=== PATIENT | female | born 1955 | race Caucasian/White ===

== ENCOUNTER 2023-10-13 09:45 | Outpatient (AMB) | payer MEDICARE, OTHER, SELFPAY ==
--- NOTE | 2023-10-13 10:38 | MHC.OFFWIV ---
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 Pt states she just got back from [place] on 10/07. Pt states her friend who she roomed with in [place] tested positive for covid yesterday. Allergies No Known Allergies Allergy (Verified 10/13/23 10:45) HPI HPI Comments History of Present Illness Details 68 y/o female patient who reports to walk in clinic with c/o nausea and body aches. Reports that symptoms started last night. She has just returned from [place] this past wednesday. Reports her Roomate in [place] tested positive for COVID today. Denies fevers or chills. Reports good appetite but endorses feeling Quizzy in her stomach. Review of Systems Const All systems reviewed & are unremarkable except as noted in HPI and below Physical Exam Vital Signs: Last Vital Signs Temp 97.5 F 10/13/23 10:44 Pulse 77 10/13/23 10:44 BP 138/84 10/13/23 10:44 Pulse Ox 98 10/13/23 10:44 Oxygen Delivery Method Room Air 10/13/23 10:44 BMI result Body Mass Index 33.6 Const General: comfortable and no acute distress Nutritional Appearance: obese Orientation/consciousness: patient oriented x3 HEENT Head: Yes normocephalic Ears: external ears normal and TM's normal bilaterally General nose exam: Normal nasal mucous membranes and turbinates present Face and sinus: Yes sinuses nontender Mouth: moist mucous membranes Resp Effort & Inspection: normal respiratory effort and able to speak in complete sentences Auscultation: clear to auscultation bilaterally, no crackles, no rales, no rhonchi and no wheezes Cardio Heart sounds: S1 normal heart sound present and S2 normal heart sound present Neuro General: patient oriented x3 Assessment & Plan Assessment & Plan (1) URI, acute: Code(s): J06.9 - Acute upper respiratory infection, unspecified Plan: Rest and hydrate well with warm fluids OTC cold remedies Acetaminophen for pain relief. Avoid greasy and oily foods. Orders: Orders SARS-CoV2/FLU/RSV Today J06.9 - Acute upper respiratory infection, unspecified Coding Level of Care Code New Pt Level 3 (41400) Diagnoses URI, acute J06.9 Time Spent (min) 15
[2023-10-13 10:44] VITALS: BP 138/84; PULSE 77; TEMP 36.4; O2SAT 98; BMI 33.6
== END 2023-10-13 11:15 | disposition home or self-care (01) ==
PROVIDERS: PCP Student in an Organized Health Care Education/Training Program; Visit Provider Nurse Practitioner Family
DX: J06.9 Acute upper respiratory infection, unspecified (principal)
CPT/HCPCS: 99203

== ENCOUNTER 2023-10-13 10:58 | Outpatient (REF) | payer MEDICARE, OTHER, SELFPAY ==
[2023-10-13 14:13] LABS: Influenza A PCR NEGATIVE (Negative); Influenza B PCR NEGATIVE (Negative); Resp Syncy Virus RNA Qual PCR NEGATIVE (Negative); SARS COV2 PCR INHOUSE POSITIVE (Negative)
== END 2023-10-13 10:59 | disposition home or self-care (01) ==
LOC: HO.LAB 10:58
PROVIDERS: Visit Provider Nurse Practitioner Family
DX: J06.9 Acute upper respiratory infection, unspecified (principal)
CPT/HCPCS: 0241U

== ENCOUNTER 2024-03-16 08:48 | Outpatient (REF) | payer MEDICARE, OTHER, SELFPAY ==
--- OUTSIDE RECORDS SUMMARY | 2024-03-17 09:04 | XMS_ITS | Continuity of Care Document ---
Author Organization [facility], Main Office Address [address] [place] [address] Care Team Providers Care Esthetician Name Role Phone PAT RAMOS Mexican Food Maker Hand ([phone]) [phone] NAYELY RHODES Linen Keeper [facility] Hematology/Oncolo gy LINDA BRITO Primary Care Provider Assessment Encounter Date Assessment Date Assessment LastModified by Organization Details LastModified Time 01/14/2024 01/14/2024 Discussed with patient the signs/symptom s warranted for a return to office visit and/or an ER visit. Patient understood and agreed with the plan. [email or web address] Not available 01/14/2024 09:07:19 Plan of Treatment Reminders Order Date Submit Date Provider Last Modified By Organization Details Last Modified Time Details Appointments None recorded. Lab None recorded. Referral orthopedic surgeon referral - left knee pain with ambulationh x of left knee fx in 2009 024 [email or web address] [facility] [place], [address], 16:49:01 Procedures None recorded. Surgeries None recorded. Imaging XR, knee - left knee pain with ambulation 2023 024 oz [facility], [address] , [place], [address], 07:14:38 Medication Orders None recorded. Patient TargetsNo targets recorded. Patient InstructionsNo instructions recorded. Reason for Referral Orthopedic Surgeon Referral for Knee joint painful on movement left knee pain with ambulationhx of left knee fx in 2009 Referring Physician: Saige Mcgee, Family Medicine, Encounter Date: 01/14/2024 Results Created Date Observation Date Name Description Value Unit Range Abnormal Flag Note LastModifiedBy Organization Detail LastModifiedTime 01/14/2001/14/2024 XR, knee No observ ation record ed. [email or web address] [facility] [address] [place], [address], 01/17/2024 11:38:15 01/14/2001/14/2024 XR, knee, 1 or 2 view Examin ation: Left knee perfor med on 2023 Histor y: Reason : PAIN IN UNSPEC IFIED KNEE. L FLASH PAIN WITH AMBULA TION Findin gs: Fronta l and latera l views of the left knee are submit stevo. There is minima l medial compar tment joint space narrow ing withou t signif icant produc tive change . No fractu res are seen. There is no joint effusi on. Impres mikel: Minima l osteoa rthrit ic change . WSN: [id number] Orderi ng Physic teto: Saige Mcgee Dictat ed By: Keara Lawrence MD Dictat ed Date/T kenny: 10:09 a Review ed By: Keara Lawrence MD Signed By: Keara Lawrence MD Signed Date/T kenny: 10:09 am Transc ribed By: VICTOR M Transc ribed Date/T kenny: 10:08 am Patien t Class: Outpat ient [email or web address] ([facility]) [address] [place], [address], 02/02/2024 10:15:24 Result Notes None recorded. Problems Name Problem SNOMED Code Status Onset Date Resolution Date Notes Provider Name and Address Organization Details Recorded Time Non-Hodg kin's lymphoma (clinica l) 185255819 Completed 201705/20/2020 dx in 2014 right cheeck and right groin and back of neck, tx with radiation Rosie franco null, [facility] 1 09:25:38 Obesity 096349343 Active Mena Rios CPPM null, [facility] 0 10:55:57 Family history of diabetes mellitus 349910820 Completed 09/09/2022 LINDA BRITO MD [address], [place], [address], [facility] 3 18:58:50 History of non-Hodg kins lymphoma 837097074 Active 2020 Rosie franco null, [facility] 1 09:25:32 Osteopor osis 23166192 Completed 202109/19/2023 LINDA BRITO MD [address] [address], [place], [address], [facility] 4 14:18:04 Osteopen ia 353101665 Active 2023 LINDA BRITO MD [address], [place], [address], [facility] 4 14:18:14 Hyperlip idemia 03110983 Active 2023 LINDA BRITO MD [address] [address], [place], [address], [facility] 4 14:19:50 Statin declined 211406664 Active 2023 LINDA BRITO MD [address] [facility] [address], [place], [address], [facility] 4 14:19:52 Senile osteopor osis 14425647 Active Ly Cloeman [place] null, [facility] 4 10:19:18 Problem Notes None recorded. Procedures Surgical History Date Name Laterality Status Provider Name and Address Organization Details Recorded Time 09/20/19 24 Advanced Care Planning completed LINDA BRITO MD [address] [address], [place], [address], [facility] 09/19/2023 14:15:24 06/11/19 24 Most Recent Mammogram completed Elif Ballard [facility] 06/11/2023 14:50:11 06/11/19 24 Mammogram both breasts completed Elif Ballard [facility] 06/11/2023 14:50:06 09/11/19 23 Advanced Care Planning completed Ly Coleman MA [facility] 2022 13:46:55 08/29/19 22 Advanced Care Planning completed Ly Coleman MA [facility] 08/28/2021 15:09:18 06/14/19 22 Mammogram one breast completed Adelita Miles [facility] 07/03/2021 13:11:24 05/21/19 21 Six-Item Cognitive Test completed Bernadette Braga MA [facility] 05/20/2020 09:01:49 05/19/19 20 Mini-Cog Test completed Ly Coleman MA [facility] 05/19/2019 13:28:37 11/03/19 18 Date of Last Pap Smear completed Ly Coleman MA [facility] 05/19/2019 13:35:30 07/15/19 18 Date of Last Colonoscopy completed Zayra Kumar [facility] 07/14/2017 15:13:59 07/15/19 18 Colonoscopy completed Zayra Kumar [facility] 07/14/2017 15:13:52 11/11/19 16 Most Recent Bone Density completed Zayra Kumar [facility] 06/09/2017 11:45:50 11/11/19 16 Dxa bone density mignon vrt fx completed Zayra Kumar [facility] 06/09/2017 11:45:44 05/07/18 92 Caesarean Section completed Ly Coleman MA [facility] 08/28/2021 15:08:40 Imaging Results None recorded. Procedure Notes None recorded. Medical Equipment None Reported. Allergies Allergen ID Allergen Name Allergen Category Reaction Reaction Severity Criticality Documentation Date Start Date Code Code System Note Provider Name and Address Organization Details Recorded Time [address] No known allergy (situatio n) Not available Not available Not available Not available 09/20/2023 61084 6003 SNOMED EL Hidalgo, [facility] 4 10:19:10 No known drug allergies Medications Name Sig Start Date Stop Date Status Note LastModified by Organization Details LastModified Time valacyclovi r 1 gram tablet TAKE 1 TABLET BY MOUTH THREE TIMES A DAY FOR 7 DAYS (DRINK WITH PLENTY OF WATER) 05/20 completed Not Available Not Available Not Available alendronate 70 mg tablet TAKE 1 TABLET (70 MG TOTAL) BY MOUTH EVERY 7 DAYS active Not Available Not Available No t Available prednisone 50 mg tablet Take 100 mg by oral route. 05/19 completed Not Available Not Available Not Available Condylox 0.5 % topical gel PLEASE SEE ATTACHED FOR DETAILED DIRECTION S 09/10 completed Not Available Not Available Not Available omeprazole 20 mg capsule,del ayed release Take 20 mg by oral route. 05/19 completed Not Available Not Available Not Available magnesium 250 mg tablet Take 1 tablet every day by oral route. active Not Available Not Available No t Available Calcium-500 500 mg (as calcium carbonate 1,250 mg) tablet Take 1 tablet every day by oral route. 01/13 completed Not Available Not Available Not Available Vitamin D3 25 mcg (1,000 unit) capsule Take 1 capsule every day by oral route. 09/19 completed Not Available Not Available Not Available calcium 500 mg (as carbonate)- vit D3 10 mcg (400 unit) chewable tablet Take 1 {tbl} twice a day by oral route. 09/19 completed Not Available Not Available Not Available Calcium 500 1200 po prn 05/20 completed Not Available Not Available Not Available cholecalcif manuela (vitamin D3) 25 mcg (1,000 unit) tablet 1000 units by oral route. active Not Available Not Available No t Available Calcium 600 + D(3) 600 mg-10 mcg (400 unit) tablet Take 2 tablets every day by oral route. active Not Available Not Available No t Available GaviLyte-G 236 gram-22.74 gram-6.74 gram-5.86 gram oral solution 11/15 completed Not Available Not Available Not Available Lumigan 0.01 % eye drops 1 dtop each eye at HS active Not Available Not Available No t Available Fish Oil 1,200 mg (144 mg-216 mg) capsule Take 1 capsule every day by oral route. active Not Available Not Available No t Available Vitals Date Recorded Body height Body mass index (BMI) Body weight Heart rate Oxygen saturation Oxygen saturation in Arterial blood by Pulse oximetry Body temperature Systolic blood pressure Diastolic blood pressure Provider Name and Address Organization Details Last Updated DateTime 4 163.83 cm 32.3 kg/m2 91598.2 4 g 69 /min 98 % 98 % 97.8 [degF] 123 mm[Hg] 76 mm[Hg] Janeen Ellis LPN [facility] 4 09:03:22 Social History Question Answer Notes LastModified by Organizat ion Details LastModified Time Tobacco Smoking Status Never Smoker EL Hidalgo, [facility] 05/13/2017 14:51:41 Do You Have An Advance Directive? No [email or web address] Information not available 08/28/2021 What Is Your Level Of Alcohol Consumption? Occasional [email or web address] Information not available 05/13/2017 Is Blood Transfusion Acceptable In An Emergency? Yes [email or web address] Information not available 05/13/2017 What Is Your Level Of Caffeine Consumption? Occasional Very Rare [email or web address] Information not available 2022 How Much Tobacco Do You Chew? None Information not available 05/20/2020 Are You Currently Employed? No [email or web address] Information not available 08/28/2021 What Type Of Diet Are You Following? REGULAR [email or web address] Information not available 05/13/2017 Which Illicit Or Recreational Drugs Have You Used? None Information not available 05/20/2020 Do You Or Have You Ever Used E-cigarettes Or Vape? 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 Alone With Dog Information not available 2022 Do You Take Precautions To Prevent Distracted Driving? Yes [email or web address] Information not available 05/13/2017 How Often Do You Need To Have Someone Help You When You Read Instructions, Pamphlets, Or Other Written Material From Your Doctor Or Pharmacy? Never Information not available 05/20/2020 Have You Served In The ? No [email or web address] Information not available 05/13/2017 Have You Or Anyone In Your Household Had Any Of The Following Symptoms In The Last 14 Days: Sore Throat, Cough, Chills, Body Aches For Unknown Reasons, Shortness Of Breath For Unknown Reasons, Loss Of Smell, Loss Of Taste, Fever At Or Greater Than 100 Degrees Fahrenheit? No Information not available 05/20/2020 Are You Or Anyone In Your Household A Health Care Provider Or Emergency Responder? No Information not available 05/20/2020 To The Best Of Your Knowledge Have You Been In Close Proximity To Any Individual Who Tested Positive For COVID-19? No Information not available 05/20/2020 *AWV ONLY* Are You Presently Prescribed Opioid Medication By PCP Or Specialist? If YES -Provider Assess The Benefit For Other, Non-opioid Pain Therapies Instead, Even If The Patient Does Not Have OUD But Is Possibly At Risk. No Information not available 05/20/2020 Have You Recently Traveled To A COVID-19 High Risk Area Or Gathering In The Last 10 Days? No Information not available 05/20/2020 What Was The Date Of Your Most Recent Tobacco Screening? 09/20/2023 [email or web address] Information not available 09/20/2023 How Many Children Do You Have? 1 [email or web address] Information not available 05/13/2017 Do You Use Your Seat Belt Or Car Seat Routinely? Yes Information not available 08/28/2021 Seat Belts Used Routinely Yes [email or web address] Information not available 08/28/2021 Are You Sexually Active? No Information not available 05/20/2020 Smoke Alarm In Home Yes Information not available 08/28/2021 Do You Have Smoke And Carbon Monoxide Detectors In Your Home? Yes [email or web address] Information not available 08/28/2021 At What Age Did You Start Smoking Tobacco? 0 Information not available 05/20/2020 Are You Passively Exposed To Smoke? No [email or web address] Information not available 05/13/2017 Do You Or Have You Ever Used Smokeless Tobacco? Never Used Smokeless Tobacco Information not available 05/20/2020 How Much Tobacco Do You Smoke? No Information not available 05/20/2020 Do You Use Sunscreen Routinely? Yes [email or web address] Information not available 05/13/2017 How Many Years Have You Smoked Tobacco? 0 Information not available 05/20/2020 Sex: Unknown Functional Status Question Answer Note LastModified by Organizat ion Details LastModified Time Are you able to walk? YESWOREST [email or web address] Information not available 08/28/2021 Are you able to care for yourself? Yes [email or web address] Information not available 05/13/2017 What is your exercise level? Moderate walks 10-35 minutes 5 days a week,exerise s that PT gives her Information not available 2022 Mental Status None recorded. Family History Relationship Description Onset Age of this Age Resolved Age Notes LastModified by Organization Details LastModified Time Father Malignant lymphoma 54 [email or web address] Not available 08/28 15:03:07 Mother Diabetes mellitus [email or web address] Not available 2020 08:54:56 Daughter Diabetes mellitus [email or web address] Not available 2020 08:54:56 Notes:No FH of breast or col on cancer Medical History Condition Response Other N Gout N Kidney Stones N Blood Diseases N Hyperthyroidism N Breast Cancer N COPD N Depression N Hypothyroidism N Lung Disease N Defects or Inherited Disease N Anesthesia Complications N Headaches/Migraines N Varicose Veins N Anxiety Disorder N Obesity N Vision or Eye Problems N Arthritis N Head Injury/Concussion N Infertility N Polyps N Congenital Anomalies N Acid Reflux (GERD) N Cancer Y Stroke N ADHD N Endometriosis N High Cholesterol N Liver Disease N Fibromyalgia N Kidney Disease N Heart Problems N Ear or Hearing Problems N Hospitalizations N Thyroid Problems N GI Problems N Acne N Skin Problems N Eating Disorder N Anemia N Constipation N Bladder Problems N Mental Illness N Ovarian Cancer N Diabetes N Blood Transfusions N Seizures/Epilepsy N Tuberculosis N AIDS/HIV N Congestive Heart Failure (CHF) N Eczema N Diverticulitis N Abuse/Domestic Violence N Asthma N Allergies N Reflux/GERD N Hepatitis N Pulmonary Embolism N Hypertension N Osteoporosis N Chicken Pox N Autism Spectrum Disorder (ASD) N Gynecological History Statement/Question Response Date of Last Pap Smear 11/02/2017 Date of Last Colonoscopy 07/14/2017 Most Recent Mammogram 06/11/2023 Most Recent Bone Density 11/11/2015 Obstetrics History GPAL:G 0 P 0 0 0 0 Immunizations Vaccine Type Date Status Note Provider Nam e and Address Organization Details Recorded Time Tdap 3 completed Not Available [facility] 04/22/2023 14:06:04 Influenza, split virus, quadrivalent, preservative 8 completed Not Available [facility] 04/22/2023 14:06:03 Influenza, split virus, trivalent, preservative 8 completed Not Available [facility] 04/22/2023 14:06:04 COVID-19, mRNA, LNP-S, PF, 30 mcg/0.3 mL dose 1 completed Not Available [facility] 04/22/2023 14:06:04 COVID-19, mRNA, LNP-S, PF, 30 mcg/0.3 mL dose 1 completed Not Available [facility] 04/22/2023 14:06:04 pneumococcal polysaccharide PPV23 2 completed Not Available [facility] 04/22/2023 14:06:04 Tdap 5 completed Not Available [facility] 04/22/2023 14:06:04 zoster recombinant 1 completed Not Available [facility] 04/22/2023 14:06:03 Pneumococcal conjugate PCV 13 1 completed Not Available [facility] 04/22/2023 14:06:04 COVID-19, mRNA, LNP-S, PF, 30 mcg/0.3 mL dose 1 completed Not Available [facility] 04/22/2023 14:06:04 Influenza, adjuvanted, quadrivalent, PF 1 completed Not Available [facility] 04/22/2023 14:06:03 Influenza, recombinant, quadrivalent, PF 0 completed Not Available [facility] 04/22/2023 14:06:03 COVID-19, mRNA, LNP-S, PF, 30 mcg/0.3 mL dose, maximino-sucrose 2 completed Not Available [facility] 04/22/2023 14:06:04 zoster recombinant 1 completed Not Available [facility] 04/22/2023 14:06:03 Influenza, adjuvanted, quadrivalent, PF 2 completed Not Available [facility] 04/22/2023 14:06:04 COVID-19, mRNA, LNP-S, bivalent, PF, 30 mcg/0.3 mL dose 2 completed Not Available [facility] 04/22/2023 14:06:04 Influenza, adjuvanted, quadrivalent, PF 3 completed EL Hidalgo [facility] 09/20/2023 10:25:21 Past Encounters Encounter ID Performer Location Encounter Start Date Encounter Closed Date Diagnosis/Indication Diagnosis SNOMED-CT Code Diagnosis ICD10 Code [id number] Maddi Tay Main Office [address] [facility] [place] [address] 01/14/2024 08:45:59 01/14/2024 09:21:43 Knee joint painful on movement 861705914 M25.562 Health Concerns Section Related Observation LastModified by Organization Detai ls LastModified Time None Recorded Concern Status LastModified by Organization Details LastModified Time None Recorded Payers Encounter Date Sequence Insurance Name Policy Number Policy Conte Covered Member ID Conte Member ID Guarantor Name 01/14/2024 2 [facility] MEDICARE ENHANCE (INDEMNITY PLAN) Zafar Durbin [id number] Zafar Durbin 01/14/2024 1 [place]: [employer] Zafar Durbin [id number] Zafar Durbin Notes Date Note Type Note Provider Name and Address Organization Details Recorded Time 01/14/2024 text/html Zafar is a 68yr o ld F who presents for bilateral knee pain, L>R. Hx of left knee fx in 2009->immobilized brace. Pt reports she had multple falls to the left knee over the years. Reports she has been attending PT for the past year to strengthen/tone her lower extremities and knees. Reports of feeling left knee pain and behind the knee stiffness after ambulating 20 min. Hx of avid hiker. Denies of any swelling, erythema, or known arthritis in joints. Denies of any pain/discomfort with flexion/extension of knees. Pt does wear a knee brace which provides some relief. Maddi goddard [facility] 01/25/2024 07:14:42 OBGyn Episode No OBEpisode recorded.
--- OUTSIDE RECORDS SUMMARY | 2024-03-17 09:04 | XMS_ITS | Data Portability ---
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 Patient consented to telephone visit Patient was located at at home Provider was located in the office. No other persons participated in the telemedicine visit except for the patient unless otherwise indicated here. {{}} Total time of visit was 30 minutes. [email or web address] Not available 05/20/2020 09:44:27 01/14/2024 01/14/2024 Discussed with patient the signs/symptoms warranted for a return to office visit and/or an ER visit. Patient understood and agreed with the plan. [email or web address] Not available 01/14/2024 09:07:19 Plan of Treatment Reminders Order Date Submit Date Provider Last Modified By Organization Details Last Modified Time Details Appointments None recorded. Lab cholesterol , total, serum 2020 021 [place] [facility], [address] [place], [address], 09:45:11 LDL, serum 2020 021 [place] [facility], [address] [place], [address], 1 09:45:11 LDL, serum 2021 022 [place] [facility], [address] [place], [address], 2 15:32:24 cholesterol , total, serum 2021 022 [place] [facility], [address] [place], [address], 2 15:32:25 BMP, serum or plasma 2021 022 [place] [facility], [address] [place], [address], 2 15:32:25 lipid panel, serum 2022 023 [email or web address] [facility], [address] [place] [address], [place], [address], 3 14:41:17 BMP, serum or plasma 2022 023 [place] [facility], [address] [place] [address], [place], [address], 3 11:43:36 TSH, serum or plasma 2022 023 [place] [facility], [address] [place] [address], [place], [address], 3 11:46:35 lipid panel, serum 2023 024 [place] [facility], [address], [place], [address], 4 06:07:54 BMP, serum or plasma 2023 024 [place] [facility], [address], [place], [address], 4 06:07:53 CBC w/ auto diff 2023 024 [place] [facility], [address], [place], [address], 4 06:07:52 TSH, ultra-sensi tive, serum 2023 024 [place] [facility], [address], [place], [address], 4 06:07:55 HbA1c (hemoglobin A1c), blood 2023 024 [place] [facility], [address], [place], [address], 4 06:07:55 Referral gynecologis t referral - Patient to schedule 2020 021 [email or web address] Not available 12:05:[address] referral - rash on abdomen 2021 022 thong [facility], [address], [address], [place], [address], 2 09:34:53 nutritionis t/dietitian referral 2021 022 [email or web address] Not available 2 16:01:20 orthopedic surgeon referral - left knee pain with ambulationh x of left knee fx in 2009 024 [email or web address] [facility], [address] [place] [address] [place], [address], 4 16:49:01 Procedures None recorded. Surgeries None recorded. Imaging bone density - hx of osteopenia evaluate 2020 021 [email or web address] Not available 1 12:05:51 XR, knee - left knee pain with ambulation 2023 024 oz [facility], [address], [place], [address], 07:14:38 Medication Orders None recorded. Patient TargetsNo targets recorded. Patient Instructions Encounter Date Encounter Id Patient Instructions Last Modified By Organization Details Last Modified Time 05/20/2020 [id number] preventing falls: care instructions [email or web address] Not available 05/20/2020 09:42:51 medicare preventive services guide (female 74yrs and under) [email or web address] Not available 05/20/2020 09:42:50 Cervical Cancer Screening [email or web address] Not available 05/20/2020 09:42:51 08/28/2021 [id number] advance care planning: care instructions [email or web address] Not available 08/28/2021 15:32:13 osteoporosis: care instructions [email or web address] Not available 08/28/2021 15:42:21 preventing falls: care instructions [email or web address] Not available 08/28/2021 15:32:13 medicare preventive services guide (female 74yrs and under) [email or web address] Not available 08/28/2021 15:32:13 skin lesions: care instructions [email or web address] Not available 08/28/2021 15:47:10 starting a weight loss plan: care instructions [email or web address] Not available 08/28/2021 15:32:12 Nutrition Referral and Weight Management Follow-up Information [email or web address] Not available 08/28/2021 15:32:12 2022 [id number] advance care planning: care instructions Not available 2022 14:26:39 well visit, over 65: care instructions Not available 2022 14:26:40 preventing falls: care instructions Not available 2022 14:26:40 09/20/2023 [id number] advance care planning: care instructions Not available 09/20/2023 10:41:21 osteoporosis: care instructions Not available 09/20/2023 10:41:21 well visit, over 65: care instructions Not available 09/20/2023 10:41:21 preventing falls: care instructions Not available 09/20/2023 10:41:20 prediabetes: care instructions Not available 09/20/2023 10:41:21 starting a weight loss plan: care instructions Not available 09/20/2023 10:49:58 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 Referral for Sc reening for malignant neoplasm of cervix Patient to schedule Referring Physician: Rosie Jacob [facility], Encounter Date: 05/20/2020 Tmd Teacher/dietitian Refer ral for Body mass index 30+ - obesity Referring Physician: Rosie Jacob [facility], Encounter Date: 08/28/2021 Esthetician And Manager [employer] Referral for S kin lesion rash on abdomen Referring Physician: Rosie Jacob [facility], Encounter Date: 08/28/2021 Orthopedic Surgeon Referral for Knee joint painful on movement left knee pain with ambulationhx of left knee fx in 2009 Referring Physician: Saige Mcgee [facility], Encounter Date: 01/14/2024 Results Created Date Observation Date Name Description Value Unit Range Abnormal Flag Note LastModifiedBy Organization Detail LastModifiedTime 09/30/19 23 09/29/2022 BASIC METAB OLIC PANEL glucose 112 mg/dL (70-99 ) high Not Available [facility] [address] [place], [address], 09/29/2022 11:43:36 09/30/19 23 09/29/2022 BASIC METAB OLIC PANEL BUN 20 mg/dL (8-23) Not Available [facility] [address] [place], [address], 09/29/2022 11:43:36 09/30/19 23 09/29/2022 BASIC METAB OLIC PANEL creatinine 0.9 mg/dL (0.5-1 .0) Not Available [facility] [address] [place], [address], 09/29/2022 11:43:36 09/30/19 23 09/29/2022 BASIC METAB OLIC PANEL sodium 140 mmol/ L (133-1 45) Not Available [facility] [address] [place], [address], 09/29/2022 11:43:36 09/30/19 23 09/29/2022 BASIC METAB OLIC PANEL potassium 4.5 mmol/ L (3.6-5 .2) Not Available [facility] [address] [place], [address], 09/29/2022 11:43:36 09/30/19 23 09/29/2022 BASIC METAB OLIC PANEL chloride 105 mmol/ L (98-10 7) Not Available [facility] [address] [place], [address], 09/29/2022 11:43:36 09/30/19 23 09/29/2022 BASIC METAB OLIC PANEL bicarbonate 25 mmol/ L (22-29 ) Not Available [facility] [address] [place], [address], 09/29/2022 11:43:36 09/30/19 23 09/29/2022 BASIC METAB OLIC PANEL anion gap 10 (4-17) Not Available [facility] [address] [place], [address], 09/29/2022 11:43:36 09/30/19 23 09/29/2022 BASIC METAB OLIC PANEL calcium 10.1 mg/dL (8.6-1 0.5) Not Available [facility] [address] [place], [address], 09/29/2022 11:43:36 09/30/19 23 09/29/2022 BASIC METAB OLIC PANEL estimated GFR creatinine 67 mL/mi n/1.7 3_M2 Creat inine based estim ated glome rular filtr ation (eGFR ) in adult s is calcu lated using the Natio nal Kidne y Found ation recom shea d 2020 CKD-E PI equat ion. Estim ates GFR from serum creat inine , age and sex. Not Available [facility] [address] [place], [address], 09/29/2022 11:43:36 09/30/19 23 09/29/2022 LIPID PANEL cholesterol, total 224 mg/dL (<200) high Not Available [facility] [address] [place], [address], 09/29/2022 11:43:38 09/30/19 23 09/29/2022 LIPID PANEL triglyceride 124 mg/dL (<150) Not Available [facility] [address] [place], [address], 09/29/2022 11:43:38 09/30/19 23 09/29/2022 LIPID PANEL HDL chol 53 mg/dL (>39) Not Available [facility] [address] [place], [address], 09/29/2022 11:43:38 09/30/19 23 09/29/2022 LIPID PANEL LDL cholesterol, calculated 146 mg/dL (0-130 ) high Not Available [facility] [address] [place], [address], 09/29/2022 11:43:38 09/30/19 23 09/29/2022 LIPID PANEL non HDL cholesterol (calc) 171 mg/dL (<160) high Not Available [facility] [address] [place], [address], 09/29/2022 11:43:38 09/30/19 23 09/29/2022 TSH WITH REFLE X TO FT4 TSH 3.41 uIU/m L (0.4-4 .2) Not Available [facility] [address] [place], [address], 09/29/2022 11:46:35 09/20/19 24 09/21/2023 CBC WITH DIFFE RENTI AL/PL ATELE T WBC 6.3 x10e3 /uL 3.4-10 .8 Not Available [facility] ([facility]) [address], [place], [address], 09/21/2023 06:07:52 09/20/19 24 09/21/2023 CBC WITH DIFFE RENTI AL/PL ATELE T RBC 4.49 x10e6 /uL 3.77-5 .28 Not Available [facility] ([facility]) [address], [place], [address], 09/21/2023 06:07:52 09/20/19 24 09/21/2023 CBC WITH DIFFE RENTI AL/PL ATELE T hemoglobin 13.5 g/dL 11.1-1 5.9 Not Available [facility] ([facility]) [address], [place], [address], 09/21/2023 06:07:52 09/20/19 24 09/21/2023 CBC WITH DIFFE RENTI AL/PL ATELE T hematocrit 42.4 % 34.0-4 6.6 Not Available [facility] ([facility]) [address], [place], [address], 09/21/2023 06:07:52 09/20/19 24 09/21/2023 CBC WITH DIFFE RENTI AL/PL ATELE T MCV 94 fL 79-97 Not Available [facility] ([facility]) [address] [place], [address], 09/21/2023 06:07:52 09/20/19 24 09/21/2023 CBC WITH DIFFE RENTI AL/PL ATELE T MCH 30.1 pg 26.6-3 3.0 Not Available [facility] ([facility]) [address] [place], [address], 09/21/2023 06:07:52 09/20/19 24 09/21/2023 CBC WITH DIFFE RENTI AL/PL ATELE T MCHC 31.8 g/dL 31.5-3 5.7 Not Available [facility] ([facility]) [address] [place], [address], 09/21/2023 06:07:52 09/20/19 24 09/21/2023 CBC WITH DIFFE RENTI AL/PL ATELE T RDW 13.2 % 11.7-1 5.4 Not Available [facility] ([facility]) [address], [place], [address], 09/21/2023 06:07:52 09/20/19 24 09/21/2023 CBC WITH DIFFE RENTI AL/PL ATELE T platelets 210 x10e3 /uL 150-45 0 Not Available [facility] ([facility]) [address], [place], [address], 09/21/2023 06:07:52 09/20/19 24 09/21/2023 CBC WITH DIFFE RENTI AL/PL ATELE T neutrophils 55 % not estab. Not Available [facility] ([facility]) [address], [place], [address], 09/21/2023 06:07:52 09/20/19 24 09/21/2023 CBC WITH DIFFE RENTI AL/PL ATELE T lymphs 31 % not estab. Not Available [facility] ([facility]) [address], [place], [address], 09/21/2023 06:07:52 09/20/19 24 09/21/2023 CBC WITH DIFFE RENTI AL/PL ATELE T monocytes 10 % not estab. Not Available [facility] ([facility]) [address], [place], [address], 09/21/2023 06:07:52 09/20/19 24 09/21/2023 CBC WITH DIFFE RENTI AL/PL ATELE T eos 3 % not estab. Not Available [facility] ([facility]) [address], [place], [address], 09/21/2023 06:07:52 09/20/19 24 09/21/2023 CBC WITH DIFFE RENTI AL/PL ATELE T basos 1 % not estab. Not Available [facility] ([facility]) [address], [place], [address], 09/21/2023 06:07:52 09/20/19 24 09/21/2023 CBC WITH DIFFE RENTI AL/PL ATELE T immature cells SKIVING MACHINE OPERATOR Not Available [facility] ([facility]) [address], [place], [address], 09/21/2023 06:07:52 09/20/19 24 09/21/2023 CBC WITH DIFFE RENTI AL/PL ATELE T neutrophils (absolute) 3.5 x10e3 /uL 1.4-7. 0 Not Available [facility] ([facility]) [address], [place], [address], 09/21/2023 06:07:52 09/20/19 24 09/21/2023 CBC WITH DIFFE RENTI AL/PL ATELE T lymphs (absolute) 2.0 x10e3 /uL 0.7-3. 1 Not Available [facility] ([facility]) [address], [place], [address], 09/21/2023 06:07:52 09/20/19 24 09/21/2023 CBC WITH DIFFE RENTI AL/PL ATELE T monocytes(ab solute) 0.6 x10e3 /uL 0.1-0. 9 Not Available [facility] ([facility]) [address], [place], [address], 09/21/2023 06:07:52 09/20/19 24 09/21/2023 CBC WITH DIFFE RENTI AL/PL ATELE T eos (absolute) 0.2 x10e3 /uL 0.0-0. 4 Not Available [facility] ([facility]) [address], [place], [address], 09/21/2023 06:07:52 09/20/19 24 09/21/2023 CBC WITH DIFFE RENTI AL/PL ATELE T baso (absolute) 0.1 x10e3 /uL 0.0-0. 2 Not Available [facility] ([facility]) [address], [place], [address], 09/21/2023 06:07:52 09/20/19 24 09/21/2023 CBC WITH DIFFE RENTI AL/PL ATELE T immature granulocytes 0 % not estab. Not Available [facility] ([facility]) [address], [place], [address], 09/21/2023 06:07:52 09/20/19 24 09/21/2023 CBC WITH DIFFE RENTI AL/PL ATELE T immature grans (abs) 0.0 x10e3 /uL 0.0-0. 1 Not Available [facility] ([facility]) [address], [place], [address], 09/21/2023 06:07:52 09/20/19 24 09/21/2023 CBC WITH DIFFE RENTI AL/PL ATELE T NRBC SKIVING MACHINE OPERATOR Not Available [facility] ([facility]) [address], [place], [address], 09/21/2023 06:07:52 09/20/19 24 09/21/2023 CBC WITH DIFFE RENTI AL/PL ATELE T hematology comments: SKIVING MACHINE OPERATOR Not Available [facility] ([facility]) [address], [place], [address], 09/21/2023 06:07:52 09/20/19 24 09/21/2023 BASIC METAB OLIC PANEL (8) glucose 105 mg/dL 70-99 above high normal Not Available [facility] ([facility]) [address], [place], [address], 09/21/2023 06:07:53 09/20/19 24 09/21/2023 BASIC METAB OLIC PANEL (8) BUN 17 mg/dL 8-27 Not Available [facility] ([facility]) [address] [place], [address], 09/21/2023 06:07:53 09/20/19 24 09/21/2023 BASIC METAB OLIC PANEL (8) creatinine 0.86 mg/dL 0.57-1 .00 Not Available [facility] ([facility]) [address] [place], [address], 09/21/2023 06:07:53 09/20/19 24 09/21/2023 BASIC METAB OLIC PANEL (8) eGFR 73 mL/mi n/1.7 3 >59 Not Available [facility] ([facility]) [address] [place], [address], 09/21/2023 06:07:53 09/20/19 24 09/21/2023 BASIC METAB OLIC PANEL (8) BUN/creatini ne ratio 20 12-28 Not Available [facility] ([facility]) [address], [place], [address], 09/21/2023 06:07:53 09/20/19 24 09/21/2023 BASIC METAB OLIC PANEL (8) sodium 143 mmol/ L 134-14 4 Not Available [facility] ([facility]) [address] [place] [place], [address], 09/21/2023 06:07:53 09/20/19 24 09/21/2023 BASIC METAB OLIC PANEL (8) potassium 4.5 mmol/ L 3.5-5. 2 Not Available [facility] ([facility]) [address] [place], [address], 09/21/2023 06:07:53 09/20/19 24 09/21/2023 BASIC METAB OLIC PANEL (8) chloride 105 mmol/ L 96-106 Not Available [facility] ([facility]) [address] [place], [address], 09/21/2023 06:07:53 09/20/19 24 09/21/2023 BASIC METAB OLIC PANEL (8) carbon dioxide, total 22 mmol/ L 20-29 Not Available [facility] ([facility]) [address] [place] [place], [address], 09/21/2023 06:07:53 09/20/19 24 09/21/2023 BASIC METAB OLIC PANEL (8) calcium 9.5 mg/dL 8.7-10 .3 Not Available [facility] ([facility]) [address] [place] [place], [address], 09/21/2023 06:07:53 09/20/19 24 09/21/2023 LIPID PANEL cholesterol, total 198 mg/dL 100-19 9 Not Available [facility] ([facility]) [address] [place] [place], [address], 09/21/2023 06:07:54 09/20/19 24 09/21/2023 LIPID PANEL triglyceride s 94 mg/dL 0-149 Not Available [facility] ([facility]) [address] [place] [place], [address], 09/21/2023 06:07:54 09/20/19 24 09/21/2023 LIPID PANEL HDL cholesterol 54 mg/dL >39 Not Available [facility]) [address] [place] [place], [address], 09/21/2023 06:07:54 09/20/19 24 09/21/2023 LIPID PANEL VLDL cholesterol donavon 17 mg/dL 5-40 Not Available [facility] ([facility]) [address] [place], [address], 09/21/2023 06:07:54 09/20/19 24 09/21/2023 LIPID PANEL LDL chol calc ([facility]) 127 mg/dL 0-99 above high normal Not Available [facility] ([facility]) [address] [place], [address], 09/21/2023 06:07:54 09/20/19 24 09/21/2023 LIPID PANEL LDL calc comment: SKIVING MACHINE OPERATOR Not Available [facility] ([facility]) [address], [place], [address], 09/21/2023 06:07:54 09/20/19 24 09/21/2023 HEMOG LOBIN A1C hemoglobin A1C 6.2 % 4.8-5. 6 above high normal Predi abete s: 5.7 - 6.4 Diabe tom: >6.4 Glyce maria elena contr ol for adult s with diabe tom: <7.0 Not Available [facility] ([facility]) [address], [place], [address], 09/21/2023 06:07:55 09/20/19 24 09/21/2023 TSH RFX ON ABNOR MAL TO FREE T4 TSH 2.730 uIU/m L 0.450- 4.500 Not Available [facility] ([facility]) [address], [place], [address], 09/21/2023 06:07:55 05/17/19 21 05/17/2020 MAMMO , scree susana, digit al, bilat eral PROCED URE: MM Digita l Mammo Screen ing INDICA TION: Screen ing for breast cancer . No known palpab le abnorm alitie s. Histor y of bilate ral axilla ry lymph node biopsi es 2018 reveal ing follic ular lympho ma. COMPAR PARVIZ: Multip le priors , most recent 04/26/19. TECHNI QUE: Full-f ield digita l CC and MLO 3D tomosy nthesi s images of both breast s were acquir ed. Comput er-aid ed detect ion (CAD) was utiliz ed in the interp retati on of this study. DENSIT Y: The breast tissue contai ns scatte red areas of fibrog landul ar densit y. FINDIN GS: No suspic ious masses , suspic ious microc alcifi cation s, or areas of caterina ectura l distor tion are seen in either breast to sugges t malign true. Signif icant decrea se in previo usly seen axilla ry lympha denopa thy. Saturn -shape d clip at the site of previo us ultras ound guided lymph node core biopsy IMPRES MIKEL: No mammog raphic eviden ce of malign true. RECOMM ENDATI ON: Annual mammog raphic screen ing BI-RAD S: 2 (Benig n) Lay letter mailed to alyciahakan melissa I have person ally review ed the images and I agree with this report . WSN: [id number] Orderi ng Physic teto: Augustine saeed MD, Rosie Mcbride Dictat ed By: Ata sommer MD, Warner Dictat ed Date/T kenny: 3:53 pm Review ed By: Carlos DYER, Sunshine Chi Signed By: Sunshine Gonzalez MD Signed Date/T kenny: 3:58 pm Transc ribed By: CSB Transc riptio n Date/T kenny: 3:05 pm Birads : Carrie torres Class: Outpat ient [email or web address] [facility] ([facility]) [address], [place], [address], 05/20/2020 10:19:52 08/31/19 21 08/29/2020 DEXA, axial skele ton ====== ====== ====== ====== ====== ====== ====== ====== ====== ====== ===== Bone Densit y Report ====== ====== ====== ====== ====== ====== ====== ====== ====== ====== ===== Name: ZAFAR BRADEN ID: [id number] Age: 64 Sex: Female Ethnic ity: White Date of : 06/22/ 1956 ------ ------ ------ ------ ------ ------ ------ ------ ------ ------ ----- Indica tion: CIRO VICTORIA Referr nickolas Campbell er: AUGUSTINE SAEED MD, LIS Study: Bone densit ometry was perfor med. Exam Date: August 29, 2020 Access ion number : [id number] Bone Densit y: ------ ------ ------ ------ ------ ------ ------ ------ ------ ------ ----- Region BMD T-scor e Z-scor e Classi ficati on ------ ------ ------ ------ ------ ------ ------ ------ ------ ------ ----- AP Spine (L1-L4 ) 0.751 -2.7 -0.8 Osteop orosis Femora l Neck (Left) 0.582 -2.4 -0.8 Osteop enia Total Hip (Left) 0.690 -2.1 -0.7 Osteop enia ------ ------ ------ ------ ------ ------ ------ ------ ------ ------ ----- World Health Organi zation criter ia for BMD impres mikel classi dinora betts ts as: Normal (T-sco re at or above -1.0), Osteop enia (T-sco re betwee n -1.0 and -2.5), or Osteop orosis (T-sco re at or below -2.5). 10-maria guadalupea geneva Fractu re Risk: ------ ------ ------ ------ ------ ------ ------ ------ ------ ------ ----- FRAX not report ed kael e: Some T-scor e for Spine Total or Hip Total or Femora l Neck at or below -2.5 ------ ------ ------ ------ ------ ------ ------ ------ ------ ------ ----- Clinic al Inform ation Provid ed by Carrie torres: ------ ------ ------ ------ ------ ------ ------ ------ ------ ------ ----- Has used the follow ing medica tions: Vitami n D, Calciu m, CHEMOT HERAPY Has the follow ing medica l condit ions: Cancer Carrie fu height was 64.0 Menopa use Age: 50 Onset of menses at age 11 Number of childr en 1 ------ ------ ------ ------ ------ ------ ------ ------ ------ ------ ----- Impres mikel: The carrie torres has osteop orosis as determ ined by WHO criter ia. Based on the result s of the carrie torres's bone densit y assess ment, the risk of future fractu re increa ses approx imatel y two fold for each 1.0 SD decrea se in T-scor e. Jimmy chi, low BMD is not the only risk factor for a future fragil ity fractu re. Other clinic al risk factor s for osteop orotic fractu re should be consid ered in ascert aining this carrie torres's future fractu re risk includ ing the patien t's age, previo us osteop orotic (fragi lity) fractu re, estrog en defici ency/h ypogon adism, risk of fallin g, use of medica tions implic ated in bone loss (gluco cortic oids), family histor y of osteop orotic fractu re, diseas es and condit ions associ ated with bone loss, low body weight , smokin g, high bone turnov er, etc. Combin ing low BMD and other clinic al risk factor s result in a more precis e assess ment of future fractu re risk. Second mainor causes for osteop orosis , such as osteom alacia , other metabo lic bone disord ers, and diseas es and condit ions that may contri bute to accele rated bone loss may have to be consid ered depend ing on the clinic al situat ion. A repeat bone densit y assess ment should be consid ered in two years. Report ed by: Violeta Andrews ra, M.D. on 2020 4:17:0 0 PM. Dictat ed By: Violeta Andrews ra, MD Dictat ed Date/T kenny: 4:18 pm Review ed By: Violeta Andrews ra, MD Signed By: Violeta Andrews ra, MD Signed Date/T kenny: 4:18 pm Transc ribed By: VICTOR M Transc ribed Date/T kenny: 4:18 pm Patien t Class: Outpat ient [email or web address] [facility] ([facility]) [address] [place], [address], 09/03/2020 15:38:08 06/05/19 22 06/04/2021 MAMMO , scree susana, digit al, bilat eral PROCED URE: MM Digita l Mammo Screen ing INDICA TION: Screen ing for breast cancer . No known palpab le abnorm alitie s. Histor y of bilate ral breast lympho ma in 2018. COMPAR PARVIZ: Multip le previo us studie s, most recent 021. TECHNI QUE: Full-f ield digita l CC and MLO 3D tomosy nthesi s images of both breast s were acquir ed. Comput er-aid ed detect ion (CAD) was utiliz ed in the interp retati on of this study. DENSIT Y: The breast tissue contai ns scatte red areas of fibrog landul ar densit y. FINDIN GS: A small oval circum scribe d benign -appea ring lymph node is presen t in the recruitment manager ior upper left latera l/ante rior axilla ry region . On the left MLO projec tion only there is a tiny oval circum scribe d lesion in the superi or breast projec ting medial ly on yi image. This may reside within the skin. This is best seen on image 61/79 of MLO yi slices . Recomm end patien t return for diagno stic right mammog marianna, with inspec tion of the skin and markin g any raised skin lesion s. If there is no skin lesion , ultras ound may be necess mainor. No suspic ious masses , suspic ious microc alcifi cation s, or areas of caterina ectura l distor tion are seen in the right breast to sugges t malign true. IMPRES MIKEL: Additi onal imagin g recomm ended. We will recall the patien t. RECOMM ENDATI ON: Left diagno stic mammog marianna with schedu led ultras ound BI-RAD S: 0 (Incom plete - Need Additi onal Imagin g Evalua tion. We will recall the patien t.) Lay letter mailed to carrie t I have person ally review ed the images and I agree with this report . WSN: [id number] Orderi ng Physic teto: Augustine saeed MD, Rosie Mcbride Dictat ed By: Oseas Olson MD Dictat ed Date/T kenny: 5:01 pm Review ed By: Tatianna Doty MD, I Signed By: Tatianna Doty MD, I Signed Date/T kenny: 5:06 pm Transc ribed By: VICTOR M Transc riptio n Date/T kenny: 4:06 pm Birads : Patien t Class: Outpat ient [email or web address] [facility] (Out[facility] Imaging) [address] [place] [address], [address], 07/03/2021 13:10:17 06/10/19 22 06/04/2021 MAMMO , deborae susana, digit al, bilat eral A D D E N D U M as of: [id number] Addend um: The findin g for callba ck is in the LEFT breast . WSN: [id number] Orderi ng Physic teto: Augustine saeed MD, Rosie E Dictat ed By: Tatianna Doty MD, I Dictat ed Date/T kenny: 11:32 am Review ed By: Tatianna Doty MD, I Signed By: Tatianna Doty MD, I Signed Date/T kenny: 11:32 am Transc ribed By: CSB Transc riptio n Date/T kenny: 11:31 am Birads : PROCED URE: MM Digita l Mammo Screen ing INDICA TION: Screen ing for breast cancer . No known palpab le abnorm alitie s. Histor y of bilate ral breast lympho ma in 2018. COMPAR PARVIZ: Multip le previo us studie s, most recent 021. TECHNI QUE: Full-f ield digita l CC and MLO 3D tomosy nthesi s images of both breast s were acquir ed. Comput er-aid ed detect ion (CAD) was utiliz ed in the interp retati on of this study. DENSIT Y: The breast tissue contai ns scatte red areas of fibrog landul ar densit y. FINDIN GS: A small oval circum scribe d benign -appea ring lymph node is presen t in the recruitment manager ior upper left latera l/ante rior axilla ry region . On the left MLO projec tion only there is a tiny oval circum scribe d lesion in the superi or breast projec ting medial ly on yi image. This may reside within the skin. This is best seen on image 61/79 of MLO yi slices . Recomm end patien t return for diagno stic right mammog marianna, with inspec tion of the skin and markin g any raised skin lesion s. If there is no skin lesion , ultras ound may be necess mainor. No suspic ious masses , suspic ious microc alcifi cation s, or areas of caterina ectura l distor tion are seen in the right breast to sugges t malign true. IMPRES MIKEL: Additi onal imagin g recomm ended. We will recall the patien t. RECOMM ENDATI ON: Left diagno stic mammog marianna with schedu led ultras ound BI-RAD S: 0 (Incom plete - Need Additi onal Imagin g Evalua tion. We will recall the patien t.) Lay letter mailed to carrie torres I have person ally review ed the images and I agree with this report . WSN: [id number] Orderi ng Physic teto: Augustine saeed MD, Rosie Mcbride Dictat ed By: Oseas Olson MD Dictat ed Date/T kenny: 5:01 pm Review ed By: Tatianna Doty MD, I Signed By: Tatianna Doty MD, I Signed Date/T kenny: 5:06 pm Transc ribed By: VICTOR M Transc riptio n Date/T kenny: 4:06 pm Birads : Carrie t Class: Outpat ient [email or web address] [facility] ([facility]) [address] [place] [address], [address], 07/03/2021 13:11:34 06/14/19 22 06/13/2021 mm digit al mammo unila t left PROCED URE: MM Digita l Mammo Unilat Left INDICA TION: Abnorm al screen ing. Questi onable skin nodule . COMPAR PARVIZ: 022. TECHNI QUE: Digita l diagno stic mammog marianna consis ting of spot compre ssion MLO view with skin marker depict ing nodula rity on the skin. FINDIN GS: Subcen timete r nodula r densit y is consis tent with a skin lesion . IMPRES MIKEL: No suspic ious findin gs. RECOMM ENDATI ON: Clinic al follow -up and manage ment BI-RAD S: 2 (Benig n) Lay letter mailed to carrie torres WSN: [id number] Orderi ng Physic teto: Augustine saeed MD, Rosie Mcbride Dictat ed By: Usha Randhawa MD Dictat ed Date/T kenny: 1:25 pm Review ed By: Usha Randhawa MD Signed By: Usha Randhawa MD Signed Date/T kenny: 1:25 pm Transc ribed By: CSB Transc riptio n Date/T kenny: 1:24 pm Birads : Carrie torres Class: Outpat ient [email or web address] [facility] ([facility]) [address] , [place], [address], 07/03/2021 13:11:35 06/09/19 23 06/08/2022 MAMMO , scree susana, digit al, bilat eral PROCED URE: MM Digita l Mammo Screen ing INDICA TION: Screen ing for breast cancer . No known palpab le abnorm alitie s. Histor y of bilate ral axilla ry lymph node biopsi es in 2018 reveal ing follic ular lympho ma. COMPAR PARVIZ: BBWC dating back to 021. TECHNI QUE: Full-f ield digita l CC and MLO 3D tomosy nthesi s images of both breast s were acquir ed. Comput er-aid ed detect ion (CAD) was utiliz ed in the interp retati on of this study. DENSIT Y: The breast tissue contai ns scatte red areas of fibrog landul ar densit y. FINDIN GS: No suspic ious masses , suspic ious microc alcifi cation s, or areas of caterina ectura l distor tion are seen in either breast to sugges t malign true. Left axilla again demons trates a Saturn clip within a normal -appea ring lymph node. IMPRES MIKEL: No mammog raphic eviden ce of malign true. RECOMM ENDATI ON: Annual mammog raphic screen ing BI-RAD S: 2 (Benig n) Lay letter mailed to alyciahakan torres WSN: [id number] Orderi ng Physic teto: Augustine saeed MD, Rosie E Dictat ed By: Tatianna Doty MD, I Dictat ed Date/T kenny: 4:41 pm Review ed By: Tatianna Doty MD, I Signed By: Tatianna Doty MD, I Signed Date/T kenny: 4:41 pm Transc ribed By: VICTOR M Transc riptio n Date/T kenny: 4:37 pm Birads : Patihakan t Class: Outpat ient [email or web address] [facility] ([facility]) [address], [place], [address], 06/09/2022 09:48:18 05/14/19 24 05/13/2023 bone densi ty No observ ation record ed. [facility] [address], [place], [address], 05/14/2023 17:50:25 06/11/19 24 06/10/2023 MAMMO , scree susana, digit al, bilat eral PROCED URE: MM Digita l Mammo Screen ing INDICA TION: Screen ing for breast cancer . No known palpab le abnorm alitie s. Person al histor y of follic ular lympho ma COMPAR PARVIZ: 023 and multip le priors TECHNI QUE: Full-f ield digita l CC and MLO 3D tomosy nthesi s images of both breast s were acquir ed. Comput er-aid ed detect ion (CAD) was utiliz ed in the interp retati on of this study. DENSIT Y: The breast tissue contai ns scatte red areas of fibrog landul ar densit y. FINDIN GS: Saturn clip in the left axilla within a normal -appea ring lymph node, unchan ged No suspic ious masses , suspic ious microc alcifi cation s, or areas of caterina ectura l distor tion are seen in either breast to sugges t malign true. IMPRES MIKEL: No mammog raphic eviden ce of malign true. RECOMM ENDATI ON: Annual mammog raphic screen ing BI-RAD S: 1 (Negat hang) Lay letter mailed to patihakan t I have person santosy review ed the images and I agree with this report . WSN: [id number] Orderveronika ng Physic teto: Mark Vazquez ie Dictat ed By: Brock Hanna MD Dictat ed Date/T kenny: 1:21 pm Review ed By: Srikanth mcbride MD, Usha Ryan Signed By: Srikanth mcbride MD, Usha Ryan Signed /T kenny: 1:26 pm Transc ribed By: CSB Transc riptio n Date/T kenny: 11:50 am Birads : Alyciahakan melissa Class: Outpat ient [email or web address] [facility] ([facility]) [address] [place], [address], 06/11/2023 14:50:16 06/11/19 24 06/10/2023 MAMMO , scree susana, digit al, bilat eral No observ ation record ed. [facility] [address], [place], [address], 06/11/2023 18:07:35 01/14/20 24 01/14/2024 XR, knee No observ ation record ed. [email or web address] [facility] [address] [place], [address], 01/17/2024 11:38:15 01/14/20 24 01/14/2024 XR, knee, 1 or 2 view Examin [...] l osteoa rthrit ic change . WSN: [id number] Orderi ng Physic teto: Saige Mcgee Y Dictat ed By: Keara Lawrence MD Dictat ed Date/T kenny: 10:09 a Review ed By: Keara Lawrence MD Signed By: Keara Lawrence MD Signed Date/T kenny: 10:09 am Transc ribed By: VITCOR M Transc ribed Date/T kenny: 10:08 am Patien t [email or web address] [address] [place], [address], 02/02/2024 10:15:24 Result Notes None recorded. Problems Name Problem SNOMED Code Status Onset Date Resolution Date Notes Provider Name and Address Organization Details Recorded Time Non-Hodg kin's lymphoma (clinica l) 603367125 Completed 201705/20/2020 dx in 2013 right cheeck and right groin and back of neck, tx with radiation Rosie franco [facility], [facility] 1 09:25:38 Obesity 260138061 Active Mena Rios CPPM [facility], [facility] 0 10:55:57 Family history of diabetes mellitus 008604725 Completed 09/09/2022 LINDA BRITO MD [address] [facility] [address], [place], [address], [facility] 3 18:58:50 History of non-Hodg kins lymphoma 938819823 Active 2020 Rosie franco [facility] 1 09:25:32 Osteopor osis 62772728 Completed 202109/19/2023 LINDA BRITO MD [address], [place], [address], [facility] 4 14:18:04 Osteopen ia 549302909 Active 2023 LINDA BRITO MD [address], [place], [address], [facility] 4 14:18:14 Hyperlip idemia 27246363 Active 2023 LINDA BRITO MD [address], [facility] [place], [address], [facility] 4 14:19:50 Statin declined 026824771 Active 2023 LINDA BRITO MD [address], [facility] [place], [address], [facility] 4 14:19:52 Senile osteopor osis 63167674 Active Ly Coleman [place] [facility] 4 10:19:18 Problem Notes None recorded. Procedures Surgical History Date Name Laterality Status Provider Name and Address Organization Details Recorded Time 09/20/19 24 Advanced Care Planning completed LINDA BRITO MD [address], [place], [address], [facility] 09/19/2023 14:15:24 06/11/19 24 Most Recent Mammogram completed Elif Ballard [facility] 06/11/2023 14:50:11 06/11/19 24 Mammogram both breasts completed Elif Ballard [facility] 06/11/2023 14:50:06 09/11/19 23 Advanced Care Planning completed Ly Coleman [place] [facility] 2022 13:46:55 08/29/19 22 Advanced Care Planning completed Ly Coleman [place] [facility] 08/28/2021 15:09:18 06/14/19 22 Mammogram one breast completed Adelita Miles [facility] 07/03/2021 13:11:24 05/21/19 21 Six-Item Cognitive Test completed Bernadette Braga MA [facility] 05/20/2020 09:01:49 05/19/19 20 Mini-Cog Test completed Ly Coleman MA [facility] 05/19/2019 13:28:37 11/03/19 18 Date of Last Pap Smear completed Ly Coleman MA [facility] 05/19/2019 13:35:30 07/15/19 18 Date of Last Colonoscopy completed Zayra Kumar [facility] 07/14/2017 15:13:59 07/15/19 18 Colonoscopy completed Zayrabalaji Kumar [facility] 07/14/2017 15:13:52 11/11/19 16 Most Recent Bone Density completed Zayra Kumar [facility] 06/09/2017 11:45:50 11/11/19 16 Dxa bone density mignon vrt fx completed Zayra Kumar [facility] 06/09/2017 11:45:44 05/07/18 92 Caesarean Section completed Ly Coleman MA [facility] 08/28/2021 15:08:40 Imaging Results Imaging Date Name Status LastModified by Organiz ation Details LastModified Time 05/17/2020 MAMMO, screening, digital, bilateral completed [email or web address] [facility] ([facility]) [address] [place], [address], 05/20/2020 10:19:52 08/29/2020 DEXA, axial skeleton completed [email or web address] [facility]) [address] [place], [address], 09/03/2020 15:38:08 06/04/2021 MAMMO, screening, digital, bilateral completed [email or web address] [facility] ([facility]) [address], [place], [address], 07/03/2021 13:10:17 06/04/2021 MAMMO, screening, digital, bilateral completed [email or web address] [facility]) [address] [place], [address], 07/03/2021 13:11:34 06/13/2021 mm digital mammo unilat left completed [email or web address] (Outpt Imaging) [address], [place], [address], 07/03/2021 13:11:35 06/08/2022 MAMMO, screening, digital, bilateral completed [email or web address] [facility]) [address] [place], [address], 06/09/2022 09:48:18 05/13/2023 bone density completed [facility] [address] [place], [address], 05/14/2023 17:50:25 06/10/2023 MAMMO, screening, digital, bilateral completed [email or web address] [facility] ([facility]) [address] [place] [address], [address], 06/11/2023 14:50:16 06/10/2023 MAMMO, screening, digital, bilateral completed [facility] [address] [place], [address], 06/11/2023 18:07:35 01/14/2024 XR, knee completed [email or web address] [facility] [address] [place], [address], 01/17/2024 11:38:15 01/14/2024 XR, knee, 1 or 2 view completed [email or web address] [facility] ([facility]) [address] [place] [address], [address], 02/02/2024 10:15:24 Procedure Notes None recorded. Medical Equipment None Reported. Allergies Allergen ID Allergen Name Allergen Category Reaction Reaction Severity Criticality Documentation Date Start Date Code Code System Note Provider Name and Address Organization Details Recorded Time 58484 No known allergy (situatio n) Not available Not available Not available Not available 09/20/2023 78797 6003 SNOMED EL Hidalgo [place] [facility] 10:19:10 No known drug allergies Medications Name [...] height Body mass index (BMI) Body weight Oxygen saturation Oxygen saturation in Arterial blood by Pulse oximetry Heart rate Body temperature Systolic blood pressure Diastolic blood pressure Provider Name and Address Organization Details Last Updated DateTime 2 163.83 cm 35.4 kg/m2 43449.9 1 g 97 % 97 % 65 /min 97.88 [degF] 123 mm[Hg] 74 mm[Hg] Ly Coleman MA [facility] 2 15:16:23 Date Recorded Body height Body mass index (BMI) Body weight Oxygen saturation Oxygen saturation in Arterial blood by Pulse oximetry Heart rate Body temperature Systolic blood pressure Diastolic blood pressure Provider Name and Address Organization Details Last Updated DateTime 3 163.83 cm 35.5 kg/m2 39453.8 g 98 % 98 % 79 /min 98 [degF] 122 mm[Hg] 83 mm[Hg] [facility] 3 13:56:14 Date Recorded Body height Body mass index (BMI) Body weight Oxygen saturation Oxygen saturation in Arterial blood by Pulse oximetry Heart rate Body temperature Systolic blood pressure Diastolic blood pressure Provider Name and Address Organization Details Last Updated DateTime 4 163.83 cm 34.1 kg/m2 32897.8 7 g 98 % 98 % 72 /min 98.2 [degF] 125 mm[Hg] 68 mm[Hg] Ly Coleman MA [facility] 4 10:24:54 Date Recorded Body height Body mass index (BMI) Body weight Heart rate Oxygen saturation Oxygen saturation in Arterial blood by Pulse oximetry Body temperature Systolic blood pressure Diastolic blood pressure Provider Name and Address Organization Details Last Updated DateTime 4 163.83 cm 32.3 kg/m2 52809.2 4 g 69 /min 98 % 98 % 97.8 [degF] 123 mm[Hg] 76 mm[Hg] Janeen Ellis LPN [facility] 4 09:03:22 Social History Question Answer Notes LastModified by Organizat ion Details LastModified Time Tobacco Smoking Status Never Smoker EL Hidalgo [facility] 05/13/2017 14:51:41 Do You Have An Advance Directive? No [email or web address] Information not available 08/28/2021 What Is Your Level Of Alcohol Consumption? Occasional [email or web address] Information not available 05/13/2017 Is Blood Transfusion Acceptable In An Emergency? Yes [email or web address] Information not available 05/13/2017 What Is Your Level Of Caffeine Consumption? Occasional Very Rare [email or web address] Information not available 2022 How Much Tobacco Do You Chew? None Information not available 05/20/2020 Are You Currently Employed? No Information not available 08/28/2021 What Type Of Diet Are You Following? REGULAR [email or web address] Information not available 05/13/2017 Which Illicit Or Recreational Drugs Have You Used? None Information not available 05/20/2020 Do You Or Have You Ever Used E-cigarettes Or Vape? 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 Alone With Dog [email or web address] Information not available 2022 Do You Take Precautions To Prevent Distracted Driving? Yes [email or web address] Information not available 05/13/2017 How Often Do You Need To Have Someone Help You When You Read Instructions, Pamphlets, Or Other Written Material From Your Doctor Or Pharmacy? Never Information not available 05/20/2020 Have You Served In The ? No [email or web address] Information not available 05/13/2017 Have You Or [...] 05/20/2020 Have You Recently Traveled To A [facility] High Risk Area Or Gathering In The Last 10 Days? No Information not available 05/20/2020 What Was The Date Of Your Most Recent Tobacco Screening? 09/20/2023 [email or web address] Information not available 09/20/2023 How Many Children Do You Have? 1 Information not available 05/13/2017 Do You Use Your Seat Belt Or Car Seat Routinely? Yes [email or web address] Information not available 08/28/2021 Seat Belts Used Routinely Yes [email or web address] Information not available 08/28/2021 Are You Sexually Active? No Information not available 05/20/2020 Smoke Alarm In Home Yes [email or web address] Information not available 08/28/2021 Do You Have Smoke And Carbon Monoxide Detectors In Your Home? Yes Information not available 08/28/2021 At What Age Did You Start Smoking Tobacco? 0 Information not available 05/20/2020 Are You Passively Exposed To Smoke? No [email or web address] Information not available 05/13/2017 Do You Or Have You Ever Used Smokeless Tobacco? Never Used Smokeless Tobacco Information not available 05/20/2020 How Much Tobacco Do You Smoke? No Information not available 05/20/2020 Do You Use Sunscreen Routinely? Yes [email or web address] Information not available 05/13/2017 How Many Years Have You Smoked Tobacco? 0 Information not available 05/20/2020 Sex: Unknown Functional Status Question Answer Note LastModified by Organizat ion Details LastModified Time Are you able to walk? YESWOREST [email or web address] Information not available 08/28/2021 Are you able to care for yourself? Yes [email or web address] Information not available 05/13/2017 What is your exercise level? Moderate walks 10-35 minutes 5 days a week,exerise s that PT gives her [email or web address] Information not available 2022 Mental Status None recorded. Family History Relationship Description Onset Age of this Age Resolved Age Notes LastModified by Organization Details LastModified Time Father Malignant lymphoma 54 [email or web address] Not available 08/28 15:03:07 Mother Diabetes mellitus [email or web address] Not available 2020 08:54:56 Daughter Diabetes mellitus abolcun Not available 2020 08:54:56 Notes:No FH of breast or col on cancer Medical History Condition Response Gout N Other N Kidney Stones N Blood Diseases N Hyperthyroidism N Breast Cancer N COPD N Depression N Lung Disease N Hypothyroidism N Defects or Inherited Disease N Anesthesia Complications N Headaches/Migraines N Anxiety Disorder N Varicose Veins N Obesity N Vision or Eye Problems N Arthritis N Head Injury/Concussion N Polyps N Infertility N Congenital Anomalies N Acid Reflux (GERD) N Cancer Y Stroke N ADHD N Endometriosis N High Cholesterol N Liver Disease N Fibromyalgia N Kidney Disease N Heart Problems N Ear or Hearing Problems N Hospitalizations N Thyroid Problems N GI Problems N Acne N Eating Disorder N Skin Problems N Anemia N Constipation N Bladder Problems N Mental Illness N Diabetes N Ovarian Cancer N Blood Transfusions N Seizures/Epilepsy N Tuberculosis N AIDS/HIV N Congestive Heart Failure (CHF) N Eczema N Abuse/Domestic Violence N Diverticulitis N Asthma N Allergies N Reflux/GERD N Hepatitis N Pulmonary Embolism N Hypertension N Chicken Pox N Autism Spectrum Disorder (ASD) N Osteoporosis N Gynecological History Statement/Question Response Date of Last Pap Smear 11/02/2017 Date of Last Colonoscopy 07/14/2017 Most Recent Mammogram 06/11/2023 Most Recent Bone Density 11/11/2015 Obstetrics History GPAL:G 0 P 0 0 0 0 Immunizations Vaccine Type Date Status Note Provider Nam e and Address Organization Details Recorded Time Tdap 3 completed Not Available [facility] 04/22/2023 14:06:04 Influenza, split virus, quadrivalent, preservative 8 completed Not Available [facility] 04/22/2023 14:06:03 Influenza, split virus, trivalent, preservative 8 completed Not Available [facility] 04/22/2023 14:06:04 COVID-19, mRNA, LNP-S, PF, 30 mcg/0.3 mL dose 1 completed Not Available [facility] 04/22/2023 14:06:04 COVID-19, mRNA, LNP-S, PF, 30 mcg/0.3 mL dose 1 completed Not Available [facility] 04/22/2023 14:06:04 pneumococcal polysaccharide PPV23 2 completed Not Available [facility] 04/22/2023 14:06:04 Tdap 5 completed Not Available [facility] 04/22/2023 14:06:04 zoster recombinant 1 completed Not Available [facility] 04/22/2023 14:06:03 Pneumococcal conjugate PCV 13 1 completed Not Available [facility] 04/22/2023 14:06:04 COVID-19, mRNA, LNP-S, PF, 30 mcg/0.3 mL dose 1 completed Not Available [facility] 04/22/2023 14:06:04 Influenza, adjuvanted, quadrivalent, PF 1 completed Not Available [facility] 04/22/2023 14:06:03 Influenza, recombinant, quadrivalent, PF 0 completed Not Available [facility] 04/22/2023 14:06:03 COVID-19, mRNA, LNP-S, PF, 30 mcg/0.3 mL dose, maximino-sucrose 2 completed Not Available [facility] 04/22/2023 14:06:04 zoster recombinant 1 completed Not Available [facility] 04/22/2023 14:06:03 Influenza, adjuvanted, quadrivalent, PF 2 completed Not Available [facility] 04/22/2023 14:06:04 COVID-19, mRNA, LNP-S, bivalent, PF, 30 mcg/0.3 mL dose 2 completed Not Available [facility] 04/22/2023 14:06:04 Influenza, adjuvanted, quadrivalent, PF 3 completed EL Hidalgo [place] [facility] 09/20/2023 10:25:21 Past Encounters Encounter ID Performer Location Encounter Start Date Encounter Closed Date Diagnosis/Indication Diagnosis SNOMED-CT Code Diagnosis ICD10 Code [id number] Rosie gonzalez Main Office [address] [facility] [place] [address] 05/13/2017 14:25:11 05/13/2017 15:30:08 Adult health examination 731262867 Z00.00 Non-Hodgki n's lymphoma (clinical) 733976374 C85.90 Body mass index 30+ - obesity 576112723 Z68.35 Z68.34 [id number] Rosie Nicholas [address] [place] [address] [place] [address] 11/15/2017 10:31:42 11/15/2017 11:35:24 Non-Hodgkin's lymphoma (clinical) [id number] C85.90 Axillary lymphadenopathy [id number] R59.0 [id number] Rosie dunawayenzo [address] [address] [place] [address] 05/16/2018 10:54:57 05/16/2018 11:43:42 Adult health examination [id number] Z00.00 Non-Hodgki n's lymphoma (clinical) 430018399 C85.90 Supraclavi cular lymphadenopathy 047400238 R59.0 [id number] Rosie ArmentaJudy [place] [address] [address] [place] [address] 05/19/2019 13:14:20 05/19/2019 14:14:08 Adult health examination [id number] Z00.00 Non-Hodgki n's lymphoma (clinical) [id number] C85.90 [id number] Rosie ArmentaJudy [address] [address] [place] [address] 05/20/2020 06:40:28 05/20/2020 12:05:51 Adult health examination 970198543 Z00.00 Menopause present 270035 006 Z78.0 Screening for malignant neoplasm of cervix 847321594 Z12.4 History of non-Hodgkins lymphoma 064967703 Z85.72 Hypercholesterolemia 136 69127 E78.00 [id number] Rosie ArmentaJudy carlos [address] [address] [place] [address] 08/28/2021 15:02:37 08/28/2021 15:49:59 Adult health examination [id number] Z00.00 Advance di rective discussed with patient 785714879 Z71.89 History of non-Hodgkins lymphoma 009929459 Z85.72 Body mass index 30+ - obesity 941033414 E66.9 Z68.35 Hypercholesterolemia 136 31190 E78.00 Fatigue 17348286 R53.83 Osteoporosis 95448599 M8 1.0 Skin lesion 84908020 L98 .9 [id number] LINDA BRITO MD [address] [address] [place] [address] 2022 13:43:28 2022 14:29:33 Adult health examination 786503528 Z00.00 History of non-Hodgkins lymphoma 240973478 Z85.72 Osteoporosis 91618976 M8 1.0 Fatigue 41533082 R53.83 Z00.00 Hyperlipidemia 26562215 E78.5 Z00.00 Advance di rective discussed with patient 948610186 Z71.89 [id number] LINDA BRITO MD Main Office [address] [address] [place] [address] 09/20/2023 10:16:47 09/20/2023 10:45:38 Advance directive discussed with patient 023647467 Z71.89 Adult heal th examination 502645069 Z00.00 History of non-Hodgkins lymphoma 914895709 Z85.72 Osteopenia 098251734 M85 .80 Fatigue 01129822 R53.83 Z00.00 Hyperlipidemia 23303189 E78.5 Z00.00 Statin declined 30660763 0 Z53.20 Impaired f asting glycemia 160567401 R73.01 Body mass index 30+ - obesity 272633453 E66.9 Z68.34 [id number] Maddi Tay Main [address] [address] [place] [address] 01/14/2024 08:45:59 01/14/2024 09:21:43 Knee joint painful on movement 052953322 M25.562 Health Concerns Section Related Observation LastModified by Organization Detai ls LastModified Time None Recorded Concern Status LastModified by Organization Details LastModified Time None Recorded Advance Directives Directive N: Payers Encounter Date Sequence Insurance Name Policy Number Policy Conte Covered Member ID Conte Member ID Guarantor Name 05/20/2020 2 [facility] - NAVIGATOR (PPO) [id number] Zafar Durbin [id number] Zafar Durbin 05/20/2020 1 [place] Zafar Durbin [id number] Zafar Ramakrishna 08/28/2021 2 [facility] - NAVIGATOR (PPO) [id number] Zafar Durbin [id number] Zafarramonita Lagosrae 08/28/2021 1 [place] [employer] Zafar Durbin [id number] Zafar Durbin 2022 2 [facility] - NAVIGATOR (PPO) [id number] Zafar Durbin [id number] Zafar Durbin 2022 1 [place]: [facility] GOVERNMENT SERVICES Zafar Durbin [id number] Zafar Durbin 09/20/2023 2 [facility] - MEDICARE ENHANCE (INDEMNITY PLAN) Zafar Durbin [id number] Zafar Durbin 09/20/2023 1 [place] [facility] Zafar Durbin [id number] Zafar Durbin 01/14/2024 2 [facility] - MEDICARE ENHANCE (INDEMNITY PLAN) Zafar Durbin [id number] Zafar Durbin 01/14/2024 1 [place] [facility] Zafar Durbin [id number] Zafar Durbin Notes Date Note Type Note Provider Name and Address Organization Details Recorded Time 05/20/2020 text/html Medicare Annual Wellness VisitReported bypatient.Diet and Nutrition:healthy diet Fracture Risk:history of fractures Physical Activity:exercises on a regular basis Depression Risk:no history of depression Concentration and Memory:no memory lapses or loss Speech/Motor difficulties:no speech difficulties Hearing:no loss of hearing Vision:no vision problems Activities of Daily Living:able to bathe with limited or no assistance; able to dress with limited or no assistance; able to get out of chair or bed with limited or no assistance; able to toilet with limited or no assistance; able to do everything Instrumental Activities of Daily Living:able to do house work with limited or no assistance; able to manage medications with limited or no assistance; able to manage money with limited or no assistance; able to prepare meals with limited or no assistance Home Safety:working smoke/CO detectors; no fire arms This is a Medicare AWV. Pt is doing really well, she feels great. She is done with chemotherapy for lymphoma. Pt is done with treatment, she had her prot removed. PT had shingles in the summer, still with occasional pain in that area and a bit of a scar. HAs not gotten the Covid shot yet, is trying to get an appt. Rosie goddard [facility] 05/20/2020 09:45:24 08/28/2021 text/html Medicare Annual Wellness VisitReported bypatient.Diet and Nutrition:healthy diet Fracture Risk:history of fractures Physical Activity:exercises on a regular basis Depression Risk:no history of depression Concentration and Memory:no memory lapses or loss Speech/Motor difficulties:no speech difficulties Hearing:no loss of hearing Vision:no vision problems Activities of Daily Living:able to bathe with limited or no assistance; able to dress with limited or no assistance; able to get out of chair or bed with limited or no assistance; able to toilet with limited or no assistance Instrumental Activities of Daily Living:able to do house work with limited or no assistance; able to manage medications with limited or no assistance; able to manage money with limited or no assistance; able to prepare meals with limited or no assistance Home Safety:working smoke/CO detectors; use of seatbelts; no fire arms PT is here for a Medicare Wellness visit. PT is trying to lose weight. 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 Non-Hodgkins lymphoma is in remission, just saw oncology. 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)and walking 5/7 20-30 mins daily Depression Risk:never feels sad, empty, or tearful; no loss of energy; no history of depression Orientation:no disorientation to time; no disorientation to date; no disorientation to place Concentration and Memory:no decreased concentrating ability; no memory lapses or loss; does not forget words Speech/Motor difficulties:no speech difficulties Hearing:no loss of hearing Vision:no vision problems Activities of Daily Living:able to bathe with limited or no assistance; able to dress with limited or no assistance; able to get out of chair or bed with limited or no assistance; able to toilet with limited or no assistance Instrumental Activities of Daily Living:able to do house work with limited or no assistance; able to manage medications with limited or no assistance; able to manage money with limited or no assistance; able to prepare meals with limited or no assistance Home Safety:working smoke/CO detectors; use of seatbelts; no fire arms Zafar Durbin is a 66 year old F who presented to the clinic for her Medicare visit. Visit Type: Annual How would you rate your health? Good Have you been discharged from the hospital recently? NoHave you been to the emergency room or urgent care recently? NoDo you have any significant previous hospital stays, injuries, or treatment? No Home Safety:Pt has stair to the cellar but a flat home.Is the tub or shower floor slippery and do you need support? No, pt has both a walk in shower and a tubDo you need some support when you get in and out of the tub or from the toilet? NoDo you have any small rugs or runners that slide or bunch up when you push them with your foot? NoAre there papers, books, towels, shoes, magazines, boxes, blankets, or other objects on the floor? No The patient does not have a history of falls. Oral Health: Every 6 monthsEye Health: Twice a yearMotor Vehicle: Yes, Do you wear a seatbelt when in a car? yes Screening Tools:Were there any ADL or IADL deficiencies not linked to physical limitations? NoDuring the past 12 months, have you experienced confusion or memory loss that is happening more often or is getting worse? 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), [employer]ish greg[employer] and aerobics class Depression Risk:never feels sad, empty, or tearful; no loss of interest in activities; no significant changes in weight; no sleep disturbances or insomnia; no agitation; no loss of energy; no feelings of worthlessness or guilt; no thoughts of suicide Orientation:no disorientation to time; no disorientation to date; no disorientation to place Concentration and Memory:no decreased concentrating ability; no memory lapses or loss; does not forget words Speech/Motor difficulties:no speech difficulties; no difficulty expressing formulated concepts; no difficulty with fine manipulative tasks; no difficulty writing/copying; no slowed reaction time; does not knock things over when trying to pick them up Hearing:no loss of hearing Vision:no vision problems Activities of Daily Living:able to bathe with limited or no assistance; able to contol urination and bowels; able to dress with limited or no assistance; able to feed self with limited or no assistance; able to get out of chair or bed with limited or no assistance; able to groom with limited or no assistance; able to toilet with limited or no assistance Instrumental Activities of Daily Living:able to do house work with limited or no assistance; able to grocery shop with limited or no assistance; able to manage medications with limited or no assistance; able to manage money with limited or no assistance; able to prepare meals with limited or no assistance Home Safety:working smoke/CO detectors; use of seatbelts; no fire arms;does not have hand bars in the bathroom/shower Zafar Durbin is a 68 year old F who presented to the clinic for her Medicare visit. Visit Type: Annual How would you rate your health? Good Have you been discharged from the hospital recently? NoHave you been to the emergency room or urgent care recently? NoDo you have any significant previous hospital stays, injuries, or treatment? No Home Safety:Pt has stair to the cellar but a flat home.Is the tub or shower floor slippery and do you need support? No, pt has both a walk in shower and a tubDo you need some support when you get in and out of the tub or from the toilet? NoDo you have any small rugs or runners that slide or bunch up when you push them with your foot? NoAre there papers, books, towels, shoes, magazines, boxes, blankets, or other objects on the floor? No The patient does not have a history of falls. Oral Health: Every 6 monthsEye Health: Twice a yearMotor Vehicle: Yes, Do you wear a seatbelt when in a car? yes Screening Tools:Were there any ADL or IADL deficiencies not linked to physical limitations? NoDuring the past 12 months, have you experienced confusion or memory loss that is happening more often or is getting worse? No Advanced care directive: None on file LINDA BRITO MD [address], [address], [facility] 09/20/2023 10:50:40 01/14/2024 text/html Zafar is a 68yr o [...] knee brace which provides some relief. Maddi goddard, [facility] 01/25/2024 07:14:42 OBGyn Episode No OBEpisode recorded.
== END 2024-03-16 08:49 | disposition home or self-care (01) ==
LOC: HO.HOSX 08:48
PROVIDERS: Visit Provider Orthopaedic Surgery
DX: Z13.89 Encounter for screening for other disorder (principal)

== ENCOUNTER 2024-03-29 08:32 | Outpatient (REF) | payer MEDICARE, OTHER, SELFPAY ==
--- NOTE | ~2024-03-29 | XR_ITS ---
EXAMINATION: XR KNEE 3 VIEWS LEFT HISTORY: M25.562 - Pain in left knee COMPARISON: There are no prior studies available for comparison. FINDINGS: Three views of the left knee are submitted. Osseous mineralization is normal. There is no fracture or dislocation. There is slight narrowing of the medial compartment. The soft tissues are unremarkable. XR/XR knee LT 3V IMPRESSION: Slight narrowing of the medial compartment. Electronically signed by: Tyson Bob MD 04/03/2024 07:28 AM SHILA
== END 2024-03-29 08:33 | disposition home or self-care (01) ==
LOC: HO.HOSX 08:32
PROVIDERS: Visit Provider Orthopaedic Surgery
DX: M25.562 Pain in left knee (principal)
CPT/HCPCS: 73562; 99202

== ENCOUNTER 2024-03-29 09:22 | Outpatient (AMB) | payer MEDICARE, OTHER, SELFPAY ==
--- OUTSIDE RECORDS SUMMARY | 2024-03-29 09:25 | XMS_ITS | Data Portability ---
Author Organization [facility], Main Office Address [address] [place] [address] Care Team Providers Care Custodial Engineer Name Role Phone PAT RAMOS Clinical Assistant [phone] NAYELY RHODES Grocery Cashier [facility] Hematology/Oncolo gy [...] Lab cholesterol , total, serum 2020 021 [place] [facility], [address] [place], [address], 09:45:11 LDL, serum 2020 021 CAMILO [facility], [address] [place], [address], 1 09:45:11 LDL, serum 2021 022 CAMILO [facility], [address] [place], [address], 2 15:32:24 cholesterol , total, serum 2021 022 CAMILO [facility], [address] [place], [address], 2 15:32:25 BMP, serum or plasma 2021 022 CAMILO [facility], [address] [place], [address], 2 15:32:25 lipid panel, serum 2022 023 [email or web address] [facility], [address] [place] [address], [place], [address], 3 14:41:17 BMP, serum or plasma 2022 023 CAMILO [facility], [address] [place] [address], [place], [address], 3 11:43:36 TSH, serum or plasma 2022 023 CAMILO [facility], [address] [place] [address], [place], [address], 3 11:46:35 lipid panel, serum 2023 024 CAMILO [facility], [address], [place], [address], 4 06:07:54 BMP, serum or plasma 2023 024 CAMILO [facility], [address], [place], [address], 4 06:07:53 CBC w/ auto diff 2023 024 CAMILO [facility], [address], [place], [address], 4 06:07:52 TSH, ultra-sensi tive, serum 2023 024 CAMILO [facility], [address], [place], [address], 4 06:07:55 HbA1c (hemoglobin A1c), blood 2023 024 CAMILO [facility], [address], [place], [address], 4 06:07:55 Referral gynecologis t referral - Patient to schedule 2020 021 [email or web address] Not available 12:05:[address] referral - rash on abdomen 2021 022 thong [facility], [address], [place], [address], 2 09:34:53 nutritionis t/dietitian referral 2021 022 [email or web address] Not available 2 16:01:20 orthopedic surgeon referral - left knee pain with ambulationh x of left knee fx in 2009 024 [email or web address] [facility], [address] [place] [address] [place], [address], 4 16:49:01 Procedures None recorded. Surgeries None recorded. Imaging bone density - hx of osteopenia evaluate 2020 021 [email or web address] Not available 1 12:05:51 XR, knee - left knee pain with ambulation 2023 024 oz [facility], [address], [place], [address], 07:14:38 Medication Orders None recorded. Patient TargetsNo targets recorded. Patient Instructions Encounter Date Encounter Id Patient Instructions Last Modified By Organization Details Last Modified Time 05/20/2020 [id number] preventing falls: care instructions [email or web address] Not available 05/20/2020 09:42:51 medicare preventive services guide (female 74yrs and under) [email or web address] Not available 05/20/2020 09:42:50 Cervical Cancer Screening [email or web address] Not available 05/20/2020 09:42:51 08/28/2021 [id number] advance care planning: care instructions [email or web address] Not [...] Information [email or web address] Not available 08/28/2021 15:32:12 2022 [id number] advance care planning: care instructions Not available 2022 14:26:39 well visit, over 65: care instructions Not available 2022 14:26:40 preventing falls: care instructions Not available 2022 14:26:40 09/20/2023 [id number] advance care planning: care instructions Not available 09/20/2023 10:41:21 osteoporosis: care instructions Not available 09/20/2023 10:41:21 well visit, over 65: care instructions Not available 09/20/2023 10:41:21 preventing falls: care instructions Not available 09/20/2023 10:41:20 prediabetes: care instructions Not available 09/20/2023 10:41:21 starting a weight loss plan: care instructions Not available 09/20/2023 10:49:58 Reason for Referral Grocery Cashier Referral for Sc reening for malignant neoplasm of cervix Patient to schedule Referring Physician: Rosie Jacob [facility], Encounter Date: 05/20/2020 Construction Accountant/dietitian Refer ral for Body mass index 30+ - obesity Referring Physician: Rosie Jacob [facility], Encounter Date: 08/28/2021 Creative Developer Referral for S kin lesion rash on abdomen Referring Physician: Rosie Jacob [facility], Encounter Date: 08/28/2021 Orthopedic Surgeon Referral for Knee joint painful on movement left knee pain with ambulationhx of left knee fx in 2009 Referring Physician: Saige Mcgee [facility], Encounter Date: 01/14/2024 Results Created Date Observation Date Name Description Value Unit Range Abnormal Flag Note LastModifiedBy Organization Detail LastModifiedTime 09/30/19 23 09/29/2022 BASIC METAB OLIC PANEL glucose 112 mg/dL (70-99 ) high Not Available [facility] [address] [place], [address], 09/29/2022 11:43:36 09/30/19 23 09/29/2022 BASIC METAB OLIC PANEL BUN 20 mg/dL (8-23) Not Available [facility] [address] [place], [address], 09/29/2022 11:43:36 09/30/19 23 09/29/2022 BASIC METAB OLIC PANEL creatinine 0.9 mg/dL (0.5-1 .0) Not Available [facility] [address] [place], [address], 09/29/2022 11:43:36 09/30/19 23 09/29/2022 BASIC METAB OLIC PANEL sodium 140 mmol/ L (133-1 45) Not Available [facility] [address] [place], [address], 09/29/2022 11:43:36 09/30/19 23 09/29/2022 BASIC METAB OLIC PANEL potassium 4.5 mmol/ L (3.6-5 .2) Not Available [facility] [address] [place], [address], 09/29/2022 11:43:36 09/30/19 23 09/29/2022 BASIC METAB OLIC PANEL chloride 105 mmol/ L (98-10 7) Not Available [facility] [address] [place], [address], 09/29/2022 11:43:36 09/30/19 23 09/29/2022 BASIC METAB OLIC PANEL bicarbonate 25 mmol/ L (22-29 ) Not Available [facility] [address] [place], [address], 09/29/2022 11:43:36 09/30/19 23 09/29/2022 BASIC METAB OLIC PANEL anion gap 10 (4-17) Not Available [facility] [address] [place], [address], 09/29/2022 11:43:36 09/30/19 23 09/29/2022 BASIC METAB OLIC PANEL calcium 10.1 mg/dL (8.6-1 0.5) Not Available [facility] [address] [place], [address], 09/29/2022 11:43:36 09/30/19 23 09/29/2022 BASIC METAB [...] Not Available [facility] [address], [address], 09/29/2022 11:43:36 09/30/19 23 09/29/2022 LIPID PANEL cholesterol, total 224 mg/dL (<200) high Not Available [facility] [address] [place], [address], 09/29/2022 11:43:38 09/30/19 23 09/29/2022 LIPID PANEL triglyceride 124 mg/dL (<150) Not Available [facility] [address] [place], [address], 09/29/2022 11:43:38 09/30/19 23 09/29/2022 LIPID PANEL HDL chol 53 mg/dL (>39) Not Available [facility] [address] [place], [address], 09/29/2022 11:43:38 09/30/19 23 09/29/2022 LIPID PANEL LDL cholesterol, calculated 146 mg/dL (0-130 ) high Not Available [facility] [address] [place], [address], 09/29/2022 11:43:38 09/30/19 23 09/29/2022 LIPID PANEL non HDL cholesterol (calc) 171 mg/dL (<160) high Not Available [facility] [address] [place], [address], 09/29/2022 11:43:38 09/30/19 23 09/29/2022 TSH WITH REFLE X TO FT4 TSH 3.41 uIU/m L (0.4-4 .2) Not Available [facility] [address] [place], [address], 09/29/2022 11:46:35 09/20/19 24 09/21/2023 CBC WITH DIFFE RENTI AL/PL ATELE T WBC 6.3 x10e3 /uL 3.4-10 .8 Not Available [facility] ([facility]) [address] [facility], [place], [address], 09/21/2023 06:07:52 09/20/19 24 09/21/2023 CBC WITH DIFFE RENTI AL/PL ATELE T RBC 4.49 x10e6 /uL 3.77-5 .28 Not Available [facility] ([facility]) [address] [facility], [place], [address], 09/21/2023 06:07:52 09/20/19 24 09/21/2023 CBC WITH DIFFE RENTI AL/PL ATELE T hemoglobin 13.5 g/dL 11.1-1 5.9 Not Available [facility] ([facility]) [address] [facility], [place], [address], 09/21/2023 06:07:52 09/20/19 24 09/21/2023 CBC WITH DIFFE RENTI AL/PL ATELE T hematocrit 42.4 % 34.0-4 6.6 Not Available [facility] ([facility]) [address] [facility], [place], [address], 09/21/2023 06:07:52 09/20/19 24 09/21/2023 CBC WITH DIFFE RENTI AL/PL ATELE T MCV 94 fL 79-97 Not Available [facility] ([facility]) [address] [place], [address], 09/21/2023 06:07:52 09/20/19 24 09/21/2023 CBC WITH DIFFE RENTI AL/PL ATELE T MCH 30.1 pg 26.6-3 3.0 Not Available [facility] ([facility]) [address] [place], [address], 09/21/2023 06:07:52 09/20/19 24 09/21/2023 CBC WITH DIFFE RENTI AL/PL ATELE T MCHC 31.8 g/dL 31.5-3 5.7 Not Available [facility] ([facility]) [address] [place], [address], 09/21/2023 06:07:52 09/20/19 24 09/21/2023 CBC WITH DIFFE RENTI AL/PL ATELE T RDW 13.2 % 11.7-1 5.4 Not Available [facility] ([facility]) [address] [facility], [place], [address], 09/21/2023 06:07:52 09/20/19 24 09/21/2023 CBC WITH DIFFE RENTI AL/PL ATELE T platelets 210 x10e3 /uL 150-45 0 Not Available [facility] ([facility]) [address] [facility], [place], [address], 09/21/2023 06:07:52 09/20/19 24 09/21/2023 CBC WITH DIFFE RENTI AL/PL ATELE T neutrophils 55 % not estab. Not Available [facility] ([facility]) [address] [facility], [place], [address], 09/21/2023 06:07:52 09/20/19 24 09/21/2023 CBC WITH DIFFE RENTI AL/PL ATELE T lymphs 31 % not estab. Not Available [facility] ([facility]) [address] [facility], [place], [address], 09/21/2023 06:07:52 09/20/19 24 09/21/2023 CBC WITH DIFFE RENTI AL/PL ATELE T monocytes 10 % not estab. Not Available [facility] ([facility]) [address] [facility], [place], [address], 09/21/2023 06:07:52 09/20/19 24 09/21/2023 CBC WITH DIFFE RENTI AL/PL ATELE T eos 3 % not estab. Not Available [facility] ([facility]) [address] [facility], [place], [address], 09/21/2023 06:07:52 09/20/19 24 09/21/2023 CBC WITH DIFFE RENTI AL/PL ATELE T basos 1 % not estab. Not Available [facility] ([facility]) [address] [facility], [place], [address], 09/21/2023 06:07:52 09/20/19 24 09/21/2023 CBC WITH DIFFE RENTI AL/PL ATELE T immature cells RIG SUPERVISOR Not Available [facility] ([facility]) [address] [facility], [place], [address], 09/21/2023 06:07:52 09/20/19 24 09/21/2023 CBC WITH DIFFE RENTI AL/PL ATELE T neutrophils (absolute) 3.5 x10e3 /uL 1.4-7. 0 Not Available [facility] ([facility]) [address] [facility], [place], [address], 09/21/2023 06:07:52 09/20/19 24 09/21/2023 CBC WITH DIFFE RENTI AL/PL ATELE T lymphs (absolute) 2.0 x10e3 /uL 0.7-3. 1 Not Available [facility] ([facility]) [address] [facility], [place], [address], 09/21/2023 06:07:52 09/20/19 24 09/21/2023 CBC WITH DIFFE RENTI AL/PL ATELE T monocytes(ab solute) 0.6 x10e3 /uL 0.1-0. 9 Not Available [facility] ([facility]) [address] [facility], [place], [address], 09/21/2023 06:07:52 09/20/19 24 09/21/2023 CBC WITH DIFFE RENTI AL/PL ATELE T eos (absolute) 0.2 x10e3 /uL 0.0-0. 4 Not Available [facility] ([facility]) [address] [facility], [place], [address], 09/21/2023 06:07:52 09/20/19 24 09/21/2023 CBC WITH DIFFE RENTI AL/PL ATELE T baso (absolute) 0.1 x10e3 /uL 0.0-0. 2 Not Available [facility] ([facility]) [address] [facility], [place], [address], 09/21/2023 06:07:52 09/20/19 24 09/21/2023 CBC WITH DIFFE RENTI AL/PL ATELE T immature granulocytes 0 % not estab. Not Available [facility] ([facility]) [address] [facility], [place], [address], 09/21/2023 06:07:52 09/20/19 24 09/21/2023 CBC WITH DIFFE RENTI AL/PL ATELE T immature grans (abs) 0.0 x10e3 /uL 0.0-0. 1 Not Available [facility] ([facility]) [address] [facility], [place], [address], 09/21/2023 06:07:52 09/20/19 24 09/21/2023 CBC WITH DIFFE RENTI AL/PL ATELE T NRBC RIG SUPERVISOR Not Available [facility] ([facility]) [address] [facility], [place], [address], 09/21/2023 06:07:52 09/20/19 24 09/21/2023 CBC WITH DIFFE RENTI AL/PL ATELE T hematology comments: RIG SUPERVISOR Not Available [facility] ([facility]) [address] [facility], [place], [address], 09/21/2023 06:07:52 09/20/19 24 09/21/2023 BASIC METAB OLIC PANEL (8) glucose 105 mg/dL 70-99 above high normal Not Available [facility] ([facility]) [address] [facility], [place], [address], 09/21/2023 06:07:53 09/20/19 24 09/21/2023 BASIC METAB OLIC PANEL (8) BUN 17 mg/dL 8-27 Not Available [facility] ([facility]) [address] [facility] [place], [address], 09/21/2023 06:07:53 09/20/19 24 09/21/2023 BASIC METAB OLIC PANEL (8) creatinine 0.86 mg/dL 0.57-1 .00 Not Available [facility] ([facility]) [address] [facility] [place], [address], 09/21/2023 06:07:53 09/20/19 24 09/21/2023 BASIC METAB OLIC PANEL (8) eGFR 73 mL/mi n/1.7 3 >59 Not Available [facility] ([facility]) [address] [facility] [place], [address], 09/21/2023 06:07:53 09/20/19 24 09/21/2023 BASIC METAB OLIC PANEL (8) BUN/creatini ne ratio 20 12-28 Not Available [facility] ([facility]) [address] [facility], [place], [address], 09/21/2023 06:07:53 09/20/19 24 09/21/2023 BASIC METAB OLIC PANEL (8) sodium 143 mmol/ L 134-14 4 Not Available [facility] ([facility]) [address] [facility] [place], [address], 09/21/2023 06:07:53 09/20/19 24 09/21/2023 BASIC METAB OLIC PANEL (8) potassium 4.5 mmol/ L 3.5-5. 2 Not Available [facility] ([facility]) [address] [facility] [place], [address], 09/21/2023 06:07:53 09/20/19 24 09/21/2023 BASIC METAB OLIC PANEL (8) chloride 105 mmol/ L 96-106 Not Available [facility] ([facility]) [address] [facility] [place], [address], 09/21/2023 06:07:53 09/20/19 24 09/21/2023 BASIC METAB OLIC PANEL (8) carbon dioxide, total 22 mmol/ L 20-29 Not Available [facility] ([facility]) [address] [facility] [place], [address], 09/21/2023 06:07:53 09/20/19 24 09/21/2023 BASIC METAB OLIC PANEL (8) calcium 9.5 mg/dL 8.7-10 .3 Not Available [facility] ([facility]) [address] [facility] [place], [address], 09/21/2023 06:07:53 09/20/19 24 09/21/2023 LIPID PANEL cholesterol, total 198 mg/dL 100-19 9 Not Available [facility] ([facility]) [address] [facility] [place], [address], 09/21/2023 06:07:54 09/20/19 24 09/21/2023 LIPID PANEL triglyceride s 94 mg/dL 0-149 Not Available [facility] ([facility]) [address] [facility] [place], [address], 09/21/2023 06:07:54 09/20/19 24 09/21/2023 LIPID PANEL HDL cholesterol 54 mg/dL >39 Not Available [facility]) [address] [facility] [place], [address], 09/21/2023 06:07:54 09/20/19 24 09/21/2023 LIPID PANEL VLDL cholesterol donavon 17 mg/dL 5-40 Not Available [facility] ([facility]) [address] [facility] [place], [address], 09/21/2023 06:07:54 09/20/19 24 09/21/2023 LIPID PANEL LDL chol calc ([facility]) 127 mg/dL 0-99 above high normal Not Available [facility] ([facility]) [address] [place], [address], 09/21/2023 06:07:54 09/20/19 24 09/21/2023 LIPID PANEL LDL calc comment: RIG SUPERVISOR Not Available [facility] ([facility]) [address] [facility], [place], [address], 09/21/2023 06:07:54 09/20/19 24 09/21/2023 HEMOG LOBIN A1C hemoglobin A1C 6.2 % 4.8-5. 6 above high normal Predi abete s: 5.7 - 6.4 Diabe tom: >6.4 Glyce maria elena contr ol for adult s with diabe tom: <7.0 Not Available [facility] ([facility]) [address] [facility], [place], [address], 09/21/2023 06:07:55 09/20/19 24 09/21/2023 TSH RFX ON ABNOR MAL TO FREE T4 TSH 2.730 uIU/m L 0.450- 4.500 Not Available [facility] ([facility]) [address] [facility], [place], [address], 09/21/2023 06:07:55 05/17/19 21 05/17/2020 MAMMO , [...] I agree with this report . WSN: [id number] Orderi ng Physic teto: Augustine saeed MD, Rosie Mcbride Dictat ed By: Ata sommer MD, Warner Dictat ed Date/T kenny: 3:53 pm Review ed By: Carlos DYER, Sunshine Chi Signed By: Sunshine Gonzalez MD Signed Date/T kenny: 3:58 pm Transc ribed By: CSB Transc riptio n Date/T kenny: 3:05 pm Birads : Carrie torres Class: Outpat ient [email or web address] [facility] ([facility]) [address] [facility], [place], [address], 05/20/2020 10:19:52 08/31/19 21 08/29/2020 DEXA, axial skele ton ====== ====== ====== ====== ====== ====== ====== ====== ====== ====== ===== Bone Densit y Report ====== ====== ====== ====== ====== ====== ====== ====== ====== ====== ===== Name: ZAFAR BRADEN ID: [id number] Age: 64 Sex: Female Ethnic ity: White Date of : 06/22/ 1956 ------ ------ ------ ------ ------ ------ ------ ------ ------ ------ ----- Indica tion: CIRO VICTORIA Referr nickolas Campbell er: AUGUSTINE SAEED MD, LIS Study: Bone densit ometry was perfor med. Exam Date: August 29, 2020 Access ion number : [id number] Bone Densit y: ------ ------ ------ [...] 4:18 pm Patien t Class: Outpat ient [email or web address] [facility] ([facility]) [address] [place], [address], 09/03/2020 15:38:08 06/05/19 22 06/04/2021 MAMMO , [...] lymph node is presen t in the assistant store leader ior upper left latera l/ante rior axilla [...] I agree with this report . WSN: [id number] Orderi ng Physic teto: Augustine saeed MD, Rosie Mcbride Dictat ed By: Oseas Olson MD Dictat ed Date/T kenny: 5:01 pm Review ed By: Tatianna Doty MD, I Signed By: Tatianna Doty MD, I Signed Date/T kenny: 5:06 pm Transc ribed By: VICTOR M Transc riptio n Date/T kenny: 4:06 pm Birads : Patien t Class: Outpat ient [email or web address] [facility] ([facility]) [address] [place] [address], [address], 07/03/2021 13:10:17 06/10/19 22 06/04/2021 MAMMO , deborae susana, digit al, bilat eral A D D E N D U M as of: [id number] Addend um: The findin g for callba ck is in the LEFT breast . WSN: [id number] Orderi ng Physic teto: Augustine saeed [...] lymph node is presen t in the assistant store leader ior upper left latera l/ante rior axilla [...] I agree with this report . WSN: [id number] Orderi ng Physic teto: Augustine saeed MD, Rosie Mcbride Dictat ed By: Oseas Olson MD Dictat ed Date/T kenny: 5:01 pm Review ed By: Tatianna Doty MD, I Signed By: Tatianna Doty MD, I Signed Date/T kenny: 5:06 pm Transc ribed By: VICTOR M Transc riptio n Date/T kenny: 4:06 pm Birads : Carrie t Class: Outpat ient [email or web address] [facility] ([facility]) [address] [place] [address], [address], 07/03/2021 13:11:34 06/14/19 22 06/13/2021 mm digit [...] Lay letter mailed to carrie torres WSN: [id number] Orderi ng Physic teto: Augustine saede MD, Rosie Mcbride Dictat ed By: Usha Randhawa MD Dictat ed Date/T kenny: 1:25 pm Review ed By: Usha Randhawa MD Signed By: Usha Randhawa MD Signed Date/T kenny: 1:25 pm Transc ribed By: CSB Transc riptio n Date/T kenny: 1:24 pm Birads : Carrie torres Class: Outpat ient [email or web address] [facility] ([facility]) [address] , [place], [address], 07/03/2021 13:11:35 06/09/19 23 06/08/2022 MAMMO , [...] Lay letter mailed to alyciahakan torres WSN: [id number] Orderi ng Physic teto: Augustine saeed MD, Rosie E Dictat ed By: Tatianna Doty MD, I Dictat ed Date/T kenny: 4:41 pm Review ed By: Tatianna Doty MD, I Signed By: Tatianna Doty MD, I Signed Date/T kenny: 4:41 pm Transc ribed By: VICTOR M Transc riptio n Date/T kenny: 4:37 pm Birads : Patihakan t Class: Outpat ient [email or web address] [facility] ([facility]) [address], [place], [address], 06/09/2022 09:48:18 05/14/19 24 05/13/2023 bone densi ty No observ ation record ed. [facility] [address], [place], [address], 05/14/2023 17:50:25 06/11/19 24 06/10/2023 MAMMO , [...] I agree with this report . WSN: [id number] Orderveronika ng Physic teto: Mark Vazquez ie Dictat ed By: Brock Hanna MD Dictat ed Date/T kenny: 1:21 pm Review ed By: Srikanth mcbride MD, Usha Ryan Signed By: Srikanth mcbride MD, Usha Ryan Signed /T kenny: 1:26 pm Transc ribed By: CSB Transc riptio n Date/T kenny: 11:50 am Birads : Alyciahakan melissa Class: Outpat ient [facility] ([facility]) [address] [place], [address], 06/11/2023 14:50:16 06/11/19 24 06/10/2023 MAMMO , scree susana, digit al, bilat eral No observ ation record ed. [facility] [address], [place], [address], 06/11/2023 18:07:35 01/14/20 24 01/14/2024 XR, knee No observ ation record ed. [email or web address] [facility] [address] [place], [address], 01/17/2024 11:38:15 01/14/20 24 01/14/2024 XR, knee, [...] l osteoa rthrit ic change . WSN: [id number] Orderi ng Physic teto: Saige Mcgee Y Dictat ed By: Keara Lawrence MD Dictat ed Date/T kenny: 10:09 a Review ed By: Keara Lawrence MD Signed By: Keara Lawrence MD Signed Date/T kenny: 10:09 am Transc ribed By: VICTOR M Transc ribed Date/T kenny: 10:08 am Patien t Class[email or web address] [address] [place], [address], 02/02/2024 10:15:24 Result Notes None recorded. Problems Name Problem SNOMED Code Status Onset Date Resolution Date Notes Provider Name and Address Organization Details Recorded Time Non-Hodg kin's lymphoma (clinica l) 185288147 Completed 201705/20/2020 dx in 2013 right cheeck and right groin and back of neck, tx with radiation Rosie franco [facility], [facility] 1 09:25:38 Obesity 461455959 Active Mena Rios CPPM [facility], [facility] 0 10:55:57 Family history of diabetes mellitus 834023576 Completed 09/09/2022 LINDA BRITO MD [address] [facility] [address], [place], [address], [facility] 3 18:58:50 History of non-Hodg kins lymphoma 824408564 Active 2020 Rosie franco [facility] 1 09:25:32 Osteopor osis 29997781 Completed 202109/19/2023 LINDA BRITO MD [address], [place], [address], [facility] 4 14:18:04 Osteopen ia 815906649 Active 2023 LINDA BRITO MD [address], [place], [address], [facility] 4 14:18:14 Hyperlip idemia 95688815 Active 2023 LINDA BRITO MD [address], [facility] [place], [address], [facility] 4 14:19:50 Statin declined 331876910 Active 2023 LINDA BRITO MD [address], [facility] [place], [address], [facility] 4 14:19:52 Senile osteopor osis 84722993 Active Ly Coleman [place] [facility] 4 10:19:18 Problem Notes None recorded. Procedures Surgical History Date Name Laterality Status Provider Name and Address Organization Details Recorded Time 09/20/19 24 Advanced Care Planning completed LINDA BRITO MD [address], [place], [address], [facility] 09/19/2023 14:15:24 06/11/19 24 Most Recent Mammogram completed Elif Ballard [facility] 06/11/2023 14:50:11 06/11/19 24 Mammogram both breasts completed Elif Ballard [facility] 06/11/2023 14:50:06 09/11/19 23 Advanced Care Planning completed Ly Coleman MA [facility] 2022 13:46:55 08/29/19 22 Advanced Care Planning completed Ly Coleman MA [facility] 08/28/2021 15:09:18 06/14/19 22 Mammogram one breast completed Adelita Miles [facility] 07/03/2021 13:11:24 05/21/19 21 Six-Item Cognitive Test completed Bernadette Braga MA [facility] 05/20/2020 09:01:49 05/19/19 20 Mini-Cog Test completed Ly Coleman MA [facility] 05/19/2019 13:28:37 11/03/19 18 Date of Last Pap Smear completed Ly Coleman MA [facility] 05/19/2019 13:35:30 07/15/19 18 Date of Last Colonoscopy completed Zayra Kumar [facility] 07/14/2017 15:13:59 07/15/19 18 Colonoscopy completed Zayrabalaji Kumar [facility] 07/14/2017 15:13:52 11/11/19 16 Most Recent Bone Density completed Zayra Kumar [facility] 06/09/2017 11:45:50 11/11/19 16 Dxa bone density mignon vrt fx completed Zayra Kumar [facility] 06/09/2017 11:45:44 05/07/18 92 Caesarean Section completed Ly Coleman MA [facility] 08/28/2021 15:08:40 Imaging Results Imaging Date Name Status LastModified by Organiz ation Details LastModified Time 05/17/2020 MAMMO, screening, digital, bilateral completed [email or web address] [facility] (Outpt Imaging) [address] [place], [address], 05/20/2020 10:19:52 08/29/2020 DEXA, axial skeleton completed [email or web address] [facility] (Outpt Imaging) [address] [place], [address], 09/03/2020 15:38:08 06/04/2021 MAMMO, screening, digital, bilateral completed [email or web address] [facility] (Outpt Imaging) [address], [place], [address], 07/03/2021 13:10:17 06/04/2021 MAMMO, screening, digital, bilateral completed [email or web address] [facility] (Outpt Imaging) [address] [place], [address], 07/03/2021 13:11:34 06/13/2021 mm digital mammo unilat left completed [email or web address] (Outpt Imaging) [address], [place], [address], 07/03/2021 13:11:35 06/08/2022 MAMMO, screening, digital, bilateral completed [email or web address] [facility] (Outpt Imaging) [address] [place], [address], 06/09/2022 09:48:18 05/13/2023 bone density completed [facility] [address] [place], [address], 05/14/2023 17:50:25 06/10/2023 MAMMO, screening, digital, bilateral completed [facility] (Outpt Imaging) [address] [place] [address], [address], 06/11/2023 14:50:16 06/10/2023 MAMMO, screening, digital, bilateral completed [facility] [address] [place], [address], 06/11/2023 18:07:35 01/14/2024 XR, knee completed [email or web address] [facility] [address] [place], [address], 01/17/2024 11:38:15 01/14/2024 XR, knee, 1 or 2 view completed [email or web address] [facility] (Outpt Imaging) [address] [place] [address], [address], 02/02/2024 10:15:24 Procedure Notes None recorded. Medical Equipment None Reported. Allergies Allergen ID Allergen Name Allergen Category Reaction Reaction Severity Criticality Documentation Date Start Date Code Code System Note Provider Name and Address Organization Details Recorded Time 20088 No known allergy (situatio n) Not available Not available Not available Not available 09/20/2023 46047 6003 SNOMED EL Hidalgo MA [facility] 10:19:10 No known drug allergies Medications Name [...] Updated DateTime 2 163.83 cm 35.4 kg/m2 00868.9 1 g 97 % 97 % 65 /min 97.88 [degF] 123 mm[Hg] 74 mm[Hg] Ly Coleman MA [facility] 2 15:16:23 Date Recorded Body height Body mass index (BMI) Body weight Oxygen saturation Oxygen saturation in Arterial blood by Pulse oximetry Heart rate Body temperature Systolic blood pressure Diastolic blood pressure Provider Name and Address Organization Details Last Updated DateTime 3 163.83 cm 35.5 kg/m2 93726.8 g 98 % 98 % 79 /min 98 [degF] 122 mm[Hg] 83 mm[Hg] [facility] 3 13:56:14 Date Recorded Body height Body mass index (BMI) Body weight Oxygen saturation Oxygen saturation in Arterial blood by Pulse oximetry Heart rate Body temperature Systolic blood pressure Diastolic blood pressure Provider Name and Address Organization Details Last Updated DateTime 4 163.83 cm 34.1 kg/m2 50013.8 7 g 98 % 98 % 72 /min 98.2 [degF] 125 mm[Hg] 68 mm[Hg] Ly Coleman MA [facility] 4 10:24:54 Date Recorded Body height Body mass index (BMI) Body weight Heart rate Oxygen saturation Oxygen saturation in Arterial blood by Pulse oximetry Body temperature Systolic blood pressure Diastolic blood pressure Provider Name and Address Organization Details Last Updated DateTime 4 163.83 cm 32.3 kg/m2 41772.2 4 g 69 /min 98 % 98 % 97.8 [degF] 123 mm[Hg] 76 mm[Hg] Janeen Ellis LPN [facility] 4 09:03:22 Social History Question Answer Notes LastModified by Organizat ion Details LastModified Time Tobacco Smoking Status Never Smoker EL Hidalgo [facility] 05/13/2017 14:51:41 Do You Have An Advance Directive? No [email or web address] Information not available 08/28/2021 What Is Your Level Of Alcohol Consumption? Occasional [email or web address] Information not available 05/13/2017 Is Blood Transfusion Acceptable In An Emergency? Yes [email or web address] Information not available 05/13/2017 What Is Your Level Of Caffeine Consumption? Occasional Very Rare [email or web address] Information not available 2022 How Much Tobacco Do You Chew? None Information not available 05/20/2020 Are You Currently Employed? No Information not available 08/28/2021 What Type Of Diet Are You Following? REGULAR [email or web address] Information not available 05/13/2017 Which Illicit Or Recreational Drugs Have You Used? None Information not available 05/20/2020 Do You Or Have You Ever Used E-cigarettes Or Vape? 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 Alone With Dog [email or web address] Information not available 2022 Do You Take Precautions To Prevent Distracted Driving? Yes [email or web address] Information not available 05/13/2017 How Often Do You Need To Have Someone Help You When You Read Instructions, Pamphlets, Or Other Written Material From Your Doctor Or Pharmacy? Never Information not available 05/20/2020 Have You Served In The ? No [email or web address] Information not available 05/13/2017 Have You Or [...] 05/20/2020 Have You Recently Traveled To A [facility] High Risk Area Or Gathering In The Last 10 Days? No Information not available 05/20/2020 What Was The Date Of Your Most Recent Tobacco Screening? 09/20/2023 [email or web address] Information not available 09/20/2023 How Many Children Do You Have? 1 [email or web address] Information not available 05/13/2017 Do You Use Your Seat Belt Or Car Seat Routinely? Yes [email or web address] Information not available 08/28/2021 Seat Belts Used Routinely Yes [email or web address] Information not available 08/28/2021 Are You Sexually Active? No Information not available 05/20/2020 Smoke Alarm In Home Yes [email or web address] Information not available 08/28/2021 Do You Have Smoke And Carbon Monoxide Detectors In Your Home? Yes [email or web address] Information not available 08/28/2021 At What Age Did You Start Smoking Tobacco? 0 Information not available 05/20/2020 Are You Passively Exposed To Smoke? No [email or web address] Information not available 05/13/2017 Do You Or Have You Ever Used Smokeless Tobacco? Never Used Smokeless Tobacco Information not available 05/20/2020 How Much Tobacco Do You Smoke? No Information not available 05/20/2020 Do You Use Sunscreen Routinely? Yes [email or web address] Information not available 05/13/2017 How Many Years Have You Smoked Tobacco? 0 Information not available 05/20/2020 Sex: Unknown Functional Status Question Answer Note LastModified by Organizat ion Details LastModified Time Are you able to walk? YESWOREST [email or web address] Information not available 08/28/2021 Are you able to care for yourself? Yes [email or web address] Information not available 05/13/2017 What is your exercise level? Moderate walks 10-35 minutes 5 days a week,exerise s that PT gives her [email or web address] Information not available 2022 Mental Status None recorded. Family History Relationship Description Onset Age of this Age Resolved Age Notes LastModified by Organization Details LastModified Time Father Malignant lymphoma 54 [email or web address] Not available 08/28 15:03:07 Mother Diabetes mellitus abolcun Not available 2020 08:54:56 Daughter Diabetes mellitus abolcun Not available 2020 08:54:56 Notes:No FH of breast or col on cancer Medical History Condition Response Other N Gout N Blood Diseases N Kidney Stones N Hyperthyroidism N Breast Cancer N Hypothyroidism N Lung Disease N Depression N COPD N Defects or Inherited Disease N Anesthesia [...] Recorded Time Tdap 3 completed Not Available [facility] 04/22/2023 14:06:04 Influenza, split virus, quadrivalent, preservative 8 completed Not Available [facility] 04/22/2023 14:06:03 Influenza, split virus, trivalent, preservative 8 completed Not Available [facility] 04/22/2023 14:06:04 COVID-19, mRNA, LNP-S, PF, 30 mcg/0.3 mL dose 1 completed Not Available [facility] 04/22/2023 14:06:04 COVID-19, mRNA, LNP-S, PF, 30 mcg/0.3 mL dose 1 completed Not Available [facility] 04/22/2023 14:06:04 pneumococcal polysaccharide PPV23 2 completed Not Available [facility] 04/22/2023 14:06:04 Tdap 5 completed Not Available [facility] 04/22/2023 14:06:04 zoster recombinant 1 completed Not Available [facility] 04/22/2023 14:06:03 Pneumococcal conjugate PCV 13 1 completed Not Available [facility] 04/22/2023 14:06:04 COVID-19, mRNA, LNP-S, PF, 30 mcg/0.3 mL dose 1 completed Not Available [facility] 04/22/2023 14:06:04 Influenza, adjuvanted, quadrivalent, PF 1 completed Not Available [facility] 04/22/2023 14:06:03 Influenza, recombinant, quadrivalent, PF 0 completed Not Available [facility] 04/22/2023 14:06:03 COVID-19, mRNA, LNP-S, PF, 30 mcg/0.3 mL dose, maximino-sucrose 2 completed Not Available [facility] 04/22/2023 14:06:04 zoster recombinant 1 completed Not Available [facility] 04/22/2023 14:06:03 Influenza, adjuvanted, quadrivalent, PF 2 completed Not Available [facility] 04/22/2023 14:06:04 COVID-19, mRNA, LNP-S, bivalent, PF, 30 mcg/0.3 mL dose 2 completed Not Available [facility] 04/22/2023 14:06:04 Influenza, adjuvanted, quadrivalent, PF 3 completed EL Hidalgo MA [facility] 09/20/2023 10:25:21 Past Encounters Encounter ID Performer Location Encounter Start Date Encounter Closed Date Diagnosis/Indication Diagnosis SNOMED-CT Code Diagnosis ICD10 Code Diagnosis Note [id number] Rosie gonzalez Main Office [address] [facility] [place] [address] 05/13/2017 14:25:11 05/13/2017 15:30:08 Adult health examination 024988129 Z00.00 last colonoscop y [address] Ramos, will get a repeat, mammo in 11/06 and pap smear through Dr Rhodes, they have been normal. Non-Hodgki n's lymphoma (clinical) 022259811 C85.[address] La every 4 months, has a mass right back of neck that is being followed. Body mass index 30+ - obesity 159157804 Z68.35 Z68.34 gained weight when she sprained her ankle this winter [id number] [facility] [address] [facility] [address] [place] [address] 11/15/2017 10:31:42 11/15/2017 11:35:24 Non-Hodgkin's lymphoma (clinical) 974588563 C85.[address] La every 4 months, new lymph nodes seen on US in both axilla, we called and talked to DR La's histology assistant, he will be made aware of biopsy scheduled for tomorrow as well as get the reports. Axillary lymphadenopathy 115080419 R59.0 new, long talk with pt, I wanted Dr La her oncologist to be aware and make sure he agrees with the plan and approach to biopsy, this was done, [id number] [facility] Main Office [address] [facility] [address] [place] [address] 05/16/2018 10:54:57 05/16/2018 11:43:42 Adult health examination 160472364 Z00.00 all screening is utd. Non-Hodgki n's lymphoma (clinical) 827853844 C85.90 see below Supraclavi cular lymphadenopathy 213796763 R59.0 left supraclavi cular node felt on exam today, pt also with more fullness in right axilla without discreet mass. pt will go from here to Dr La's office for eval and appt, just finished tx for recurrence , pt was asked to call and let me know date of appt with dR La [id number] Rosie ArmentaJudy carlos Main Office [address] [facility] [address] [place] [address] 05/19/2019 13:14:20 05/19/2019 14:14:08 Adult health examination 017175020 Z00.00 all screening is utd. trying to get back n shape, finished chemo last month Non-Hodgki n's lymphoma (clinical) 834627860 C85.90 will be getting a biopsy left axilla for positive node on PET scan [id number] Rosie ArmentaLarissaJudy gonzalez [facility] [address] [facility] [address] [facility] [place] [address] 05/20/2020 06:40:28 05/20/2020 12:05:51 Adult health examination 223740048 Z00.00 mammogram is utd will see unemployment examiner 03/11 utd on unemployment examiner and colonoscop y. is walking. feels great Menopause present 837102 006 Z78.0 hx of osteopenia . recheck bone density. keep on vit D Screening for malignant neoplasm of cervix 293441820 Z12.[address] Rhodes History of non-Hodgkins lymphoma 489307507 Z85.72 dx many years ago in mouth and neck, and had recurrence 2019, done with chemo and port is out Hypercholesterolemia 136 87185 E78.00 check random [id number] Rosie JacksonMadhu carlos Main Office [address] [facility] [address] [facility] [place] [address] 08/28/2021 15:02:37 08/28/2021 15:49:59 Adult health examination 048977499 Z00.00 screening is utd, walks dog and does gardening pt to get a tetanus shot before 07/12 Advance di rective discussed with patient 803451015 Z71.89 I discussed MOLST and health care proxy form. I gave pt MOLST form and proxy form, pt will fill out, discuss MOLST form with proxy and sign and return to our office History of non-Hodgkins lymphoma 049744213 Z85.72 dx many years ago in mouth and neck, and had recurrence 2019, done with chemo and port is out recent check up good Body mass index 30+ - obesity 031100512 E66.9 Z68.35 working on weight loss Hypercholesterolemia 136 63242 E78.00 check random Fatigue 66161910 R53.83 check labs Osteoporosis 44459805 M8 1.0 will be starting a med. Skin lesion 80281091 L98 .9 pt to set up derm, unsure what rash is [id number] LINDA BRITO MD Main Office [address] [facility] [address] [place] [address] 2022 13:43:28 2022 14:29:33 Adult health examination 589427473 Z00.00 Health Maintenanc e FemaleA) Patient was counseled on healthy diet, exercise and nutrition due to BMI is 35.5 B) ScreeningL ast Mammogram: start at age 50 stop at 72Date: 06/08/2022R esult: BIRADS-2Ne xt: 06/12 Last Pap smear: aged out Last Colonoscop y: start at age 45-75Date: 07/14/2017R esult: normalNext : 10 years, will be aged out Last DEXA scan:Date: 08/29/2020 Result: osteoporos is, following endo C) Vaccines:I nfluenza: 01/18/2022 TdAP: 03/22/2014 Zoster: 07/29/2020 , 10/01/2020 PCV13: 04/08/2020 PPSV23: 04/08/2021 COVID: 05/31/2020 , 06/21/2020 , 03/04/2021 , 08/07/2021. 02/05/2022 D) Routine blood work orderedE) Updated patient's history RTC in one year for annual exam or sooner if any acute complaints History of non-Hodgkins lymphoma 110685665 Z85.72 - diffuse B-cell lymphoma currently in remission- pt follows with oncology, was last seen in March Osteoporosis 98151065 M8 1.0 - following endocrinol ogy- currently on calcium and vitamin D supplement s- currently on the alendronat e Fatigue 29832845 R53.83 Z00.00 Hyperlipidemia 98978096 E78.5 Z00.00 Advance di rective discussed with patient 945439990 Z71.89 - discussed with patient MOLTS and HCP [id number] LINDA BRITO MD Main Office [address] [facility] [address] [place] [address] 09/20/2023 10:16:47 09/20/2023 10:45:38 Advance directive discussed with patient 272519371 Z71.89 - discussed with patient MOLTS and HCP Adult heal th examination 960411075 Z00.00 Health Maintenanc e FemaleA) Patient was counseled on healthy diet, exercise and nutrition due to BMI is 34.1 B) ScreeningL ast Mammogram: start at age 50 stop at 72Date: 06/10/2023 esult: BIRADS-1Ne xt: 06/13 Last Pap smear: aged out Last Colonoscop y: start at age 45-75Date: 07/14/2017R esult: normalNext : 10 years, will be aged out Last DEXA scan:Date: 05/13/2023 esult: converted from osteoporos is to osteopenia Next: 2 years C) Vaccines:I nfluenza: 03/18/2023 TdAP: 03/22/2014 Zoster: 07/29/2020 , 10/01/2020 PCV13: 04/08/2020 PPSV23: 04/08/2021 COVID: 05/31/2020 , 06/21/2020 , 03/04/2021 , 08/07/2021, 02/05/2022 D) Routine blood work orderedE) Updated patient's history RTC in one year for annual exam or sooner if any acute complaints History of non-Hodgkins lymphoma 728964534 Z85.72 - diffuse B-cell lymphoma currently in remission> hx of XRT - Right parotid gland 2000 cGy and Right Groin 02/2015> s/p RCHOP, rituximab and chemothera py- pt follows with oncology, last seen on 07/2023 Osteopenia 483057928 M85 .80 - following endocrinol ogy- currently on calcium and vitamin D supplement s- currently on the alendronat e once a week- improvemen t from osteoporos is to osteopenia in AP spine Fatigue 19523239 R53.83 Z00.00 Hyperlipidemia 26992115 E78.5 Z00.00 - ASCVD score of 8.2%- lipid panel 09/2022: cholestero l-224, triglyceri de-124. LDL-146 and HDL-53- will repeat levels- pt declined statin therapy Pt counselled on:- Eat a heart-heal thy diet - Choose healthy fats. Avoid saturated fats that are found primarily in red meat, ma, sausage, and full-fat dairy products. Advised to choose lean proteins like chicken, turkey, and fish when possible. Switch to low-fat or fat-free dairy. And use monounsatu rated fats like olive and canola oil for cooking. - Cut out the trans fats. Trans fats are found in fried food and processed foods, like cookies, crackers, and other snacks. - Eat more omega-3s. Counseled on eating more fish, including salmon, mackerel, marroquin ,nuts and seeds, like walnuts and flax seeds. - Increase your fiber intake. By eating more oats, brain, fruits, beans, and vegetables , can lower your LDL cholestero l levels. - Eat more fruits and veggies. Statin declined 78691285 0 Z53.20 Impaired f asting glycemia 327975250 R73.01 Body mass index 30+ - obesity 778374735 E66.9 Z68.34 - BMI of 34.1- Cut down on (limit) fast foods, sweets, and processed snack foods. - Limit alcohol intake to no more than 1- 2 drinks a day for men. One drink equals 12 oz of beer, 5 oz of wine, or 1 oz of hard liquor. - Keep a weight loss journal and keep track of the food and portions that you eat. - The exercise that you do- 4 times a week or 150 minutes cumulative of moderate exercise recommende bart. [id number] Maddi Tay Main Office [address] [facility] [address] [place] [address] 01/14/2024 08:45:59 01/14/2024 09:21:43 Knee joint painful on movement 202228529 M25.562 hx of left knee fx in 2009->immo bilized, no surgery-L> R, triggered with ambulation for >20 min-sympto ms of knee discomfort , stiffness to the posterior aspect of bilateral knees-atte nds PT for that past year for knee strengthen ing-does not take any OTC pain medication s-patient is an avid hiker and can no longer complete the trails that she use to go on-will further evaluate with xray, continue PT, and discussed conservati ve measuremen ts-will refer to ortho for further evaluation Health Concerns Section Related Observation LastModified by Organization Detai ls LastModified Time None Recorded Concern Status LastModified by Organization Details LastModified Time None Recorded Advance Directives Directive N: Payers Encounter Date Sequence Insurance Name Policy Number Policy Conte Covered Member ID Conte Member ID Guarantor Name 05/20/2020 2 [facility] - NAVIGATOR (PPO) [id number] Zafar Durbin [id number] Zafar Durbin 05/20/2020 1 [place] [facility] Zafar Durbin [id number] Zafar Durbin 08/28/2021 2 [facility] - NAVIGATOR (PPO) [id number] Zfaar Durbin [id number] Zafar Durbin 08/28/2021 1 [place] [facility] Zafar Durbin [id number] Zafar Durbin 2022 2 [facility] - NAVIGATOR (PPO) [id number] Zafra Durbin [id number] Zafar Durbin 2022 1 [place] [facility] Zafar Durbin [id number] Zafar Durbin 09/20/2023 2 [facility] - MEDICARE ENHANCE (INDEMNITY PLAN) Zafar Dubrin [id number] Zafar Durbin 09/20/2023 1 [place] [facility] Zafar Durbin [id number] Zafar Durbin 01/14/2024 2 [facility] - MEDICARE ENHANCE (INDEMNITY PLAN) Zafar Durbin [id number] Zafar Durbin 01/14/2024 1 [place] [facility] Zafar Durbin [id number] Zafar Durbin Notes Date Note Type [...] trying to get an appt. Rosie goddard [facility] 05/20/2020 09:45:24 08/28/2021 text/html Medicare Annual Wellness [...] PT is trying to lose weight. Sees unemployment examiner every other year. Non-Hodgkins lymphoma is in remission, just saw oncology. AHs a rash taht ocmes and goes on her abdomen Rosie goddard [facility] 08/28/2021 15:51:28 2022 text/html Medicare Annual Wellness VisitReported bypatient.Diet and Nutrition:healthy diet; discussed vitamin and supplement use; taking calcium and vitamin D Fracture Risk:history of fractures Physical Activity:exercises on a regular basis; physical therapist (2X month)and walking 07/26 20-30 mins daily Depression Risk:never feels sad, [...] is getting worse? No LINDA BRITO MD [address] [place] [address] [place], [address], [facility] 2022 15:00:36 09/20/2023 text/html Medicare Annual Wellness VisitReported bypatient.Diet and Nutrition:healthy diet; discussed vitamin and supplement use; taking calcium and vitamin D, fish oil Fracture Risk:history of fractures Physical Activity:exercises on a regular basis; physical therapist (1-2X month), roxanna balance, tchi and aerobics class Depression Risk:never feels sad, [...] None on file LINDA BRITO MD [address], [address], [facility] 09/20/2023 10:50:40 01/14/2024 text/html Zafar is a [...] brace which provides some relief. Maddi goddard, [facility] 01/25/2024 07:14:42 OBGyn Episode No OBEpisode recorded.
--- OUTSIDE RECORDS SUMMARY | 2024-03-29 09:25 | XMS_ITS | Continuity of Care Document ---
Author Organization [facility], Main Office Address [address] [place] [address] Care Team Providers Care Busher Helper Name Role Phone PAT RAMOS Agricultural Commodities Grader [phone] NAYELY RHODES Engine Designer [facility] Hematology/Oncolo gy LINDA BRITO [...] left knee fx in 2009 024 [email or web address] [facility] [place], [address], 16:49:01 Procedures None recorded. Surgeries None recorded. Imaging XR, knee - left knee pain with ambulation 2023 024 oz [facility], [address] , [place], [address], 07:14:38 Medication Orders None recorded. Patient TargetsNo [...] knee No observ ation record ed. [email or web address] [facility] [address] [place], [address], 01/17/2024 11:38:15 01/14/2001/14/2024 XR, knee, 1 or [...] l osteoa rthrit ic change . WSN: [id number] Orderi ng Physic teto: Saige Mcgee Dictat ed By: Keara Lawrence MD Dictat ed Date/T kenny: 10:09 a Review ed By: Keara Lawrence MD Signed By: Keara Lawrence MD Signed Date/T kenny: 10:09 am Transc ribed By: VICTOR M Transc ribed Date/T kenny: 10:08 am Patien t Class: Outpat ient [email or web address] (Outpt Imaging) [address] [place], [address], 02/02/2024 10:15:24 Result Notes None recorded. Problems Name Problem SNOMED Code Status Onset Date Resolution Date Notes Provider Name and Address Organization Details Recorded Time Non-Hodg kin's lymphoma (clinica l) 373089442 Completed 201705/20/2020 dx in 2014 right cheeck and right groin and back of neck, tx with radiation Rosie franco null, [facility] 1 09:25:38 Obesity 965948580 Active Mena Rios CPPM null, [facility] 0 10:55:57 Family history of diabetes mellitus 034403451 Completed 09/09/2022 LINDA BRITO MD [address], [place], [address], [facility] 3 18:58:50 History of non-Hodg kins lymphoma 687364560 Active 2020 Rosie franco null, [facility] 1 09:25:32 Osteopor osis 88610743 Completed 202109/19/2023 LINDA BRITO MD [address] [address], [place], [address], [facility] 4 14:18:04 Osteopen ia 920860782 Active 2023 LINDA BRITO MD [address], [place], [address], [facility] 4 14:18:14 Hyperlip idemia 42122363 Active 2023 LINDA BRITO MD [address] [address], [place], [address], [facility] 4 14:19:50 Statin declined 495844404 Active 2023 LINDA BRITO MD [address], [place], [address], [facility] 4 14:19:52 Senile osteopor osis 36801740 Active Ly Coleman [place] null, [facility] 4 10:19:18 Problem Notes None recorded. Procedures Surgical History Date Name Laterality Status Provider Name and Address Organization Details Recorded Time 09/20/19 24 Advanced Care Planning completed LINDA BRITO MD [address] [address], [place], [address], [facility] 09/19/2023 14:15:24 06/11/19 24 Most Recent Mammogram completed Elif Ballard [facility] 06/11/2023 14:50:11 06/11/19 24 Mammogram both breasts completed Elif Ballard [facility] 06/11/2023 14:50:06 09/11/19 23 Advanced Care Planning completed Ly Coleman MA [facility] 2022 13:46:55 08/29/19 22 Advanced Care Planning completed Ly Coleman MA [facility] 08/28/2021 15:09:18 06/14/19 22 Mammogram one breast completed Adelita Miles [facility] 07/03/2021 13:11:24 05/21/19 21 Six-Item Cognitive Test completed Bernadette Braga MA [facility] 05/20/2020 09:01:49 05/19/19 20 Mini-Cog Test completed Ly Coleman MA [facility] 05/19/2019 13:28:37 11/03/19 18 Date of Last Pap Smear completed Ly Coleman MA [facility] 05/19/2019 13:35:30 07/15/19 18 Date of Last Colonoscopy completed Zayra Kumar [facility] 07/14/2017 15:13:59 07/15/19 18 Colonoscopy completed Zayra Kumar [facility] 07/14/2017 15:13:52 11/11/19 16 Most Recent Bone Density completed Zayra Kumar [facility] 06/09/2017 11:45:50 11/11/19 16 Dxa bone density mignon vrt fx completed Zayra Kumar [facility] 06/09/2017 11:45:44 05/07/18 92 Caesarean Section completed Ly Coleman MA [facility] 08/28/2021 15:08:40 Imaging Results None recorded. Procedure Notes None recorded. Medical Equipment None Reported. Allergies Allergen ID Allergen Name Allergen Category Reaction Reaction Severity Criticality Documentation Date Start Date Code Code System Note Provider Name and Address Organization Details Recorded Time [address]257 No known allergy (situatio n) Not available Not available Not available Not available 09/20/2023 31404 6003 SNOMED EL Hidalgo, [facility] 4 10:19:10 No known drug allergies Medications [...] Updated DateTime 4 163.83 cm 32.3 kg/m2 54660.2 4 g 69 /min 98 % 98 % 97.8 [degF] 123 mm[Hg] 76 mm[Hg] Janeen Ellis LPN [facility] 4 09:03:22 Social History Question Answer Notes LastModified by Organizat ion Details LastModified Time Tobacco Smoking Status Never Smoker EL Hidalgo, [facility] 05/13/2017 14:51:41 Do You Have An Advance Directive? No [email or web address] Information not available 08/28/2021 What Is Your Level Of Alcohol Consumption? Occasional [email or web address] Information not available 05/13/2017 Is Blood Transfusion Acceptable In An Emergency? Yes [email or web address] Information not available 05/13/2017 What Is Your Level Of Caffeine Consumption? Occasional Very Rare [email or web address] Information not available 2022 How Much Tobacco Do You Chew? None Information not available 05/20/2020 Are You Currently Employed? No [email or web address] Information not available 08/28/2021 What Type Of Diet Are You Following? REGULAR [email or web address] Information not available 05/13/2017 Which Illicit Or Recreational Drugs Have You Used? None Information not available 05/20/2020 Do You Or Have You Ever Used E-cigarettes Or Vape? 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 Alone With Dog [email or web address] Information not available 2022 Do You Take Precautions To Prevent Distracted Driving? Yes [email or web address] Information not available 05/13/2017 How Often Do You Need To Have Someone Help You When You Read Instructions, Pamphlets, Or Other Written Material From Your Doctor Or Pharmacy? Never Information not available 05/20/2020 Have You Served In The ? No [email or web address] Information not available 05/13/2017 Have You Or [...] Of Your Most Recent Tobacco Screening? 09/20/2023 [email or web address] Information not available 09/20/2023 How Many Children Do You Have? 1 [email or web address] Information not available 05/13/2017 Do You Use Your Seat Belt Or Car Seat Routinely? Yes Information not available 08/28/2021 Seat Belts Used Routinely Yes [email or web address] Information not available 08/28/2021 Are You Sexually Active? No Information not available 05/20/2020 Smoke Alarm In Home Yes Information not available 08/28/2021 Do You Have Smoke And Carbon Monoxide Detectors In Your Home? Yes [email or web address] Information not available 08/28/2021 At What Age Did You Start Smoking Tobacco? 0 Information not available 05/20/2020 Are You Passively Exposed To Smoke? No [email or web address] Information not available 05/13/2017 Do You Or Have You Ever Used Smokeless Tobacco? Never Used Smokeless Tobacco Information not available 05/20/2020 How Much Tobacco Do You Smoke? No Information not available 05/20/2020 Do You Use Sunscreen Routinely? Yes [email or web address] Information not available 05/13/2017 How Many Years Have You Smoked Tobacco? 0 Information not available 05/20/2020 Sex: Unknown Functional Status Question Answer Note LastModified by Organizat ion Details LastModified Time Are you able to walk? [email or web address] Information not available 08/28/2021 Are you able to care for yourself? Yes [email or web address] Information not available 05/13/2017 What is your exercise level? Moderate walks 10-35 minutes 5 days a week,exerise s that PT gives her [email or web address] Information not available 2022 Mental Status None recorded. Family History Relationship Description Onset Age of this Age Resolved Age Notes LastModified by Organization Details LastModified Time Father Malignant lymphoma 54 [email or web address] Not available 08/28 15:03:07 Mother Diabetes mellitus [email or web address] Not available 2020 08:54:56 Daughter Diabetes mellitus abolcun Not available 2020 08:54:56 Notes:No FH of breast or col on cancer Medical History Condition Response Other N Gout N Blood Diseases N Kidney Stones N Hyperthyroidism N Breast Cancer N Lung Disease N COPD N Depression N Hypothyroidism N Defects or Inherited Disease [...] Eczema N Diverticulitis N Abuse/Domestic Violence N Allergies N Asthma N Reflux/GERD N Hepatitis N Pulmonary Embolism [...] Recorded Time Tdap 3 completed Not Available [facility] 04/22/2023 14:06:04 Influenza, split virus, quadrivalent, preservative 8 completed Not Available [facility] 04/22/2023 14:06:03 Influenza, split virus, trivalent, preservative 8 completed Not Available [facility] 04/22/2023 14:06:04 COVID-19, mRNA, LNP-S, PF, 30 mcg/0.3 mL dose 1 completed Not Available [facility] 04/22/2023 14:06:04 COVID-19, mRNA, LNP-S, PF, 30 mcg/0.3 mL dose 1 completed Not Available [facility] 04/22/2023 14:06:04 pneumococcal polysaccharide PPV23 2 completed Not Available [facility] 04/22/2023 14:06:04 Tdap 5 completed Not Available [facility] 04/22/2023 14:06:04 zoster recombinant 1 completed Not Available [facility] 04/22/2023 14:06:03 Pneumococcal conjugate PCV 13 1 completed Not Available [facility] 04/22/2023 14:06:04 COVID-19, mRNA, LNP-S, PF, 30 mcg/0.3 mL dose 1 completed Not Available [facility] 04/22/2023 14:06:04 Influenza, adjuvanted, quadrivalent, PF 1 completed Not Available [facility] 04/22/2023 14:06:03 Influenza, recombinant, quadrivalent, PF 0 completed Not Available [facility] 04/22/2023 14:06:03 COVID-19, mRNA, LNP-S, PF, 30 mcg/0.3 mL dose, maximino-sucrose 2 completed Not Available [facility] 04/22/2023 14:06:04 zoster recombinant 1 completed Not Available [facility] 04/22/2023 14:06:03 Influenza, adjuvanted, quadrivalent, PF 2 completed Not Available [facility] 04/22/2023 14:06:04 COVID-19, mRNA, LNP-S, bivalent, PF, 30 mcg/0.3 mL dose 2 completed Not Available [facility] 04/22/2023 14:06:04 Influenza, adjuvanted, quadrivalent, PF 3 completed EL Hidalgo [place] - [facility] 09/20/2023 10:25:21 Past Encounters Encounter ID Performer Location Encounter Start Date Encounter Closed Date Diagnosis/Indication Diagnosis SNOMED-CT Code Diagnosis ICD10 Code Diagnosis Note [id number] Maddi Tay Main Office [address] [facility] [place] [address] 01/14/2024 08:45:59 01/14/2024 09:21:43 Knee joint painful on movement [id number] M25.562 hx of left knee fx in [...] Conte Member ID Guarantor Name 01/14/2024 2 [facility] MEDIC[facility] ENHANCE (INDEMNITY PLAN) Zafar Durbin [id number] Zafar Durbin 01/14/2024 1 MEDICARE [place] [employer] Zafar Durbin [id number] Zafar Lisasandrita Notes Date Note Type Note Provider Name [...] brace which provides some relief. Maddi goddard [place] - [facility] 01/25/2024 07:14:42 OBGyn Episode No OBEpisode recorded.
--- NOTE | 2024-03-29 09:31 | MHC.OFFVIS ---
Intake Visit Reasons: Left knee pain and giving way Intake Note: Zafar is a 68 year old female who presents with complaints of progressively worsening left knee pain and giving way. The patient states that she 1st injured her left knee in 2009. She slipped on a piece of paper and fell. She states that she suffered a ?fracture? at that time. Over the last few years her knee pain has gotten worse. Most of the pain is along the medial aspect of her knee. She does wear a knee brace because of the symptoms of instability. The patient has just completed formal physical therapy which gave her minimal relief. She has also tried Tylenol and anti-inflammatory medicines which gave her no relief. She has failed the last 6 weeks of conservative treatment which has included formal physical therapy, Tylenol, anti-inflammatory medicines and a knee brace. Allergies No Known Allergies Allergy (Verified 03/29/24 09:32) Medication List - Last Reviewed 03/29/24 by MOMO Marie alendronate mg PO bimatoprost 0.01% (Mau) annette ophthalmic (eye) Physical Exam Const Other: Well-nourished well-developed very friendly female awake alert and oriented x3 in no acute distress Extrem Other: Bilateral lower extremity examination shows good capillary refill, no skin lesions noted, normal sensation light touch Left knee examination shows a minimal effusion, minimal crepitus with range of motion, tenderness along her medial joint line, positive Thee's test, no instability Results Reviewed Results Reviewed: Standing full weight-bearing x-rays of the patient's left knee show mild diffuse joint space narrowing, no acute bony abnormalities Assessment & Plan Assessment & Plan (1) Tear of medial meniscus of left knee: Code(s): S83.242A - Other tear of medial meniscus, current injury, left knee, initial encounter Category: Medical Plan Ms. Durbin presents with progressively worsening left knee pain and mechanical symptoms most likely due to a tear of her medial meniscus. Thus, I will send the patient for an MRI of her left knee for further evaluation. I will see her back once the MRI is completed to discuss the findings and treatment options. She will continue with her activity modifications in the meantime. Feel free to call me at any time should questions regarding her orthopedic management arise. Thank you very much for asking me to see this very friendly patient. I spent 22 minutes in reviewing the patient's records and imaging studies, seeing the patient and documenting in the medical record. Orders: Orders MR knee LT wo con Today S83.242A - Other tear of medial meniscus, current injury, left knee, initial encounter XR knee LT 3V Today M25.562 - Pain in left knee Coding Level of Care Code New Pt Level 3 (07120) Complex EM visit Add On G2211 Diagnoses Tear of medial meniscus of left knee S83.242A
== END 2024-03-29 09:53 | disposition home or self-care (01) ==
PROVIDERS: PCP Student in an Organized Health Care Education/Training Program; Visit Provider Orthopaedic Surgery
DX: S83.242A Other tear of medial meniscus, current injury, left knee, initial encounter (principal)
CPT/HCPCS: 99203; G2211

== ENCOUNTER → 2024-04-11 12:59 | Outpatient (BNV) | payer MEDICARE, OTHER, SELFPAY | PROVIDERS: PCP Student in an Organized Health Care Education/Training Program; Visit Provider Radiology Neuroradiology | DX: M17.12 Unilateral primary osteoarthritis, left knee (principal) | CPT/HCPCS: 73721 ==

== ENCOUNTER 2024-04-11 13:01 | Outpatient (REF) | payer MEDICARE, OTHER, SELFPAY ==
--- NOTE | ~2024-04-11 | MR_ITS ---
CLINICAL HISTORY: S83.242A - Other tear of medial meniscus, current injury, left knee, ini... MR left knee without intravenous contrast Comparison: X-rays of the left knee from 03/29/2024 Findings: Degenerative change of the medial meniscus particularly in the involves posterior body and posterior horn, without tear. Degenerative signal also in the lateral meniscus without tear. Anterior cruciate ligament is intact. Posterior cruciate ligament is intact. Medial collateral ligament complex and lateral collateral ligament complexes are intact. Tlbelefm-nf-gekslh osteoarthritis of the patellofemoral compartment limits joint space narrowing and multifocal cartilage loss. Mild bony remodeling of the medial patellar facet with marked cartilage loss. Moderate joint space narrowing of the medial compartment with mild-moderate chondromalacia. Mild joint space narrowing of the lateral compartment with mild chondromalacia. Extensor mechanism is intact. Mild thinning of the medial retinaculum appears chronic. Lateral positioning of the patella as can be associated with the patellofemoral stress syndrome. Ventral superficial soft tissue swelling with fluid in the prepatellar bursa. Small effusion present. Posterior cysts (Diaz's) measures 1.4 x 0.8 x 1.5 cm. IMPRESSION: 1. Qngbcpfq-lv-zpkbrb tricompartment osteoarthritis of the left knee. Joint space narrowing and cartilage loss appears most pronounced in the patellofemoral compartment. 2. Prepatellar fluid as can be seen with prepatellar bursitis and soft tissue swelling. 3. Degenerative signal in the medial meniscus and lateral meniscus without meniscus tear. 4. Cruciate ligaments are intact. This document has been electronically signed by: Aubrey Moulton MD on 04/12/2024 02:46:11
--- OUTSIDE RECORDS SUMMARY | 2024-04-11 14:49 | XMS_ITS | Data Portability ---
Author Organization [facility], Main Office Address [address] [facility] [facility] [address] [place] [address] Care Team Providers Care Special Needs Bus Driver Name Role Phone PAT RAMOS Receivables Specialist NAYELY RHODES Practice Representative [facility] Hematology/Oncolo gy LINDA BRITO Primary [...] Lab cholesterol , total, serum 2020 021 [place] [facility], [address] [place], [address], 09:45:11 LDL, serum 2020 021 [place] [facility], [address] [place], [address], 1 09:45:11 LDL, serum 2021 022 [place] [facility], [address] [place], [address], 2 15:32:24 cholesterol , total, serum 2021 022 [place] [facility], [address] [place], [address], 2 15:32:25 BMP, serum or plasma 2021 022 [place] [facility], [address] [place], [address], 2 15:32:25 lipid panel, serum 2022 023 [email or web address] [facility], [address] [place] [address], [place], [address], 3 14:41:17 BMP, serum or plasma 2022 023 [place] [facility], [address] [place] [address], [place], [address], 3 11:43:36 TSH, serum or plasma 2022 023 [place] [facility], [address] [place] [address], [place], [address], 3 11:46:35 lipid panel, serum 2023 024 CMA[place] [facility], [address], [place], [address], 4 06:07:54 BMP, serum or plasma 2023 024 [place] [facility], [address], [place], [address], 4 06:07:53 CBC w/ auto diff 2023 024 [place] [facility], [address], [place], [address], 4 06:07:52 TSH, ultra-sensi tive, serum 2023 024 [place] [facility], [address], [place], [address], 4 06:07:55 HbA1c (hemoglobin A1c), blood 2023 024 [place] [facility], [address], [place], [address], 4 06:07:55 Referral gynecologis t referral - Patient to schedule 2020 021 [email or web address] Not available 12:05:[address] referral - rash on abdomen 2021 022 thong [facility], [address], [address], [place], [address], 2 09:34:53 nutritionis t/dietitian referral 2021 022 [email or web address] Not available 2 16:01:20 orthopedic surgeon referral - left knee pain with ambulationh x of left knee fx in 2009 024 [email or web address] [facility], [address] [place] [address] [place], [address], 4 16:49:01 Procedures None recorded. Surgeries None recorded. Imaging bone density - hx of osteopenia evaluate 2020 021 [email or web address] Not available 1 12:05:51 XR, knee - left knee pain with ambulation 2023 024 oz [facility], [address], [place], [address], 07:14:38 Medication Orders None recorded. Patient TargetsNo targets recorded. Patient Instructions Encounter Date Encounter Id Patient Instructions Last Modified By Organization Details Last Modified Time 05/20/2020 [id number] preventing falls: care instructions [email or web address] Not available 05/20/2020 09:42:51 medicare preventive services guide (female 74yrs and under) [email or web address] Not available 05/20/2020 09:42:50 Cervical Cancer Screening [email or web address] Not available 05/20/2020 09:42:51 08/28/2021 [id number] advance care planning: care instructions [email or web address] Not [...] Information [email or web address] Not available 08/28/2021 15:32:12 2022 [id number] advance care planning: care instructions Not available 2022 14:26:39 well visit, over 65: care instructions Not available 2022 14:26:40 preventing falls: care instructions Not available 2022 14:26:40 09/20/2023 [id number] advance care planning: care instructions Not available 09/20/2023 10:41:21 osteoporosis: care instructions Not available 09/20/2023 10:41:21 well visit, over 65: care instructions Not available 09/20/2023 10:41:21 preventing falls: care instructions Not available 09/20/2023 10:41:20 prediabetes: care instructions Not available 09/20/2023 10:41:21 starting a weight loss plan: care instructions Not available 09/20/2023 10:49:58 Reason for Referral Practice Representative Referral for Sc reening for malignant neoplasm of cervix Patient to schedule Referring Physician: Rosie Jacob [facility], Encounter Date: 05/20/2020 Family Resource Coordinator/dietitian Refer ral for Body mass index 30+ - obesity Referring Physician: Rosie Jacob [facility], Encounter Date: 08/28/2021 Bakery Deliverer Referral for S kin lesion rash on abdomen Referring Physician: Rosie Jacob [facility], Encounter Date: 08/28/2021 Orthopedic Surgeon Referral for Knee joint painful on movement left knee pain with ambulationhx of left knee fx in 2009 Referring Physician: Saige Mcgee [facility], Encounter Date: 01/14/2024 Results Created Date Observation Date Name Description Value Unit Range Abnormal Flag Note LastModifiedBy Organization Detail LastModifiedTime 09/30/19 23 09/29/2022 BASIC METAB OLIC PANEL glucose 112 mg/dL (70-99 ) high Not Available [facility] [address] [place], [address], 09/29/2022 11:43:36 09/30/19 23 09/29/2022 BASIC METAB OLIC PANEL BUN 20 mg/dL (8-23) Not Available [facility] [address] [place], [address], 09/29/2022 11:43:36 09/30/19 23 09/29/2022 BASIC METAB OLIC PANEL creatinine 0.9 mg/dL (0.5-1 .0) Not Available [facility] [address] [place], [address], 09/29/2022 11:43:36 09/30/19 23 09/29/2022 BASIC METAB OLIC PANEL sodium 140 mmol/ L (133-1 45) Not Available [facility] [address] [place], [address], 09/29/2022 11:43:36 09/30/19 23 09/29/2022 BASIC METAB OLIC PANEL potassium 4.5 mmol/ L (3.6-5 .2) Not Available [facility] [address] [place], [address], 09/29/2022 11:43:36 09/30/19 23 09/29/2022 BASIC METAB OLIC PANEL chloride 105 mmol/ L (98-10 7) Not Available [facility] [address] [place], [address], 09/29/2022 11:43:36 09/30/19 23 09/29/2022 BASIC METAB OLIC PANEL bicarbonate 25 mmol/ L (22-29 ) Not Available [facility] [address] [place], [address], 09/29/2022 11:43:36 09/30/19 23 09/29/2022 BASIC METAB OLIC PANEL anion gap 10 (4-17) Not Available [facility] [address] [place], [address], 09/29/2022 11:43:36 09/30/19 23 09/29/2022 BASIC METAB OLIC PANEL calcium 10.1 mg/dL (8.6-1 0.5) Not Available [facility] [address] [place], [address], 09/29/2022 11:43:36 09/30/19 23 09/29/2022 BASIC METAB [...] Not Available [facility] [address] [place], [address], 09/29/2022 11:43:36 09/30/19 23 09/29/2022 LIPID PANEL cholesterol, total 224 mg/dL (<200) high Not Available [facility] [address] [place], [address], 09/29/2022 11:43:38 09/30/19 23 09/29/2022 LIPID PANEL triglyceride 124 mg/dL (<150) Not Available [facility] [address] [place], [address], 09/29/2022 11:43:38 09/30/19 23 09/29/2022 LIPID PANEL HDL chol 53 mg/dL (>39) Not Available [facility] [address] [place], [address], 09/29/2022 11:43:38 09/30/19 23 09/29/2022 LIPID PANEL LDL cholesterol, calculated 146 mg/dL (0-130 ) high Not Available [facility] [address] [place], [address], 09/29/2022 11:43:38 09/30/19 23 09/29/2022 LIPID PANEL non HDL cholesterol (calc) 171 mg/dL (<160) high Not Available [facility] [address] [place], [address], 09/29/2022 11:43:38 09/30/19 23 09/29/2022 TSH WITH REFLE X TO FT4 TSH 3.41 uIU/m L (0.4-4 .2) Not Available [facility] [address] [place], [address], 09/29/2022 11:46:35 09/20/19 24 09/21/2023 CBC WITH DIFFE RENTI AL/PL ATELE T WBC 6.3 x10e3 /uL 3.4-10 .8 Not Available [facility] ([facility]) [address] [facility], [place], [address], 09/21/2023 06:07:52 09/20/19 24 09/21/2023 CBC WITH DIFFE RENTI AL/PL ATELE T RBC 4.49 x10e6 /uL 3.77-5 .28 Not Available [facility] ([facility]) [address] [facility], [place], [address], 09/21/2023 06:07:52 09/20/19 24 09/21/2023 CBC WITH DIFFE RENTI AL/PL ATELE T hemoglobin 13.5 g/dL 11.1-1 5.9 Not Available [facility] ([facility]) [address] [facility], [place], [address], 09/21/2023 06:07:52 09/20/19 24 09/21/2023 CBC WITH DIFFE RENTI AL/PL ATELE T hematocrit 42.4 % 34.0-4 6.6 Not Available [facility] ([facility]) [address] [facility], [place], [address], 09/21/2023 06:07:52 09/20/19 24 09/21/2023 CBC WITH DIFFE RENTI AL/PL ATELE T MCV 94 fL 79-97 Not Available [facility] ([facility]) [address] [place], [address], 09/21/2023 06:07:52 09/20/19 24 09/21/2023 CBC WITH DIFFE RENTI AL/PL ATELE T MCH 30.1 pg 26.6-3 3.0 Not Available [facility] ([facility]) [address] [place], [address], 09/21/2023 06:07:52 09/20/19 24 09/21/2023 CBC WITH DIFFE RENTI AL/PL ATELE T MCHC 31.8 g/dL 31.5-3 5.7 Not Available [facility] ([facility]) [address] [place], [address], 09/21/2023 06:07:52 09/20/19 24 09/21/2023 CBC WITH DIFFE RENTI AL/PL ATELE T RDW 13.2 % 11.7-1 5.4 Not Available [facility] ([facility]) [address] [facility], [place], [address], 09/21/2023 06:07:52 09/20/19 24 09/21/2023 CBC WITH DIFFE RENTI AL/PL ATELE T platelets 210 x10e3 /uL 150-45 0 Not Available [facility] ([facility]) [address] [facility], [place], [address], 09/21/2023 06:07:52 09/20/19 24 09/21/2023 CBC WITH DIFFE RENTI AL/PL ATELE T neutrophils 55 % not estab. Not Available [facility] ([facility]) [address] [facility], [place], [address], 09/21/2023 06:07:52 09/20/19 24 09/21/2023 CBC WITH DIFFE RENTI AL/PL ATELE T lymphs 31 % not estab. Not Available [facility] ([facility]) [address] [facility], [place], [address], 09/21/2023 06:07:52 09/20/19 24 09/21/2023 CBC WITH DIFFE RENTI AL/PL ATELE T monocytes 10 % not estab. Not Available [facility] ([facility]) [address] [facility], [place], [address], 09/21/2023 06:07:52 09/20/19 24 09/21/2023 CBC WITH DIFFE RENTI AL/PL ATELE T eos 3 % not estab. Not Available [facility] ([facility]) [address] [facility], [place], [address], 09/21/2023 06:07:52 09/20/19 24 09/21/2023 CBC WITH DIFFE RENTI AL/PL ATELE T basos 1 % not estab. Not Available [facility] ([facility]) [address] [facility], [place], [address], 09/21/2023 06:07:52 09/20/19 24 09/21/2023 CBC WITH DIFFE RENTI AL/PL ATELE T immature cells MILLING MACHINE OPERATOR GEAR Not Available [facility] ([facility]) [address] [facility], [place], [address], 09/21/2023 06:07:52 09/20/19 24 09/21/2023 CBC WITH DIFFE RENTI AL/PL ATELE T neutrophils (absolute) 3.5 x10e3 /uL 1.4-7. 0 Not Available [facility] ([facility]) [address] [facility], [place], [address], 09/21/2023 06:07:52 09/20/19 24 09/21/2023 CBC WITH DIFFE RENTI AL/PL ATELE T lymphs (absolute) 2.0 x10e3 /uL 0.7-3. 1 Not Available [facility] ([facility]) [address] [facility], [place], [address], 09/21/2023 06:07:52 09/20/19 24 09/21/2023 CBC WITH DIFFE RENTI AL/PL ATELE T monocytes(ab solute) 0.6 x10e3 /uL 0.1-0. 9 Not Available [facility] ([facility]) [address] [facility], [place], [address], 09/21/2023 06:07:52 09/20/19 24 09/21/2023 CBC WITH DIFFE RENTI AL/PL ATELE T eos (absolute) 0.2 x10e3 /uL 0.0-0. 4 Not Available [facility] ([facility]) [address] [facility], [place], [address], 09/21/2023 06:07:52 09/20/19 24 09/21/2023 CBC WITH DIFFE RENTI AL/PL ATELE T baso (absolute) 0.1 x10e3 /uL 0.0-0. 2 Not Available [facility] ([facility]) [address] [facility], [place], [address], 09/21/2023 06:07:52 09/20/19 24 09/21/2023 CBC WITH DIFFE RENTI AL/PL ATELE T immature granulocytes 0 % not estab. Not Available [facility] ([facility]) [address] [facility], [place], [address], 09/21/2023 06:07:52 09/20/19 24 09/21/2023 CBC WITH DIFFE RENTI AL/PL ATELE T immature grans (abs) 0.0 x10e3 /uL 0.0-0. 1 Not Available [facility] ([facility]) [address] [facility], [place], [address], 09/21/2023 06:07:52 09/20/19 24 09/21/2023 CBC WITH DIFFE RENTI AL/PL ATELE T NRBC MILLING MACHINE OPERATOR GEAR Not Available [facility] ([facility]) [address] [facility], [place], [address], 09/21/2023 06:07:52 09/20/19 24 09/21/2023 CBC WITH DIFFE RENTI AL/PL ATELE T hematology comments: MILLING MACHINE OPERATOR GEAR Not Available [facility] ([facility]) [address] [facility], [place], [address], 09/21/2023 06:07:52 09/20/19 24 09/21/2023 BASIC METAB OLIC PANEL (8) glucose 105 mg/dL 70-99 above high normal Not Available [facility] ([facility]) [address] [facility], [place], [address], 09/21/2023 06:07:53 09/20/19 24 09/21/2023 BASIC METAB OLIC PANEL (8) BUN 17 mg/dL 8-27 Not Available [facility] ([facility]) [address] [facility] [place], [address], 09/21/2023 06:07:53 09/20/19 24 09/21/2023 BASIC METAB OLIC PANEL (8) creatinine 0.86 mg/dL 0.57-1 .00 Not Available [facility] ([facility]) [address] [facility] [place], [address], 09/21/2023 06:07:53 09/20/19 24 09/21/2023 BASIC METAB OLIC PANEL (8) eGFR 73 mL/mi n/1.7 3 >59 Not Available [facility] ([facility]) [address] [facility] [place], [address], 09/21/2023 06:07:53 09/20/19 24 09/21/2023 BASIC METAB OLIC PANEL (8) BUN/creatini ne ratio 20 12-28 Not Available [facility] ([facility]) [address] [facility], [place], [address], 09/21/2023 06:07:53 09/20/19 24 09/21/2023 BASIC METAB OLIC PANEL (8) sodium 143 mmol/ L 134-14 4 Not Available [facility] ([facility]) [address] [facility] [place], [address], 09/21/2023 06:07:53 09/20/19 24 09/21/2023 BASIC METAB OLIC PANEL (8) potassium 4.5 mmol/ L 3.5-5. 2 Not Available [facility] ([facility]) [address] [facility] [place], [address], 09/21/2023 06:07:53 09/20/19 24 09/21/2023 BASIC METAB OLIC PANEL (8) chloride 105 mmol/ L 96-106 Not Available [facility] ([facility]) [address] [facility] [place], [address], 09/21/2023 06:07:53 09/20/19 24 09/21/2023 BASIC METAB OLIC PANEL (8) carbon dioxide, total 22 mmol/ L 20-29 Not Available [facility] ([facility]) [address] [facility] [place], [address], 09/21/2023 06:07:53 09/20/19 24 09/21/2023 BASIC METAB OLIC PANEL (8) calcium 9.5 mg/dL 8.7-10 .3 Not Available [facility] ([facility]) [address] [facility] [place], [address], 09/21/2023 06:07:53 09/20/19 24 09/21/2023 LIPID PANEL cholesterol, total 198 mg/dL 100-19 9 Not Available [facility] ([facility]) [address] [facility] [place], [address], 09/21/2023 06:07:54 09/20/19 24 09/21/2023 LIPID PANEL triglyceride s 94 mg/dL 0-149 Not Available [facility] ([facility]) [address] [facility] [place], [address], 09/21/2023 06:07:54 09/20/19 24 09/21/2023 LIPID PANEL HDL cholesterol 54 mg/dL >39 Not Available [facility] ([facility]) [address] [facility] [place], [address], 09/21/2023 06:07:54 09/20/19 24 09/21/2023 LIPID PANEL VLDL cholesterol donavon 17 mg/dL 5-40 Not Available [facility] ([facility]) [address] [facility] [place], [address], 09/21/2023 06:07:54 09/20/19 24 09/21/2023 LIPID PANEL LDL chol calc ([facility]) 127 mg/dL 0-99 above high normal Not Available [facility] ([facility]) [address] [place], [address], 09/21/2023 06:07:54 09/20/19 24 09/21/2023 LIPID PANEL LDL calc comment: MILLING MACHINE OPERATOR GEAR Not Available [facility] ([facility]) [address] [facility], [place], [address], 09/21/2023 06:07:54 09/20/19 24 09/21/2023 HEMOG LOBIN A1C hemoglobin A1C 6.2 % 4.8-5. 6 above high normal Predi abete s: 5.7 - 6.4 Diabe tom: >6.4 Glyce maria elena contr ol for adult s with diabe tom: <7.0 Not Available [facility] ([facility]) [address] [facility], [place], [address], 09/21/2023 06:07:55 09/20/19 24 09/21/2023 TSH RFX ON ABNOR MAL TO FREE T4 TSH 2.730 uIU/m L 0.450- 4.500 Not Available [facility] ([facility]) [address] [facility], [place], [address], 09/21/2023 06:07:55 05/17/19 21 05/17/2020 MAMMO , [...] I agree with this report . WSN: [id number] Orderi ng Physic teto: Augustine saeed MD, Rosie Mcbride Dictat ed By: Ata sommer MD, Warner Dictat ed Date/T kenny: 3:53 pm Review ed By: Carlos DYER, Sunshine Chi Signed By: Sunshine Gonzalez MD Signed Date/T kenny: 3:58 pm Transc ribed By: CSB Transc riptio n Date/T kenny: 3:05 pm Birads : Carrie torres Class: Outpat ient [email or web address] [facility] ([facility]) [address] [facility], [place], [address], 05/20/2020 10:19:52 08/31/19 21 08/29/2020 DEXA, axial skele ton ====== ====== ====== ====== ====== ====== ====== ====== ====== ====== ===== Bone Densit y Report ====== ====== ====== ====== ====== ====== ====== ====== ====== ====== ===== Name: ZAFAR BRADEN ID: [id number] Age: 64 Sex: Female Ethnic ity: White Date of : 06/22/ 1956 ------ ------ ------ ------ ------ ------ ------ ------ ------ ------ ----- Indica tion: CIRO VICTORIA Referr nickolas Campbell er: AUGUSTINE SAEED MD, LIS Study: Bone densit ometry was perfor med. Exam Date: August 29, 2020 Access ion number : [id number] Bone Densit y: ------ ------ ------ [...] 4:18 pm Patien t Class: Outpat ient [facility] [address] [place], [address], 09/03/2020 15:38:08 06/05/19 22 06/04/2021 MAMMO , [...] lymph node is presen t in the sculpture instructor ior upper left latera l/ante rior axilla [...] I agree with this report . WSN: [id number] Orderi ng Physic teto: Augustine saeed MD, Rosie Mcbride Dictat ed By: Oseas Olson MD Dictat ed Date/T kenny: 5:01 pm Review ed By: Tatianna Doty MD, I Signed By: Tatianna Doty MD, I Signed Date/T kenny: 5:06 pm Transc ribed By: VICTOR M Transc riptio n Date/T kenny: 4:06 pm Birads : Patien t Class: Outpat ient [email or web address] [facility]) [address] [place] [address], [address], 07/03/2021 13:10:17 06/10/19 22 06/04/2021 MAMMO , deborae susana, digit al, bilat eral A D D E N D U M as of: [id number] Addend um: The findin g for callba ck is in the LEFT breast . WSN: [id number] Orderi ng Physic teto: Augustine saeed [...] lymph node is presen t in the sculpture instructor ior upper left latera l/ante rior axilla [...] I agree with this report . WSN: [id number] Orderi ng Physic teto: Augustine saeed MD, Rosie Mcbride Dictat ed By: Oseas Olson MD Dictat ed Date/T kenny: 5:01 pm Review ed By: Tatianna Doty MD, I Signed By: Tatianna Doty MD, I Signed Date/T kenny: 5:06 pm Transc ribed By: VICTOR M Transc riptio n Date/T kenny: 4:06 pm Birads : Carrie t Class: Outpat ient [email or web address] [facility]) [address] [place] [address], [address], 07/03/2021 13:11:34 06/14/19 22 06/13/2021 mm digit [...] Lay letter mailed to carrie torres WSN: [id number] Orderi ng Physic teto: Augustine saeed MD, Rosie Mcbride Dictat ed By: Usha Randhawa MD Dictat ed Date/T kenny: 1:25 pm Review ed By: Usha Randhawa MD Signed By: Usha Randhawa MD Signed Date/T kenny: 1:25 pm Transc ribed By: CSB Transc riptio n Date/T kenny: 1:24 pm Birads : Carrie torres Class: Outpat ient [email or web address] [facility]) [address] , [place], [address], 07/03/2021 13:11:35 06/09/19 23 06/08/2022 MAMMO , [...] Lay letter mailed to alyciahakan torres WSN: [id number] Orderi ng Physic teto: Augustine saeed MD, Rosie E Dictat ed By: Tatianna Doty MD, I Dictat ed Date/T kenny: 4:41 pm Review ed By: Tatianna Doty MD, I Signed By: Tatianna Doty MD, I Signed Date/T kenny: 4:41 pm Transc ribed By: VICTOR M Transc riptio n Date/T kenny: 4:37 pm Birads : Patihakan t Class: Outpat ient [email or web address] [facility]) [address], [place], [address], 06/09/2022 09:48:18 05/14/19 24 05/13/2023 bone densi ty No observ ation record ed. [facility] [address], [place], [address], 05/14/2023 17:50:25 06/11/19 24 06/10/2023 MAMMO , [...] I agree with this report . WSN: [id number] Orderveronika ng Physic teto: Mark Vazquez ie Dictat ed By: Brock Hanna MD Dictat ed Date/T kenny: 1:21 pm Review ed By: Srikanth mcbride MD, Usha Ryan Signed By: Srikanth mcbride MD, Usha Ryna Signed /T kenny: 1:26 pm Transc ribed By: CSB Transc riptio n Date/T kenny: 11:50 am Birads : Alyciahakan melissa Class: Outpat ient [email or web address] [facility] [address] [place], [address], 06/11/2023 14:50:16 06/11/19 24 06/10/2023 MAMMO , scree susana, digit al, bilat eral No observ ation record ed. [facility] [address], [place], [address], 06/11/2023 18:07:35 01/14/20 24 01/14/2024 XR, knee No observ ation record ed. [email or web address] [facility] [address] [place], [address], 01/17/2024 11:38:15 01/14/20 24 01/14/2024 XR, knee, [...] l osteoa rthrit ic change . WSN: [id number] Orderi ng Physic teto: Saige Mcgee Y Dictat ed By: Keara Lawrence MD Dictat ed Date/T kenny: 10:09 a Review ed By: Keara Lawrence MD Signed By: Keara Lawrence MD Signed Date/T kenny: 10:09 am Transc ribed By: VICTOR M Transc ribed Date/T kenny: 10:08 am Patien t [email or web address] [address] [place], [address], 02/02/2024 10:15:24 Result Notes None recorded. Problems Name Problem SNOMED Code Status Onset Date Resolution Date Notes Provider Name and Address Organization Details Recorded Time Non-Hodg kin's lymphoma (clinica l) 519792771 Completed 201705/20/2020 dx in 2013 right cheeck and right groin and back of neck, tx with radiation Rosie franco [facility], [facility] 1 09:25:38 Obesity 885960589 Active Mena Rios CPPM [facility], [facility] 0 10:55:57 Family history of diabetes mellitus 065221762 Completed 09/09/2022 LINDA BRITO MD [address] [facility] [facility] [address], [place], [address], [facility] 3 18:58:50 History of non-Hodg kins lymphoma 778183824 Active 2020 Rosie franco [facility] 1 09:25:32 Osteopor osis 51502251 Completed 202109/19/2023 LINDA BRITO MD [address], [place], [address], [facility] 4 14:18:04 Osteopen ia 493168463 Active 2023 LINDA BRITO MD [address], [place], [address], [facility] 4 14:18:14 Hyperlip idemia 39255652 Active 2023 LINDA BRITO MD [address], [place], [address], [facility] 4 14:19:50 Statin declined 188419198 Active 2023 LINDA BRITO MD [address], [place], [address], [facility] 4 14:19:52 Senile osteopor osis 48791339 Active Ly Coleman MA [facility] 4 10:19:18 Problem Notes None recorded. Procedures Surgical History Date Name Laterality Status Provider Name and Address Organization Details Recorded Time 09/20/19 24 Advanced Care Planning completed LINDA BRITO MD [address], [place], [address], [facility] 09/19/2023 14:15:24 06/11/19 24 Most Recent Mammogram completed Elif Ballard [facility] 06/11/2023 14:50:11 06/11/19 24 Mammogram both breasts completed Elif Ballard [facility] 06/11/2023 14:50:06 09/11/19 23 Advanced Care Planning completed Ly Coleman MA [facility] 2022 13:46:55 08/29/19 22 Advanced Care Planning completed Ly Coleman MA [facility] 08/28/2021 15:09:18 06/14/19 22 Mammogram one breast completed Adelita Miles [facility] 07/03/2021 13:11:24 05/21/19 21 Six-Item Cognitive Test completed Bernadette Braga MA [facility] 05/20/2020 09:01:49 05/19/19 20 Mini-Cog Test completed Ly Coleman MA [facility] 05/19/2019 13:28:37 11/03/19 18 Date of Last Pap Smear completed Ly Coleman MA [facility] 05/19/2019 13:35:30 07/15/19 18 Date of Last Colonoscopy completed Zayra Kumar [facility] 07/14/2017 15:13:59 07/15/19 18 Colonoscopy completed Zayrabalaji Kumar [facility] 07/14/2017 15:13:52 11/11/19 16 Most Recent Bone Density completed Zayra Kumar [facility] 06/09/2017 11:45:50 11/11/19 16 Dxa bone density mignon vrt fx completed Zayra Kumar [facility] 06/09/2017 11:45:44 05/07/18 92 Caesarean Section completed Ly Coleman MA [facility] 08/28/2021 15:08:40 Imaging Results Imaging Date Name Status LastModified by Organiz ation Details LastModified Time 05/17/2020 MAMMO, screening, digital, bilateral completed [email or web address] [facility] (Outpt Imaging) [address] [place], [address], 05/20/2020 10:19:52 08/29/2020 DEXA, axial skeleton completed [email or web address] [facility] ([facility]) [address] [place], [address], 09/03/2020 15:38:08 06/04/2021 MAMMO, screening, digital, bilateral completed [email or web address] [facility] (Outpt Imaging) [address], [place], [address], 07/03/2021 13:10:17 06/04/2021 MAMMO, screening, digital, bilateral completed [email or web address] [facility] (Outpt Imaging) [address] [place], [address], 07/03/2021 13:11:34 06/13/2021 mm digital mammo unilat left completed [email or web address] (Outpt Imaging) [address], [place], [address], 07/03/2021 13:11:35 06/08/2022 MAMMO, screening, digital, bilateral completed [email or web address] [facility] (Outpt Imaging) [address] [place], [address], 06/09/2022 09:48:18 05/13/2023 bone density completed [facility] [address] [place], [address], 05/14/2023 17:50:25 06/10/2023 MAMMO, screening, digital, bilateral completed [email or web address] [facility] (Outpt Imaging) [address] [place] [address], [address], 06/11/2023 14:50:16 06/10/2023 MAMMO, screening, digital, bilateral completed [facility] [address] [place], [address], 06/11/2023 18:07:35 01/14/2024 XR, knee completed [email or web address] [facility] [address] [place], [address], 01/17/2024 11:38:15 01/14/2024 XR, knee, 1 or 2 view completed [email or web address] [facility] (Outpt Imaging) [address] [place] [address], [address], 02/02/2024 10:15:24 Procedure Notes None recorded. Medical Equipment None Reported. Allergies Allergen ID Allergen Name Allergen Category Reaction Reaction Severity Criticality Documentation Date Start Date Code Code System Note Provider Name and Address Organization Details Recorded Time 37488 No known allergy (situatio n) Not available Not available Not available Not available 09/20/2023 29527 [id number] SNOMED EL Hidalgo [place] [facility] 10:19:10 No known drug allergies Medications Name [...] Updated DateTime 2 163.83 cm 35.4 kg/m2 93279.9 1 g 97 % 97 % 65 /min 97.88 [degF] 123 mm[Hg] 74 mm[Hg] Ly Coleman MA [facility] 2 15:16:23 Date Recorded Body height Body mass index (BMI) Body weight Oxygen saturation Oxygen saturation in Arterial blood by Pulse oximetry Heart rate Body temperature Systolic blood pressure Diastolic blood pressure Provider Name and Address Organization Details Last Updated DateTime 3 163.83 cm 35.5 kg/m2 45258.8 g 98 % 98 % 79 /min 98 [degF] 122 mm[Hg] 83 mm[Hg] [facility] 3 13:56:14 Date Recorded Body height Body mass index (BMI) Body weight Oxygen saturation Oxygen saturation in Arterial blood by Pulse oximetry Heart rate Body temperature Systolic blood pressure Diastolic blood pressure Provider Name and Address Organization Details Last Updated DateTime 4 163.83 cm 34.1 kg/m2 61190.8 7 g 98 % 98 % 72 /min 98.2 [degF] 125 mm[Hg] 68 mm[Hg] Ly Coleman MA [facility] 4 10:24:54 Date Recorded Body height Body mass index (BMI) Body weight Heart rate Oxygen saturation Oxygen saturation in Arterial blood by Pulse oximetry Body temperature Systolic blood pressure Diastolic blood pressure Provider Name and Address Organization Details Last Updated DateTime 4 163.83 cm 32.3 kg/m2 17527.2 4 g 69 /min 98 % 98 % 97.8 [degF] 123 mm[Hg] 76 mm[Hg] Janeen Ellis LPN [facility] 4 09:03:22 Social History Question Answer Notes LastModified by Organizat ion Details LastModified Time Tobacco Smoking Status Never Smoker EL Hidalgo [facility] 05/13/2017 14:51:41 Do You Have An Advance Directive? No [email or web address] Information not available 08/28/2021 What Is Your Level Of Alcohol Consumption? Occasional [email or web address] Information not available 05/13/2017 Is Blood Transfusion Acceptable In An Emergency? Yes [email or web address] Information not available 05/13/2017 What Is Your Level Of Caffeine Consumption? Occasional Very Rare [email or web address] Information not available 2022 How Much Tobacco Do You Chew? None Information not available 05/20/2020 Are You Currently Employed? No [email or web address] Information not available 08/28/2021 What Type Of Diet Are You Following? REGULAR [email or web address] Information not available 05/13/2017 Which Illicit Or Recreational Drugs Have You Used? None Information not available 05/20/2020 Do You Or Have You Ever Used E-cigarettes Or Vape? 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 Alone With Dog [email or web address] Information not available 2022 Do You Take Precautions To Prevent Distracted Driving? Yes [email or web address] Information not available 05/13/2017 How Often Do You Need To Have Someone Help You When You Read Instructions, Pamphlets, Or Other Written Material From Your Doctor Or Pharmacy? Never Information not available 05/20/2020 Have You Served In The ? No Information not available 05/13/2017 Have You Or [...] 05/20/2020 Have You Recently Traveled To A [facility] High Risk Area Or Gathering In The Last 10 Days? No Information not available 05/20/2020 What Was The Date Of Your Most Recent Tobacco Screening? 09/20/2023 [email or web address] Information not available 09/20/2023 How Many Children Do You Have? 1 [email or web address] Information not available 05/13/2017 Do You Use Your Seat Belt Or Car Seat Routinely? Yes [email or web address] Information not available 08/28/2021 Seat Belts Used Routinely Yes [email or web address] Information not available 08/28/2021 Are You Sexually Active? No Information not available 05/20/2020 Smoke Alarm In Home Yes [email or web address] Information not available 08/28/2021 Do You Have Smoke And Carbon Monoxide Detectors In Your Home? Yes [email or web address] Information not available 08/28/2021 At What Age Did You Start Smoking Tobacco? 0 Information not available 05/20/2020 Are You Passively Exposed To Smoke? No [email or web address] Information not available 05/13/2017 Do You Or Have You Ever Used Smokeless Tobacco? Never Used Smokeless Tobacco Information not available 05/20/2020 How Much Tobacco Do You Smoke? No Information not available 05/20/2020 Do You Use Sunscreen Routinely? Yes [email or web address] Information not available 05/13/2017 How Many Years Have You Smoked Tobacco? 0 Information not available 05/20/2020 Sex: Unknown Functional Status Question Answer Note LastModified by Organizat ion Details LastModified Time Are you able to walk? YESWOREST [email or web address] Information not available 08/28/2021 Are you able to care for yourself? Yes [email or web address] Information not available 05/13/2017 What is your exercise level? Moderate walks 10-35 minutes 5 days a week,exerise s that PT gives her [email or web address] Information not available 2022 Mental Status None recorded. Family History Relationship Description Onset Age of this Age Resolved Age Notes LastModified by Organization Details LastModified Time Father Malignant lymphoma 54 [email or web address] Not available 08/28 15:03:07 Mother Diabetes mellitus [email or web address] Not available 2020 08:54:56 Daughter Diabetes mellitus abolcun Not available 2020 08:54:56 Notes:No FH of breast or col on cancer Medical History Condition Response Other N Gout N Kidney Stones N Blood Diseases N Hyperthyroidism N Breast Cancer N Depression N COPD N Lung Disease N Hypothyroidism N Defects [...] Recorded Time Tdap 3 completed Not Available [facility] 04/22/2023 14:06:04 Influenza, split virus, quadrivalent, preservative 8 completed Not Available [facility] 04/22/2023 14:06:03 Influenza, split virus, trivalent, preservative 8 completed Not Available [facility] 04/22/2023 14:06:04 COVID-19, mRNA, LNP-S, PF, 30 mcg/0.3 mL dose 1 completed Not Available [facility] 04/22/2023 14:06:04 COVID-19, mRNA, LNP-S, PF, 30 mcg/0.3 mL dose 1 completed Not Available [facility] 04/22/2023 14:06:04 pneumococcal polysaccharide PPV23 2 completed Not Available [facility] 04/22/2023 14:06:04 Tdap 5 completed Not Available [facility] 04/22/2023 14:06:04 zoster recombinant 1 completed Not Available [facility] 04/22/2023 14:06:03 Pneumococcal conjugate PCV 13 1 completed Not Available [facility] 04/22/2023 14:06:04 COVID-19, mRNA, LNP-S, PF, 30 mcg/0.3 mL dose 1 completed Not Available [facility] 04/22/2023 14:06:04 Influenza, adjuvanted, quadrivalent, PF 1 completed Not Available [facility] 04/22/2023 14:06:03 Influenza, recombinant, quadrivalent, PF 0 completed Not Available [facility] 04/22/2023 14:06:03 COVID-19, mRNA, LNP-S, PF, 30 mcg/0.3 mL dose, maximino-sucrose 2 completed Not Available [facility] 04/22/2023 14:06:04 zoster recombinant 1 completed Not Available [facility] 04/22/2023 14:06:03 Influenza, adjuvanted, quadrivalent, PF 2 completed Not Available [facility] 04/22/2023 14:06:04 COVID-19, mRNA, LNP-S, bivalent, PF, 30 mcg/0.3 mL dose 2 completed Not Available [facility] 04/22/2023 14:06:04 Influenza, adjuvanted, quadrivalent, PF 3 completed EL Hidalgo MA [facility] 09/20/2023 10:25:21 Past Encounters Encounter ID Performer Location Encounter Start Date Encounter Closed Date Diagnosis/Indication Diagnosis SNOMED-CT Code Diagnosis ICD10 Code Diagnosis Note [id number] Rosie gonzalez Main Office [address] [facility] [place] [address] 05/13/2017 14:25:11 05/13/2017 15:30:08 Adult health examination 553622783 Z00.00 last colonoscop y [address] Ramos, will get a repeat, mammo in 11/06 and pap smear through Dr Rhodes, they have been normal. Non-Hodgki n's lymphoma (clinical) 465928742 C85.[address] La every 4 months, has a mass right back of neck that is being followed. Body mass index 30+ - obesity 894115684 Z68.35 Z68.34 gained weight when she sprained her ankle this winter [id number] [facility] Main Office [address] [facility] [address] [place] [address] 11/15/2017 10:31:42 11/15/2017 11:35:24 Non-Hodgkin's lymphoma (clinical) 815710739 C85.[address] La every 4 months, new lymph nodes seen on US in both axilla, we called and talked to DR La's office support assistant, he will be made aware of biopsy scheduled for tomorrow as well as get the reports. Axillary lymphadenopathy 553162161 R59.0 new, long talk with pt, I wanted Dr La her oncologist to be aware and make sure he agrees with the plan and approach to biopsy, this was done, [id number] [facility] Main Office [address] [facility] [address] [place] [address] 05/16/2018 10:54:57 05/16/2018 11:43:42 Adult health examination 516612387 Z00.00 all screening is utd. Non-Hodgki n's lymphoma (clinical) 896844084 C85.90 see below Supraclavi cular lymphadenopathy 112832573 R59.0 left supraclavi cular node felt on exam today, pt also with more fullness in right axilla without discreet mass. pt will go from here to Dr La's office for eval and appt, just finished tx for recurrence , pt was asked to call and let me know date of appt with dR La [id number] Rosie ArmentaJudy carlos Main Office [address] [facility] [address] [place] [address] 05/19/2019 13:14:20 05/19/2019 14:14:08 Adult health examination 010614932 Z00.00 all screening is utd. trying to get back n shape, finished chemo last month Non-Hodgki n's lymphoma (clinical) 164326528 C85.90 will be getting a biopsy left axilla for positive node on PET scan [id number] Rosie ArmentaLarissaJudy gonzalez [facility] [address] [facility] [address] [facility] [place] [address] 05/20/2020 06:40:28 05/20/2020 12:05:51 Adult health examination 835171280 Z00.00 mammogram is utd will see wharf hand 03/11 utd on wharf hand and colonoscop y. is walking. feels great Menopause present 026249 006 Z78.0 hx of osteopenia . recheck bone density. keep on vit D Screening for malignant neoplasm of cervix 122759424 Z12.[address] Rhodes History of non-Hodgkins lymphoma 264777616 Z85.72 dx many years ago in mouth and neck, and had recurrence 2019, done with chemo and port is out Hypercholesterolemia 136 39484 E78.00 check random [id number] Rosie JacksonMadhu carlos Main Office [address] [facility] [address] [facility] [place] [address] 08/28/2021 15:02:37 08/28/2021 15:49:59 Adult health examination 333691859 Z00.00 screening is utd, walks dog and does gardening pt to get a tetanus shot before 07/12 Advance di rective discussed with patient 636606583 Z71.89 I discussed MOLST and health care proxy form. I gave pt MOLST form and proxy form, pt will fill out, discuss MOLST form with proxy and sign and return to our office History of non-Hodgkins lymphoma 544741937 Z85.72 dx many years ago in mouth and neck, and had recurrence 2019, done with chemo and port is out recent check up good Body mass index 30+ - obesity 785498247 E66.9 Z68.35 working on weight loss Hypercholesterolemia 136 51063 E78.00 check random Fatigue 95813532 R53.83 check labs Osteoporosis 92580151 M8 1.0 will be starting a med. Skin lesion 33165459 L98 .9 pt to set up derm, unsure what rash is [id number] LINDA BRITO MD Main Office [address] [facility] [address] [place] [address] 2022 13:43:28 2022 14:29:33 Adult health examination 721070675 Z00.00 Health Maintenanc e FemaleA) Patient was [...] any acute complaints History of non-Hodgkins lymphoma 888197215 Z85.72 - diffuse B-cell lymphoma currently in remission- pt follows with oncology, was last seen in March Osteoporosis 79850272 M8 1.0 - following endocrinol ogy- currently on calcium and vitamin D supplement s- currently on the alendronat e Fatigue 38088953 R53.83 Z00.00 Hyperlipidemia 25334529 E78.5 Z00.00 Advance di rective discussed with patient [id number] Z71.89 - discussed with patient MOLTS and HCP [id number] LINDA BRITO MD Main Office [address] [facility] [address] [place] [address] 09/20/2023 10:16:47 09/20/2023 10:45:38 Advance directive discussed with patient 697532829 Z71.89 - discussed with patient MOLTS and HCP Adult heal th examination 563612658 Z00.00 Health Maintenanc e FemaleA) Patient was [...] any acute complaints History of non-Hodgkins lymphoma 368309004 Z85.72 - diffuse B-cell lymphoma currently in remission> hx of XRT - Right parotid gland 2000 cGy and Right Groin 02/2015> s/p RCHOP, rituximab and chemothera py- pt follows with oncology, last seen on 07/2023 Osteopenia 319250691 M85 .80 - following endocrinol ogy- currently on calcium and vitamin D supplement s- currently on the alendronat e once a week- improvemen t from osteoporos is to osteopenia in AP spine Fatigue 58208088 R53.83 Z00.00 Hyperlipidemia 00443319 E78.5 Z00.00 - ASCVD score of 8.2%- [...] Eat more fruits and veggies. Statin declined 41163930 0 Z53.20 Impaired f asting glycemia 917005730 R73.01 Body mass index 30+ - obesity 785532171 E66.9 Z68.34 - BMI of 34.1- Cut [...] minutes cumulative of moderate exercise recommende bart. [id number] Maddi Tay Main Office [address] [facility] [address] [place] [address] 01/14/2024 08:45:59 01/14/2024 09:21:43 Knee joint painful on movement 879134376 M25.562 hx of left knee fx in [...] Conte Member ID Guarantor Name 05/20/2020 2 [facility] - NAVIGATOR (PPO) [id number] Zafar Durbin [id number] Zafar Durbin 05/20/2020 1 [place] [facility] Zafar Durbin [id number] Zafar Durbin 08/28/2021 2 [facility] PLAN - NAVIGATOR (PPO) [id number] Zafar Durbin [id number] Zafar Durbin 08/28/2021 1 [place] [facility] Zafar Durbin [id number] 9 Zafar Durbin 2022 2 [facility] - NAVIGATOR (PPO) [id number] Zafar Durbin [id number] Zafar Durbin 2022 1 [place] [facility] Zafar Durbin [id number] Zafar Durbin 09/20/2023 2 [facility] - MEDICARE ENHANCE (INDEMNITY PLAN) Zafar Durbin [id number] Zafar Durbin 09/20/2023 1 [place] [facility] Zafar Durbin [id number] Zafar Durbin 01/14/2024 2 [facility] - MEDICARE ENHANCE (INDEMNITY PLAN) Zafar Durbin [id number] Zafar Durbin 01/14/2024 1 [place] [facility] Zafar Durbin [id number] 9 Zafar Durbin Notes Date Note Type [...] trying to get an appt. Rosie goddard [facility] 05/20/2020 09:45:24 08/28/2021 text/html Medicare Annual Wellness [...] PT is trying to lose weight. Sees wharf hand every other year. Non-Hodgkins lymphoma is in remission, just saw oncology. AHs a rash taht ocmes and goes on her abdomen Rosie goddard [facility] 08/28/2021 15:51:28 2022 text/html Medicare Annual Wellness [...] is getting worse? No LINDA BRITO MD [address] [place] [address] [place], [address], [facility] 2022 15:00:36 09/20/2023 text/html Medicare Annual [...] None on file LINDA BRITO MD [address], [address], [facility] 09/20/2023 10:50:40 01/14/2024 text/html Zafar [...] brace which provides some relief. Maddi goddard, [facility] 01/25/2024 07:14:42 OBGyn Episode No OBEpisode recorded.
== END 2024-04-11 13:02 | disposition home or self-care (01) ==
LOC: HO.MRI 13:01
PROVIDERS: PCP Student in an Organized Health Care Education/Training Program; Visit Provider Orthopaedic Surgery
DX: S83.242A Other tear of medial meniscus, current injury, left knee, initial encounter (principal)
CPT/HCPCS: 73721

== ENCOUNTER 2024-05-15 13:19 | Outpatient (AMB) | payer MEDICARE, OTHER, SELFPAY ==
--- NOTE | 2024-05-15 13:24 | A.OFFVIS_ITS ---
Vital Signs 05/15/24 13:25 Height 5 ft 4 in Weight 196 lb BMI 33.6 Intake Visit Reasons: OV MRI review LT knee Intake Note: Zafar is a 68 year old female who presents with complaints of progressively worsening left knee pain and giving way. The patient states that she 1st injured her left knee in 2009. She slipped on a piece of paper and fell. She states that she suffered a ?fracture? at that time. Over the last few years her knee pain has gotten worse. Most of the pain is along the medial aspect of her knee. She does wear a knee brace because of the symptoms of instability. The patient has just completed formal physical therapy which gave her minimal relief. She has also tried Tylenol and anti-inflammatory medicines which gave her no relief. She has failed the last 6 weeks of conservative treatment which has included formal physical therapy, Tylenol, anti-inflammatory medicines and a knee brace. Allergies No Known Allergies Allergy (Verified 05/15/24 13:25) Physical Exam Vital Signs: BMI result Body Mass Index 33.6 Const Other: Well-nourished well-developed very friendly female awake alert and oriented x3 in no acute distress Extrem Other: Bilateral lower extremity examination shows good capillary refill, no skin lesions noted, normal sensation light touch Left knee examination shows a minimal effusion, tenderness along her medial and lateral joint lines, positive Thee's test, no instability Results Reviewed Results Reviewed: Standing full weight-bearing x-rays of the patient's left knee show mild diffuse joint space narrowing, no acute bony abnormalities MRI of the patient's left knee shows mild diffuse degenerative changes as well as tearing of her medial and lateral menisci Assessment & Plan Assessment & Plan (1) Tear of medial meniscus of left knee: Code(s): S83.242A - Other tear of medial meniscus, current injury, left knee, initial encounter Category: Medical Plan Ms. Durbin presents with progressively worsening left knee pain and mechanical symptoms due to early degenerative joint disease as well as tearing of her medial and lateral menisci. I had a lengthy discussion with the patient regarding treatment options. At this point she has failed continued non operative treatments. The risks and benefits of left knee arthroscopic surgery were discussed at length with the patient. The patient wishes to proceed with surgery. Surgery will most likely involve left knee diagnostic arthroscopy with arthroscopic partial medial and lateral meniscectomies. The patient does understand that she may not get 100% relief of her symptoms depending on the severity of her degenerative changes. She will be scheduled for next available date. She will follow-up as instructed. Feel free to call me at any time should questions regarding her orthopedic management arise. I spent 20 minutes in reviewing the patient's records and imaging studies, s eeing the patient and documenting in the medical record. Coding Level of Care Code Est Pt Level 3 (13736) Complex EM visit Add On G2211 Diagnoses Tear of medial meniscus of left knee S83.242A
[2024-05-15 13:25] VITALS: BMI 33.6
--- OUTSIDE RECORDS SUMMARY | 2024-05-15 15:14 | XMS_ITS | Data Portability ---
Author Organization [facility], Main Office Address [address] [place] [address] Care Team Providers Care Nursery Nurse Name Role Phone PAT RAMOS Getter Welder NAYELY RHODES Supervising Nurse [facility] Hematology/Oncolo gy LINDA [...] Modified Time Details Appointments None recorded. Lab lipid panel, serum 2023 024 CAMILO [facility], [address], [place], [address], 06:07:54 BMP, serum or plasma 2023 024 CAMILO [facility], [address], [place], [address], 4 06:07:53 CBC w/ auto diff 2023 024 CAMILO [facility], [address], [place], [address], 4 06:07:52 TSH, ultra-sensi tive, serum 2023 024 CAMILO [facility], [address], [place], [address], 4 06:07:55 HbA1c (hemoglobin A1c), blood 2023 024 CAMILO [facility] (Centralized Electronic Ordering - All Locations), Patient Can Go To The Location Of Their Choice, 4 06:07:55 lipid panel, serum 2022 023 [email or web address] [facility], [address], [place], [address], 3 14:41:17 BMP, serum or plasma 2022 023 CAMILO [facility], [address], [address], [place], [address], 3 11:43:36 TSH, serum or plasma 2022 023 CAMILO [facility], [address], [address], [place], [address], 3 11:46:35 LDL, serum 2021 022 CAMILO [facility] (Centralized Electronic Ordering - All Locations), Patient Can Go To The Location Of Their Choice, 15:32:24 cholesterol , total, serum 2021 022 CAMILO [facility] (Centralized Electronic Ordering - All Locations), Patient Can Go To The Location Of Their Choice, [id number] 06/09/202 2 15:32:25 BMP, serum or plasma 2021 022 CAMILO [facility] (Centralized Electronic Ordering - All Locations), Patient Can Go To The Location Of Their Choice, [address] 2 15:32:25 cholesterol , total, serum 2020 021 CAMILO [facility] (Centralized Electronic Ordering - All Locations), Patient Can Go To The Location Of Their Choice, [address] 09:45:11 LDL, serum 2020 021 CAMILO [facility] (Centralized Electronic Ordering - All Locations), Patient Can Go To The Location Of Their Choice, [id number] 09:45:11 Referral orthopedic surgeon referral - left knee pain with ambulationh x of left knee fx in 2009 024 [email or web address] [facility], [address] [place] [address] [place], [address], 4 16:49:[address] referral - rash on abdomen 2021 022 [facility], [address], [address], [place], [address], 09:34:53 nutritionis t/dietitian referral 2021 022 [email or web address] Not available 16:01:20 gynecologis t referral - Patient to schedule 2020 021 [email or web address] Not available 12:05:51 Procedures None recorded. Surgeries None recorded. Imaging XR, knee - left knee pain with ambulation 2023 024 oz [facility], [address] , [place], [address], 4 07:14:38 bone density - hx of osteopenia evaluate 2020 021 [email or web address] Not available 12:05:51 Medication Orders None recorded. Patient TargetsNo targets recorded. Patient Instructions Encounter Date Encounter Id Patient Instructions Last Modified By Organization Details Last Modified Time 05/20/2020 [id number] preventing falls: care instructions [email or web address] Not available 05/20/2020 09:42:51 medicare preventive services guide (female 74yrs and under) [email or web address] Not available 05/20/2020 09:42:50 Cervical Cancer Screening [email or web address] Not available 05/20/2020 09:42:51 08/28/2021 [id number] advance care planning: care instructions [email or web address] Not [...] Information [email or web address] Not available 08/28/2021 15:32:12 2022 [id number] advance care planning: care instructions Not available 2022 14:26:39 well visit, over 65: care instructions Not available 2022 14:26:40 preventing falls: care instructions Not available 2022 14:26:40 09/20/2023 [id number] advance care planning: care instructions Not available 09/20/2023 10:41:21 osteoporosis: care instructions Not available 09/20/2023 10:41:21 well visit, over 65: care instructions Not available 09/20/2023 10:41:21 preventing falls: care instructions Not available 09/20/2023 10:41:20 prediabetes: care instructions Not available 09/20/2023 10:41:21 starting a weight loss plan: care instructions Not available 09/20/2023 10:49:58 Reason for Referral Supervising Nurse Referral for Sc reening for malignant neoplasm of cervix Patient to schedule Referring Physician: Rosie Jacob [facility], Encounter Date: 05/20/2020 Steam Tunnel Feeder/dietitian Refer ral for Body mass index 30+ - obesity Referring Physician: Rosie Jacob [facility], Encounter Date: 08/28/2021 Beater Engineer Helper Referral for S kin lesion rash on abdomen Referring Physician: Rosie Jacob [facility], Encounter Date: 08/28/2021 Orthopedic Surgeon Referral for Knee joint painful on movement left knee pain with ambulationhx of left knee fx in 2009 Referring Physician: Saige Mcgee [facility], Encounter Date: 01/14/2024 Results Created Date Observation Date Name Description Value Unit Range Abnormal Flag Note LastModifiedBy Organization Detail LastModifiedTime 09/30/1909/29/2022 BASIC METAB OLIC PANEL glucose 112 mg/dL (70-99 ) high Not Available [facility] (Centralized Electronic Ordering - All Locations) Patient Can Go To The Location Of Their Choice, 09/29/2022 11:43:36 09/30/1909/29/2022 BASIC METAB OLIC PANEL BUN 20 mg/dL (8-23) Not Available [facility] (Centralized Electronic Ordering - All Locations) Patient Can Go To The Location Of Their Choice, 09/29/2022 11:43:36 09/30/1909/29/2022 BASIC METAB OLIC PANEL creatinine 0.9 mg/dL (0.5-1 .0) Not Available [facility] (Centralized Electronic Ordering - All Locations) Patient Can Go To The Location Of Their Choice, 09/29/2022 11:43:36 09/30/1909/29/2022 BASIC METAB OLIC PANEL sodium 140 mmol/ L (133-1 45) Not Available [facility] (Centralized Electronic Ordering - All Locations) Patient Can Go To The Location Of Their Choice, [id number] 09/29/2022 11:43:36 09/30/1909/29/2022 BASIC METAB OLIC PANEL potassium 4.5 mmol/ L (3.6-5 .2) Not Available [facility] (Centralized Electronic Ordering - All Locations) Patient Can Go To The Location Of Their Choice, 09/29/2022 11:43:36 09/30/1909/29/2022 BASIC METAB OLIC PANEL chloride 105 mmol/ L (98-10 7) Not Available [facility] (Centralized Electronic Ordering - All Locations) Patient Can Go To The Location Of Their Choice, 09/29/2022 11:43:36 09/30/1909/29/2022 BASIC METAB OLIC PANEL bicarbonate 25 mmol/ L (22-29 ) Not Available [facility] (Centralized Electronic Ordering - All Locations) Patient Can Go To The Location Of Their Choice, 09/29/2022 11:43:36 09/30/1909/29/2022 BASIC METAB OLIC PANEL anion gap 10 (4-17) Not Available [facility] (Centralized Electronic Ordering - All Locations) Patient Can Go To The Location Of Their Choice, 09/29/2022 11:43:36 09/30/1909/29/2022 BASIC METAB OLIC PANEL calcium 10.1 mg/dL (8.6-1 0.5) Not Available [facility] (Centralized Electronic Ordering - All Locations) Patient Can Go To The Location Of Their Choice, 09/29/2022 11:43:36 09/30/1909/29/2022 BASIC METAB OLIC PANEL estimated GFR creatinine 67 mL/mi n/1.7 3_M2 Creat inine based estim ated glome rular filtr ation (eGFR ) in adult s is calcu lated using the Natio nal Kidne y Found ation recom shea d 2020 CKD-E PI equat ion. Estim ates GFR from serum creat inine , age and sex. Not Available [facility] (Centralized Electronic Ordering - All Locations) Patient Can Go To The Location Of Their Choice, 09/29/2022 11:43:36 09/30/1909/29/2022 LIPID PANEL cholesterol, total 224 mg/dL (<200) high Not Available [facility] ([facility] Order[facility] - All Locations) Patient Can Go To The Location Of Their Choice, 09/29/2022 11:43:38 09/30/1909/29/2022 LIPID PANEL triglyceride 124 mg/dL (<150) Not Available [facility] ([facility] - All Locations) Patient Can Go To The Location Of Their Choice, 09/29/2022 11:43:38 09/30/19 23 09/29/2022 LIPID PANEL HDL chol 53 mg/dL (>39) Not Available [facility] ([facility]ized Electronic Ordering - All Locations) Patient Can Go To The Location Of Their Choice, 09/29/2022 11:43:38 09/30/19 23 09/29/2022 LIPID PANEL LDL cholesterol, calculated 146 mg/dL (0-130 ) high Not Available [facility] ([facility]ized Electronic Ordering - All Locations) Patient Can Go To The Location Of Their Choice, 09/29/2022 11:43:38 09/30/1909/29/2022 LIPID PANEL non HDL cholesterol (calc) 171 mg/dL (<160) high Not Available [facility] ([facility] Order[facility] - All Locations) Patient Can Go To The Location Of Their Choice, 09/29/2022 11:43:38 09/30/1909/29/2022 TSH WITH REFLE X TO FT4 TSH 3.41 uIU/m L (0.4-4 .2) Not Available [facility] ([facility] Ordering - All Locations) Patient Can Go To The Location Of Their Choice, 09/29/2022 11:46:35 09/20/1909/21/2023 CBC WITH DIFFE RENTI AL/PL ATELE T WBC 6.3 x10e3 /uL 3.4-10 .8 Not Available [facility] ([facility]) [address], [place], [address], 09/21/2023 06:07:52 09/20/19 24 09/21/2023 CBC WITH DIFFE RENTI AL/PL ATELE T RBC 4.49 x10e6 /uL 3.77-5 .28 Not Available [facility] ([facility]) [address], [place], [address], 09/21/2023 06:07:52 09/20/19 24 09/21/2023 CBC WITH DIFFE RENTI AL/PL ATELE T hemoglobin 13.5 g/dL 11.1-1 5.9 Not Available [facility] ([facility]) [address], [place], [address], 09/21/2023 06:07:52 09/20/19 24 09/21/2023 CBC WITH DIFFE RENTI AL/PL ATELE T hematocrit 42.4 % 34.0-4 6.6 Not Available [facility] ([facility]) [address] [place], [address], 09/21/2023 06:07:52 09/20/19 24 09/21/2023 CBC WITH DIFFE RENTI AL/PL ATELE T MCV 94 fL 79-97 Not Available [facility] ([facility]) [address] [place], [address], 09/21/2023 06:07:52 09/20/19 24 09/21/2023 CBC WITH DIFFE RENTI AL/PL ATELE T MCH 30.1 pg 26.6-3 3.0 Not Available [facility] ([facility]) [address] [place], [address], 09/21/2023 06:07:52 09/20/19 24 09/21/2023 CBC WITH DIFFE RENTI AL/PL ATELE T MCHC 31.8 g/dL 31.5-3 5.7 Not Available [facility] ([facility]) [address] [place], [address], 09/21/2023 06:07:52 09/20/19 24 09/21/2023 CBC WITH DIFFE RENTI AL/PL ATELE T RDW 13.2 % 11.7-1 5.4 Not Available [facility] ([facility]) [address] [place], [address], 09/21/2023 06:07:52 09/20/19 24 09/21/2023 CBC WITH DIFFE RENTI AL/PL ATELE T platelets 210 x10e3 /uL 150-45 0 Not Available [facility] ([facility]) [address], [place], [address], 09/21/2023 06:07:52 09/20/19 24 09/21/2023 CBC WITH DIFFE RENTI AL/PL ATELE T neutrophils 55 % not estab. Not Available [facility] ([facility]) [address], [place], [address], 09/21/2023 06:07:52 09/20/19 24 09/21/2023 CBC WITH DIFFE RENTI AL/PL ATELE T lymphs 31 % not estab. Not Available [facility] ([facility]) [address], [place], [address], 09/21/2023 06:07:52 09/20/19 24 09/21/2023 CBC WITH DIFFE RENTI AL/PL ATELE T monocytes 10 % not estab. Not Available [facility] ([facility]) [address], [place], [address], 09/21/2023 06:07:52 09/20/19 24 09/21/2023 CBC WITH DIFFE RENTI AL/PL ATELE T eos 3 % not estab. Not Available [facility] ([facility]) [address], [place], [address], 09/21/2023 06:07:52 09/20/19 24 09/21/2023 CBC WITH DIFFE RENTI AL/PL ATELE T basos 1 % not estab. Not Available [facility] ([facility]) [address], [place], [address], 09/21/2023 06:07:52 09/20/19 24 09/21/2023 CBC WITH DIFFE RENTI AL/PL ATELE T immature cells [employer] Not Available [facility] ([facility]) [address], [place], [address], 09/21/2023 06:07:52 09/20/19 24 09/21/2023 CBC WITH DIFFE RENTI AL/PL ATELE T neutrophils (absolute) 3.5 x10e3 /uL 1.4-7. 0 Not Available [facility] ([facility]) [address], [place], [address], 09/21/2023 06:07:52 09/20/19 24 09/21/2023 CBC WITH DIFFE RENTI AL/PL ATELE T lymphs (absolute) 2.0 x10e3 /uL 0.7-3. 1 Not Available [facility] ([facility]) [address], [place], [address], 09/21/2023 06:07:52 09/20/19 24 09/21/2023 CBC WITH DIFFE RENTI AL/PL ATELE T monocytes(ab solute) 0.6 x10e3 /uL 0.1-0. 9 Not Available [facility] ([facility]) [address] [place], [address], 09/21/2023 06:07:52 09/20/19 24 09/21/2023 CBC WITH DIFFE RENTI AL/PL ATELE T eos (absolute) 0.2 x10e3 /uL 0.0-0. 4 Not Available [facility] ([facility]) [address] [place], [address], 09/21/2023 06:07:52 09/20/19 24 09/21/2023 CBC WITH DIFFE RENTI AL/PL ATELE T baso (absolute) 0.1 x10e3 /uL 0.0-0. 2 Not Available [facility] ([facility]) [address] [place], [address], 09/21/2023 06:07:52 09/20/19 24 09/21/2023 CBC WITH DIFFE RENTI AL/PL ATELE T immature granulocytes 0 % not estab. Not Available [facility] ([facility]) [address], [place], [address], 09/21/2023 06:07:52 09/20/19 24 09/21/2023 CBC WITH DIFFE RENTI AL/PL ATELE T immature grans (abs) 0.0 x10e3 /uL 0.0-0. 1 Not Available [facility] ([facility]) [address], [place], [address], 09/21/2023 06:07:52 09/20/19 24 09/21/2023 CBC WITH DIFFE RENTI AL/PL ATELE T NRBC [employer] Not Available [facility] ([facility]) [address], [place], [address], 09/21/2023 06:07:52 09/20/19 24 09/21/2023 CBC WITH DIFFE RENTI AL/PL ATELE T hematology comments: [employer] Not Available [facility] ([facility]) [address], [place], [address], 09/21/2023 06:07:52 09/20/19 24 09/21/2023 BASIC METAB OLIC PANEL (8) glucose 105 mg/dL 70-99 above high normal Not Available [facility] ([facility]) [address], [place], [address], 09/21/2023 06:07:53 09/20/19 24 09/21/2023 BASIC METAB OLIC PANEL (8) BUN 17 mg/dL 8-27 Not Available [facility] ([facility]) [address], [place], [address], 09/21/2023 06:07:53 09/20/19 24 09/21/2023 BASIC METAB OLIC PANEL (8) creatinine 0.86 mg/dL 0.57-1 .00 Not Available [facility] ([facility]) [address], [place], [address], 09/21/2023 06:07:53 09/20/19 24 09/21/2023 BASIC METAB OLIC PANEL (8) eGFR 73 mL/mi n/1.7 3 >59 Not Available [facility] ([facility]) [address], [place], [address], 09/21/2023 06:07:53 09/20/19 24 09/21/2023 BASIC METAB OLIC PANEL (8) BUN/creatini ne ratio 20 12-28 Not Available [facility] ([facility]) [address], [place], [address], 09/21/2023 06:07:53 09/20/19 24 09/21/2023 BASIC METAB OLIC PANEL (8) sodium 143 mmol/ L 134-14 4 Not Available [facility] ([facility]) [address], [place], [address], 09/21/2023 06:07:53 09/20/19 24 09/21/2023 BASIC METAB OLIC PANEL (8) potassium 4.5 mmol/ L 3.5-5. 2 Not Available [facility] ([place] [facility]) [address], [place], [address], 09/21/2023 06:07:53 09/20/19 24 09/21/2023 BASIC METAB OLIC PANEL (8) chloride 105 mmol/ L 96-106 Not Available [facility] ([facility]) [address], [place], [address], 09/21/2023 06:07:53 09/20/19 24 09/21/2023 BASIC METAB OLIC PANEL (8) carbon dioxide, total 22 mmol/ L 20-29 Not Available [facility] ([facility]) [address] [place], [address], 09/21/2023 06:07:53 09/20/19 24 09/21/2023 BASIC METAB OLIC PANEL (8) calcium 9.5 mg/dL 8.7-10 .3 Not Available [facility] ([facility]) [address] [place], [address], 09/21/2023 06:07:53 09/20/19 24 09/21/2023 LIPID PANEL cholesterol, total 198 mg/dL 100-19 9 Not Available [facility] ([facility]) [address] [place], [address], 09/21/2023 06:07:54 09/20/19 24 09/21/2023 LIPID PANEL triglyceride s 94 mg/dL 0-149 Not Available [facility] ([facility]) [address] [place], [address], 09/21/2023 06:07:54 09/20/19 24 09/21/2023 LIPID PANEL HDL cholesterol 54 mg/dL >39 Not Available [facility] ([facility]) [address] [place], [address], 09/21/2023 06:07:54 09/20/19 24 09/21/2023 LIPID PANEL VLDL cholesterol donavon 17 mg/dL 5-40 Not Available [facility] ([facility]) [address] [place], [address], 09/21/2023 06:07:54 09/20/19 24 09/21/2023 LIPID PANEL LDL chol calc ([facility]) 127 mg/dL 0-99 above high normal Not Available [facility] ([facility]) [address] [place], [address], 09/21/2023 06:07:54 09/20/19 24 09/21/2023 LIPID PANEL LDL calc comment: [employer] Not Available [facility] ([facility]) [address] [place], [address], 09/21/2023 06:07:54 09/20/19 24 09/21/2023 HEMOG LOBIN A1C hemoglobin A1C 6.2 % 4.8-5. 6 above high normal Predi abete s: 5.7 - 6.4 Diabe tom: >6.4 Glyce maria elena contr ol for adult s with diabe tom: <7.0 Not Available [facility] ([facility]) [address], [place], [address], 09/21/2023 06:07:55 09/20/19 24 09/21/2023 TSH RFX ON ABNOR MAL TO FREE T4 TSH 2.730 uIU/m L 0.450- 4.500 Not Available [facility] ([facility]) [address], [place], [address], 09/21/2023 06:07:55 05/17/19 21 05/17/2020 MAMMO , [...] n) Lay letter mailed to carrie torres I have person ally review ed the images and I agree with this report . WSN: [id number] Orderi ng Physic teto: Augustine saeed MD, Rosie Harper Dictat ed By: Ata sommer MD, Warner Dictat ed Date/T kenny: 3:53 pm Review ed By: Carlos DYER, Sunshine Chi Signed By: Sunshine Gonzalez MD Signed Date/T kenny: 3:58 pm Transc ribed By: CSB Transc riptio n Date/T kenny: 3:05 pm Birads : Carrie torres Class: Outpat ient [email or web address] [facility] ([facility]pt [facility]) [address] [place] [address], [address], 05/20/2020 10:19:52 08/31/19 21 08/29/2020 DEXA, axial skele ton ====== ====== ====== ====== ====== ====== ====== ====== ====== ====== ===== Bone Densit y Report ====== ====== ====== ====== ====== ====== ====== ====== ====== ====== ===== Name: ZAFAR BRADEN ID: [id number] Age: 64 Sex: Female Ethnic ity: White Date of : 1955 ------ ------ ------ ------ ------ ------ ------ ------ ------ ------ ----- Indica tion: CIRO VICTORIA Referr ing Provid er: AUGUSTINE SAEED MD, LIS Study: Bone densit ometry was perfor med. Exam Date: August 29, 2020 Access ion number : [id number] Bone Densit y: ------ ------ ------ [...] ia for BMD impres mikel classi dinora patien ts as: Normal (T-sco re at or above -1.0), Osteop enia (T-sco re betwee n -1.0 and -2.5), or Osteop orosis (T-sco re at or below -2.5). 10-yea r Fractu re Risk: ------ ------ ------ ------ [...] follow ing medica tions: Vitami n D, Calcikael fu, CHEMOT HERAPY Has the follow ing medica [...] SD decrea se in T-scor e. Jimmy r, low BMD is not the only risk [...] Date/T kenny: 4:18 pm Transc ribed By: KAREEMB Transc ribed Date/T kenny: 4:18 pm Patien t Class: Outpat ient [email or web address] [facility] ([facility]) [address] , [place], [address], 09/03/2020 15:38:08 06/05/19 22 06/04/2021 MAMMO , [...] lymph node is presen t in the computer operations supervisor ior upper left latera l/ante rior axilla [...] breast to sugges t malign true. IMPRES MIEKL: Additi onal imagin g recomm ended. We will recall the patien t. RECOMM ENDATI ON: Left diagno stic mammog marianna with schedu led ultras ound BI-RAD S: 0 (Incom plete - Need Additi onal Imagin g Evalua tion. We will recall the patien t.) Lay letter mailed to patihakan t I have person ally review ed the images and I agree with this report . WSN: [id number] [facility] Physic teto: Augustine saeed MD, Rosie Harper Dictat ed By: Oseas Olson MD Dictat ed Date/T kenny: 5:01 pm Review ed By: Tatianna Doty MD, I Signed By: Tatianna Doty MD, I Signed Date/T kenny: 5:06 pm Transc ribed By: VICTOR M Transc riptio n Date/T kenny: 4:06 pm Birads : Patien t Class: Outpat ient [email or web address] [facility]) [address], [place], [address], 07/03/2021 13:10:17 06/10/19 22 06/04/2021 MAMMO brenda digit al, jeffrey eraerwin A D D E N D U M as of: [id number] Addend um: The findin g for callba ck is in the LEFT breast . WSN: [id number] Orderi ng Physic teto: Augustine saeed [...] lymph node is presen t in the computer operations supervisor ior upper left latera l/ante rior axilla [...] g Evalua tion. We will recall the patihakan t.) Lay letter mailed to carrie torres I have person ally review ed the images and I agree with this report . WSN: [id number] Orderi ng Physic teto: Augustine saeed MD, Rosie E Dictat ed By: Oseas Olson MD Dictat ed Date/T kenny: 5:01 pm Review ed By: Tatianna Doty MD, I Signed By: Tatianna Doty MD, I Signed /T kenny: 5:06 pm Transc ribed By: VICTOR M Transc riptio n /T kenny: 4:06 pm Birads : Carrie torres Class: Outpat ient [email or web address] [facility] ([facility]) [address] [place] [address], [address], 07/03/2021 13:11:34 06/14/19 22 06/13/2021 mm digit [...] Lay letter mailed to carrie torres WSN: [id number] Orderi ng Physic teto: Augustine saeed MD, Rosie E Dictat ed By: Usha Randhawa MD Dictat ed Date/T kenny: 1:25 pm Review ed By: Usha Randhawa MD Signed By: Usha Randhawa MD y H Signed Date/T eknny: 1:25 pm Transc ribed By: VICTOR M Transc riptio n /T kenny: 1:24 pm Birads : Carrie torres Class: Outpat ient [facility] ([facility]) [address], [place], [address], 07/03/2021 13:11:35 06/09/19 23 06/08/2022 MAMMO , scree susana, digit al, bilat eral PROCED URE: MM Digita l Mammo Screen ing INDICA TION: Screen ing for breast cancer . No known palpab le abnorm alitie s. Histor y of bilate ral axilla ry lymph node biopsi es in 2018 reveal ing follic ular lympho ma. COMPAR PARVIZ: BB dating back to 021. TECHNI QUE: Full-f [...] Lay letter mailed to carrie torres WSN: [id number] Orderi ng Physic teto: Augustine saeed MD, Rosie Harper Dictat ed By: Tatianna Doty MD, I Dictat ed Date/T kenny: 4:41 pm Review ed By: Tatianna Doty MD, I Signed By: Tatianna Doty MD, I Signed Date/T kenny: 4:41 pm Transc ribed By: VICTOR M Transc riptio n Date/T kenny: 4:37 pm Birads : Carrie t Class: Outpat ient [email or web address] [facility]) [address], [place], [address], 06/09/2022 09:48:18 05/14/19 24 05/13/2023 bone densi ty No observ ation record ed. [facility] [address], [place], [address], 05/14/2023 17:50:25 06/11/19 24 06/10/2023 MAMMO , [...] 1 (Negat hang) Lay letter mailed to carrie t I have person santosy review ed the images and I agree with this report . WSN: [id number] Orderi ng Physic teto: Mark Vazquez ie Dictat ed By: Cyndi DYER, Brock marc Dictat ed Date/T kenny: 1:21 pm Review ed By: Usha Randhawa MD Signed By: Usha Randhawa MD Signed Date/T kenny: 1:26 pm Transc ribed By: VICTOR M Transc riptio n Date/T kenny: 11:50 am Birads : Patien t Class: Outpat ient [email or web address] [facility]) [address], [place], [address], 06/11/2023 14:50:16 06/11/1906/10/2023 MAMMO , scree susana, digit al, bilat eral No observ ation record ed. [facility] [address], [place], [address], 06/11/2023 18:07:35 01/14/2001/14/2024 XR, knee No observ ation record ed. [email or web address] [facility] [address], [place], [address], 01/17/2024 11:38:15 01/14/2001/14/2024 XR, knee, 1 or [...] l osteoa rthrit ic change . WSN: [id number] Orderi ng Physic teto: Saige Mcgee Dictat ed By: Keara Lawrence MD Dictat ed Date/T kenny: 10:09 a Review ed By: Keara Lawrence MD Signed By: Keara Lawrence MD Signed Date/T kenny: 10:09 am Transc ribed By: CSB Transc ribed Date/T kenny: 10:08 am Patien t Class: Outpat ient [email or web address] [facility] (Outpt Imaging) [address], [place], [address], 02/02/2024 10:15:24 04/12/19 25 04/11/2024 MRI, knee, w/o contr ast No observ ation record ed. [facility] (Medical Records) [address], [place], [address], 04/12/2024 15:41:17 Result Notes None recorded. Problems Name Problem SNOMED Code Status Onset Date Resolution Date Notes Provider Name and Address Organization Details Recorded Time Non-Hodg kin's lymphoma (clinica l) 189800522 Completed 201705/20/2020 dx in 2013 right cheeck and right groin and back of neck, tx with radiation Rosie franco [facility], [facility] 1 09:25:38 Obesity 141726814 Active Mena Rios CPPM [facility], [facility] 0 10:55:57 Family history of diabetes mellitus 016724310 Completed 09/09/2022 LINDA BRITO MD [address], [place], [address], [facility] 3 18:58:50 History of non-Hodg kins lymphoma 617223532 Active 2020 Rosie franco [facility], [facility] 1 09:25:32 Osteopor osis 46116306 Completed 202109/19/2023 LINDA BRITO MD [address], [place], [address], [facility] 4 14:18:04 Osteopen ia 427830188 Active 2023 LINDA BRITO MD [address], [place], [address], [facility] 4 14:18:14 Hyperlip idemia 10992691 Active 2023 LINDA BRITO MD [address], [facility] [place], [address], [facility] 4 14:19:50 Statin declined 992041822 Active 2023 LINDA BRITO MD [address], [place], [address], [facility] 4 14:19:52 Senile osteopor osis 18452724 Active Ly Coleman MA [facility] 4 10:19:18 Problem Notes None recorded. Procedures Surgical History Date Name Laterality Status Provider Name and Address Organization Details Recorded Time 09/20/19 24 Advanced Care Planning completed LINDA BRITO MD [address], [place], [address], [facility] 09/19/2023 14:15:24 06/11/19 24 Most Recent Mammogram completed Elif Ballard [facility] 06/11/2023 14:50:11 06/11/19 24 Mammogram both breasts completed Elif Ballard [facility] 06/11/2023 14:50:06 09/11/19 23 Advanced Care Planning completed Ly Coleman MA [facility] 2022 13:46:55 08/29/19 22 Advanced Care Planning completed Ly Coleman MA [facility] 08/28/2021 15:09:18 06/14/19 22 Mammogram one breast completed Adelita Miles [facility] 07/03/2021 13:11:24 05/21/19 21 Six-Item Cognitive Test completed Bernadette Braga MA [facility] 05/20/2020 09:01:49 05/19/19 20 Mini-Cog Test completed Ly Coleman MA [facility] 05/19/2019 13:28:37 11/03/19 18 Date of Last Pap Smear completed Ly Coleman MA [facility] 05/19/2019 13:35:30 07/15/19 18 Date of Last Colonoscopy completed Zayra Kumar [facility] 07/14/2017 15:13:59 07/15/19 18 Colonoscopy completed Zayra Kumar [facility] 07/14/2017 15:13:52 11/11/19 16 Most Recent Bone Density completed Zayra José [facility] 06/09/2017 11:45:50 11/11/19 16 Dxa bone density mignon vrt fx completed Zayra José [facility] 06/09/2017 11:45:44 05/07/18 92 Caesarean Section completed Ly Coleman MA [facility] 08/28/2021 15:08:40 Imaging Results Imaging Date Name Status LastModified by Organiz ation Details LastModified Time 05/17/2020 MAMMO, screening, digital, bilateral completed [email or web address] [facility] (Outpt Imaging) [address] [place], [address], 05/20/2020 10:19:52 08/29/2020 DEXA, axial skeleton completed [facility] (Outpt Imaging) [address] [place], [address], 09/03/2020 15:38:08 06/04/2021 MAMMO, screening, digital, bilateral completed [email or web address] (Outpt Imaging) [address] [place], [address], 07/03/2021 13:10:17 06/04/2021 MAMMO, screening, digital, bilateral completed [email or web address] [facility] (Outpt Imaging) [address] [place], [address], 07/03/2021 13:11:34 06/13/2021 mm digital mammo unilat left completed [email or web address] [facility] (Outpt Imaging) [address] [place], [address], 07/03/2021 13:11:35 06/08/2022 MAMMO, screening, digital, bilateral completed [email or web address] [facility] (Outpt Imaging) [address] [place], [address], 06/09/2022 09:48:18 05/13/2023 bone density completed [facility] [address] [place], [address], 05/14/2023 17:50:25 06/10/2023 MAMMO, screening, digital, bilateral completed [facility] (Outpt Imaging) [address] [place], [address], 06/11/2023 14:50:16 06/10/2023 MAMMO, screening, digital, bilateral completed [facility] [place] [address] [facility] [place], [address], 06/11/2023 18:07:35 01/14/2024 XR, knee completed [email or web address] [facility] [address] [place], [address], 01/17/2024 11:38:15 01/14/2024 XR, knee, 1 or 2 view completed [email or web address] [facility] (Outpt Imaging) [address] [place], [address], 02/02/2024 10:15:24 04/11/2024 MRI, knee, w/o contrast completed [facility] (Medical Records) [address] [place], [address], 04/12/2024 15:41:17 Procedure Notes None recorded. Medical Equipment None Reported. Allergies Allergen ID Allergen Name Allergen Category Reaction Reaction Severity Criticality Documentation Date Start Date Code Code System Note Provider Name and Address Organization Details Recorded Time 80206 No known allergy (situatio n) Not available Not available Not available Not available 09/20/2023 79392 6003 SNOMED Ly Coleman MA [facility], [facility] 4 10:19:10 No known drug [...] Updated DateTime 2 163.83 cm 35.4 kg/m2 51704.9 1 g 97 % 97 % 65 /min 97.88 [degF] 123 mm[Hg] 74 mm[Hg] Ly Coleman MA [facility] 2 15:16:23 Date Recorded Body height Body mass index (BMI) Body weight Oxygen saturation Oxygen saturation in Arterial blood by Pulse oximetry Heart rate Body temperature Systolic blood pressure Diastolic blood pressure Provider Name and Address Organization Details Last Updated DateTime 3 163.83 cm 35.5 kg/m2 31934.8 g 98 % 98 % 79 /min 98 [degF] 122 mm[Hg] 83 mm[Hg] Ly Coleman MA [facility] 3 13:56:14 Date Recorded Body height Body mass index (BMI) Body weight Oxygen saturation Oxygen saturation in Arterial blood by Pulse oximetry Heart rate Body temperature Systolic blood pressure Diastolic blood pressure Provider Name and Address Organization Details Last Updated DateTime 4 163.83 cm 34.1 kg/m2 32335.8 7 g 98 % 98 % 72 /min 98.2 [degF] 125 mm[Hg] 68 mm[Hg] Ly Coleman MA [facility] 4 10:24:54 Date Recorded Body height Body mass index (BMI) Body weight Heart rate Oxygen saturation Oxygen saturation in Arterial blood by Pulse oximetry Body temperature Systolic blood pressure Diastolic blood pressure Provider Name and Address Organization Details Last Updated DateTime 4 163.83 cm 32.3 kg/m2 82487.2 4 g 69 /min 98 % 98 % 97.8 [degF] 123 mm[Hg] 76 mm[Hg] Janeen Ellis LPN [facility] 4 09:03:22 Social History Question Answer Notes LastModified by Organizat ion Details LastModified Time Tobacco Smoking Status [facility]13/2017 14:51:41 Do You Have An Advance Directive? No [email or web address] Information not available 08/28/2021 What Is Your Level Of Alcohol Consumption? Occasional [email or web address] Information not available 05/13/2017 Is Blood Transfusion Acceptable In An Emergency? Yes [email or web address] Information not available 05/13/2017 What Is Your Level Of Caffeine Consumption? Occasional Very Rare [email or web address] Information not available 2022 How Much Tobacco Do You Chew? None Information not available 05/20/2020 Are You Currently Employed? No [email or web address] Information not available 08/28/2021 What Type Of Diet Are You Following? REGULAR [email or web address] Information not available 05/13/2017 Which Illicit Or Recreational Drugs Have You Used? None Information not available 05/20/2020 Do You Or Have You Ever Used E-cigarettes Or Vape? 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 Alone With Dog [email or web address] Information not available 2022 Do You Take Precautions To Prevent Distracted Driving? Yes [email or web address] Information not available 05/13/2017 How Often Do You Need To Have Someone Help You When You Read Instructions, Pamphlets, Or Other Written Material From Your Doctor Or Pharmacy? Never Information not available 05/20/2020 Have You Served In The ? No [email or web address] Information not available 05/13/2017 Have You Or [...] Of Your Most Recent Tobacco Screening? 09/20/2023 [email or web address] Information not available 09/20/2023 How Many Children Do You Have? 1 Information not available 05/13/2017 Do You Use Your Seat Belt Or Car Seat Routinely? Yes [email or web address] Information not available 08/28/2021 Seat Belts Used Routinely Yes [email or web address] Information not available 08/28/2021 Are You Sexually Active? No Information not available 05/20/2020 Smoke Alarm In Home Yes [email or web address] Information not available 08/28/2021 Do You Have Smoke And Carbon Monoxide Detectors In Your Home? Yes [email or web address] Information not available 08/28/2021 At What Age Did You Start Smoking Tobacco? 0 Information not available 05/20/2020 Are You Passively Exposed To Smoke? No [email or web address] Information not available 05/13/2017 Do You Or Have You Ever Used Smokeless Tobacco? Never Used Smokeless Tobacco Information not available 05/20/2020 How Much Tobacco Do You Smoke? No Information not available 05/20/2020 Do You Use Sunscreen Routinely? Yes [email or web address] Information not available 05/13/2017 How Many Years Have You Smoked Tobacco? 0 Information not available 05/20/2020 Sex: Unknown Functional Status Question Answer Note LastModified by Organizat ion Details LastModified Time Are you able to walk? YESWOREST [email or web address] Information not available 08/28/2021 Are you able to care for yourself? Yes [email or web address] Information not available 05/13/2017 What is your exercise level? Moderate walks 10-35 minutes 5 days a week,exerise s that PT gives her [email or web address] Information not available 2022 Mental Status None recorded. Family History Relationship Description Onset Age of this Age Resolved Age Notes LastModified by Organization Details LastModified Time Father Malignant lymphoma 54 [email or web address] Not available 08/28 15:03:07 Mother Diabetes mellitus [...] Recorded Time Tdap 3 completed Not Available [facility] 04/22/2023 14:06:04 Influenza, split virus, quadrivalent, preservative 8 completed Not Available [facility] 04/22/2023 14:06:03 Influenza, split virus, trivalent, preservative 8 completed Not Available [facility] 04/22/2023 14:06:04 COVID-19, mRNA, LNP-S, PF, 30 mcg/0.3 mL dose 1 completed Not Available [facility] 04/22/2023 14:06:04 COVID-19, mRNA, LNP-S, PF, 30 mcg/0.3 mL dose 1 completed Not Available [facility] 04/22/2023 14:06:04 pneumococcal polysaccharide PPV23 2 completed Not Available [facility] 04/22/2023 14:06:04 Tdap 5 completed Not Available [facility] 04/22/2023 14:06:04 zoster recombinant 1 completed Not Available [facility] 04/22/2023 14:06:03 Pneumococcal conjugate PCV 13 1 completed Not Available [facility] 04/22/2023 14:06:04 COVID-19, mRNA, LNP-S, PF, 30 mcg/0.3 mL dose 1 completed Not Available [facility] 04/22/2023 14:06:04 Influenza, adjuvanted, quadrivalent, PF 1 completed Not Available [facility] 04/22/2023 14:06:03 Influenza, recombinant, quadrivalent, PF 0 completed Not Available [facility] 04/22/2023 14:06:03 COVID-19, mRNA, LNP-S, PF, 30 mcg/0.3 mL dose, maximino-sucrose 2 completed Not Available [facility] 04/22/2023 14:06:04 zoster recombinant 1 completed Not Available [facility] 04/22/2023 14:06:03 Influenza, adjuvanted, quadrivalent, PF 2 completed Not Available [facility] 04/22/2023 14:06:04 COVID-19, mRNA, LNP-S, bivalent, PF, 30 mcg/0.3 mL dose 2 completed Not Available [facility] 04/22/2023 14:06:04 Influenza, adjuvanted, quadrivalent, PF 3 completed Ly Coleman MA [facility] 09/20/2023 10:25:21 Past Encounters Encounter ID Performer Location Encounter Start Date Encounter Closed Date Diagnosis/Indication Diagnosis SNOMED-CT Code Diagnosis ICD10 Code Diagnosis Note [id number] Rosie [facility] Main Office [address] [address] [place] [address] 05/13/2017 14:25:11 05/13/2017 15:30:08 Adult health examination 235298118 Z00.00 last colonoscop y [address] Ramos, will get a repeat, mammo in 11/06 and pap smear through Dr Rhodes, they have been normal. Non-Hodgki n's lymphoma (clinical) 815826287 C85.[address] La every 4 months, has a mass right back of neck that is being followed. Body mass index 30+ - obesity 116927448 Z68.35 Z68.34 gained weight when she sprained her ankle this winter [id number] [facility] Main Office [address] [place] [address] 11/15/2017 10:31:42 11/15/2017 11:35:24 Non-Hodgkin's lymphoma (clinical) 211700152 C85.[address] La every 4 months, new lymph nodes seen on US in both axilla, we called and talked to DR La's promotional advertising assistant, he will be made aware of biopsy scheduled for tomorrow as well as get the reports. Axillary lymphadenopathy 033743938 R59.0 new, long talk with pt, I wanted Dr La her oncologist to be aware and make sure he agrees with the plan and approach to biopsy, this was done, [id number] [facility] Main Office [address] [place] [address] 05/16/2018 10:54:57 05/16/2018 11:43:42 Adult health examination 635108372 Z00.00 all screening is utd. Non-Hodgki n's lymphoma (clinical) 215136768 C85.90 see below Supraclavi cular lymphadenopathy 365460747 R59.0 left supraclavi cular node felt on exam today, pt also with more fullness in right axilla without discreet mass. pt will go from here to Dr La's office for eval and appt, just finished tx for recurrence , pt was asked to call and let me know date of appt with dR La [id number] Rosie Armenta-Di carlos Main Office [address] [facility] [address] [place] [address] 05/19/2019 13:14:20 05/19/2019 14:14:08 Adult health examination 320924081 Z00.00 all screening is utd. trying to get back n shape, finished chemo last month Non-Hodgki n's lymphoma (clinical) 166390500 C85.90 will be getting a biopsy left axilla for positive node on PET scan [id number] [facility] [address] [facility] [address] [place] [address] 05/20/2020 06:40:28 05/20/2020 12:05:51 Adult health examination 869835162 Z00.00 mammogram is utd will see news videographer 03/11 utd on news videographer and colonoscop y. is walking. feels great Menopause present 470039 006 Z78.0 hx of osteopenia . recheck bone density. keep on vit D Screening for malignant neoplasm of cervix 097303212 Z12.[address] Rhodes History of non-Hodgkins lymphoma 623542873 Z85.72 dx many years ago in mouth and neck, and had recurrence 2019, done with chemo and port is out Hypercholesterolemia 136 76966 E78.00 check random [id number] [facility] Main Office [address] [facility] [address] [place] [address] 08/28/2021 15:02:37 08/28/2021 15:49:59 Adult health examination 867324280 Z00.00 screening is utd, walks dog and does gardening pt to get a tetanus shot before 07/12 Advance di rective discussed with patient 813387411 Z71.89 I discussed MOLST and health care proxy form. I gave pt MOLST form and proxy form, pt will fill out, discuss MOLST form with proxy and sign and return to our office History of non-Hodgkins lymphoma 488197688 Z85.72 dx many years ago in mouth and neck, and had recurrence 2019, done with chemo and port is out recent check up good Body mass index 30+ - obesity 813722752 E66.9 Z68.35 working on weight loss Hypercholesterolemia 136 98562 E78.00 check random Fatigue 54632316 R53.83 check labs Osteoporosis 05934773 M8 1.0 will be starting a med. Skin lesion 34917347 L98 .9 pt to set up derm, unsure what rash is [id number] LINDA BRITO MD Main Office [address] [facility] [address] [facility] [place] [address] 2022 13:43:28 2022 14:29:33 Adult health examination 758929041 Z00.00 Health Maintenanc e FemaleA) Patient was [...] any acute complaints History of non-Hodgkins lymphoma 869966058 Z85.72 - diffuse B-cell lymphoma currently in remission- pt follows with oncology, was last seen in March Osteoporosis 74952948 M8 1.0 - following endocrinol ogy- currently on calcium and vitamin D supplement s- currently on the alendronat e Fatigue 20890113 R53.83 Z00.00 Hyperlipidemia 39835572 E78.5 Z00.00 Advance di rective discussed with patient 636587882 Z71.89 - discussed with patient MOLTS and HCP [id number] LINDA BRITO MD Main Office [address] [facility] [address] [facility] [address] 09/20/2023 10:16:47 09/20/2023 10:45:38 Advance directive discussed with patient 653407394 Z71.89 - discussed with patient MOLTS and HCP Adult heal th examination 769942924 Z00.00 Health Maintenanc e FemaleA) Patient was [...] any acute complaints History of non-Hodgkins lymphoma 873774930 Z85.72 - diffuse B-cell lymphoma currently in remission> hx of XRT - Right parotid gland 2000 cGy and Right Groin 02/2015> s/p RCHOP, rituximab and chemothera py- pt follows with oncology, last seen on 07/2023 Osteopenia 202120611 M85 .80 - following endocrinol ogy- currently on calcium and vitamin D supplement s- currently on the alendronat e once a week- improvemen t from osteoporos is to osteopenia in AP spine Fatigue 70041604 R53.83 Z00.00 Hyperlipidemia 68727474 E78.5 Z00.00 - ASCVD score of 8.2%- [...] Eat more fruits and veggies. Statin declined 79019799 0 Z53.20 Impaired f asting glycemia 244056124 R73.01 Body mass index 30+ - obesity 151687964 E66.9 Z68.34 - BMI of 34.1- Cut [...] or 150 minutes cumulative of moderate exercise ajit whitaker [id number] Maddi Tya Main Office [address] [place] [address] 01/14/2024 08:45:59 01/14/2024 09:21:43 Knee joint painful on movement 493988732 M25.562 hx of left knee fx in [...] Conte Member ID Guarantor Name 05/20/2020 2 [facility] [employer] PLAN - NAVIGATOR (PPO) [id number] Zafar Durbin [id number] Zafar Durbin 05/20/2020 1 [place] [employer] [place] Zafar Durbin [id number] Zafar Durbin 08/28/2021 2 [facility] [employer] PLAN - NAVIGATOR (PPO) [id number] Zafar Durbin [id number] Zafar Durbin 08/28/2021 1 [place] Zafar Durbin [id number] Zafar Durbin 2022 2 [facility] [employer] PLAN - NAVIGATOR (PPO) [id number] Zafar Durbin [id number] Zafar Durbin 2022 1 [place] Zafar Durbin [id number] Zafar Durbin 09/20/2023 2 [facility] - MEDICARE ENHANCE (INDEMNITY PLAN) Zafar Durbin [id number] Zafar Durbin 09/20/2023 1 [place] Zafar Durbin [id number] 9 Zafar Durbin 01/14/2024 2 [facility] - MEDICARE ENHANCE (INDEMNITY PLAN) Zafar Durbin [id number] Zafar Durbin 01/14/2024 1 [place] Zafar Durbin [id number] 9 Zafar Durbin Notes Date Note Type [...] trying to get an appt. Rosie goddard [facility] 05/20/2020 09:45:24 08/28/2021 text/html Medicare Annual Wellness [...] PT is trying to lose weight. Sees news videographer every other year. Non-Hodgkins lymphoma is in remission, just saw oncology. AHs a rash taht ocmes and goes on her abdomen Rosie goddard [facility] 08/28/2021 15:51:28 2022 text/html Medicare Annual Wellness [...] getting worse? No LINDA BRITO MD [address], [address], [facility] 2022 15:00:36 09/20/2023 text/html Medicare Annual Wellness [...] None on file LINDA BRITO MD [address] [address], [place], [address], [facility] 09/20/2023 10:50:40 01/14/2024 [...] after ambulating 20 min. Hx of avid evker. Denies of any swelling, erythema, or known arthritis in joints. Denies of any pain/discomfort with flexion/extension of knees. Pt does wear a knee brace which provides some relief. Maddi goddard, [facility] 01/25/2024 07:14:42 OBGyn Episode No OBEpisode recorded.
== END 2024-05-15 13:47 | disposition home or self-care (01) ==
PROVIDERS: PCP Student in an Organized Health Care Education/Training Program; Visit Provider Orthopaedic Surgery
DX: S83.242A Other tear of medial meniscus, current injury, left knee, initial encounter (principal); M17.12 Unilateral primary osteoarthritis, left knee
CPT/HCPCS: 99213; G2211

== ENCOUNTER → 2024-05-15 13:19 | Outpatient (BNVA) | payer MEDICARE, OTHER, SELFPAY | PROVIDERS: PCP Student in an Organized Health Care Education/Training Program; Visit Provider Orthopaedic Surgery | DX: S83.242A Other tear of medial meniscus, current injury, left knee, initial encounter (principal) | CPT/HCPCS: 99212 ==

== ENCOUNTER 2024-05-26 07:00 | Day surgery (SDC) | payer MEDICARE, OTHER, SELFPAY ==
--- OUTSIDE RECORDS SUMMARY | 2024-05-17 11:42 | XMS_ITS | Data Portability ---
Author Organization [facility], Main Office Address [address] [place] [address] Care Team Providers Care Life Scientists Name Role Phone PAT RAMOS Floor Covering Installer [phone] NAYELY RHODES Yard Foreman [facility] Hematology/Oncolo gy LINDA BRITO Primary [...] Lab lipid panel, serum 2023 024 CAMILO [facility], [address], [place], [address], 06:07:54 BMP, serum or plasma 2023 024 CAMILO [facility], [address], [place], [address], 4 06:07:53 CBC w/ auto diff 2023 024 CAMILO [facility], [address], [place], [address], 4 06:07:52 TSH, ultra-sensi tive, serum 2023 024 CAMILO [facility], [address], [place], [address], 4 06:07:55 HbA1c (hemoglobin A1c), blood 2023 024 CAMILO [facility] (Centralized Electronic Ordering - All Locations), Patient Can Go To The Location Of Their Choice, 4 06:07:55 lipid panel, serum 2022 023 [email or web address] [facility], [address], [place], [address], 3 14:41:17 BMP, serum or plasma 2022 023 CAMILO [facility], [address], [place], [address], 3 11:43:36 TSH, serum or plasma 2022 023 CAMILO [facility], [address], [place], [address], 3 11:46:35 LDL, serum 2021 022 CAMILO [facility] (Centralized Electronic Ordering - All Locations), Patient Can Go To The Location Of Their Choice, 15:32:24 cholesterol , total, serum 2021 022 CAMILO [facility] (Centralized Electronic Ordering - All Locations), Patient Can Go To The Location Of Their Choice, [address] 06/09/202 2 15:32:25 BMP, serum or plasma 2021 022 CAMILO [facility] (Centralized Electronic Ordering - All Locations), Patient Can Go To The Location Of Their Choice, [address] 2 15:32:25 cholesterol , total, serum 2020 021 CAMILO [facility] (Centralized Electronic Ordering - All Locations), Patient Can Go To The Location Of Their Choice, [address] 09:45:11 LDL, serum 2020 021 CAMILO [facility] (Centralized Electronic Ordering - All Locations), Patient Can Go To The Location Of Their Choice, [address] 09:45:11 Referral orthopedic surgeon referral - left knee pain with ambulationh x of left knee fx in 2009 024 [email or web address] [facility], [address] [place] [address] [place], [address], 4 16:49:[address] referral - rash on abdomen 2021 022 [facility], [address], [address], [place], [address], 09:34:53 nutritionis t/dietitian referral 2021 022 [email or web address] Not available 16:01:20 gynecologis t referral - Patient to schedule 2020 021 [email or web address] Not available 12:05:51 Procedures None recorded. Surgeries None recorded. Imaging XR, knee - left knee pain with ambulation 2023 024 oz [facility], [address] , [place], [address], 4 07:14:38 bone density - hx of osteopenia evaluate 2020 021 [email or web address] Not available 12:05:51 Medication Orders None recorded. Patient TargetsNo targets recorded. Patient Instructions Encounter Date Encounter Id Patient Instructions Last Modified By Organization Details Last Modified Time 05/20/2020 [id number] preventing falls: care instructions [email or web address] Not available 05/20/2020 09:42:51 medicare preventive services guide (female 74yrs and under) [email or web address] Not available 05/20/2020 09:42:50 Cervical Cancer Screening [email or web address] Not available 05/20/2020 09:42:51 08/28/2021 [id number] advance care planning: care instructions [email or web address] Not [...] Information [email or web address] Not available 08/28/2021 15:32:12 2022 [id number] advance care planning: care instructions Not available 2022 14:26:39 well visit, over 65: care instructions Not available 2022 14:26:40 preventing falls: care instructions Not available 2022 14:26:40 09/20/2023 [id number] advance care planning: care instructions Not available 09/20/2023 10:41:21 osteoporosis: care instructions Not available 09/20/2023 10:41:21 well visit, over 65: care instructions Not available 09/20/2023 10:41:21 preventing falls: care instructions Not available 09/20/2023 10:41:20 prediabetes: care instructions Not available 09/20/2023 10:41:21 starting a weight loss plan: care instructions Not available 09/20/2023 10:49:58 Reason for Referral Yard Foreman Referral for Sc reening for malignant neoplasm of cervix Patient to schedule Referring Physician: Rosie Jacob [facility], Encounter Date: 05/20/2020 Dam Attendant/dietitian Refer ral for Body mass index 30+ - obesity Referring Physician: Rosie Jacob [facility], Encounter Date: 08/28/2021 Application Integration Specialist Referral for S kin lesion rash on abdomen Referring Physician: Rosie Jacob [facility], Encounter Date: 08/28/2021 Orthopedic Surgeon Referral for Knee joint painful on movement left knee pain with ambulationhx of left knee fx in 2009 Referring Physician: Saige Mcgee [facility], Encounter Date: 01/14/2024 Results Created Date [...] Go To The Location Of Their Choice, [id number] 09/29/2022 11:43:36 09/30/1909/29/2022 BASIC METAB OLIC PANEL [...] x10e3 /uL 3.4-10 .8 Not Available [facility] ([facility]) [address] [facility], [place], [address], 09/21/2023 06:07:52 09/20/19 24 09/21/2023 CBC WITH DIFFE RENTI AL/PL ATELE T RBC 4.49 x10e6 /uL 3.77-5 .28 Not Available [facility] ([facility]) [address] [facility], [place], [address], 09/21/2023 06:07:52 09/20/19 24 09/21/2023 CBC WITH DIFFE RENTI AL/PL ATELE T hemoglobin 13.5 g/dL 11.1-1 5.9 Not Available [facility] ([facility]) [address] [facility], [place], [address], 09/21/2023 06:07:52 09/20/19 24 09/21/2023 CBC WITH DIFFE RENTI AL/PL ATELE T hematocrit 42.4 % 34.0-4 6.6 Not Available [facility] ([facility]) [address] [place], [address], 09/21/2023 06:07:52 09/20/19 24 09/21/2023 CBC WITH DIFFE RENTI AL/PL ATELE T MCV 94 fL 79-97 Not Available [facility] ([facility]) [address] [place], [address], 09/21/2023 06:07:52 09/20/19 24 09/21/2023 CBC WITH DIFFE RENTI AL/PL ATELE T MCH 30.1 pg 26.6-3 3.0 Not Available [facility] ([facility]) [address] [place], [address], 09/21/2023 06:07:52 09/20/19 24 09/21/2023 CBC WITH DIFFE RENTI AL/PL ATELE T MCHC 31.8 g/dL 31.5-3 5.7 Not Available [facility] ([facility]) [address] [place], [address], 09/21/2023 06:07:52 09/20/19 24 09/21/2023 CBC WITH DIFFE RENTI AL/PL ATELE T RDW 13.2 % 11.7-1 5.4 Not Available [facility] ([facility]) [address] [place], [address], 09/21/2023 06:07:52 09/20/19 24 09/21/2023 CBC WITH DIFFE RENTI AL/PL ATELE T platelets 210 x10e3 /uL 150-45 0 Not Available [facility] ([facility]) [address] [facility], [place], [address], 09/21/2023 06:07:52 09/20/19 24 09/21/2023 CBC WITH DIFFE RENTI AL/PL ATELE T neutrophils 55 % not estab. Not Available [facility] ([facility]) [address] [facility], [place], [address], 09/21/2023 06:07:52 09/20/19 24 09/21/2023 CBC WITH DIFFE RENTI AL/PL ATELE T lymphs 31 % not estab. Not Available [facility] ([facility]) [address] [facility], [place], [address], 09/21/2023 06:07:52 09/20/19 24 09/21/2023 CBC WITH DIFFE RENTI AL/PL ATELE T monocytes 10 % not estab. Not Available [facility] ([facility]) [address] [facility], [place], [address], 09/21/2023 06:07:52 09/20/19 24 09/21/2023 CBC WITH DIFFE RENTI AL/PL ATELE T eos 3 % not estab. Not Available [facility] ([facility]) [address] [facility], [place], [address], 09/21/2023 06:07:52 09/20/19 24 09/21/2023 CBC WITH DIFFE RENTI AL/PL ATELE T basos 1 % not estab. Not Available [facility] ([facility]) [address] [facility], [place], [address], 09/21/2023 06:07:52 09/20/19 24 09/21/2023 CBC WITH DIFFE RENTI AL/PL ATELE T immature cells MARKETING PROGRAM MANAGER Not Available [facility] ([facility]) [address] [facility], [place], [address], 09/21/2023 06:07:52 09/20/19 24 09/21/2023 CBC WITH DIFFE RENTI AL/PL ATELE T neutrophils (absolute) 3.5 x10e3 /uL 1.4-7. 0 Not Available [facility] ([facility]) [address] [facility], [place], [address], 09/21/2023 06:07:52 09/20/19 24 09/21/2023 CBC WITH DIFFE RENTI AL/PL ATELE T lymphs (absolute) 2.0 x10e3 /uL 0.7-3. 1 Not Available [facility] ([facility]) [address] [facility], [place], [address], 09/21/2023 06:07:52 09/20/19 24 09/21/2023 CBC WITH DIFFE RENTI AL/PL ATELE T monocytes(ab solute) 0.6 x10e3 /uL 0.1-0. 9 Not Available [facility] ([facility]) [address] [place], [address], 09/21/2023 06:07:52 09/20/19 24 09/21/2023 CBC WITH DIFFE RENTI AL/PL ATELE T eos (absolute) 0.2 x10e3 /uL 0.0-0. 4 Not Available [facility] ([facility]) [address] [place], [address], 09/21/2023 06:07:52 09/20/19 24 09/21/2023 CBC WITH DIFFE RENTI AL/PL ATELE T baso (absolute) 0.1 x10e3 /uL 0.0-0. 2 Not Available [facility] ([facility]) [address] [place], [address], 09/21/2023 06:07:52 09/20/19 24 09/21/2023 CBC WITH DIFFE RENTI AL/PL ATELE T immature granulocytes 0 % not estab. Not Available [facility] ([facility]) [address] [facility], [place], [address], 09/21/2023 06:07:52 09/20/19 24 09/21/2023 CBC WITH DIFFE RENTI AL/PL ATELE T immature grans (abs) 0.0 x10e3 /uL 0.0-0. 1 Not Available [facility] ([facility]) [address] [facility], [place], [address], 09/21/2023 06:07:52 09/20/19 24 09/21/2023 CBC WITH DIFFE RENTI AL/PL ATELE T NRBC MARKETING PROGRAM MANAGER Not Available [facility] ([facility]) [address] [facility], [place], [address], 09/21/2023 06:07:52 09/20/19 24 09/21/2023 CBC WITH DIFFE RENTI AL/PL ATELE T hematology comments: MARKETING PROGRAM MANAGER Not Available [facility] ([facility]) [address] [facility], [place], [address], 09/21/2023 06:07:52 09/20/19 24 09/21/2023 BASIC METAB OLIC PANEL (8) glucose 105 mg/dL 70-99 above high normal Not Available [facility] ([facility]) [address] [facility], [place], [address], 09/21/2023 06:07:53 09/20/19 24 09/21/2023 BASIC METAB OLIC PANEL (8) BUN 17 mg/dL 8-27 Not Available [facility] ([facility]) [address] [facility], [place], [address], 09/21/2023 06:07:53 09/20/19 24 09/21/2023 BASIC METAB OLIC PANEL (8) creatinine 0.86 mg/dL 0.57-1 .00 Not Available [facility] ([facility]) [address] [facility], [place], [address], 09/21/2023 06:07:53 09/20/19 24 09/21/2023 BASIC METAB OLIC PANEL (8) eGFR 73 mL/mi n/1.7 3 >59 Not Available [facility] ([facility]) [address] [facility], [place], [address], 09/21/2023 06:07:53 09/20/19 24 09/21/2023 BASIC METAB OLIC PANEL (8) BUN/creatini ne ratio 20 12-28 Not Available [facility] ([facility]) [address] [facility], [place], [address], 09/21/2023 06:07:53 09/20/19 24 09/21/2023 BASIC METAB OLIC PANEL (8) sodium 143 mmol/ L 134-14 4 Not Available [facility] ([facility]) [address] [facility], [place], [address], 09/21/2023 06:07:53 09/20/19 24 09/21/2023 BASIC METAB OLIC PANEL (8) potassium 4.5 mmol/ L 3.5-5. 2 Not Available [facility] ([place] [facility]) [address] [facility], [place], [address], 09/21/2023 06:07:53 09/20/19 24 09/21/2023 BASIC METAB OLIC PANEL (8) chloride 105 mmol/ L 96-106 Not Available [facility] ([place] [facility]) [address] [facility], [place], [address], 09/21/2023 06:07:53 09/20/19 24 09/21/2023 BASIC METAB OLIC PANEL (8) carbon dioxide, total 22 mmol/ L 20-29 Not Available [facility] ([place] [facility]) [address] [facility] [place], [address], 09/21/2023 06:07:53 09/20/19 24 09/21/2023 BASIC METAB OLIC PANEL (8) calcium 9.5 mg/dL 8.7-10 .3 Not Available [facility] ([facility]) [address] [facility] [place], [address], 09/21/2023 06:07:53 09/20/19 24 09/21/2023 LIPID PANEL cholesterol, total 198 mg/dL 100-19 9 Not Available [facility] ([facility]) [address] [facility] [place], [address], 09/21/2023 06:07:54 09/20/19 24 09/21/2023 LIPID PANEL triglyceride s 94 mg/dL 0-149 Not Available [facility] ([facility]) [address] [place], [address], 09/21/2023 06:07:54 09/20/19 24 09/21/2023 LIPID PANEL HDL cholesterol 54 mg/dL >39 Not Available [facility] ([facility]) [address] [facility] [place], [address], 09/21/2023 06:07:54 09/20/19 24 09/21/2023 LIPID PANEL VLDL cholesterol donavon 17 mg/dL 5-40 Not Available [facility] ([facility]) [address] [place], [address], 09/21/2023 06:07:54 09/20/19 24 09/21/2023 LIPID PANEL LDL chol calc ([facility]) 127 mg/dL 0-99 above high normal Not Available [facility] ([facility]) [address] [place], [address], 09/21/2023 06:07:54 09/20/19 24 09/21/2023 LIPID PANEL LDL calc comment: MARKETING PROGRAM MANAGER Not Available [facility] ([facility]) [address] [place], [address], 09/21/2023 06:07:54 09/20/19 24 09/21/2023 HEMOG LOBIN A1C hemoglobin A1C 6.2 % 4.8-5. 6 above high normal Predi abete s: 5.7 - 6.4 Diabe tom: >6.4 Glyce maria elena contr ol for adult s with diabe tom: <7.0 Not Available [facility] ([facility]) [address] [facility], [place], [address], 09/21/2023 06:07:55 09/20/19 24 09/21/2023 TSH RFX ON ABNOR MAL TO FREE T4 TSH 2.730 uIU/m L 0.450- 4.500 Not Available [facility] ([facility]) [address] [facility], [place], [address], 09/21/2023 06:07:55 05/17/19 21 05/17/2020 MAMMO , [...] I agree with this report . WSN: [id number] Orderi ng Physic teto: Augustine saeed MD, Rosie Harper Dictat ed By: Ata sommer MD, Warner Dictat ed Date/T kenny: 3:53 pm Review ed By: Carlos DYER, Sunshine Chi Signed By: Sunshine Gonzalez MD Signed Date/T kenny: 3:58 pm Transc ribed By: CSB Transc riptio n Date/T kenny: 3:05 pm Birads : Carrie torres Class: Outpat ient [email or web address] [facility] (Outpt Imaging) [address] [place] [address], [address], 05/20/2020 10:19:52 08/31/19 21 08/29/2020 DEXA, axial skele ton ====== ====== ====== ====== ====== ====== ====== ====== ====== ====== ===== Bone Densit y Report ====== ====== ====== ====== ====== ====== ====== ====== ====== ====== ===== Name: ZAFAR BRADEN ID: [id number] Age: 64 Sex: Female Ethnic ity: White Date of : 1955 ------ ------ ------ ------ ------ ------ ------ ------ ------ ------ ----- Indica tion: CIRO VICTORIA Referr ing Provid er: AUGUSTINE SAEED MD, LIS Study: Bone densit ometry was perfor med. Exam Date: August 29, 2020 Access ion number : [id number] Bone Densit y: ------ ------ ------ [...] 4:18 pm Patien t Class: Outpat ient [facility] (Outpt Imaging) [address] , [place], [address], 09/03/2020 15:38:08 06/05/19 22 06/04/2021 MAMMO , [...] lymph node is presen t in the customer support agent ior upper left latera l/ante rior axilla [...] I agree with this report . WSN: [id number] [facility] Physic teto: Augustine saeed MD, Rosie Harper Dictat ed By: Oseas Olson MD Dictat ed Date/T kenny: 5:01 pm Review ed By: Tatianna Doty MD, I Signed By: Tatianna Doty MD, I Signed Date/T kenny: 5:06 pm Transc ribed By: VICTOR M Transc riptio n Date/T kenny: 4:06 pm Birads : Patien t Class: Outpat ient [email or web address] [facility] (Outpt Imaging) [address] [facility], [place], [address], 07/03/2021 13:10:17 06/10/19 22 06/04/2021 MAMMO brenda digit al, jeffrey eraerwin A D D E N D U M as of: [id number] Addend um: The findin g for callba ck is in the LEFT breast . WSN: [id number] Orderi ng Physic teto: Augustine saeed [...] lymph node is presen t in the customer support agent ior upper left latera l/ante rior axilla [...] I agree with this report . WSN: [id number] Orderi ng Physic teto: Augustine saeed MD, Rosie E Dictat ed By: Oseas Olson MD Dictat ed Date/T kenny: 5:01 pm Review ed By: Tatianna Doty MD, I Signed By: Tatianna Doty MD, I Signed /T kenny: 5:06 pm Transc ribed By: VICTOR M Transc riptio n /T kenny: 4:06 pm Birads : Carrie torres Class: Outpat ient [email or web address] [facility] ([facility]) [address] [place] [address], [address], 07/03/2021 13:11:34 06/14/19 22 06/13/2021 mm digit [...] Lay letter mailed to carrie torres WSN: [id number] Orderi ng Physic teto: Augustine saeed MD, Rosie E Dictat ed By: Usha Randhawa MD Dictat ed Date/T kenny: 1:25 pm Review ed By: Usha Randhawa MD Signed By: Usha Randhawa MD y H Signed Date/T kenny: 1:25 pm Transc ribed By: VICTOR M Transc riptio n /T kenny: 1:24 pm Birads : Carrie torres Class: Outpat ient [email or web address] [facility] ([facility] Imaging) [address], [place], [address], 07/03/2021 13:11:35 06/09/19 23 06/08/2022 MAMMO , [...] Lay letter mailed to carrie torres WSN: [id number] Orderi ng Physic teto: Augustine saeed MD, Rosie Harper Dictat ed By: Tatianna Doty MD, I Dictat ed Date/T kenny: 4:41 pm Review ed By: Tatianna oDty MD, I Signed By: Tatianna Doty MD, I Signed Date/T kenny: 4:41 pm Transc ribed By: VICTOR M Transc riptio n Date/T kenny: 4:37 pm Birads : Carrie t Class: Outpat ient [facility] ([facility]pt Imaging) [address], [place], [address], 06/09/2022 09:48:18 05/14/19 24 05/13/2023 bone densi ty No observ ation record ed. [facility] [address], [place], [address], 05/14/2023 17:50:25 06/11/19 24 06/10/2023 MAMMO , [...] I agree with this report . WSN: [id number] Orderi ng Physic teto: Mark Vazquez ie Dictat ed By: Cyndi DYER, Brock marc Dictat ed Date/T kenny: 1:21 pm Review ed By: Usha Radnhawa MD Signed By: Usha Randhawa MD Signed Date/T kenny: 1:26 pm Transc ribed By: VICTOR M Transc riptio n Date/T kenny: 11:50 am Birads : Patien t Class: Outpat ient [email or web address] [facility] ([facility]pt Imaging) [address], [place], [address], 06/11/2023 14:50:16 06/11/1906/10/2023 MAMMO , scree susana, digit al, bilat eral No observ ation record ed. [facility] [address], [place], [address], 06/11/2023 18:07:35 01/14/2001/14/2024 XR, knee No observ ation record ed. [email or web address] [facility] [address], [place], [address], 01/17/2024 11:38:15 01/14/2001/14/2024 XR, knee, 1 or [...] l osteoa rthrit ic change . WSN: [id number] Orderi ng Physic teto: Saige Mcgee Dictat ed By: Keara Lawrence MD Dictat ed Date/T kenny: 10:09 a Review ed By: Keara Lawrence MD Signed By: Keara Lawrence MD Signed Date/T kenny: 10:09 am Transc ribed By: CSB Transc ribed Date/T kenny: 10:08 am Patien t Class: Outpat ient [email or web address] [facility] (Outpt Imaging) [address], [place], [address], 02/02/2024 10:15:24 04/12/19 25 04/11/2024 MRI, knee, w/o contr ast No observ ation record ed. [facility] (Medical Records) [address] [facility], [place], [address], 04/12/2024 15:41:17 Result Notes None recorded. Problems Name Problem SNOMED Code Status Onset Date Resolution Date Notes Provider Name and Address Organization Details Recorded Time Non-Hodg kin's lymphoma (clinica l) 561145507 Completed 201705/20/2020 dx in 2013 right cheeck and right groin and back of neck, tx with radiation Rosie franco [facility], [facility] 1 09:25:38 Obesity 508558506 Active Mena Rios CPPM [facility], [facility] 0 10:55:57 Family history of diabetes mellitus 195956044 Completed 09/09/2022 LINDA BRITO MD [address] [facility] [address], [place], [address], [facility] 3 18:58:50 History of non-Hodg kins lymphoma 608135306 Active 2020 Rosie franco [facility], [facility] 1 09:25:32 Osteopor osis 55425490 Completed 202109/19/2023 LINDA BRITO MD [address], [place], [address], [facility] 4 14:18:04 Osteopen ia 267442257 Active 2023 LINDA BRITO MD [address], [place], [address], [facility] 4 14:18:14 Hyperlip idemia 07835050 Active 2023 LINDA BRITO MD [address], [facility] [place], [address], [facility] 4 14:19:50 Statin declined 510131874 Active 2023 LINDA BRITO MD [address], [place], [address], [facility] 4 14:19:52 Senile osteopor osis 42774278 Active Ly Coleman MA [facility] 4 10:19:18 Problem Notes None recorded. Procedures Surgical History Date Name Laterality Status Provider Name and Address Organization Details Recorded Time 09/20/19 24 Advanced Care Planning completed LINDA BRITO MD [address], [place], [address], [facility] 09/19/2023 14:15:24 06/11/19 24 Most Recent Mammogram completed Elif Ballard [facility] 06/11/2023 14:50:11 06/11/19 24 Mammogram both breasts completed Elif Ballard [facility] 06/11/2023 14:50:06 09/11/19 23 Advanced Care Planning completed Ly Coleman MA [facility] 2022 13:46:55 08/29/19 22 Advanced Care Planning completed Ly Coleman MA [facility] 08/28/2021 15:09:18 06/14/19 22 Mammogram one breast completed Adelita Miles [facility] 07/03/2021 13:11:24 05/21/19 21 Six-Item Cognitive Test completed Bernadette Braga MA [facility] 05/20/2020 09:01:49 05/19/19 20 Mini-Cog Test completed Ly Coleman MA [facility] 05/19/2019 13:28:37 11/03/19 18 Date of Last Pap Smear completed Ly Coleman MA [facility] 05/19/2019 13:35:30 07/15/19 18 Date of Last Colonoscopy completed Zayra Kumar [facility] 07/14/2017 15:13:59 07/15/19 18 Colonoscopy completed Zayra Kumar [facility] 07/14/2017 15:13:52 11/11/19 16 Most Recent Bone Density completed Zayra José [facility] 06/09/2017 11:45:50 11/11/19 16 Dxa bone density mignon vrt fx completed Zayra José [facility] 06/09/2017 11:45:44 05/07/18 92 Caesarean Section completed Ly Coleman MA [facility] 08/28/2021 15:08:40 Imaging Results Imaging Date Name Status LastModified by Organiz ation Details LastModified Time 05/17/2020 MAMMO, screening, digital, bilateral completed [email or web address] [facility] (Outpt Imaging) [address] [place], [address], 05/20/2020 10:19:52 08/29/2020 DEXA, axial skeleton completed [email or web address] [facility] ([facility] Imaging) [address] [place], [address], 09/03/2020 15:38:08 06/04/2021 MAMMO, screening, digital, bilateral completed [email or web address] (Outpt Imaging) [address] [place], [address], 07/03/2021 13:10:17 06/04/2021 MAMMO, screening, digital, bilateral completed [email or web address] [facility] ([facility]) [address] [place], [address], 07/03/2021 13:11:34 06/13/2021 mm digital mammo unilat left completed [email or web address] [facility] ([facility]) [address] [place], [address], 07/03/2021 13:11:35 06/08/2022 MAMMO, screening, digital, bilateral completed [email or web address] [facility] ([facility]pt Imaging) [address] [place], [address], 06/09/2022 09:48:18 05/13/2023 bone density completed [facility] [address] [place], [address], 05/14/2023 17:50:25 06/10/2023 MAMMO, screening, digital, bilateral completed [email or web address] [facility] ([facility]) [address] [place], [address], 06/11/2023 14:50:16 06/10/2023 MAMMO, screening, digital, bilateral completed [facility] [address] [place], [address], 06/11/2023 18:07:35 01/14/2024 XR, knee completed [email or web address] [facility] [address] [place], [address], 01/17/2024 11:38:15 01/14/2024 XR, knee, 1 or 2 view completed [email or web address] [facility] (Outpt Imaging) [address] [place], [address], 02/02/2024 10:15:24 04/11/2024 MRI, knee, w/o contrast completed [facility] (Medical Records) [address] [place], [address], 04/12/2024 15:41:17 Procedure Notes None recorded. Medical Equipment None Reported. Allergies Allergen ID Allergen Name Allergen Category Reaction Reaction Severity Criticality Documentation Date Start Date Code Code System Note Provider Name and Address Organization Details Recorded Time 12256 No known allergy (situatio n) Not available Not available Not available Not available 09/20/2023 [id number] SNOMED Ly Coleman MA [facility], [facility] 4 10:19:10 No known drug [...] Updated DateTime 2 163.83 cm 35.4 kg/m2 00194.9 1 g 97 % 97 % 65 /min 97.88 [degF] 123 mm[Hg] 74 mm[Hg] Ly Coleman MA [facility] 2 15:16:23 Date Recorded Body height Body mass index (BMI) Body weight Oxygen saturation Oxygen saturation in Arterial blood by Pulse oximetry Heart rate Body temperature Systolic blood pressure Diastolic blood pressure Provider Name and Address Organization Details Last Updated DateTime 3 163.83 cm 35.5 kg/m2 24101.8 g 98 % 98 % 79 /min 98 [degF] 122 mm[Hg] 83 mm[Hg] Ly Coleman MA [facility] 3 13:56:14 Date Recorded Body height Body mass index (BMI) Body weight Oxygen saturation Oxygen saturation in Arterial blood by Pulse oximetry Heart rate Body temperature Systolic blood pressure Diastolic blood pressure Provider Name and Address Organization Details Last Updated DateTime 4 163.83 cm 34.1 kg/m2 81505.8 7 g 98 % 98 % 72 /min 98.2 [degF] 125 mm[Hg] 68 mm[Hg] yL Coleman MA [facility] 4 10:24:54 Date Recorded Body height Body mass index (BMI) Body weight Heart rate Oxygen saturation Oxygen saturation in Arterial blood by Pulse oximetry Body temperature Systolic blood pressure Diastolic blood pressure Provider Name and Address Organization Details Last Updated DateTime 4 163.83 cm 32.3 kg/m2 80378.2 4 g 69 /min 98 % 98 % 97.8 [degF] 123 mm[Hg] 76 mm[Hg] Jaenen Ellis LPN [facility] 4 09:03:22 Social History Question Answer Notes LastModified by Organizat ion Details LastModified Time Tobacco Smoking Status [facility] 05/13/2017 14:51:41 Do You Have An Advance Directive? No [email or web address] Information not available 08/28/2021 What Is Your Level Of Alcohol Consumption? Occasional [email or web address] Information not available 05/13/2017 Is Blood Transfusion Acceptable In An Emergency? Yes [email or web address] Information not available 05/13/2017 What Is Your Level Of Caffeine Consumption? Occasional Very Rare [email or web address] Information not available 2022 How Much Tobacco Do You Chew? None Information not available 05/20/2020 Are You Currently Employed? No [email or web address] Information not available 08/28/2021 What Type Of Diet Are You Following? REGULAR [email or web address] Information not available 05/13/2017 Which Illicit Or Recreational Drugs Have You Used? None Information not available 05/20/2020 Do You Or Have You Ever Used E-cigarettes Or Vape? 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 Alone With Dog Information not available 2022 Do You Take Precautions To Prevent Distracted Driving? Yes [email or web address] Information not available 05/13/2017 How Often Do [...] Of Your Most Recent Tobacco Screening? 09/20/2023 Information not available 09/20/2023 How Many Children Do You Have? 1 [email or web address] Information not available 05/13/2017 Do You Use Your Seat Belt Or Car Seat Routinely? Yes [email or web address] Information not available 08/28/2021 Seat Belts Used Routinely Yes [email or web address] Information not available 08/28/2021 Are You Sexually Active? No Information not available 05/20/2020 Smoke Alarm In Home Yes [email or web address] Information not available 08/28/2021 Do You Have Smoke And Carbon Monoxide Detectors In Your Home? Yes [email or web address] Information not available 08/28/2021 At What Age Did You Start Smoking Tobacco? 0 Information not available 05/20/2020 Are You Passively Exposed To Smoke? No [email or web address] Information not available 05/13/2017 Do You Or Have You Ever Used Smokeless Tobacco? Never Used Smokeless Tobacco Information not available 05/20/2020 How Much Tobacco Do You Smoke? No Information not available 05/20/2020 Do You Use Sunscreen Routinely? Yes Information not available 05/13/2017 How Many Years Have You Smoked Tobacco? 0 Information not available 05/20/2020 Sex: Unknown Functional Status Question Answer Note LastModified by Organizat ion Details LastModified Time Are you able to walk? YESWOREST [email or web address] Information not available 08/28/2021 Are you able to care for yourself? Yes [email or web address] Information not available 05/13/2017 What is your exercise level? Moderate walks 10-35 minutes 5 days a week,exerise s that PT gives her [email or web address] Information not available 2022 Mental Status None recorded. Family History Relationship Description Onset Age of this Age Resolved Age Notes LastModified by Organization Details LastModified Time Father Malignant lymphoma 54 Not available 08/28 15:03:07 Mother Diabetes mellitus [...] Recorded Time Tdap 3 completed Not Available [facility] 04/22/2023 14:06:04 Influenza, split virus, quadrivalent, preservative 8 completed Not Available [facility] 04/22/2023 14:06:03 Influenza, split virus, trivalent, preservative 8 completed Not Available [facility] 04/22/2023 14:06:04 COVID-19, mRNA, LNP-S, PF, 30 mcg/0.3 mL dose 1 completed Not Available [facility] 04/22/2023 14:06:04 COVID-19, mRNA, LNP-S, PF, 30 mcg/0.3 mL dose 1 completed Not Available [facility] 04/22/2023 14:06:04 pneumococcal polysaccharide PPV23 2 completed Not Available [facility] 04/22/2023 14:06:04 Tdap 5 completed Not Available [facility] 04/22/2023 14:06:04 zoster recombinant 1 completed Not Available [facility] 04/22/2023 14:06:03 Pneumococcal conjugate PCV 13 1 completed Not Available [facility] 04/22/2023 14:06:04 COVID-19, mRNA, LNP-S, PF, 30 mcg/0.3 mL dose 1 completed Not Available [facility] 04/22/2023 14:06:04 Influenza, adjuvanted, quadrivalent, PF 1 completed Not Available [facility] 04/22/2023 14:06:03 Influenza, recombinant, quadrivalent, PF 0 completed Not Available [facility] 04/22/2023 14:06:03 COVID-19, mRNA, LNP-S, PF, 30 mcg/0.3 mL dose, maximino-sucrose 2 completed Not Available [facility] 04/22/2023 14:06:04 zoster recombinant 1 completed Not Available [facility] 04/22/2023 14:06:03 Influenza, adjuvanted, quadrivalent, PF 2 completed Not Available [facility] 04/22/2023 14:06:04 COVID-19, mRNA, LNP-S, bivalent, PF, 30 mcg/0.3 mL dose 2 completed Not Available [facility] 04/22/2023 14:06:04 Influenza, adjuvanted, quadrivalent, PF 3 completed Ly Coleman MA [facility] 09/20/2023 10:25:21 Past Encounters Encounter ID Performer Location Encounter Start Date Encounter Closed Date Diagnosis/Indication Diagnosis SNOMED-CT Code Diagnosis ICD10 Code Diagnosis Note [id number] Rosie [facility] Main Office [address] [facility] [address] [place] [address] 05/13/2017 14:25:11 05/13/2017 15:30:08 Adult health examination 686099352 Z00.00 last colonoscop y [address] Ramos, will get a repeat, mammo in 11/06 and pap smear through Dr Rhodes, they have been normal. Non-Hodgki n's lymphoma (clinical) 370270599 C85.[address] La every 4 months, has a mass right back of neck that is being followed. Body mass index 30+ - obesity 692499614 Z68.35 Z68.34 gained weight when she sprained her ankle this winter [id number] [facility] Main Office [address] [place] [address] 11/15/2017 10:31:42 11/15/2017 11:35:24 Non-Hodgkin's lymphoma (clinical) 467097616 C85.[address] La every 4 months, new lymph nodes seen on US in both axilla, we called and talked to DR La's porcelain buildup assistant, he will be made aware of biopsy scheduled for tomorrow as well as get the reports. Axillary lymphadenopathy 273718223 R59.0 new, long talk with pt, I wanted Dr La her oncologist to be aware and make sure he agrees with the plan and approach to biopsy, this was done, [id number] [facility] Main Office [address] [place] [address] 05/16/2018 10:54:57 05/16/2018 11:43:42 Adult health examination 522358673 Z00.00 all screening is utd. Non-Hodgki n's lymphoma (clinical) 321274749 C85.90 see below Supraclavi cular lymphadenopathy 057896601 R59.0 left supraclavi cular node felt on exam today, pt also with more fullness in right axilla without discreet mass. pt will go from here to Dr La's office for eval and appt, just finished tx for recurrence , pt was asked to call and let me know date of appt with dR La [id number] Rosie [facility] Main Office [address] [facility] [address] [place] [address] 05/19/2019 13:14:20 05/19/2019 14:14:08 Adult health examination 296886648 Z00.00 all screening is utd. trying to get back n shape, finished chemo last month Non-Hodgki n's lymphoma (clinical) 388799738 C85.90 will be getting a biopsy left axilla for positive node on PET scan [id number] [facility] [address] [facility] [address] [place] [address] 05/20/2020 06:40:28 05/20/2020 12:05:51 Adult health examination 912825614 Z00.00 mammogram is utd will see district [facility] justice 03/[address] and colonoscop y. is walking. feels great Menopause present 345381 006 Z78.0 hx of osteopenia . recheck bone density. keep on vit D Screening for malignant neoplasm of cervix 069929673 Z12.[address] Rhodes History of non-Hodgkins lymphoma 354979625 Z85.72 dx many years ago in mouth and neck, and had recurrence 2019, done with chemo and port is out Hypercholesterolemia 136 04150 E78.00 check random [id number] [facility] Main [facility] [address] [facility] [address] [place] [address] 08/28/2021 15:02:37 08/28/2021 15:49:59 Adult health examination 415203420 Z00.00 screening is utd, walks dog and does gardening pt to get a tetanus shot before 07/12 Advance di rective discussed with patient 261213685 Z71.89 I discussed MOLST and health care proxy form. I gave pt MOLST form and proxy form, pt will fill out, discuss MOLST form with proxy and sign and return to our office History of non-Hodgkins lymphoma 616634078 Z85.72 dx many years ago in mouth and neck, and had recurrence 2019, done with chemo and port is out recent check up good Body mass index 30+ - obesity 069636629 E66.9 Z68.35 working on weight loss Hypercholesterolemia 136 96559 E78.00 check random Fatigue 90680320 R53.83 check labs Osteoporosis 09500957 M8 1.0 will be starting a med. Skin lesion 22452058 L98 .9 pt to set up derm, unsure what rash is [id number] LINDA BRITO MD Main Office [address] [facility] [address] [facility] [place] [address] 2022 13:43:28 2022 14:29:33 Adult health examination 179775095 Z00.00 Health Maintenanc e FemaleA) Patient was [...] any acute complaints History of non-Hodgkins lymphoma 056332233 Z85.72 - diffuse B-cell lymphoma currently in remission- pt follows with oncology, was last seen in March Osteoporosis 20030167 M8 1.0 - following endocrinol ogy- currently on calcium and vitamin D supplement s- currently on the alendronat e Fatigue 75774818 R53.83 Z00.00 Hyperlipidemia 55911209 E78.5 Z00.00 Advance di rective discussed with patient 638621049 Z71.89 - discussed with patient MOLTS and HCP [id number] LINDA BRITO MD Main Office [address] [facility] [address] [facility] [address] 09/20/2023 10:16:47 09/20/2023 10:45:38 Advance directive discussed with patient 072691026 Z71.89 - discussed with patient MOLTS and HCP Adult heal th examination 122681530 Z00.00 Health Maintenanc e FemaleA) Patient was [...] any acute complaints History of non-Hodgkins lymphoma 040044167 Z85.72 - diffuse B-cell lymphoma currently in remission> hx of XRT - Right parotid gland 2000 cGy and Right Groin 02/2015> s/p RCHOP, rituximab and chemothera py- pt follows with oncology, last seen on 07/2023 Osteopenia 489200495 M85 .80 - following endocrinol ogy- currently on calcium and vitamin D supplement s- currently on the alendronat e once a week- improvemen t from osteoporos is to osteopenia in AP spine Fatigue 21619740 R53.83 Z00.00 Hyperlipidemia 00143391 E78.5 Z00.00 - ASCVD score of 8.2%- [...] Eat more fruits and veggies. Statin declined 61582753 0 Z53.20 Impaired f asting glycemia 802024662 R73.01 Body mass index 30+ - obesity 077695449 E66.9 Z68.34 - BMI of 34.1- Cut [...] minutes cumulative of moderate exercise ajit whitaker [id number] Maddi Tay Main Office [address] [place] [address] 01/14/2024 08:45:59 01/14/2024 09:21:43 Knee joint painful on movement 339320383 M25.562 hx of left knee fx in [...] Conte Member ID Guarantor Name 05/20/2020 2 [facility] [employer] PLAN - NAVIGATOR (PPO) [id number] Zafar Durbin [id number] Zafar Durbin 05/20/2020 1 [place] [employer] Zafar Durbin [id number] Zafar Durbin 08/28/2021 2 [facility] [employer] PLAN - NAVIGATOR (PPO) [id number] Zafar Durbin [id number] Zafar Durbin 08/28/2021 1 [place] [employer] [place] Zafar Durbin [id number] Zafar Durbin 2022 2 [facility] [employer] PLAN - NAVIGATOR (PPO) [id number] Zafar Durbin [id number] Zafar Durbin 2022 1 [place] Zafar Durbin [id number] Zafar Durbin 09/20/2023 2 [facility] - MEDICARE ENHANCE (INDEMNITY PLAN) Zafar Durbin [id number] Zafar Durbin 09/20/2023 1 [place] Zafar Durbin [id number] Zafar Durbin 01/14/2024 2 [facility] - MEDICARE ENHANCE (INDEMNITY PLAN) Zafar Durbin [id number] Zafar Durbin 01/14/2024 1 [place] Zafar Durbin [id number] 9 Zafar Durbin Notes Date Note Type [...] trying to get an appt. Rosie [facility]dard [facility] 05/20/2020 09:45:24 08/28/2021 text/html Medicare Annual Wellness [...] PT is trying to lose weight. Sees district court justice every other year. Non-Hodgkins lymphoma is in remission, just saw oncology. AHs a rash taht ocmes and goes on her abdomen Rosie goddard [facility] 08/28/2021 15:51:28 2022 text/html Medicare [...] getting worse? No LINDA BRITO MD [address], [address], [facility] 2022 15:00:36 09/20/2023 text/html Medicare Annual Wellness [...] None on file LINDA BRITO MD [address] [address], [place], [address], [facility] 09/20/2023 10:50:40 01/14/2024 text/html Zafar is [...] brace which provides some relief. Maddi goddard, [facility] 01/25/2024 07:14:42 OBGyn Episode No OBEpisode recorded.
[2024-05-24 11:49] VITALS: BMI 33.6
--- NOTE | 2024-05-25 12:02 | HO.ANESPROP2 ---
Documented by User: Roseanne Hopson NP 05/25/24 12:02 HPI - Anesthesia Eval Consult details Narrative: 68yo F for Left Knee Arthroscopy,with partial medial and lateral meniscectomy PMFSH Active Problems Active Problems: All Active Problems Tear of medial meniscus of left knee (Acute) Left knee pain (Acute) Social History Social History Are you a primary healthcare management to a significant other at home: No Do you presently have visiting nurse or other home services: No Patient Tobacco Use Status: Never used Tobacco Use of substances other than those prescribed or required for medical reasons: No Have you been hit, kicked, punched, or otherwise hurt by someone within the past year? If so, by whom?: No Advance Directives: No Advance Directives Information Provided: Yes Recently lost weight without trying: No Nutrition Risks: No Nutritional Risk Patient : No Meds Allergies Allergy/AdvReac Type Severity Reaction Status Date / Time No Known Allergies Allergy Verified 05/15/24 13:25 Active Medications: Current Medications Cefazolin Sodium/Dextrose (Ancef) 2 gm in 50 mls @ 100 mls/hr IV PREOP ONE Stop: 05/26/24 06:08 Home Medications ?Medication ?Instructions ?Recorded ?Confirmed ?Last Taken ?Type alendronate 70 mg tablet 70 mg PO QWEEK 05/25/24 Unknown History bimatoprost 0.01 % eye drops 1 drp ophthalmic (eye) BEDTIME 05/25/24 Unknown History (Mau) Exam Height,Weight and Vital Signs: Height 5 ft 4 in Weight 88.904 kg Assessment and Plan Assessment Anesthesia Assessment: Chart Reviewed Documented by User: Maryse Yost MD 05/26/24 08:33 PMFSH Family History Family history of problems with anesthesia: No Surgical History History of Problems with Anesthesia: No Social History Social History Are you a primary healthcare management to a significant other at home: No Do you presently have visiting nurse or other home services: No Patient Tobacco Use Status: Never used Tobacco Use of substances other than those prescribed or required for medical reasons: No Have you been hit, kicked, punched, or otherwise hurt by someone within the past year? If so, by whom?: No Advance Directives: No Advance Directives Information Provided: Yes Recently lost weight without trying: No Nutrition Risks: No Nutritional Risk Patient : No Meds Allergies Allergy/AdvReac Type Severity Reaction Status Date / Time No Known Allergies Allergy Verified 05/15/24 13:25 Home Medications ?Medication ?Instructions ?Recorded ?Confirmed ?Last Taken ?Type alendronate 70 mg tablet 70 mg PO QWEEK 05/25/24 Unknown History bimatoprost 0.01 % eye drops 1 drp ophthalmic (eye) BEDTIME 05/25/24 Unknown History (Lumigan) Exam Airway Mallampati Class: II TM Dist: >3cm Neck ROM: Limited Heart: rrr Lungs: cta Assessment and Plan Assessment Anesthesia Assessment: Anesthesia Plan Discussed Final Anesthetic Review Family History of Problems with Anesthesia: No History of Problems with Anesthesia: No NPO: Yes ASA Class: II (obesity, vinicius potential) Final Preanesthetic Review: No Changes in Pt Med Stat, Meds/Allgs Chart Reviewed, Consent Obtained/Reviewed and Anes Risks/Benef Reviewed Patient Risk: Intermediate Procedure Risk: Low Anesthetic Plan Anesthetic Plan: GA Disposition: Standard PACU
[2024-05-26] VITALS (9 sets, daily range): BP systolic 115–144; BP diastolic 51–77; PULSE 59–80; RESP 12–18; TEMP 36.1–36.9; O2SAT 95–97; BMI 33.6
[2024-05-26] MEDS: Lactated Ringers 1,000 ML 100 ML IVCONT (07:46)
[2024-05-26] MEDS: Acetaminophen 1,000 MG/100 ML PIGGYBACK 400 MG IV (09:00)
[2024-05-26] MEDS: ceFAZolin Sodium/Dextrose,Iso 2 GM/50 ML PIGGYBACK IV (09:00)
--- NOTE | 2024-05-26 10:26 | P.BOP_ITS ---
Brief Operative Note Date of Service: 05/26/24 Pre-op diagnosis: Left knee medial meniscus tear, left knee lateral meniscus tear, left knee degenerative joint disease Post-op diagnosis: same Procedure: Left knee arthroscopic partial medial and lateral meniscectomies, left knee arthroscopic chondroplasty of the undersurface of the patella as well as the medial femoral condyle Implants: none Surgeon: Cm Royal MD Anesthesia: GLMA Was an Digital Marketing Program Manager used for this Procedure?: No Estimated blood loss (mL): 10 Pathology: none sent Condition: stable Disposition: PACU
--- NOTE | 2024-05-26 10:27 | W.PM.OPN ---
Operative Note Operative Note Date of Service: 05/26/24 Narrative: After the patient was identified as Zafar Durbin and her left knee was initialed by myself they were brought to the operating room where general anesthesia was induced by the anesthesiologist in routine fashion. The patient was given 2 g of IV Ancef preoperatively for infection prophylaxis. The patient's left lower extremity was prepped and draped in sterile fashion. A formal time-out was completed. Marcaine was injected into the planned incision sites as well as the patient's left knee joint. A #11 scalpel blade was used to make an anterolateral portal 1 cm proximal to the joint line and 1 cm lateral to the patellar tendon. Blunt trocar technique was used to enter the suprapatellar pouch with the knee in extension. Diagnostic arthroscopy showed multiple bands of thickened plica which would be excised at the end of the procedure. There were no loose bodies or abnormalities found in either the medial or lateral gutters. The articular surface of the patella showed diffuse grades 1 and 2 degenerative changes. The trochlear groove articular surface showed diffuse grade 1 degenerative changes. The patient's knee was flexed to 45 degrees and a valgus force was placed upon it. The medial compartment was entered. An anteromedial portal was made 1 cm proximal to the joint line and 1 cm medial to the patellar tendon. Probing of the medial meniscus showed a radial tear of the posterior horn. A partial medial meniscectomy was performed using the arthroscopic shaver. Following the partial meniscectomy the remainder of the meniscus tissue was stable. There were diffuse grades 1 and 2 degenerative changes of the medial femoral condyle as well as grade 1 degenerative changes of the medial tibial plateau. The articular surface of the medial femoral condyle was then made smooth using the arthroscopic shaver. The articular surface of the medial tibial plateau was already smooth so no chondroplasty was indicated. The patient's knee was placed into a neutral position. There was no injury to the anterior cruciate ligament. The patient's knee was then placed in the figure of 4 position and the lateral compartment was entered. There was a radial tear of the anterior horn of the lateral meniscus. A partial lateral meniscectomy was performed using the arthroscopic shaver. Following the partial meniscectomy the remainder of the meniscus tissue was stable. There were minimal degenerative changes of the lateral femoral condyle and lateral tibial plateau. The patient's knee was once again brought into extension and the suprapatellar pouch was entered. The arthroscopic shaver and the ArthroCare Wand were used to excise the thickened bands of plica. The undersurface of the patella was then made smooth using the arthroscopic shaver. The articular surface of the trochlear groove was already smooth so no chondroplasty was indicated. The knee joint was irrigated and then drained. All arthroscopic instruments were removed. The 2 portals were closed with 3-0 nylon interrupted suture. The knee joint was injected with Marcaine. Dry sterile dressing and Enzo bandages were placed over the patient's knee. The patient was awoken and extubated in the operating room. The patient was transferred to the recovery room in stable condition.
[2024-05-26] MEDS: cefTRIAXone sodium 1 GM VIAL IVPUSH (11:25)
== END 2024-05-26 12:03 | disposition home or self-care (01) ==
PROVIDERS: PCP Student in an Organized Health Care Education/Training Program; Visit Provider Orthopaedic Surgery
PROC: (CPT 29870; principal; 2024-05-26 09:10)
DX: S83.282A Other tear of lateral meniscus, current injury, left knee, initial encounter (principal); S83.242A Other tear of medial meniscus, current injury, left knee, initial encounter; M25.562 Pain in left knee; M67.52 Plica syndrome, left knee; Z87.81 Personal history of (healed) traumatic fracture; M23.52 Chronic instability of knee, left knee; Z99.89 Dependence on other enabling machines and devices; M17.12 Unilateral primary osteoarthritis, left knee; W01.0XXA Fall on same level from slipping, tripping and stumbling without subsequent striking against object, initial encounter; Y93.9 Activity, unspecified; Y92.9 Unspecified place or not applicable; Y99.9 Unspecified external cause status
CPT/HCPCS: 29880; 29876; J0131; J0171; J0690; J0696; J1100; J1885; J2003; J2405; J2704; J2795; J3010

== ENCOUNTER → 2024-05-26 07:00 | Outpatient (BNV) | payer MEDICARE, OTHER, SELFPAY | PROVIDERS: PCP Student in an Organized Health Care Education/Training Program; Visit Provider Orthopaedic Surgery | DX: S83.242A Other tear of medial meniscus, current injury, left knee, initial encounter (principal); S83.282A Other tear of lateral meniscus, current injury, left knee, initial encounter | CPT/HCPCS: 29880 ==

== ENCOUNTER 2024-06-08 13:56 | Outpatient (AMB) | payer MEDICARE, OTHER, SELFPAY ==
--- NOTE | 2024-06-08 13:58 | A.OFFVIS_ITS ---
Intake Visit Reasons: PO- Lt Knee 05/26/24 Intake Note: Zafar is a 68 year old female who presents today for a post operative LT Knee 05/26/24 . Patient reports she has pain that comes and goes but states she has been trying to do more each day. Pt states she has been doing at home exercises which she believes is helping. Allergies No Known Allergies Allergy (Verified 06/08/24 14:12) Medication List - Last Reconciled 06/08/24 by Kenneth Buckner PA-C alendronate 70 mg PO QWEEK bimatoprost 0.01% (Lumigan) 1 drp ophthalmic (eye) BEDTIME HPI HPI PO- Lt Knee 05/26/24 DR: Details: 68-year-old female presents to the office today for a follow-up left knee arthroscopy 05/26/[address] Royal. She is doing well. She has mild discomfort but no concerns today. FORMERLY [facility] Social History Are you a primary child care attendant school to a significant other at home: No Do you presently have visiting nurse or other home services: No Patient Tobacco Use Status: Never used Tobacco Review of Systems Const All systems reviewed & are unremarkable except as noted in HPI and below Physical Exam Extrem Other: Left knee incision clean dry and intact. No erythema or joint effusion. She has range of motion 0-90 degrees. She can activate her quad. Calf supple nontender neurovascularly intact. Assessment & Plan Assessment & Plan (1) Tear of medial meniscus of left knee: Code(s): S83.242A - Other tear of medial meniscus, current injury, left knee, initial encounter Category: Medical Plan: Sutures removed today Steri-Strips applied. She will begin a course of physical therapy to work on range of motion and quad strength/gait training. She will minimize deep bending kneeling squatting twisting or pivoting activities for the next 4-6 weeks. She will return in [address] Royal, sooner if needed. Orders: Orders PT Evaluation and Treatment Today S83.242A - Other tear of medial meniscus, current injury, left knee, initial encounter Coding Level of Care Code Global (62800) Diagnoses Tear of medial meniscus of left knee S83.242A
--- OUTSIDE RECORDS SUMMARY | 2024-06-08 16:37 | XMS_ITS | Data Portability ---
Author Organization [facility], Main Office Address [address] [facility] [address] [place] [address] Care Team Providers Care Quality Assurance Monitor Body Name Role Phone PAT RAMOS Shoe Reconditioner [phone] NAYELY RHODES Brazer Induction [facility] Hematology/Oncolo gy LINDA BRITO Primary [...] panel, serum 2023 024 CAMILO [facility], [address] [facility] [address], [place], [address], 06:07:54 BMP, serum or plasma 2023 024 CAMILO [facility], [address], [place], [address], 4 06:07:53 CBC w/ auto diff 2023 024 CAMILO [facility], [address], [place], [address], 4 06:07:52 TSH, ultra-sensi tive, serum 2023 024 CAMILO [facility], [address], [place], [address], 4 06:07:55 HbA1c (hemoglobin A1c), blood 2023 024 CAMILO [facility] (Centralized Electronic Ordering - All Locations), Patient Can Go To The Location Of Their Choice, 4 06:07:55 lipid panel, serum 2022 023 [email or web address] [facility], [address], [place], [address], 3 14:41:17 BMP, serum or plasma 2022 023 CAMILO [facility], [address], [address], [place], [address], 3 11:43:36 TSH, serum or plasma 2022 023 CAMILO [facility], [address], [address], [place], [address], 3 11:46:35 LDL, serum 2021 022 CAMILO [facility] (Centralized Electronic Ordering - All Locations), Patient Can Go To The Location Of Their Choice, 15:32:24 cholesterol , total, serum 2021 022 CAMILO [facility] (Centralized Electronic Ordering - All Locations), Patient Can Go To The Location Of Their Choice, [address] 06/09/202 2 15:32:25 BMP, serum or plasma 2021 022 CAMILO [facility] (Centralized Electronic Ordering - All Locations), Patient Can Go To The Location Of Their Choice, [address] 2 15:32:25 cholesterol , total, serum 2020 021 CAMILO [facility] (Centralized Electronic Ordering - All Locations), Patient Can Go To The Location Of Their Choice, [address] 09:45:11 LDL, serum 2020 021 CAMILO [facility] (Centralized Electronic Ordering - All Locations), Patient Can Go To The Location Of Their Choice, [address] 09:45:11 Referral orthopedic surgeon referral - left knee pain with ambulationh x of left knee fx in 2009 024 [email or web address] [facility], [address] [place] [address] [place], [address], 4 16:49:[address] referral - rash on abdomen 2021 022 [facility], [address] [facility], [address], [place], [address], 09:34:53 nutritionis t/dietitian referral 2021 022 [email or web address] Not available 16:01:20 gynecologis t referral - Patient to schedule 2020 021 [email or web address] Not available 12:05:51 Procedures None recorded. Surgeries None recorded. Imaging XR, knee - left knee pain with ambulation 2023 024 oz [facility], [address] , [place], [address], 4 07:14:38 bone density - hx of osteopenia evaluate 2020 021 [email or web address] Not available 12:05:51 Medication Orders None recorded. Patient TargetsNo targets recorded. Patient Instructions Encounter Date Encounter Id Patient Instructions Last Modified By Organization Details Last Modified Time 05/20/2020 [id number] preventing falls: care instructions [email or web address] Not available 05/20/2020 09:42:51 medicare preventive services guide (female 74yrs and under) [email or web address] Not available 05/20/2020 09:42:50 Cervical Cancer Screening [email or web address] Not available 05/20/2020 09:42:51 08/28/2021 [id number] advance care planning: care instructions [email or web address] Not [...] Information [email or web address] Not available 08/28/2021 15:32:12 2022 [id number] advance care planning: care instructions Not available 2022 14:26:39 well visit, over 65: care instructions Not available 2022 14:26:40 preventing falls: care instructions Not available 2022 14:26:40 09/20/2023 [id number] advance care planning: care instructions Not available 09/20/2023 10:41:21 osteoporosis: care instructions Not available 09/20/2023 10:41:21 well visit, over 65: care instructions Not available 09/20/2023 10:41:21 preventing falls: care instructions Not available 09/20/2023 10:41:20 prediabetes: care instructions Not available 09/20/2023 10:41:21 starting a weight loss plan: care instructions Not available 09/20/2023 10:49:58 Reason for Referral Brazer Induction Referral for Sc reening for malignant neoplasm of cervix Patient to schedule Referring Physician: Rosie Jacob [facility], Encounter Date: 05/20/2020 Medical Laboratory Assistant/dietitian Refer ral for Body mass index 30+ - obesity Referring Physician: Rosie Jacob [facility], Encounter Date: 08/28/2021 Concrete Stone Finisher Referral for S kin lesion rash on abdomen Referring Physician: Rosie Jacob [facility], Encounter Date: 08/28/2021 Orthopedic Surgeon Referral for Knee joint painful on movement left knee pain with ambulationhx of left knee fx in 2009 Referring Physician: Saige Mcgee [facility], Encounter Date: 01/14/2024 Results Created Date [...] Go To The Location Of Their Choice, [id number] 09/29/2022 11:43:36 09/30/1909/29/2022 BASIC METAB OLIC PANEL [...] x10e3 /uL 3.4-10 .8 Not Available [facility] ([facility]) [address] [facility], [place], [address], 09/21/2023 06:07:52 09/20/19 24 09/21/2023 CBC WITH DIFFE RENTI AL/PL ATELE T RBC 4.49 x10e6 /uL 3.77-5 .28 Not Available [facility] ([facility]) [address] [facility], [place], [address], 09/21/2023 06:07:52 09/20/19 24 09/21/2023 CBC WITH DIFFE RENTI AL/PL ATELE T hemoglobin 13.5 g/dL 11.1-1 5.9 Not Available [facility] ([facility]) [address] [facility], [place], [address], 09/21/2023 06:07:52 09/20/19 24 09/21/2023 CBC WITH DIFFE RENTI AL/PL ATELE T hematocrit 42.4 % 34.0-4 6.6 Not Available [facility] ([facility]) [address] [place], [address], 09/21/2023 06:07:52 09/20/19 24 09/21/2023 CBC WITH DIFFE RENTI AL/PL ATELE T MCV 94 fL 79-97 Not Available [facility] ([facility]) [address] [place], [address], 09/21/2023 06:07:52 09/20/19 24 09/21/2023 CBC WITH DIFFE RENTI AL/PL ATELE T MCH 30.1 pg 26.6-3 3.0 Not Available [facility] ([facility]) [address] [place], [address], 09/21/2023 06:07:52 09/20/19 24 09/21/2023 CBC WITH DIFFE RENTI AL/PL ATELE T MCHC 31.8 g/dL 31.5-3 5.7 Not Available [facility] ([facility]) [address] [place], [address], 09/21/2023 06:07:52 09/20/19 24 09/21/2023 CBC WITH DIFFE RENTI AL/PL ATELE T RDW 13.2 % 11.7-1 5.4 Not Available [facility] ([facility]) [address] [place], [address], 09/21/2023 06:07:52 09/20/19 24 09/21/2023 CBC WITH DIFFE RENTI AL/PL ATELE T platelets 210 x10e3 /uL 150-45 0 Not Available [facility] ([facility]) [address] [facility], [place], [address], 09/21/2023 06:07:52 09/20/19 24 09/21/2023 CBC WITH DIFFE RENTI AL/PL ATELE T neutrophils 55 % not estab. Not Available [facility] ([facility]) [address] [facility], [place], [address], 09/21/2023 06:07:52 09/20/19 24 09/21/2023 CBC WITH DIFFE RENTI AL/PL ATELE T lymphs 31 % not estab. Not Available [facility] ([facility]) [address] [facility], [place], [address], 09/21/2023 06:07:52 09/20/19 24 09/21/2023 CBC WITH DIFFE RENTI AL/PL ATELE T monocytes 10 % not estab. Not Available [facility] ([facility]) [address] [facility], [place], [address], 09/21/2023 06:07:52 09/20/19 24 09/21/2023 CBC WITH DIFFE RENTI AL/PL ATELE T eos 3 % not estab. Not Available [facility] ([facility]) [address] [facility], [place], [address], 09/21/2023 06:07:52 09/20/19 24 09/21/2023 CBC WITH DIFFE RENTI AL/PL ATELE T basos 1 % not estab. Not Available [facility] ([facility]) [address] [facility], [place], [address], 09/21/2023 06:07:52 09/20/19 24 09/21/2023 CBC WITH DIFFE RENTI AL/PL ATELE T immature cells RUBBER SPLICER Not Available [facility] ([facility]) [address] [facility], [place], [address], 09/21/2023 06:07:52 09/20/19 24 09/21/2023 CBC WITH DIFFE RENTI AL/PL ATELE T neutrophils (absolute) 3.5 x10e3 /uL 1.4-7. 0 Not Available [facility] ([facility]) [address] [facility], [place], [address], 09/21/2023 06:07:52 09/20/19 24 09/21/2023 CBC WITH DIFFE RENTI AL/PL ATELE T lymphs (absolute) 2.0 x10e3 /uL 0.7-3. 1 Not Available [facility] ([facility]) [address] [facility], [place], [address], 09/21/2023 06:07:52 09/20/19 24 09/21/2023 CBC WITH DIFFE RENTI AL/PL ATELE T monocytes(ab solute) 0.6 x10e3 /uL 0.1-0. 9 Not Available [facility] ([facility]) [address] [place], [address], 09/21/2023 06:07:52 09/20/19 24 09/21/2023 CBC WITH DIFFE RENTI AL/PL ATELE T eos (absolute) 0.2 x10e3 /uL 0.0-0. 4 Not Available [facility] ([facility]) [address] [place], [address], 09/21/2023 06:07:52 09/20/19 24 09/21/2023 CBC WITH DIFFE RENTI AL/PL ATELE T baso (absolute) 0.1 x10e3 /uL 0.0-0. 2 Not Available [facility] ([facility]) [address] [place], [address], 09/21/2023 06:07:52 09/20/19 24 09/21/2023 CBC WITH DIFFE RENTI AL/PL ATELE T immature granulocytes 0 % not estab. Not Available [facility] ([facility]) [address] [facility], [place], [address], 09/21/2023 06:07:52 09/20/19 24 09/21/2023 CBC WITH DIFFE RENTI AL/PL ATELE T immature grans (abs) 0.0 x10e3 /uL 0.0-0. 1 Not Available [facility] ([facility]) [address] [facility], [place], [address], 09/21/2023 06:07:52 09/20/19 24 09/21/2023 CBC WITH DIFFE RENTI AL/PL ATELE T NRBC RUBBER SPLICER Not Available [facility] ([facility]) [address] [facility], [place], [address], 09/21/2023 06:07:52 09/20/19 24 09/21/2023 CBC WITH DIFFE RENTI AL/PL ATELE T hematology comments: RUBBER SPLICER Not Available [facility] ([facility]) [address] [facility], [place], [address], 09/21/2023 06:07:52 09/20/19 24 09/21/2023 BASIC METAB OLIC PANEL (8) glucose 105 mg/dL 70-99 above high normal Not Available [facility] ([facility]) [address] [facility], [place], [address], 09/21/2023 06:07:53 09/20/19 24 09/21/2023 BASIC METAB OLIC PANEL (8) BUN 17 mg/dL 8-27 Not Available [facility] ([facility]) [address] [facility], [place], [address], 09/21/2023 06:07:53 09/20/19 24 09/21/2023 BASIC METAB OLIC PANEL (8) creatinine 0.86 mg/dL 0.57-1 .00 Not Available [facility] ([facility]) [address] [facility], [place], [address], 09/21/2023 06:07:53 09/20/19 24 09/21/2023 BASIC METAB OLIC PANEL (8) eGFR 73 mL/mi n/1.7 3 >59 Not Available [facility] ([facility]) [address] [facility], [place], [address], 09/21/2023 06:07:53 09/20/19 24 09/21/2023 BASIC METAB OLIC PANEL (8) BUN/creatini ne ratio 20 12-28 Not Available [facility] ([facility]) [address] [facility], [place], [address], 09/21/2023 06:07:53 09/20/19 24 09/21/2023 BASIC METAB OLIC PANEL (8) sodium 143 mmol/ L 134-14 4 Not Available [facility] ([facility]) [address] [facility], [place], [address], 09/21/2023 06:07:53 09/20/19 24 09/21/2023 BASIC METAB OLIC PANEL (8) potassium 4.5 mmol/ L 3.5-5. 2 Not Available [facility] ([place] [facility]) [address] [facility], [place], [address], 09/21/2023 06:07:53 09/20/19 24 09/21/2023 BASIC METAB OLIC PANEL (8) chloride 105 mmol/ L 96-106 Not Available [facility] ([place] [facility]) [address] [facility], [place], [address], 09/21/2023 06:07:53 09/20/19 24 09/21/2023 BASIC METAB OLIC PANEL (8) carbon dioxide, total 22 mmol/ L 20-29 Not Available [facility] ([place] [facility]) [address] [facility] [place], [address], 09/21/2023 06:07:53 09/20/19 24 09/21/2023 BASIC METAB OLIC PANEL (8) calcium 9.5 mg/dL 8.7-10 .3 Not Available [facility] ([facility]) [address] [facility] [place], [address], 09/21/2023 06:07:53 09/20/19 24 09/21/2023 LIPID PANEL cholesterol, total 198 mg/dL 100-19 9 Not Available [facility] ([facility]) [address] [facility] [place], [address], 09/21/2023 06:07:54 09/20/19 24 09/21/2023 LIPID PANEL triglyceride s 94 mg/dL 0-149 Not Available [facility] ([facility]) [address] [place], [address], 09/21/2023 06:07:54 09/20/19 24 09/21/2023 LIPID PANEL HDL cholesterol 54 mg/dL >39 Not Available [facility] ([facility]) [address] [facility] [place], [address], 09/21/2023 06:07:54 09/20/19 24 09/21/2023 LIPID PANEL VLDL cholesterol donavon 17 mg/dL 5-40 Not Available [facility] ([facility]) [address] [place], [address], 09/21/2023 06:07:54 09/20/19 24 09/21/2023 LIPID PANEL LDL chol calc ([facility]) 127 mg/dL 0-99 above high normal Not Available [facility] ([facility]) [address] [place], [address], 09/21/2023 06:07:54 09/20/19 24 09/21/2023 LIPID PANEL LDL calc comment: RUBBER SPLICER Not Available [facility] ([facility]) [address] [place], [address], 09/21/2023 06:07:54 09/20/19 24 09/21/2023 HEMOG LOBIN A1C hemoglobin A1C 6.2 % 4.8-5. 6 above high normal Predi abete s: 5.7 - 6.4 Diabe tom: >6.4 Glyce maria elena contr ol for adult s with diabe tom: <7.0 Not Available [facility] ([facility]) [address] [facility], [place], [address], 09/21/2023 06:07:55 09/20/19 24 09/21/2023 TSH RFX ON ABNOR MAL TO FREE T4 TSH 2.730 uIU/m L 0.450- 4.500 Not Available [facility] ([facility]) [address] [facility], [place], [address], 09/21/2023 06:07:55 05/17/19 21 05/17/2020 MAMMO , [...] I agree with this report . WSN: [id number] Orderi ng Physic teto: Augustine saeed MD, Rosie Harper Dictat ed By: Ata sommer MD, Warner Dictat ed Date/T kenny: 3:53 pm Review ed By: Carlos DYER, Sunshine Chi Signed By: Sunshine Gonzalez MD Signed Date/T kenny: 3:58 pm Transc ribed By: CSB Transc riptio n Date/T kenny: 3:05 pm Birads : Carrie torres Class: Outpat ient [email or web address] [facility] (Outpt Imaging) [address] [place] [address], [address], 05/20/2020 10:19:52 08/31/19 21 08/29/2020 DEXA, axial skele ton ====== ====== ====== ====== ====== ====== ====== ====== ====== ====== ===== Bone Densit y Report ====== ====== ====== ====== ====== ====== ====== ====== ====== ====== ===== Name: ZAFAR BRADEN ID: [id number] Age: 64 Sex: Female Ethnic ity: White Date of : 1955 ------ ------ ------ ------ ------ ------ ------ ------ ------ ------ ----- Indica tion: CIRO VICTORIA Referr ing Provid er: AUGUSTINE SAEED MD, LIS Study: Bone densit ometry was perfor med. Exam Date: August 29, 2020 Access ion number : [id number] Bone Densit y: ------ ------ ------ [...] 4:18 pm Patien t Class: Outpat ient [email or web address] [facility] ([facility]) [address] , [place], [address], 09/03/2020 15:38:08 06/05/19 22 06/04/2021 MAMMO , [...] lymph node is presen t in the port drier ior upper left latera l/ante rior axilla [...] I agree with this report . WSN: [id number] [facility] Physic teto: Augustine saeed MD, Rosie Harper Dictat ed By: Oseas Olson MD Dictat ed Date/T kenny: 5:01 pm Review ed By: Tatianna Doty MD, I Signed By: Tatianna Doty MD, I Signed Date/T kenny: 5:06 pm Transc ribed By: VICTOR M Transc riptio n Date/T kenny: 4:06 pm Birads : Patien t Class: Outpat ient [email or web address] [facility] ([facility]) [address] [facility], [place], [address], 07/03/2021 13:10:17 06/10/19 22 06/04/2021 MAMMO brenda digit al, jeffrey eraerwin A D D E N D U M as of: [id number] Addend um: The findin g for callba ck is in the LEFT breast . WSN: [id number] Orderi ng Physic teto: Augustine saeed [...] lymph node is presen t in the port drier ior upper left latera l/ante rior axilla [...] I agree with this report . WSN: [id number] Orderi ng Physic teto: Augustine saeed MD, Rosie E Dictat ed By: Oseas Olson MD Dictat ed Date/T kenny: 5:01 pm Review ed By: Tatianna Doty MD, I Signed By: Tatianna Doty MD, I Signed /T kenny: 5:06 pm Transc ribed By: VICTOR M Transc riptio n /T kenny: 4:06 pm Birads : Carrie torres Class: Outpat ient [facility] ([facility]) [address] [place] [address], [address], 07/03/2021 13:11:34 06/14/19 22 06/13/2021 mm digit al mammo unila t left PROCED URE: MM Digita l Mammo Unilat Left INDICA TION: Abnorm al screen ing. Questi onable skin nodule . COMPAR APRVIZ: 022. TECHNI QUE: Digita l diagno stic [...] Lay letter mailed to carrie torres WSN: [id number] Orderi ng Physic teto: Augustine saeed MD, Rosie E Dictat ed By: Usha Randhawa MD Dictat ed Date/T kenny: 1:25 pm Review ed By: Usha Randhawa MD Signed By: Usha Randhawa MD y H Signed Date/T kenny: 1:25 pm Transc ribed By: VICTOR M Transc riptio n /T kenny: 1:24 pm Birads : Carrie torres Class: Outpat ient [email or web address] [facility] ([facility]) [address], [place], [address], 07/03/2021 13:11:35 06/09/19 23 06/08/2022 MAMMO , [...] Lay letter mailed to carrie torres WSN: [id number] Orderi ng Physic teto: Augustine saeed MD, Rosie Harper Dictat ed By: Tatianna Doty MD, I Dictat ed Date/T kenny: 4:41 pm Review ed By: Tatianna Doty MD, I Signed By: Tatianna Doty MD, I Signed Date/T kenny: 4:41 pm Transc ribed By: VICTOR M Transc riptio n Date/T kenny: 4:37 pm Birads : Carrie t Class: Outpat ient [email or web address] [facility] ([facility]) [address], [place], [address], 06/09/2022 09:48:18 05/14/19 24 05/13/2023 bone densi ty No observ ation record ed. [facility] [address], [place], [address], 05/14/2023 17:50:25 06/11/19 24 06/10/2023 MAMMO , [...] I agree with this report . WSN: [id number] Orderi ng Physic teto: Mark Vazquez ie Dictat ed By: Cyndi DYER, Brock marc Dictat ed Date/T kenny: 1:21 pm Review ed By: Usha Randhawa MD Signed By: Usha Randhawa MD Signed Date/T kenny: 1:26 pm Transc ribed By: VICTOR M Transc riptio n Date/T kenny: 11:50 am Birads : Patien t Class: Outpat ient [email or web address] [facility] ([facility]) [address], [place], [address], 06/11/2023 14:50:16 06/11/1906/10/2023 MAMMO , scree susana, digit al, bilat eral No observ ation record ed. [facility] [address], [place], [address], 06/11/2023 18:07:35 01/14/2001/14/2024 XR, knee No observ ation record ed. [email or web address] [facility] [address], [place], [address], 01/17/2024 11:38:15 01/14/2001/14/2024 XR, knee, 1 or [...] l osteoa rthrit ic change . WSN: [id number] Orderi ng Physic teto: Saige Mcgee Dictat ed By: Keara Lawrence MD Dictat ed Date/T kenny: 10:09 a Review ed By: Keara Lawrence MD Signed By: Keara Lawrence MD Signed Date/T kenny: 10:09 am Transc ribed By: CSB Transc ribed Date/T kenny: 10:08 am Patien t Class: Outpat ient [email or web address] [facility]) [address], [place], [address], 02/02/2024 10:15:24 04/12/19 25 04/11/2024 MRI, knee, w/o contr ast No observ ation record ed. [facility] (Medical Records) [address], [place], [address], 04/12/2024 15:41:17 Result Notes None recorded. Problems Name Problem SNOMED Code Status Onset Date Resolution Date Notes Provider Name and Address Organization Details Recorded Time Non-Hodg kin's lymphoma (clinica l) 934344584 Completed 201705/20/2020 dx in 2013 right cheeck and right groin and back of neck, tx with radiation Rosie franco [facility], [facility] 1 09:25:38 Obesity 001496040 Active Mena Rios CPPM [facility], [facility] 0 10:55:57 Family history of diabetes mellitus 060444152 Completed 09/09/2022 LINDA BRITO MD [address], [place], [address], [facility] 3 18:58:50 History of non-Hodg kins lymphoma 016919498 Active 2020 Rosie franco [facility], [facility] 1 09:25:32 Osteopor osis 26443613 Completed 202109/19/2023 LINDA BRITO MD [address], [place], [address], [facility] 4 14:18:04 Osteopen ia 764866197 Active 2023 LINDA BRITO MD [address], [place], [address], [facility] 4 14:18:14 Hyperlip idemia 52868590 Active 2023 LINDA BRITO MD [address], [place], [address], [facility] 4 14:19:50 Statin declined 951594108 Active 2023 LINDA BRITO MD [address], [place], [address], [facility] 4 14:19:52 Senile osteopor osis 19584271 Active Ly Coleman [place] [facility] 4 10:19:18 Problem Notes None recorded. Procedures Surgical History Date Name Laterality Status Provider Name and Address Organization Details Recorded Time 05/27/19 25 arthroscopy of knee completed Susan Candelario [facility] 05/30/2024 13:51:37 09/20/19 24 Advanced Care Planning completed LINDA BRITO MD [address], [place], [address], [facility] 09/19/2023 14:15:24 06/11/19 24 Most Recent Mammogram completed Elif Ballard [facility] 06/11/2023 14:50:11 06/11/19 24 Mammogram both breasts completed Elif Ballard [facility] 06/11/2023 14:50:06 09/11/19 23 Advanced Care Planning completed Ly Coleman MA [facility] 2022 13:46:55 08/29/19 22 Advanced Care Planning completed Ly Coleman MA [facility] 08/28/2021 15:09:18 06/14/19 22 Mammogram one breast completed Adelita Miles [facility] 07/03/2021 13:11:24 05/21/19 21 Six-Item Cognitive Test completed Bernadette Braga MA [facility] 05/20/2020 09:01:49 05/19/19 20 Mini-Cog Test completed Ly Coleman MA [facility] 05/19/2019 13:28:37 11/03/19 18 Date of Last Pap Smear completed Ly Coleman MA [facility] 05/19/2019 13:35:30 07/15/19 18 Date of Last Colonoscopy completed Zayra Kumar [facility] 07/14/2017 15:13:59 07/15/19 18 Colonoscopy completed Zayraada Kumar [facility] 07/14/2017 15:13:52 11/11/19 16 Most Recent Bone Density completed Zayra Kumar [facility] 06/09/2017 11:45:50 11/11/19 16 Dxa bone density mignon vrt fx completed Zayrabalaji Kumar [facility] 06/09/2017 11:45:44 05/07/18 92 Caesarean Section completed Ly Coleman MA [facility] 08/28/2021 15:08:40 Imaging Results Imaging Date Name Status LastModified by Organiz ation Details LastModified Time 05/17/2020 MAMMO, screening, digital, bilateral completed [email or web address] [facility]) [address] [place], [address], 05/20/2020 10:19:52 08/29/2020 DEXA, axial skeleton completed [facility]) [address] [place], [address], 09/03/2020 15:38:08 06/04/2021 MAMMO, screening, digital, bilateral completed [email or web address] [facility]) [address] [place], [address], 07/03/2021 13:10:17 06/04/2021 MAMMO, screening, digital, bilateral completed [email or web address] [facility]) [address] [place], [address], 07/03/2021 13:11:34 06/13/2021 mm digital mammo unilat left completed [email or web address] [facility]) [address] [place], [address], 07/03/2021 13:11:35 06/08/2022 MAMMO, screening, digital, bilateral completed [email or web address] [facility] (Outpt Imaging) [address] [place], [address], 06/09/2022 09:48:18 05/13/2023 bone density completed [facility] [address] [place], [address], 05/14/2023 17:50:25 06/10/2023 MAMMO, screening, digital, bilateral completed [email or web address] [facility] (Outpt Imaging) [address] [place], [address], 06/11/2023 14:50:16 06/10/2023 MAMMO, screening, digital, bilateral completed [facility] [address] [place], [address], 06/11/2023 18:07:35 01/14/2024 XR, knee completed [email or web address] [address] [place], [address], 01/17/2024 11:38:15 01/14/2024 XR, knee, 1 or 2 view completed [email or web address] [facility] (Outpt Imaging) [address] [place], [address], 02/02/2024 10:15:24 04/11/2024 MRI, knee, w/o contrast completed [email or web address] [place] [address] (Medical Records) [address] [place], [address], 04/12/2024 15:41:17 Procedure Notes None recorded. Medical Equipment None Reported. Allergies Allergen ID Allergen Name Allergen Category Reaction Reaction Severity Criticality Documentation Date Start Date Code Code System Note Provider Name and Address Organization Details Recorded Time 21854 No known allergy (situatio n) Not available Not available Not available Not available 09/20/2023 33020 6003 SNOMED EL Hidalgo [facility] 4 10:19:10 No known drug allergies [...] Updated DateTime 2 163.83 cm 35.4 kg/m2 47672.9 1 g 97 % 97 % 65 /min 97.88 [degF] 123 mm[Hg] 74 mm[Hg] Ly Coleman MA [facility] 2 15:16:23 Date Recorded Body height Body mass index (BMI) Body weight Oxygen saturation Oxygen saturation in Arterial blood by Pulse oximetry Heart rate Body temperature Systolic blood pressure Diastolic blood pressure Provider Name and Address Organization Details Last Updated DateTime 3 163.83 cm 35.5 kg/m2 37536.8 g 98 % 98 % 79 /min 98 [degF] 122 mm[Hg] 83 mm[Hg] Ly Coleman MA [facility] 3 13:56:14 Date Recorded Body height Body mass index (BMI) Body weight Oxygen saturation Oxygen saturation in Arterial blood by Pulse oximetry Heart rate Body temperature Systolic blood pressure Diastolic blood pressure Provider Name and Address Organization Details Last Updated DateTime 4 163.83 cm 34.1 kg/m2 85708.8 7 g 98 % 98 % 72 /min 98.2 [degF] 125 mm[Hg] 68 mm[Hg] Ly Coleman MA [facility] 4 10:24:54 Date Recorded Body height Body mass index (BMI) Body weight Heart rate Oxygen saturation Oxygen saturation in Arterial blood by Pulse oximetry Body temperature Systolic blood pressure Diastolic blood pressure Provider Name and Address Organization Details Last Updated DateTime 4 163.83 cm 32.3 kg/m2 52892.2 4 g 69 /min 98 % 98 % 97.8 [degF] 123 mm[Hg] 76 mm[Hg] Janeen Ellis LPN [facility] 4 09:03:22 Social History Question Answer Notes LastModified by Organizat ion Details LastModified Time Tobacco Smoking Status Never Smoker EL Hidalgo, [facility] 05/13/2017 14:51:41 Do You Have An Advance Directive? No [email or web address] Information not available 08/28/2021 What Is Your Level Of Alcohol Consumption? Occasional [email or web address] Information not available 05/13/2017 Is Blood Transfusion Acceptable In An Emergency? Yes [email or web address] Information not available 05/13/2017 What Is Your Level Of Caffeine Consumption? Occasional Very Rare [email or web address] Information not available 2022 How Much Tobacco Do You Chew? None Information not available 05/20/2020 Are You Currently Employed? No [email or web address] Information not available 08/28/2021 What Type Of Diet Are You Following? REGULAR [email or web address] Information not available 05/13/2017 Which Illicit Or Recreational Drugs Have You Used? None Information not available 05/20/2020 Do You Or Have You Ever Used E-cigarettes Or Vape? 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 Alone With Dog Information not available 2022 Do You Take Precautions To Prevent Distracted Driving? Yes Information not available 05/13/2017 How Often Do You Need To Have Someone Help You When You Read Instructions, Pamphlets, Or Other Written Material From Your Doctor Or Pharmacy? Never Information not available 05/20/2020 Have You Served In The ? No [email or web address] Information not available 05/13/2017 Have You Or [...] Of Your Most Recent Tobacco Screening? 09/20/2023 [email or web address] Information not available 09/20/2023 How Many Children Do You Have? 1 [email or web address] Information not available 05/13/2017 Do You Use Your Seat Belt Or Car Seat Routinely? Yes [email or web address] Information not available 08/28/2021 Seat Belts Used Routinely Yes [email or web address] Information not available 08/28/2021 Are You Sexually Active? No Information not available 05/20/2020 Smoke Alarm In Home Yes [email or web address] Information not available 08/28/2021 Do You Have Smoke And Carbon Monoxide Detectors In Your Home? Yes [email or web address] Information not available 08/28/2021 At What Age Did You Start Smoking Tobacco? 0 Information not available 05/20/2020 Are You Passively Exposed To Smoke? No [email or web address] Information not available 05/13/2017 Do You Or Have You Ever Used Smokeless Tobacco? Never Used Smokeless Tobacco Information not available 05/20/2020 How Much Tobacco Do You Smoke? No Information not available 05/20/2020 Do You Use Sunscreen Routinely? Yes [email or web address] Information not available 05/13/2017 How Many Years Have You Smoked Tobacco? 0 Information not available 05/20/2020 Sex: Unknown Functional Status Question Answer Note LastModified by Organizat ion Details LastModified Time Are you able to walk? YESWOREST [email or web address] Information not available 08/28/2021 Are you able to care for yourself? Yes Information not available 05/13/2017 What is your exercise level? Moderate walks 10-35 minutes 5 days a week,exerise s that PT gives her [email or web address] Information not available 2022 Mental Status None recorded. Family History Relationship Description Onset Age of this Age Resolved Age Notes LastModified by Organization Details LastModified Time Father Malignant lymphoma 54 [email or web address] Not available 08/28 15:03:07 Mother Diabetes mellitus [...] Time Tdap 3 completed Not Available [facility] 04/22/2023 14:06:04 Influenza, split virus, quadrivalent, preservative 8 completed Not Available [facility] 04/22/2023 14:06:03 Influenza, split virus, trivalent, preservative 8 completed Not Available [facility] 04/22/2023 14:06:04 COVID-19, mRNA, LNP-S, PF, 30 mcg/0.3 mL dose 1 completed Not Available [facility] 04/22/2023 14:06:04 COVID-19, mRNA, LNP-S, PF, 30 mcg/0.3 mL dose 1 completed Not Available [facility] 04/22/2023 14:06:04 pneumococcal polysaccharide PPV23 2 completed Not Available [facility] 04/22/2023 14:06:04 Tdap 5 completed Not Available [facility] 04/22/2023 14:06:04 zoster recombinant 1 completed Not Available [facility] 04/22/2023 14:06:03 Pneumococcal conjugate PCV 13 1 completed Not Available [facility] 04/22/2023 14:06:04 COVID-19, mRNA, LNP-S, PF, 30 mcg/0.3 mL dose 1 completed Not Available [facility] 04/22/2023 14:06:04 Influenza, adjuvanted, quadrivalent, PF 1 completed Not Available [facility] 04/22/2023 14:06:03 Influenza, recombinant, quadrivalent, PF 0 completed Not Available [facility] 04/22/2023 14:06:03 COVID-19, mRNA, LNP-S, PF, 30 mcg/0.3 mL dose, maximino-sucrose 2 completed Not Available [facility] 04/22/2023 14:06:04 zoster recombinant 1 completed Not Available [facility] 04/22/2023 14:06:03 Influenza, adjuvanted, quadrivalent, PF 2 completed Not Available [facility] 04/22/2023 14:06:04 COVID-19, mRNA, LNP-S, bivalent, PF, 30 mcg/0.3 mL dose 2 completed Not Available [facility] 04/22/2023 14:06:04 Influenza, adjuvanted, quadrivalent, PF 3 completed Ly Coleman MA [facility] 09/20/2023 10:25:21 Past Encounters Encounter ID Performer Location Encounter Start Date Encounter Closed Date Diagnosis/Indication Diagnosis SNOMED-CT Code Diagnosis ICD10 Code Diagnosis Note [id number] [facility] [address] [place] [address] 05/13/2017 14:25:11 05/13/2017 15:30:08 Adult health examination 411535220 Z00.00 last colonoscop y [address] Ramos, will get a repeat, mammo in 11/06 and pap smear through Dr Rhodes, they have been normal. Non-Hodgki n's lymphoma (clinical) 523361981 C85.[address] La every 4 months, has a mass right back of neck that is being followed. Body mass index 30+ - obesity 836227704 Z68.35 Z68.34 gained weight when she sprained her ankle this winter [id number] [facility] [address] [place] [address] 11/15/2017 10:31:42 11/15/2017 11:35:24 Non-Hodgkin's lymphoma (clinical) 774845948 C85.[address] La every 4 months, new lymph nodes seen on US in both axilla, we called and talked to DR La's occupational therapist's assistant, he will be made aware of biopsy scheduled for tomorrow as well as get the reports. Axillary lymphadenopathy 923450835 R59.0 new, long talk with pt, I wanted Dr La her oncologist to be aware and make sure he agrees with the plan and approach to biopsy, this was done, [id number] [facility] [address] [place] [address] 05/16/2018 10:54:57 05/16/2018 11:43:42 Adult health examination 779596837 Z00.00 all screening is utd. Non-Hodgki n's lymphoma (clinical) 049198590 C85.90 see below Supraclavi cular lymphadenopathy 740048050 R59.0 left supraclavi cular node felt on exam today, pt also with more fullness in right axilla without discreet mass. pt will go from here to Dr La's office for eval and appt, just finished tx for recurrence , pt was asked to call and let me know date of appt with dR La [id number] Rosie ArmentaMary Ann carlos Main Office [address] [place] [address] 05/19/2019 13:14:20 05/19/2019 14:14:08 Adult health examination 195972530 Z00.00 all screening is utd. trying to get back n shape, finished chemo last month Non-Hodgki n's lymphoma (clinical) 259483439 C85.90 will be getting a biopsy left axilla for positive node on PET scan [id number] Rosie [facility]Judy [facility] [address] [facility] [address] [address] 05/20/2020 06:40:28 05/20/2020 12:05:51 Adult health examination 268035075 Z00.00 mammogram is utd will see hood maker 03/11 utd on hood maker and colonoscop y. is walking. feels great Menopause present 711808 006 Z78.0 hx of osteopenia . recheck bone density. keep on vit D Screening for malignant neoplasm of cervix 136974427 Z12.[address] Rhodes History of non-Hodgkins lymphoma 525456677 Z85.72 dx many years ago in mouth and neck, and had recurrence 2019, done with chemo and port is out Hypercholesterolemia 136 04745 E78.00 check random [id number] Rosie gonzalez Main Office [address] [place] [address] 08/28/2021 15:02:37 08/28/2021 15:49:59 Adult health examination 554684566 Z00.00 screening is utd, walks dog and does gardening pt to get a tetanus shot before 07/12 Advance di rective discussed with patient 780503496 Z71.89 I discussed MOLST and health care proxy form. I gave pt MOLST form and proxy form, pt will fill out, discuss MOLST form with proxy and sign and return to our office History of non-Hodgkins lymphoma 102975785 Z85.72 dx many years ago in mouth and neck, and had recurrence 2019, done with chemo and port is out recent check up good Body mass index 30+ - obesity 472262756 E66.9 Z68.35 working on weight loss Hypercholesterolemia 136 87031 E78.00 check random Fatigue 92210127 R53.83 check labs Osteoporosis 68376747 M8 1.0 will be starting a med. Skin lesion 60266336 L98 .9 pt to set up derm, unsure what rash is [id number] LINDA BRITO MD Main Office [address] [facility] [address] [place] [address] 2022 13:43:28 2022 14:29:33 Adult health examination 659331172 Z00.00 Health Maintenanc e FemaleA) Patient was [...] any acute complaints History of non-Hodgkins lymphoma 036389464 Z85.72 - diffuse B-cell lymphoma currently in remission- pt follows with oncology, was last seen in March Osteoporosis 45323200 M8 1.0 - following endocrinol ogy- currently on calcium and vitamin D supplement s- currently on the alendronat e Fatigue 60697014 R53.83 Z00.00 Hyperlipidemia 34548299 E78.5 Z00.00 Advance di rective discussed with patient 638331002 Z71.89 - discussed with patient MOLTS and HCP [id number] LINDA BRITO MD Main Office [address] [place] [address] 09/20/2023 10:16:47 09/20/2023 10:45:38 Advance directive discussed with patient 463964198 Z71.89 - discussed with patient MOLTS and HCP Adult heal th examination 551355668 Z00.00 Health Maintenanc e FemaleA) Patient was [...] any acute complaints History of non-Hodgkins lymphoma 235148602 Z85.72 - diffuse B-cell lymphoma currently in remission> hx of XRT - Right parotid gland 2000 cGy and Right Groin 02/2015> s/p RCHOP, rituximab and chemothera py- pt follows with oncology, last seen on 07/2023 Osteopenia 285212034 M85 .80 - following endocrinol ogy- currently on calcium and vitamin D supplement s- currently on the alendronat e once a week- improvemen t from osteoporos is to osteopenia in AP spine Fatigue 90940513 R53.83 Z00.00 Hyperlipidemia 94912388 E78.5 Z00.00 - ASCVD score of 8.2%- [...] Eat more fruits and veggies. Statin declined 62286257 0 Z53.20 Impaired f asting glycemia 091816282 R73.01 Body mass index 30+ - obesity 263047966 E66.9 Z68.34 - BMI of 34.1- Cut [...] minutes cumulative of moderate exercise ajit whitaker [id number] Maddi Tay Main Office [address] [facility] [address] [place] [address] 01/14/2024 08:45:59 01/14/2024 09:21:43 Knee joint painful on movement 329826529 M25.562 hx of left knee fx in [...] Conte Member ID Guarantor Name 05/20/2020 2 [facility] [employer] PLAN - NAVIGATOR (PPO) [id number] Zafar Durbin [id number] Zafar Durbin 05/20/2020 1 [place] [employer] Zafar Durbin [id number] Zafar Durbin 08/28/2021 2 [facility] [employer] PLAN - NAVIGATOR (PPO) [id number] Zafar Durbin [id number] Zafar Durbin 08/28/2021 1 [place] Zafar Durbin [id number] Zafar Durbin 2022 2 [facility] [employer] PLAN - NAVIGATOR (PPO) [id number] Zafar Durbin [id number] Zafar Durbin 2022 1 [place] Zafar Durbin [id number] Zafar Durbin 09/20/2023 2 [facility] - MEDICARE ENHANCE (INDEMNITY PLAN) Zafar Durbin [id number] Zafar Durbin 09/20/2023 1 MEDICARE [facility]: NATIONAL GOVERNMENT SERVICES Zafar Durbin [id number] Zafar Durbin 01/14/2024 2 [facility] - MEDICARE ENHANCE (INDEMNITY PLAN) Zafar Durbin [id number] Zafar Durbin 01/14/2024 1 MEDICARE [facility]: NATIONAL GOVERNMENT SERVICES Zafar Durbin [id number] 9 Zafar Durbin Notes Date Note Type [...] trying to get an appt. Rosie goddard [facility] 05/20/2020 09:45:24 08/28/2021 text/html Medicare Annual Wellness [...] PT is trying to lose weight. Sees hood maker every other year. Non-Hodgkins lymphoma is in remission, just saw oncology. AHs a rash taht ocmes and goes on her abdomen Rosie goddard [facility] 08/28/2021 15:51:28 2022 text/html Medicare Annual Wellness VisitReported bypatient.Diet and Nutrition:healthy diet; discussed vitamin and supplement use; taking calcium and vitamin D Fracture Risk:history of fractures Physical Activity:exercises on a regular basis; physical therapist (2X month)and walking 5/ 20-30 mins daily Depression Risk:never feels sad, [...] getting worse? No LINDA BRITO MD [address], [address], [facility]22 15:00:36 09/20/2023 text/html Medicare Annual Wellness VisitReported bypatient.Diet and Nutrition:healthy diet; discussed vitamin and supplement use; taking calcium and vitamin D, fish oil Fracture Risk:history of fractures Physical Activity:exercises on a regular basis; physical therapist (1-2X month), gentil balance, tchi and aerobics class Depression Risk:never [...] directive: None on file LINDA BRITO MD [address], [address], [facility] 09/20/2023 10:50:40 01/14/2024 text/html Zafar is a [...] knee brace which provides some relief[facility] 07:14:42 OBGyn Episode No OBEpisode recorded.
== END 2024-06-08 14:32 | disposition home or self-care (01) ==
LOC: HO.HOS 13:57
PROVIDERS: PCP Student in an Organized Health Care Education/Training Program; Visit Provider Physician Assistant
DX: S83.242A Other tear of medial meniscus, current injury, left knee, initial encounter (principal)
CPT/HCPCS: 99024

== ENCOUNTER → 2024-06-08 13:56 | Outpatient (BNVA) | payer MEDICARE, OTHER, SELFPAY | PROVIDERS: PCP Student in an Organized Health Care Education/Training Program; Visit Provider Physician Assistant | DX: S83.242D Other tear of medial meniscus, current injury, left knee, subsequent encounter (principal); X58.XXXD Exposure to other specified factors, subsequent encounter | CPT/HCPCS: 99212 ==

== ENCOUNTER 2024-07-05 11:41 | Outpatient (AMB) | payer MEDICARE, OTHER, SELFPAY ==
--- NOTE | 2024-07-05 11:50 | A.OFFVIS_ITS ---
Vital Signs 07/05/24 11:51 Height 5 ft 4 in Weight 196 lb BMI 33.6 Intake Visit Reasons: PO- Lt Knee 05/26/24 DR Intake Note: Zafar is a 68 year old female who presents today post-operatively after undergoing a left knee arthroscopy on 05/26/24. Patient is doing well. She is using a cane to aid with ambulation. She continues with her physical therapy. Allergies No Known Allergies Allergy (Verified 07/05/24 11:57) Medication List - Last Reconciled 07/05/24 by Cm Royal MD alendronate 70 mg PO QWEEK bimatoprost 0.01% (Lumigan) 1 drp ophthalmic (eye) BEDTIME PFSH Social History Are you a primary behavioral health care coordinator to a significant other at home: No Do you presently have visiting nurse or other home services: No Patient Tobacco Use Status: Never used Tobacco Physical Exam Vital Signs: BMI result Body Mass Index 33.6 Extrem Other: Left knee examination shows that the surgical incisions are well healed, no erythema, minimal discomfort with range of motion, no instability Assessment & Plan Assessment & Plan (1) Left knee pain: Code(s): M25.562 - Pain in left knee Category: Medical Plan Ms. Durbin continues to do well after undergoing left knee arthroscopic surgery 05/26/2024. She will continue with her physical therapy exercises. She will gradually progress to activities as tolerated. She will contact me prior to her follow-up appointment in 3 months should any questions or concerns arise. Feel free to call me at any time should questions regarding her orthopedic management arise. Coding Level of Care Code Global (00334) Diagnoses Left knee pain M25.562
[2024-07-05 11:51] VITALS: BMI 33.6
--- OUTSIDE RECORDS SUMMARY | 2024-07-05 14:10 | XMS_ITS | Data Portability ---
Author Organization [facility], Main Office Address [address] [place] [address] Care Team Providers Care Silver Holloware Assembler Name Role Phone PAT RAMOS [employer] Professor [phone] NAYELY RHODES Unemployment Examiner [facility] Hematology/Oncolo gy LINDA BRITO [...] panel, serum 2023 024 CAMILO [facility], [address], [place], [address], 06:07:54 BMP, serum or plasma 2023 024 CAMILO [facility], [address], [place], [address], 4 06:07:53 CBC w/ auto diff 2023 024 CAMILO [facility], [address], [place], [address], 4 06:07:52 TSH, ultra-sensi tive, serum 2023 024 CAMILO [facility], [address], [place], [address], 4 06:07:55 HbA1c (hemoglobin A1c), blood 2023 024 CAMILO [facility] (Centralized Electronic Ordering - All Locations), Patient Can Go To The Location Of Their Choice, 4 06:07:55 lipid panel, serum 2022 023 [email or web address] [facility], [address], [place], [address], 3 14:41:17 BMP, serum or plasma 2022 023 CAMILO [facility], [address], [address], [place], [address], 3 11:43:36 TSH, serum or plasma 2022 023 CAMILO [facility], [address], [address], [place], [address], 3 11:46:35 LDL, serum 2021 022 CAMILO [facility] (Centralized Electronic Ordering - All Locations), Patient Can Go To The Location Of Their Choice, 15:32:24 cholesterol , total, serum 2021 022 CAMILO [facility] (Centralized Electronic Ordering - All Locations), Patient Can Go To The Location Of Their Choice, [address] 06/09/202 2 15:32:25 BMP, serum or plasma 2021 022 CAMILO [facility] (Centralized Electronic Ordering - All Locations), Patient Can Go To The Location Of Their Choice, [address] 2 15:32:25 cholesterol , total, serum 2020 021 CAMILO [facility] (Centralized Electronic Ordering - All Locations), Patient Can Go To The Location Of Their Choice, [address] 09:45:11 LDL, serum 2020 021 CAMILO [facility] (Centralized Electronic Ordering - All Locations), Patient Can Go To The Location Of Their Choice, [address] 09:45:11 Referral orthopedic surgeon referral - left knee pain with ambulationh x of left knee fx in 2009 024 [email or web address] [facility], [address] [place] [address] [place], [address], 4 16:49:[address] referral - rash on abdomen 2021 022 [facility], [address], [address], [place], [address], 09:34:53 nutritionis t/dietitian referral 2021 022 [email or web address] Not available 16:01:20 gynecologis t referral - Patient to schedule 2020 021 [email or web address] Not available 12:05:51 Procedures None recorded. Surgeries None recorded. Imaging XR, knee - left knee pain with ambulation 2023 024 oz [facility], [address] , [place], [address], 4 07:14:38 bone density - hx of osteopenia evaluate 2020 021 [email or web address] Not available 12:05:51 Medication Orders None recorded. Patient TargetsNo targets recorded. Patient Instructions Encounter Date Encounter Id Patient Instructions Last Modified By Organization Details Last Modified Time 05/20/2020 [id number] preventing falls: care instructions [email or web address] Not available 05/20/2020 09:42:51 medicare preventive services guide (female 74yrs and under) [email or web address] Not available 05/20/2020 09:42:50 Cervical Cancer Screening [email or web address] Not available 05/20/2020 09:42:51 08/28/2021 [id number] advance care planning: care instructions [email or web address] Not [...] Information [email or web address] Not available 08/28/2021 15:32:12 2022 [id number] advance care planning: care instructions Not available 2022 14:26:39 well visit, over 65: care instructions Not available 2022 14:26:40 preventing falls: care instructions Not available 2022 14:26:40 09/20/2023 [id number] advance care planning: care instructions Not available 09/20/2023 10:41:21 osteoporosis: care instructions Not available 09/20/2023 10:41:21 well visit, over 65: care instructions Not available 09/20/2023 10:41:21 preventing falls: care instructions Not available 09/20/2023 10:41:20 prediabetes: care instructions Not available 09/20/2023 10:41:21 starting a weight loss plan: care instructions Not available 09/20/2023 10:49:58 Reason for Referral Unemployment Examiner Referral for Sc reening for malignant neoplasm of cervix Patient to schedule Referring Physician: Rosie Jacob [facility], Encounter Date: 05/20/2020 Mat Man/dietitian Refer ral for Body mass index 30+ - obesity Referring Physician: Rosie Jcaob [facility], Encounter Date: 08/28/2021 Earth Moving Technician Referral for S kin lesion rash on abdomen Referring Physician: Rosie Jacob [facility], Encounter Date: 08/28/2021 Orthopedic Surgeon Referral for Knee joint painful on movement left knee pain with ambulationhx of left knee fx in 2009 Referring Physician: Saige Mcgee [facility], Encounter Date: 01/14/2024 Results Created Date Observation [...] Go To The Location Of Their Choice, [id number] 09/29/2022 11:43:36 09/30/1909/29/2022 BASIC METAB OLIC PANEL [...] x10e3 /uL 3.4-10 .8 Not Available [facility] ([facility]) [address], [place], [address], 09/21/2023 06:07:52 09/20/19 24 09/21/2023 CBC WITH DIFFE RENTI AL/PL ATELE T RBC 4.49 x10e6 /uL 3.77-5 .28 Not Available [facility] ([facility]) [address], [place], [address], 09/21/2023 06:07:52 09/20/19 24 09/21/2023 CBC WITH DIFFE RENTI AL/PL ATELE T hemoglobin 13.5 g/dL 11.1-1 5.9 Not Available [facility] ([facility]) [address], [place], [address], 09/21/2023 06:07:52 09/20/19 24 09/21/2023 CBC WITH DIFFE RENTI AL/PL ATELE T hematocrit 42.4 % 34.0-4 6.6 Not Available [facility] ([facility]) [address] [place], [address], 09/21/2023 06:07:52 09/20/19 24 09/21/2023 CBC WITH DIFFE RENTI AL/PL ATELE T MCV 94 fL 79-97 Not Available [facility] ([facility]) [address] [place], [address], 09/21/2023 06:07:52 09/20/19 24 09/21/2023 CBC WITH DIFFE RENTI AL/PL ATELE T MCH 30.1 pg 26.6-3 3.0 Not Available [facility] ([facility]) [address] [place], [address], 09/21/2023 06:07:52 09/20/19 24 09/21/2023 CBC WITH DIFFE RENTI AL/PL ATELE T MCHC 31.8 g/dL 31.5-3 5.7 Not Available [facility] ([facility]) [address] [place], [address], 09/21/2023 06:07:52 09/20/19 24 09/21/2023 CBC WITH DIFFE RENTI AL/PL ATELE T RDW 13.2 % 11.7-1 5.4 Not Available [facility] ([facility]) [address] [place], [address], 09/21/2023 06:07:52 09/20/19 24 09/21/2023 CBC WITH DIFFE RENTI AL/PL ATELE T platelets 210 x10e3 /uL 150-45 0 Not Available [facility] ([facility]) [address], [place], [address], 09/21/2023 06:07:52 09/20/19 24 09/21/2023 CBC WITH DIFFE RENTI AL/PL ATELE T neutrophils 55 % not estab. Not Available [facility] ([facility]) [address], [place], [address], 09/21/2023 06:07:52 09/20/19 24 09/21/2023 CBC WITH DIFFE RENTI AL/PL ATELE T lymphs 31 % not estab. Not Available [facility] ([facility]) [address], [place], [address], 09/21/2023 06:07:52 09/20/19 24 09/21/2023 CBC WITH DIFFE RENTI AL/PL ATELE T monocytes 10 % not estab. Not Available [facility] ([facility]) [address], [place], [address], 09/21/2023 06:07:52 09/20/19 24 09/21/2023 CBC WITH DIFFE RENTI AL/PL ATELE T eos 3 % not estab. Not Available [facility] ([facility]) [address], [place], [address], 09/21/2023 06:07:52 09/20/19 24 09/21/2023 CBC WITH DIFFE RENTI AL/PL ATELE T basos 1 % not estab. Not Available [facility] ([facility]) [address], [place], [address], 09/21/2023 06:07:52 09/20/19 24 09/21/2023 CBC WITH DIFFE RENTI AL/PL ATELE T immature cells CASE FILLER Not Available [facility] ([facility]) [address], [place], [address], 09/21/2023 06:07:52 09/20/19 24 09/21/2023 CBC WITH DIFFE RENTI AL/PL ATELE T neutrophils (absolute) 3.5 x10e3 /uL 1.4-7. 0 Not Available [facility] ([facility]) [address], [place], [address], 09/21/2023 06:07:52 09/20/19 24 09/21/2023 CBC WITH DIFFE RENTI AL/PL ATELE T lymphs (absolute) 2.0 x10e3 /uL 0.7-3. 1 Not Available [facility] ([facility]) [address], [place], [address], 09/21/2023 06:07:52 09/20/19 24 09/21/2023 CBC WITH DIFFE RENTI AL/PL ATELE T monocytes(ab solute) 0.6 x10e3 /uL 0.1-0. 9 Not Available [facility] ([facility]) [address] [place], [address], 09/21/2023 06:07:52 09/20/19 24 09/21/2023 CBC WITH DIFFE RENTI AL/PL ATELE T eos (absolute) 0.2 x10e3 /uL 0.0-0. 4 Not Available [facility] ([facility]) [address] [place], [address], 09/21/2023 06:07:52 09/20/19 24 09/21/2023 CBC WITH DIFFE RENTI AL/PL ATELE T baso (absolute) 0.1 x10e3 /uL 0.0-0. 2 Not Available [facility] ([facility]) [address] [place], [address], 09/21/2023 06:07:52 09/20/19 24 09/21/2023 CBC WITH DIFFE RENTI AL/PL ATELE T immature granulocytes 0 % not estab. Not Available [facility] ([facility]) [address], [place], [address], 09/21/2023 06:07:52 09/20/19 24 09/21/2023 CBC WITH DIFFE RENTI AL/PL ATELE T immature grans (abs) 0.0 x10e3 /uL 0.0-0. 1 Not Available [facility] ([facility]) [address], [place], [address], 09/21/2023 06:07:52 09/20/19 24 09/21/2023 CBC WITH DIFFE RENTI AL/PL ATELE T NRBC CASE FILLER Not Available [facility] ([facility]) [address], [place], [address], 09/21/2023 06:07:52 09/20/19 24 09/21/2023 CBC WITH DIFFE RENTI AL/PL ATELE T hematology comments: CASE FILLER Not Available [facility] ([facility]) [address], [place], [address], 09/21/2023 06:07:52 09/20/19 24 09/21/2023 BASIC METAB OLIC PANEL (8) glucose 105 mg/dL 70-99 above high normal Not Available [facility] ([facility]) [address], [place], [address], 09/21/2023 06:07:53 09/20/19 24 09/21/2023 BASIC METAB OLIC PANEL (8) BUN 17 mg/dL 8-27 Not Available [facility] ([facility]) [address], [place], [address], 09/21/2023 06:07:53 09/20/19 24 09/21/2023 BASIC METAB OLIC PANEL (8) creatinine 0.86 mg/dL 0.57-1 .00 Not Available [facility] ([facility]) [address], [place], [address], 09/21/2023 06:07:53 09/20/19 24 09/21/2023 BASIC METAB OLIC PANEL (8) eGFR 73 mL/mi n/1.7 3 >59 Not Available [facility] ([facility]) [address], [place], [address], 09/21/2023 06:07:53 09/20/19 24 09/21/2023 BASIC METAB OLIC PANEL (8) BUN/creatini ne ratio 20 12-28 Not Available [facility] ([facility]) [address], [place], [address], 09/21/2023 06:07:53 09/20/19 24 09/21/2023 BASIC METAB OLIC PANEL (8) sodium 143 mmol/ L 134-14 4 Not Available [facility] ([facility]) [address], [place], [address], 09/21/2023 06:07:53 09/20/19 24 09/21/2023 BASIC METAB OLIC PANEL (8) potassium 4.5 mmol/ L 3.5-5. 2 Not Available [facility] ([facility]) [address], [place], [address], 09/21/2023 06:07:53 09/20/19 24 09/21/2023 BASIC METAB OLIC PANEL (8) chloride 105 mmol/ L 96-106 Not Available [facility] ([facility]) [address], [place], [address], 09/21/2023 06:07:53 09/20/19 24 09/21/2023 BASIC METAB OLIC PANEL (8) carbon dioxide, total 22 mmol/ L 20-29 Not Available [facility] ([facility]) [address] [place], [address], 09/21/2023 06:07:53 09/20/19 24 09/21/2023 BASIC METAB OLIC PANEL (8) calcium 9.5 mg/dL 8.7-10 .3 Not Available [facility] ([facility]) [address] [place], [address], 09/21/2023 06:07:53 09/20/19 24 09/21/2023 LIPID PANEL cholesterol, total 198 mg/dL 100-19 9 Not Available [facility] ([facility]) [address] [place], [address], 09/21/2023 06:07:54 09/20/19 24 09/21/2023 LIPID PANEL triglyceride s 94 mg/dL 0-149 Not Available [facility] ([facility]) [address] [place], [address], 09/21/2023 06:07:54 09/20/19 24 09/21/2023 LIPID PANEL HDL cholesterol 54 mg/dL >39 Not Available [facility] ([facility]) [address] [place], [address], 09/21/2023 06:07:54 09/20/19 24 09/21/2023 LIPID PANEL VLDL cholesterol donavon 17 mg/dL 5-40 Not Available [facility] ([facility]) [address] [place], [address], 09/21/2023 06:07:54 09/20/19 24 09/21/2023 LIPID PANEL LDL chol calc ([facility]) 127 mg/dL 0-99 above high normal Not Available [facility] ([facility]) [address] [place], [address], 09/21/2023 06:07:54 09/20/19 24 09/21/2023 LIPID PANEL LDL calc comment: CASE FILLER Not Available [facility] ([facility]) [address] [place], [address], 09/21/2023 06:07:54 09/20/19 24 09/21/2023 HEMOG LOBIN A1C hemoglobin A1C 6.2 % 4.8-5. 6 above high normal Predi abete s: 5.7 - 6.4 Diabe tom: >6.4 Glyce maria elena contr ol for adult s with diabe tom: <7.0 Not Available [facility] ([facility]) [address], [place], [address], 09/21/2023 06:07:55 09/20/19 24 09/21/2023 TSH RFX ON ABNOR MAL TO FREE T4 TSH 2.730 uIU/m L 0.450- 4.500 Not Available [facility] ([facility]) [address], [place], [address], 09/21/2023 06:07:55 05/17/19 21 05/17/2020 MAMMO , [...] I agree with this report . WSN: [id number] Orderi ng Physic teto: Augustine saeed MD, Rosie Harper Dictat ed By: Ata sommer MD, Warner Dictat ed Date/T kenny: 3:53 pm Review ed By: Carlos DYER, Sunshine Chi Signed By: Sunshine Gonzalez MD Signed Date/T kenny: 3:58 pm Transc ribed By: CSB Transc riptio n Date/T kenny: 3:05 pm Birads : Carrie torres Class: Outpat ient [email or web address] [facility] (Outpt Imaging) [address] [place] [address], [address], 05/20/2020 10:19:52 08/31/19 21 08/29/2020 DEXA, axial skele ton ====== ====== ====== ====== ====== ====== ====== ====== ====== ====== ===== Bone Densit y Report ====== ====== ====== ====== ====== ====== ====== ====== ====== ====== ===== Name: ZAFAR BRADEN ID: [id number] Age: 64 Sex: Female Ethnic ity: White Date of : 1955 ------ ------ ------ ------ ------ ------ ------ ------ ------ ------ ----- Indica tion: CIRO VICTORIA Referr ing Provid er: AUGUSTINE SAEED MD, LIS Study: Bone densit ometry was perfor med. Exam Date: August 29, 2020 Access ion number : [id number] Bone Densit y: ------ ------ ------ [...] 4:18 pm Patien t Class: Outpat ient [email or web address] [facility] (Outpt Imaging) [address] , [place], [address], 09/03/2020 15:38:08 06/05/19 22 06/04/2021 MAMMO , [...] lymph node is presen t in the supervisor aircraft cleaning ior upper left latera l/ante rior axilla [...] I agree with this report . WSN: [id number] [facility] Physic teto: Augustine saeed MD, Rosie Harper Dictat ed By: Oseas Olson MD Dictat ed Date/T kenny: 5:01 pm Review ed By: Tatianna Doty MD, I Signed By: Tatianna Doty MD, I Signed Date/T kenny: 5:06 pm Transc ribed By: VICTOR M Transc riptio n Date/T kenny: 4:06 pm Birads : Patien t Class: Outpat ient [email or web address] [facility] (Outpt Imaging) [address] [facility] [address] [facility], [place], [address], 07/03/2021 13:10:17 06/10/19 22 06/04/2021 MAMMO brenda digit al, jeffrey eraerwin A D D E N D U M as of: [id number] Addend um: The findin g for callba ck is in the LEFT breast . WSN: [id number] Orderi ng Physic teto: Augustine saeed [...] lymph node is presen t in the supervisor aircraft cleaning ior upper left latera l/ante rior axilla [...] microc alcifi cation s, or areas of cateirna ectura l distor tion are seen in [...] I agree with this report . WSN: [id number] Orderi ng Physic teto: Augustine saeed MD, Rosie E Dictat ed By: Oseas Olson MD Dictat ed Date/T kenny: 5:01 pm Review ed By: Tatianna Doty MD, I Signed By: Tatianna Doty MD, I Signed /T kenny: 5:06 pm Transc ribed By: VICTOR M Transc riptio n /T kenny: 4:06 pm Birads : Carrie torres Class: Outpat ient [email or web address] [facility] ([facility]) [address] [place] [address], [address], 07/03/2021 13:11:34 06/14/19 22 06/13/2021 mm digit [...] Lay letter mailed to carrie torres WSN: [id number] Orderi ng Physic teto: Augustine saeed MD, Rosie E Dictat ed By: Usha Randhawa MD Dictat ed Date/T kenny: 1:25 pm Review ed By: Usha Randhawa MD Signed By: Usha Randhawa MD y H Signed Date/T kenny: 1:25 pm Transc ribed By: VICTOR M Transc riptio n /T kenny: 1:24 pm Birads : Carrie torres Class: Outpat ient [email or web address] [facility] ([facility]) [address], [place], [address], 07/03/2021 13:11:35 06/09/19 23 06/08/2022 MAMMO , [...] Lay letter mailed to carrie torres WSN: [id number] Orderi ng Physic teto: Augustine saeed MD, Rosie Harper Dictat ed By: Tatianna Doty MD, I Dictat ed Date/T kenny: 4:41 pm Review ed By: Tatianna Doty MD, I Signed By: Tatianna Doty MD, I Signed Date/T kenny: 4:41 pm Transc ribed By: VICTOR M Transc riptio n Date/T kenny: 4:37 pm Birads : Carrie t Class: Outpat ient [email or web address] [facility] ([facility]) [address], [place], [address], 06/09/2022 09:48:18 05/14/19 24 05/13/2023 bone densi ty No observ ation record ed. [facility] [address], [place], [address], 05/14/2023 17:50:25 06/11/19 24 06/10/2023 MAMMO , [...] I agree with this report . WSN: [id number] Orderi ng Physic teto: Mark Vazquez ie Dictat ed By: Cyndi DYER, Brock marc Dictat ed Date/T kenny: 1:21 pm Review ed By: Usha Randhawa MD Signed By: Usha Randhawa MD Signed Date/T kenyn: 1:26 pm Transc ribed By: VICTOR M Transc riptio n Date/T kenny: 11:50 am Birads : Patien t Class: Outpat ient [email or web address] [facility] ([facility]) [address], [place], [address], 06/11/2023 14:50:16 06/11/1906/10/2023 MAMMO , scree susana, digit al, bilat eral No observ ation record ed. [facility] [address], [place], [address], 06/11/2023 18:07:35 01/14/2001/14/2024 XR, knee No observ ation record ed. [email or web address] [facility] [address], [place], [address], 01/17/2024 11:38:15 01/14/2001/14/2024 XR, knee, 1 or [...] l osteoa rthrit ic change . WSN: [id number] Orderi ng Physic teto: Saige Mcgee Dictat ed By: Keara Lawrence MD Dictat ed Date/T kenny: 10:09 a Review ed By: Keara Lawrence MD Signed By: Keara Lawrence MD Signed Date/T kenny: 10:09 am Transc ribed By: VICTOR M Transc ribed Date/T kenny: 10:08 am Patien t Class: Outpat ient [email or web address] [facility] (Outpt Imaging) [address], [place], [address], 02/02/2024 10:15:24 04/12/19 25 04/11/2024 MRI, knee, w/o contr ast No observ ation record ed. [address] (Medical Records) [address] [facility], [place], [address], 04/12/2024 15:41:17 06/14/19 25 06/13/2024 MAMMO , scree susana, digit al, bilat eral No observ ation record ed. [address] [facility] [address], [place], [address], 06/14/2024 05:38:06 06/14/19 25 06/13/2024 MAMMO , scree susana, digit al, bilat eral PROCED URE: MM Digita l Mammo Screen ing INDICA TION: Screen ing. No known palpab le abnorm alitie s. Histor y of bilate ral axilla ry lymph node biopsi es in 2018 yieldi ng follic ular lympho ma. COMPAR PARVIZ: Prior mammog marcial dating back to 04/26/19. TECHNI QUE: Full-f ield digita l CC and MLO 3D tomosy nthesi s images of both breast s were acquir ed. Comput er-aid ed detect ion (CAD) was utiliz ed in the interp retati on of this study. DENSIT Y: There are scatte red areas of fibrog landul ar densit y. FINDIN GS: Saturn clip is seen in the left axilla . No suspic ious masses , suspic ious microc alcifi cation s, or areas of caterina ectura l distor tion are seen in either breast to sugges t malign true. IMPRES MIKEL: No mammog raphic eviden ce of malign true. RECOMM ENDATI ON: Annual mammog raphic screen ing BI-RAD S: 1 (Negat hang) Lay letter mailed to carrie torres WSN: [id number] Orderi ng Physic teto: Mark Vazquez ie Dictat ed By: Esther Phillips MD Dictat ed Date/T kenny: 3:04 pm Review ed By: Esther Phillips MD Signed By: Esther Phillips MD Signed Date/T kenny: 3:04 pm Transc ribed By: CSB Transc riptio n Date/T kenny: 3:01 pm Birads : Carrie torres Class: Outpat ient [email or web address] [facility] ([facility]) [address] [place] [address], [address], 06/14/2024 10:49:40 Result Notes None recorded. Problems Name Problem SNOMED Code Status Onset Date Resolution Date Notes Provider Name and Address Organization Details Recorded Time Non-Hodg kin's lymphoma (clinica l) 533170438 Completed 201705/20/2020 dx in 2013 right cheeck and right groin and back of neck, tx with radiation Rosie franco [facility], [facility] 1 09:25:38 Obesity 047494585 Active Mena Rios CPP null, [facility] 0 10:55:57 Family history of diabetes mellitus 300583528 Completed 09/09/2022 LINDA BRITO MD [address], [place], [address], [facility] 3 18:58:50 History of non-Hodg kins lymphoma 494548668 Active 2020 Rosie franco [facility] 1 09:25:32 Osteopor osis 12746211 Completed 202109/19/2023 LINDA BRITO MD [address], [place], [address], [facility] 4 14:18:04 Osteopen ia 122038458 Active 2023 LINDA BRITO MD [address], [place], [address], [facility] 4 14:18:14 Hyperlip idemia 67758137 Active 2023 LINDA BRITO MD [address], [place], [address], [facility] 4 14:19:50 Statin declined 687560416 Active 2023 LINDA BRITO MD [address], [place], [address], [facility] 4 14:19:52 Senile osteopor osis 77285371 Active Ly Coleman MA null, [facility] 4 10:19:18 Problem Notes None recorded. Procedures Surgical History Date Name Laterality Status Provider Name and Address Organization Details Recorded Time 06/14/19 25 Most Recent Mammogram completed Aliya Hamilton [facility] 06/14/2024 10:49:36 06/14/19 25 Mammogram screening completed Aliya Hamilton [facility] 06/14/2024 10:49:14 05/27/19 25 arthroscopy of knee completed Susan Candelario [facility] 05/30/2024 13:51:37 09/20/19 24 Advanced Care Planning completed LINDA BRITO MD [address], [place], [address], [facility] 09/19/2023 14:15:24 06/11/19 24 Mammogram both breasts completed Elif Ballard [facility] 06/11/2023 14:50:06 09/11/19 23 Advanced Care Planning completed Ly Coleman MA [facility] 2022 13:46:55 08/29/19 22 Advanced Care Planning completed Ly Coleman MA [facility] 08/28/2021 15:09:18 06/14/19 22 Mammogram one breast completed Adelita Miles [facility] 07/03/2021 13:11:24 05/21/19 21 Six-Item Cognitive Test completed Bernadette Braga MA [facility] 05/20/2020 09:01:49 05/19/19 20 Mini-Cog Test completed Ly Coleman MA [facility] 05/19/2019 13:28:37 11/03/19 18 Date of Last Pap Smear completed Ly Coleman MA [facility] 05/19/2019 13:35:30 07/15/19 18 Date of Last Colonoscopy completed Zayra Kumar [facility] 07/14/2017 15:13:59 07/15/19 18 Colonoscopy completed Zayra Kumar [facility] 07/14/2017 15:13:52 11/11/19 16 Most Recent Bone Density completed Zayra Kumar [facility] 06/09/2017 11:45:50 11/11/19 16 Dxa bone density mignon vrt fx completed Zayra Kumar [facility] 06/09/2017 11:45:44 05/07/18 92 Caesarean Section completed Ly Coleman MA [facility] 08/28/2021 15:08:40 Imaging Results Imaging Date Name Status LastModified by Organiz ation Details LastModified Time 05/17/2020 MAMMO, screening, digital, bilateral completed [email or web address] [facility] (Outpt Imaging) [address] [place], [address], 05/20/2020 10:19:52 08/29/2020 DEXA, axial skeleton completed [email or web address] [facility] (Out[facility] Imaging) [address] [place], [address], 09/03/2020 15:38:08 06/04/2021 MAMMO, screening, digital, bilateral completed [email or web address] [facility] (Outpt Imaging) [address] [place], [address], 07/03/2021 13:10:17 06/04/2021 MAMMO, screening, digital, bilateral completed [facility] (Outpt Imaging) [address] [place], [address], 07/03/2021 13:11:34 06/13/2021 mm digital mammo unilat left completed [email or web address] [facility] (Outpt Imaging) [address] [place], [address], 07/03/2021 13:11:35 06/08/2022 MAMMO, screening, digital, bilateral completed [email or web address] [facility] (Outpt Imaging) [address] [place], [address], 06/09/2022 09:48:18 05/13/2023 bone density completed [facility] [address] [place], [address], 05/14/2023 17:50:25 06/10/2023 MAMMO, screening, digital, bilateral completed [email or web address] [facility] (Outpt Imaging) [address] [place], [address], 06/11/2023 14:50:16 06/10/2023 MAMMO, screening, digital, bilateral completed [facility] [address] [place], [address], 06/11/2023 18:07:35 01/14/2024 XR, knee completed [email or web address] [facility] [address] [place], [address], 01/17/2024 11:38:15 01/14/2024 XR, knee, 1 or 2 view completed [email or web address] [facility] (Outpt Imaging) [address] [place], [address], 02/02/2024 10:15:24 04/11/2024 MRI, knee, w/o contrast completed [facility] (Medical Records) [address] [facility], [place], [address], 04/12/2024 15:41:17 06/13/2024 MAMMO, screening, digital, bilateral completed [facility] [address], [place], [address], 06/14/2024 05:38:06 06/13/2024 MAMMO, screening, digital, bilateral completed [email or web address] [facility] (Out[facility] Imaging) [address] [place], [address], 06/14/2024 10:49:40 Procedure Notes None recorded. Medical Equipment None Reported. Allergies Allergen ID Allergen Name Allergen Category Reaction Reaction Severity Criticality Documentation Date Start Date Code Code System Note Provider Name and Address Organization Details Recorded Time 01229 No known allergy (situatio n) Not available Not available Not available Not available 09/20/2023 [id number] SNOMED Ly Coleman MA [facility] 10:19:10 No known drug allergies Medications Name [...] Updated DateTime 2 163.83 cm 35.4 kg/m2 97636.9 1 g 97 % 97 % 65 /min 97.88 [degF] 123 mm[Hg] 74 mm[Hg] Ly Coleman MA [facility] 2 15:16:23 Date Recorded Body height Body mass index (BMI) Body weight Oxygen saturation Oxygen saturation in Arterial blood by Pulse oximetry Heart rate Body temperature Systolic blood pressure Diastolic blood pressure Provider Name and Address Organization Details Last Updated DateTime 3 163.83 cm 35.5 kg/m2 05059.8 g 98 % 98 % 79 /min 98 [degF] 122 mm[Hg] 83 mm[Hg] Ly Coleman MA [facility] 3 13:56:14 Date Recorded Body height Body mass index (BMI) Body weight Oxygen saturation Oxygen saturation in Arterial blood by Pulse oximetry Heart rate Body temperature Systolic blood pressure Diastolic blood pressure Provider Name and Address Organization Details Last Updated DateTime 4 163.83 cm 34.1 kg/m2 92041.8 7 g 98 % 98 % 72 /min 98.2 [degF] 125 mm[Hg] 68 mm[Hg] Ly Coleman MA [facility] 4 10:24:54 Date Recorded Body height Body mass index (BMI) Body weight Heart rate Oxygen saturation Oxygen saturation in Arterial blood by Pulse oximetry Body temperature Systolic blood pressure Diastolic blood pressure Provider Name and Address Organization Details Last Updated DateTime 4 163.83 cm 32.3 kg/m2 93740.2 4 g 69 /min 98 % 98 % 97.8 [degF] 123 mm[Hg] 76 mm[Hg] Janeen Ellis LPN [facility] 4 09:03:22 Social History Question Answer Notes LastModified by Organizat ion Details LastModified Time Tobacco Smoking Status Never Smoker EL Hidalgo, [facility] 05/13/2017 14:51:41 Do You Have An Advance Directive? No [email or web address] Information not available 08/28/2021 What Is Your Level Of Alcohol Consumption? Occasional [email or web address] Information not available 05/13/2017 Is Blood Transfusion Acceptable In An Emergency? Yes [email or web address] Information not available 05/13/2017 What Is Your Level Of Caffeine Consumption? Occasional Very Rare [email or web address] Information not available 2022 How Much Tobacco Do You Chew? None Information not available 05/20/2020 Are You Currently Employed? No [email or web address] Information not available 08/28/2021 What Type Of Diet Are You Following? REGULAR [email or web address] Information not available 05/13/2017 Which Illicit Or Recreational Drugs Have You Used? None Information not available 05/20/2020 Do You Or Have You Ever Used E-cigarettes Or Vape? 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 Alone With Dog [email or web address] Information not available 2022 Do You Take Precautions To Prevent Distracted Driving? Yes [email or web address] Information not available 05/13/2017 How Often Do You Need To Have Someone Help You When You Read Instructions, Pamphlets, Or Other Written Material From Your Doctor Or Pharmacy? Never Information not available 05/20/2020 Have You Served In The ? No [email or web address] Information not available 05/13/2017 Have You Or [...] How Many Children Do You Have? 1 [email or web address] Information not available 05/13/2017 Do You Use Your Seat Belt Or Car Seat Routinely? Yes [email or web address] Information not available 08/28/2021 Seat Belts Used Routinely Yes [email or web address] Information not available 08/28/2021 Are You Sexually Active? No Information not available 05/20/2020 Smoke Alarm In Home Yes [email or web address] Information not available 08/28/2021 Do You Have Smoke And Carbon Monoxide Detectors In Your Home? Yes Information not available 08/28/2021 At What Age Did You Start Smoking Tobacco? 0 Information not available 05/20/2020 Are You Passively Exposed To Smoke? No [email or web address] Information not available 05/13/2017 Do You Or Have You Ever Used Smokeless Tobacco? Never Used Smokeless Tobacco Information not available 05/20/2020 How Much Tobacco Do You Smoke? No Information not available 05/20/2020 Do You Use Sunscreen Routinely? Yes [email or web address] Information not available 05/13/2017 How Many Years Have You Smoked Tobacco? 0 Information not available 05/20/2020 Sex: Unknown Functional Status Question Answer Note LastModified by Emida ion Details LastModified Time Are you able to walk? [email or web address] Information not available 08/28/2021 Are you able to care for yourself? Yes [email or web address] Information not available 05/13/2017 What is your exercise level? Moderate walks 10-35 minutes 5 days a week,exerise s that PT gives her [email or web address] Information not available 2022 Mental Status None recorded. Family History Relationship Description Onset Age of this Age Resolved Age Notes LastModified by Organization Details LastModified Time Father Malignant lymphoma 54 [email or web address] Not available 08/28 15:03:07 Mother Diabetes mellitus [email or web address] Not available 2020 08:54:56 Daughter Diabetes mellitus abolcun Not available 2020 08:54:56 Notes:No FH of breast or col on cancer Medical History Condition Response Gout N Other N Kidney Stones N Blood Diseases N Hyperthyroidism N Breast Cancer N Hypothyroidism [...] of Last Colonoscopy 07/14/2017 Most Recent Mammogram 06/13/2024 Most Recent Bone Density 11/11/2015 Obstetrics History GPAL:G 0 P 0 0 0 0 Immunizations Vaccine Type Date Status Note Provider Nam e and Address Organization Details Recorded Time Tdap 3 completed Not Available [facility] 04/22/2023 14:06:04 Influenza, split virus, quadrivalent, preservative 8 completed Not Available [facility] 04/22/2023 14:06:03 Influenza, split virus, trivalent, preservative 8 completed Not Available [facility] 04/22/2023 14:06:04 COVID-19, mRNA, LNP-S, PF, 30 mcg/0.3 mL dose 1 completed Not Available [facility] 04/22/2023 14:06:04 COVID-19, mRNA, LNP-S, PF, 30 mcg/0.3 mL dose 1 completed Not Available [facility] 04/22/2023 14:06:04 pneumococcal polysaccharide PPV23 2 completed Not Available [facility] 04/22/2023 14:06:04 Tdap 5 completed Not Available [facility] 04/22/2023 14:06:04 zoster recombinant 1 completed Not Available [facility] 04/22/2023 14:06:03 Pneumococcal conjugate PCV 13 1 completed Not Available [facility] 04/22/2023 14:06:04 COVID-19, mRNA, LNP-S, PF, 30 mcg/0.3 mL dose 1 completed Not Available [facility] 04/22/2023 14:06:04 Influenza, adjuvanted, quadrivalent, PF 1 completed Not Available [facility] 04/22/2023 14:06:03 Influenza, recombinant, quadrivalent, PF 0 completed Not Available [facility] 04/22/2023 14:06:03 COVID-19, mRNA, LNP-S, PF, 30 mcg/0.3 mL dose, maximino-sucrose 2 completed Not Available [facility] 04/22/2023 14:06:04 zoster recombinant 1 completed Not Available [facility] 04/22/2023 14:06:03 Influenza, adjuvanted, quadrivalent, PF 2 completed Not Available [facility] 04/22/2023 14:06:04 COVID-19, mRNA, LNP-S, bivalent, PF, 30 mcg/0.3 mL dose 2 completed Not Available [facility] 04/22/2023 14:06:04 Influenza, adjuvanted, quadrivalent, PF 3 completed Ly Coleman MA [facility] 09/20/2023 10:25:21 Past Encounters Encounter ID Performer Location Encounter Start Date Encounter Closed Date Diagnosis/Indication Diagnosis SNOMED-CT Code Diagnosis ICD10 Code Diagnosis Note [id number] Rosie gonzalez Main Office [address] [facility] [address] [place] [address] 05/13/2017 14:25:11 05/13/2017 15:30:08 Adult health examination 867734314 Z00.00 last colonoscop y [address] Ramos, will get a repeat, mammo in 11/06 and pap smear through Dr Rhodes, they have been normal. Non-Hodgki n's lymphoma (clinical) 298807645 C85.[address] La every 4 months, has a mass right back of neck that is being followed. Body mass index 30+ - obesity 468438345 Z68.35 Z68.34 gained weight when she sprained her ankle this winter [id number] Rosie gonzalez Main Office [address] [place] [address] 11/15/2017 10:31:42 11/15/2017 11:35:24 Non-Hodgkin's lymphoma (clinical) 878993318 C85.[address] La every 4 months, new lymph nodes seen on US in both axilla, we called and talked to DR La's librarian assistant, he will be made aware of biopsy scheduled for tomorrow as well as get the reports. Axillary lymphadenopathy 774850090 R59.0 new, long talk with pt, I wanted Dr La her oncologist to be aware and make sure he agrees with the plan and approach to biopsy, this was done, [id number] Rosie gonzalez Main Office [address] [place] [address] 05/16/2018 10:54:57 05/16/2018 11:43:42 Adult health examination 597609602 Z00.00 all screening is utd. Non-Hodgki n's lymphoma (clinical) 920595627 C85.90 see below Supraclavi cular lymphadenopathy 108974554 R59.0 left supraclavi cular node felt on exam today, pt also with more fullness in right axilla without discreet mass. pt will go from here to Dr La's office for eval and appt, just finished tx for recurrence , pt was asked to call and let me know date of appt with dR La [id number] Rosie gonzalez Main Office [address] [place] [address] 05/19/2019 13:14:20 05/19/2019 14:14:08 Adult health examination 181577801 Z00.00 all screening is utd. trying to get back n shape, finished chemo last month Non-Hodgki n's lymphoma (clinical) 116435909 C85.90 will be getting a biopsy left axilla for positive node on PET scan [id number] Rosieleroy gonzalez [facility] [address] [facility] [address] 05/20/2020 06:40:28 05/20/2020 12:05:51 Adult health examination 569478976 Z00.00 mammogram is utd will see environmental science program director 03/11 utd on environmental science program director and colonoscop y. is walking. feels great Menopause present 090056 006 Z78.0 hx of osteopenia . recheck bone density. keep on vit D Screening for malignant neoplasm of cervix 740756425 Z12.[address] Rhodes History of non-Hodgkins lymphoma 457856111 Z85.72 dx many years ago in mouth and neck, and had recurrence 2019, done with chemo and port is out Hypercholesterolemia 136 44018 E78.00 check random [id number] Rosie Cristopher gonzalez Main Office [address] [facility] [address] [place] [address] 08/28/2021 15:02:37 08/28/2021 15:49:59 Adult health examination 921761111 Z00.00 screening is utd, walks dog and does gardening pt to get a tetanus shot before 07/12 Advance di rective discussed with patient 764591229 Z71.89 I discussed MOLST and health care proxy form. I gave pt MOLST form and proxy form, pt will fill out, discuss MOLST form with proxy and sign and return to our office History of non-Hodgkins lymphoma 535698233 Z85.72 dx many years ago in mouth and neck, and had recurrence 2019, done with chemo and port is out recent check up good Body mass index 30+ - obesity 391836855 E66.9 Z68.35 working on weight loss Hypercholesterolemia 136 57257 E78.00 check random Fatigue 62647779 R53.83 check labs Osteoporosis 04246677 M8 1.0 will be starting a med. Skin lesion 13807750 L98 .9 pt to set up derm, unsure what rash is [id number] LINDA BRITO MD Main Office [address] [facility] [address] [place] [address] 2022 13:43:28 2022 14:29:33 Adult health examination 416655241 Z00.00 Health Maintenanc e FemaleA) Patient was [...] any acute complaints History of non-Hodgkins lymphoma 416927528 Z85.72 - diffuse B-cell lymphoma currently in remission- pt follows with oncology, was last seen in March Osteoporosis 19633101 M8 1.0 - following endocrinol ogy- currently on calcium and vitamin D supplement s- currently on the alendronat e Fatigue 94475519 R53.83 Z00.00 Hyperlipidemia 84359451 E78.5 Z00.00 Advance di rective discussed with patient [id number] Z71.89 - discussed with patient MOLTS and HCP [id number] LINDA BRITO MD Main Office [address] [place] [address] 09/20/2023 10:16:47 09/20/2023 10:45:38 Advance directive discussed with patient [id number] Z71.89 - discussed with patient MOLTS and HCP Adult heal th examination 996435439 Z00.00 Health Maintenanc e FemaleA) Patient was counseled on healthy diet, exercise and nutrition due to BMI is 34.1 B) ScreeningL ast Mammogram: start at age 48 stop at 72Date: 4R esult: BIRADS-1Ne xt: 06/13 Last Pap smear: aged out Last Colonoscop y: start at age 45-75Date: 07/14/2017R esult: normalNext : 10 years, will be aged out Last DEXA scan:Date: 4R esult: converted from osteoporos is to osteopenia Next: 2 years C) Vaccines:I nfluenza: 03/18/2023 TdAP: 03/22/2014 Zoster: 07/29/2020 , 10/01/2020 PCV13: 04/08/2020 PPSV23: 04/08/2021 COVID: 05/31/2020 , 06/21/2020 , 03/04/2021 , 08/07/2021, 02/05/2022 D) Routine blood work orderedE) Updated patient's history RTC in one year for annual exam or sooner if any acute complaints History of non-Hodgkins lymphoma 736463343 Z85.72 - diffuse B-cell lymphoma currently in remission> hx of XRT - Right parotid gland 2000 cGy and Right Groin 02/2015> s/p RCHOP, rituximab and chemothera py- pt follows with oncology, last seen on 07/2023 Osteopenia 558828434 M85 .80 - following endocrinol ogy- currently on calcium and vitamin D supplement s- currently on the alendronat e once a week- improvemen t from osteoporos is to osteopenia in AP spine Fatigue 53728617 R53.83 Z00.00 Hyperlipidemia 22412502 E78.5 Z00.00 - ASCVD score of 8.2%- [...] Eat more fruits and veggies. Statin declined 70157473 0 Z53.20 Impaired f asting glycemia 265103898 R73.01 Body mass index 30+ - obesity 673879300 E66.9 Z68.34 - BMI of 34.1- Cut [...] minutes cumulative of moderate exercise ajit whitaker [id number] Maddi Tay Main Office [address] [facility] [address] [facility] [place] [address] 01/14/2024 08:45:59 01/14/2024 09:21:43 Knee joint painful on movement 773589604 M25.562 hx of left knee fx in [...] Conte Member ID Guarantor Name 05/20/2020 2 [facility] PLAN - NAVIGATOR (PPO) [id number] Zafar Durbin [id number] Zafar Durbin 05/20/2020 1 [place]: [employer] Zafar Durbin [id number] Zafar Durbin 08/28/2021 2 [facility] [employer] PLAN - NAVIGATOR (PPO) [id number] Zafar Durbin [id number] Zafar Durbin 08/28/2021 1 [place] [place] Zafar Durbin [id number] Zafar Durbin 2022 2 [facility] PLAN - NAVIGATOR (PPO) [id number] Zafar Durbin [id number] Zafar Durbin 2022 1 [place]IC[place] B-[place]: [facility] Zafar Durbin [id number] Zafar Durbin 09/20/2023 2 [facility] - MEDICARE ENHANCE (INDEMNITY PLAN) Zafar Durbin [id number] Zafar Durbin 09/20/2023 1 [place] [facility] Zafar Durbin [id number] Zafar Durbin 01/14/2024 2 [facility] - MEDICARE ENHANCE (INDEMNITY PLAN) Zafar Durbin [id number] Zafar Durbin 01/14/2024 1 [place] [facility] Zafar Durbin [id number] 9 Zafar Durbin Notes Date Note Type [...] trying to get an appt. Rosie goddard [facility] 05/20/2020 09:45:24 08/28/2021 text/html Medicare Annual Wellness [...] PT is trying to lose weight. Sees environmental science program director every other year. Non-Hodgkins lymphoma is in remission, just saw oncology. AHs a rash taht ocmes and goes on her abdomen Rosie montero [facility] 08/28/2021 15:51:28 2022 text/html Medicare [...] getting worse? No LINDA BRITO MD [address], [address], [facility] [place] 2022 15:00:36 09/20/2023 text/html Medicare Annual Wellness [...] directive: None on file LINDA BRITO MD [address] [facility] [address], [place], [address], [facility] 09/20/2023 10:50:40 01/14/2024 text/html Zafar is a [...] brace which provides some relief. Maddi goddard, [facility] 01/25/2024 07:14:42 OBGyn Episode No OBEpisode recorded.
== END 2024-07-05 12:47 | disposition home or self-care (01) ==
LOC: HO.HOS 11:41
PROVIDERS: PCP Student in an Organized Health Care Education/Training Program; Visit Provider Orthopaedic Surgery
DX: M25.562 Pain in left knee (principal)
CPT/HCPCS: 99024

== ENCOUNTER → 2024-07-05 11:41 | Outpatient (BNVA) | payer MEDICARE, OTHER, SELFPAY | PROVIDERS: PCP Student in an Organized Health Care Education/Training Program; Visit Provider Orthopaedic Surgery | DX: Z47.89 Encounter for other orthopedic aftercare (principal); M25.562 Pain in left knee | CPT/HCPCS: 99212 ==

== ENCOUNTER 2024-10-04 11:34 | Outpatient (AMB) | payer MEDICARE, SELFPAY ==
[2024-10-04 11:43] VITALS: BMI 33.6
--- NOTE | 2024-10-04 11:43 | A.OFFVIS_ITS ---
Vital Signs 10/04/24 11:43 Height 5 ft 4 in Weight 196 lb BMI 33.6 Intake Visit Reasons: OV- Lt Knee 05/26/24 DR-3 month follow up Intake Note: Zafar is a 69 year old female who presents with complaints of mild intermittent discomfort in her left knee after undergoing left knee arthroscopic surgery on 05/26/2024. She continues to walk with a cane when she is out of her home. She denies fevers or chills. Allergies No Known Allergies Allergy (Verified 10/04/24 11:43) Medication List - Last Reconciled 10/04/24 by Cm Royal MD alendronate 70 mg PO QWEEK bimatoprost 0.01% (Lumigan) 1 drp ophthalmic (eye) BEDTIME PFSH Social History Are you a primary career technical counselor to a significant other at home: No Do you presently have visiting nurse or other home services: No Patient Tobacco Use Status: Never used Tobacco Physical Exam Vital Signs: BMI result Body Mass Index 33.6 Const Other: Well-nourished well-developed very friendly female awake alert and oriented x3 in no acute distress Extrem Other: Bilateral lower extremity examination shows good capillary refill, no skin lesions noted, normal sensation light touch Left knee examination shows that the surgical incisions are well healed, no erythema, minimal crepitus with range of motion, minimal discomfort with range of motion, no instability Assessment & Plan Assessment & Plan (1) Left knee pain: Code(s): M25.562 - Pain in left knee Category: Medical Plan Ms. Durbin continues to do well after undergoing left knee arthroscopic surgery on 05/26/2024. She does have residual discomfort due to early degenerative joint disease. At this point the patient's symptoms are tolerable to her. We will hold off on a cortisone injection. She will follow up on an as-needed basis should her symptoms worsen in any way. Feel free to call at any time should questions regarding her orthopedic management arise. I spent 21 minutes in reviewing the patient's records and imaging studies, seeing the patient and documenting in the medical record. Coding Level of Care Code Est Pt Level 3 (18374) Complex EM visit Add On G2211 Diagnoses Left knee pain M25.562
--- OUTSIDE RECORDS SUMMARY | 2024-10-04 12:40 | XMS_ITS | Data Portability ---
Author Organization [facility], Main Office Address [address] [place] [address] Care Team Providers Care Molding Line Operator Name Role Phone PAT RAMOS Route Deliverer NAYELY RHODES Reiki Practitioner [facility] Hematology/Oncolo gy ILEANA NICOLAS Primary Care Provider Assessment Encounter Date Assessment Date Assessment LastModified by Organization Details LastModified Time 05/20/2020 05/20/2020 This service was provided using telemedicine. Patient consented to telephone visit Patient was located at at home Provider was located in the office. No other persons participated in the telemedicine visit except for the patient unless otherwise indicated here. Total time of visit was 30 minutes. [email or web address] Not available 05/20/2020 09:44:27 01/14/2024 01/14/2024 Discussed with patient the signs/symptoms warranted for a return to office visit and/or an ER visit. Patient understood and agreed with the plan. [email or web address] Not available 01/14/2024 09:07:19 Plan of Treatment Reminders Order Date Submit Date Provider Last Modified By Organization Details Last Modified Time Details Appointments [id number] 2024 01:00P Salazar NICOLAS MD Not available Not available Not available Lab lipid panel, serum 2023 024 CAMILO [facility], [address], [place], [address], 09/21/2023 06:07:54 BMP, serum or plasma 2023 024 CAMILO [facility], [address], [place], [address], 09/21/2023 06:07:53 CBC w/ auto diff 2023 024 CAMILO [facility], [address], [place], [address], 09/21/2023 06:07:52 TSH, ultra- sensit hang, serum 2023 024 CAMILO [facility], [address], [place], [address], 09/21/2023 06:07:55 HbA1c (hemog lobin A1c), blood 2023 024 CAMILO [facility] (Centralized Electronic Ordering - All Locations), Patient Can Go To The Location Of Their Choice, [id number] 09/21/2023 06:07:55 lipid panel, serum 2022 023 [email or web address] [facility], [address], [place], [address], 09/23/2022 14:41:17 BMP, serum or plasma 2022 023 CAMILO [facility], [address], [address], [place], [address], 09/29/2022 11:43:36 TSH, serum or plasma 2022 023 CAMILO [facility], [address], [address], [place], [address], 09/29/2022 11:46:35 LDL, serum 2021 022 CAMILO [facility] (Centralized Electronic Ordering - All Locations), Patient Can Go To The Location Of Their Choice, [id number] 08/28/2021 15:32:24 choles terol, total, serum 2021 022 CAMILO [facility] (Centralized Electronic Ordering - All Locations), Patient Can Go To The Location Of Their Choice, [id number] 08/28/2021 15:32:25 BMP, serum or plasma 2021 022 CAMILO [facility] (Centralized Electronic Ordering - All Locations), Patient Can Go To The Location Of Their Choice, [id number] 08/28/2021 15:32:25 choles terol, total, serum 2020 021 CAMILO [facility] (Centralized Electronic Ordering - All Locations), Patient Can Go To The Location Of Their Choice, [id number] 05/20/2020 09:45:11 LDL, serum 2020 021 CAMILO [facility] (Centralized Electronic Ordering - All Locations), Patient Can Go To The Location Of Their Choice, [id number] 05/20/2020 09:45:11 Referral orthop edic surgeo n referr al - left knee pain with ambula tion hx of left knee fx in 2009 024 jayne [facility], [address] [place] [address] Orlando Rubio, [place], [address], 08/16/2024 11:29:18 dermat ologis t referr barbara - rash on abdome n 2021 022 [facility], [address], [address], [place], [address], 02/24/2022 09:34:53 nutrit ionist /dieti jean carlos referr barbara 2021 022 [email or web address] Not available 08/28/2021 16:01:20 gyneco logist referr barbara - Carrie t to schedu le 2020 021 Not available 05/20/2020 12:05:51 Procedures None record ed. Surgeries None record ed. Imaging XR, knee - left knee pain with ambula tion 2023 024 oz [facility], [address] , [place], [address], 01/25/2024 07:14:38 bone densit y - hx of osteop enia evalua te 2020 021 Not available 05/20/2020 12:05:51 Medication Orders None record ed. Patient TargetsNo targets recorded. Patient Instructions Encounter Date Encounter Id Patient Instructions Last Modified By Organization Details Last Modified Time 05/20/2020 [id number] preventing falls: care instructions [email or web address] Not available 05/20/2020 09:42:51 medicare preventive services guide (female 74yrs and under) [email or web address] Not available 05/20/2020 09:42:50 Cervical Cancer Screening [email or web address] Not available 05/20/2020 09:42:51 08/28/2021 [id number] advance care planning: care instructions [email or web address] Not [...] Information [email or web address] Not available 08/28/2021 15:32:12 2022 [id number] advance care planning: care instructions Not available 2022 14:26:39 well visit, over 65: care instructions Not available 2022 14:26:40 preventing falls: care instructions Not available 2022 14:26:40 09/20/2023 [id number] advance care planning: care instructions Not available 09/20/2023 10:41:21 osteoporosis: care instructions Not available 09/20/2023 10:41:21 well visit, over 65: care instructions Not available 09/20/2023 10:41:21 preventing falls: care instructions Not available 09/20/2023 10:41:20 prediabetes: care instructions Not available 09/20/2023 10:41:21 starting a weight loss plan: care instructions Not available 09/20/2023 10:49:58 Reason for Referral Reiki Practitioner Referral for Sc reening for malignant neoplasm of cervix Patient to schedule Referring Physician: Rosie Jacob [facility], Encounter Date: 05/20/2020 [employer]/dietitian Refer ral for Body mass index 30+ - obesity Referring Physician: Rosie Jacob [facility], Encounter Date: 08/28/2021 Barrel Brander Referral for S kin lesion rash on abdomen Referring Physician: Rosie Jacob [facility], Encounter Date: 08/28/2021 Orthopedic Surgeon Referral for Knee joint painful on movement left knee pain with ambulationhx of left knee fx in 2009 Referring Physician: Saige Mcgee [facility], Encounter Date: 01/14/2024 Results Created Date Observation Date Name Description Value Unit Range Abnormal Flag Note LastModifiedBy Organization Detail LastModifiedTime 09/30/1909/29/2022 BASIC METAB OLIC PANEL glucose 112 mg/dL (70-99 ) high Not Available [facility] (Centralized Electronic Ordering - All Locations) Patient Can Go To The Location Of Their Choice, [id number] 09/29/2022 11:43:36 09/30/1909/29/2022 BASIC METAB OLIC PANEL BUN 20 mg/dL (8-23) Not Available [facility] (Centralized Electronic Ordering - All Locations) Patient Can Go To The Location Of Their Choice, [id number] 09/29/2022 11:43:36 09/30/1909/29/2022 BASIC METAB OLIC PANEL creatinine 0.9 mg/dL (0.5-1 .0) Not Available [facility] (Centralized Electronic Ordering - All Locations) Patient Can Go To The Location Of Their Choice, [id number] 09/29/2022 11:43:36 09/30/1909/29/2022 BASIC METAB OLIC PANEL [...] Their Choice, 09/29/2022 11:43:38 09/30/1909/29/2022 LIPID PANEL HDL chol 53 mg/dL (>39) Not Available [facility] (Centralized Electronic Ordering - All Locations) Patient Can Go To The Location Of Their Choice, 09/29/2022 11:43:38 09/30/1909/29/2022 LIPID PANEL LDL cholesterol, calculated 146 mg/dL [...] x10e3 /uL 3.4-10 .8 Not Available [facility] ([facility]) [address], [place], [address], 09/21/2023 06:07:52 09/20/19 24 09/21/2023 CBC WITH DIFFE RENTI AL/PL ATELE T RBC 4.49 x10e6 /uL 3.77-5 .28 Not Available [facility] ([facility]) [address], [place], [address], 09/21/2023 06:07:52 09/20/19 24 09/21/2023 CBC WITH DIFFE RENTI AL/PL ATELE T hemoglobin 13.5 g/dL 11.1-1 5.9 Not Available [facility] ([facility]) [address], [place], [address], 09/21/2023 06:07:52 09/20/19 24 09/21/2023 CBC WITH DIFFE RENTI AL/PL ATELE T hematocrit 42.4 % 34.0-4 6.6 Not Available [facility] ([facility]) [address], [place], [address], 09/21/2023 06:07:52 09/20/19 24 09/21/2023 CBC WITH DIFFE RENTI AL/PL ATELE T MCV 94 fL 79-97 Not Available [facility] ([facility]) [address], [place], [address], 09/21/2023 06:07:52 09/20/19 24 09/21/2023 CBC WITH DIFFE RENTI AL/PL ATELE T MCH 30.1 pg 26.6-3 3.0 Not Available [facility] ([facility]) [address], [place], [address], 09/21/2023 06:07:52 09/20/19 24 09/21/2023 CBC WITH DIFFE RENTI AL/PL ATELE T MCHC 31.8 g/dL 31.5-3 5.7 Not Available [facility] ([facility]) [address] [place], [address], 09/21/2023 06:07:52 09/20/19 24 09/21/2023 CBC WITH DIFFE RENTI AL/PL ATELE T RDW 13.2 % 11.7-1 5.4 Not Available [facility] ([facility]) [address], [place], [address], 09/21/2023 06:07:52 09/20/19 24 09/21/2023 CBC WITH DIFFE RENTI AL/PL ATELE T platelets 210 x10e3 /uL 150-45 0 Not Available [facility] ([facility]) [address], [place], [address], 09/21/2023 06:07:52 09/20/19 24 09/21/2023 CBC WITH DIFFE RENTI AL/PL ATELE T neutrophils 55 % not estab. Not Available [facility] ([facility]) [address], [place], [address], 09/21/2023 06:07:52 09/20/19 24 09/21/2023 CBC WITH DIFFE RENTI AL/PL ATELE T lymphs 31 % not estab. Not Available [facility] ([facility]) [address], [place], [address], 09/21/2023 06:07:52 09/20/19 24 09/21/2023 CBC WITH DIFFE RENTI AL/PL ATELE T monocytes 10 % not estab. Not Available [facility] ([facility]) [address], [place], [address], 09/21/2023 06:07:52 09/20/19 24 09/21/2023 CBC WITH DIFFE RENTI AL/PL ATELE T eos 3 % not estab. Not Available [facility] ([facility]) [address], [place], [address], 09/21/2023 06:07:52 09/20/19 24 09/21/2023 CBC WITH DIFFE RENTI AL/PL ATELE T basos 1 % not estab. Not Available [facility] ([facility]) [address], [place], [address], 09/21/2023 06:07:52 09/20/19 24 09/21/2023 CBC WITH DIFFE RENTI AL/PL ATELE T immature cells TOWER CLEANER Not Available [facility] ([facility]) [address], [place], [address], 09/21/2023 06:07:52 09/20/19 24 09/21/2023 CBC WITH DIFFE RENTI AL/PL ATELE T neutrophils (absolute) 3.5 x10e3 /uL 1.4-7. 0 Not Available [facility] ([facility]) [address], [place], [address], 09/21/2023 06:07:52 09/20/19 24 09/21/2023 CBC WITH DIFFE RENTI AL/PL ATELE T lymphs (absolute) 2.0 x10e3 /uL 0.7-3. 1 Not Available [facility] ([facility]) [address] [place], [address], 09/21/2023 06:07:52 09/20/19 24 09/21/2023 CBC WITH DIFFE RENTI AL/PL ATELE T monocytes(ab solute) 0.6 x10e3 /uL 0.1-0. 9 Not Available [facility] ([facility]) [address] [place], [address], 09/21/2023 06:07:52 09/20/19 24 09/21/2023 CBC WITH DIFFE RENTI AL/PL ATELE T eos (absolute) 0.2 x10e3 /uL 0.0-0. 4 Not Available [facility] ([facility]) [address] [place], [address], 09/21/2023 06:07:52 09/20/19 24 09/21/2023 CBC WITH DIFFE RENTI AL/PL ATELE T baso (absolute) 0.1 x10e3 /uL 0.0-0. 2 Not Available [facility] ([facility]) [address], [place], [address], 09/21/2023 06:07:52 09/20/19 24 09/21/2023 CBC WITH DIFFE RENTI AL/PL ATELE T immature granulocytes 0 % not estab. Not Available [facility] ([facility]) [address], [place], [address], 09/21/2023 06:07:52 09/20/19 24 09/21/2023 CBC WITH DIFFE RENTI AL/PL ATELE T immature grans (abs) 0.0 x10e3 /uL 0.0-0. 1 Not Available [facility] ([facility]) [address], [place], [address], 09/21/2023 06:07:52 09/20/19 24 09/21/2023 CBC WITH DIFFE RENTI AL/PL ATELE T NRBC TOWER CLEANER Not Available [facility] ([facility]) [address], [place], [address], 09/21/2023 06:07:52 09/20/19 24 09/21/2023 CBC WITH DIFFE RENTI AL/PL ATELE T hematology comments: TOWER CLEANER Not Available [facility] ([facility]) [address] [place], [address], 09/21/2023 06:07:52 09/20/19 24 09/21/2023 BASIC METAB OLIC PANEL (8) glucose 105 mg/dL 70-99 above high normal Not Available [facility] ([facility]) [address] [place], [address], 09/21/2023 06:07:53 09/20/19 24 09/21/2023 BASIC METAB OLIC PANEL (8) BUN 17 mg/dL 8-27 Not Available [facility] ([facility]) [address] [place], [address], 09/21/2023 06:07:53 09/20/19 24 09/21/2023 BASIC METAB OLIC PANEL (8) creatinine 0.86 mg/dL 0.57-1 .00 Not Available [facility] ([facility]) [address] [facility], [address], 09/21/2023 06:07:53 09/20/19 24 09/21/2023 BASIC METAB OLIC PANEL (8) eGFR 73 mL/mi n/1.7 3 >59 Not Available [facility] ([facility]) [address] [place], [address], 09/21/2023 06:07:53 09/20/19 24 09/21/2023 BASIC METAB OLIC PANEL (8) BUN/creatini ne ratio 20 -28 Not Available [facility] ([facility]) [address] [place], [address], 09/21/2023 06:07:53 09/20/19 24 09/21/2023 BASIC METAB OLIC PANEL (8) sodium 143 mmol/ L 134-14 4 Not Available [facility] ([facility]) [address] [place], [address], 09/21/2023 06:07:53 09/20/19 24 09/21/2023 BASIC METAB OLIC PANEL (8) potassium 4.5 mmol/ L 3.5-5. 2 Not Available [facility] ([facility]) [address] [place], [address], 09/21/2023 06:07:53 09/20/19 24 09/21/2023 BASIC METAB OLIC PANEL (8) chloride 105 mmol/ L 96-106 Not Available [facility] ([facility]) [address] [place], [address], 09/21/2023 06:07:53 09/20/19 24 09/21/2023 BASIC METAB OLIC PANEL (8) carbon dioxide, total 22 mmol/ L 20-29 Not Available [facility] ([facility]) [address] [place], [address], 09/21/2023 06:07:53 09/20/19 24 09/21/2023 BASIC METAB OLIC PANEL (8) calcium 9.5 mg/dL 8.7-10 .3 Not Available [facility] ([facility]) [address] [place], [address], 09/21/2023 06:07:53 09/20/19 24 09/21/2023 LIPID PANEL cholesterol, total 198 mg/dL 100-19 9 Not Available [facility] ([facility]) [address] [place], [address], 09/21/2023 06:07:54 09/20/19 24 09/21/2023 LIPID PANEL triglyceride s 94 mg/dL 0-149 Not Available [facility] ([facility]) [address] [place], [address], 09/21/2023 06:07:54 09/20/19 24 09/21/2023 LIPID PANEL HDL cholesterol 54 mg/dL >39 Not Available [facility] ([facility]) [address] [place], [address], 09/21/2023 06:07:54 09/20/19 24 09/21/2023 LIPID PANEL VLDL cholesterol donavon 17 mg/dL 5-40 Not Available [facility] ([facility]) [address] [place], [address], 09/21/2023 06:07:54 09/20/19 24 09/21/2023 LIPID PANEL LDL chol calc ([facility]) 127 mg/dL 0-99 above high normal Not Available [facility] ([facility]) [address] [place], [address], 09/21/2023 06:07:54 09/20/19 24 09/21/2023 LIPID PANEL LDL calc comment: TOWER CLEANER Not Available [facility] ([facility]) [address] [place], [address], 09/21/2023 06:07:54 09/20/19 24 09/21/2023 HEMOG LOBIN A1C hemoglobin A1C 6.2 % 4.8-5. 6 above high normal Predi abete s: 5.7 - 6.4 Diabe tom: >6.4 Glyce maria elena contr ol for adult s with diabe tom: <7.0 Not Available [facility] ([facility]) [address] [facility] [facility] [address], [place], [address], 09/21/2023 06:07:55 09/20/19 24 09/21/2023 TSH RFX ON ABNOR MAL TO FREE T4 TSH 2.730 uIU/m L 0.450- 4.500 Not Available [facility] ([facility]) [address] [facility] [facility], [place], [address], 09/21/2023 06:07:55 08/26/19 25 08/25/2024 CMP, serum or plasm a glucose 99 Not Available [address], [address], 08/25/2024 16:46:51 08/26/19 25 08/25/2024 CMP, serum or plasm a BUN 21 Not Available [address], [address], 08/25/2024 16:46:51 08/26/19 25 08/25/2024 CMP, serum or plasm a creatinine 0.9 Not Available [address], [address], 08/25/2024 16:46:51 08/26/19 25 08/25/2024 CMP, serum or plasm a potassium 4.2 Not Available [address], [address], 08/25/2024 16:46:51 08/26/19 25 08/25/2024 CMP, serum or plasm a sodium 136 Not Available [address], [place], [address], 08/25/2024 16:46:51 05/17/19 21 05/17/2020 MAMMO , scree susana, [...] (Benig n) Lay letter mailed to carrie t I have person ally review ed the images and I agree with this report . WSN: [id number] Orderi ng Physic teto: Augustine saeed MD, Rosie Harper Dictat ed By: Warner Houston MD ed Date/T kenny: 3:53 pm Review ed By: Sunshine Gonzalez MD Signed By: Trien MD, Sunshine R Signed Date/T kenny: 3:58 pm Transc ribed By: CSB Transc riptio n Date/T kenny: 3:05 pm Birads : Carrie torres Class: Outpat ient [email or web address] [facility]) [address], [place], [address], 05/20/2020 10:19:52 08/31/1908/29/2020 DEXA, axial skele ton ====== ====== ====== ====== ====== ====== ====== ====== ====== ====== ===== Bone Densit y Report ====== ====== ====== ====== ====== ====== ====== ====== ====== ====== ===== Name: ZAFAR BRADEN t ID: [id number] Age: 64 Sex: Female Ethnic ity: White Date of : 1955 ------ ------ ------ ------ ------ ------ ------ ------ ------ ------ ----- Indica tion: CIRO VICTORIA Referr ing Provid er: AUGUSTINE SAEED MD, LIS Study: Bone densit ometry was perfor med. Exam Date: August 29, 2020 Access ion number : [id number] Bone Densit y: ------ ------ ------ [...] ------ ------ ------ ------ ------ ----- World [facility] Organi zajaskaran green ia for BMD zulema hess as: Normal (T-sco re at or above -1.0), Osteop enia (T-sco re betwee n -1.0 and -2.5), or Osteop orosis (T-sco re at or below -2.5). 10-lauren r Fractu re Risk: ------ ------ ------ ------ ------ ------ ------ ------ ------ ------ ----- FRAX not report ed kael e: Some T-scor e for Spine Total or Hip Total or Femora l Neck at or below -2.5 ------ ------ ------ ------ ------ ------ ------ ------ ------ ------ ----- Clinic [facility] Campbell ed by Carrie torres: ------ ------ ------ [...] ------ ------ ------ ----- Impres mikel: The patien t has osteop orosis as determ ined by WHO criter ia. Based on the result s of the patien t's bone densit y assess ment, the risk of future fractu re increa ses approx imatel y two fold for each 1.0 SD decrea se in T-scor e. Howeve r, low BMD is not the only risk factor for a future fragil ity fractu re. Other clinic al risk factor s for osteop orotic fractu re should be consid ered in ascert aining this patien t's future fractu re risk includ ing the [...] kenny: 4:18 pm Review ed By: Violeta Andresw ra, MD Signed By: Violeta Andrews ra, MD Signed Date/T kenny: 4:18 pm Transc ribed By: CSB Transc ribed Date/T kenny: 4:18 pm Patien t Class: Outpat ient [email or web address] [facility] [address], [place], [address], 09/03/2020 15:38:08 06/05/19 22 06/04/2021 MAMMO , [...] lymph node is presen t in the roasterman ior upper left latera l/ante rior axilla [...] the patien t.) Lay letter mailed to patien t I have person ally review ed the images and I agree with this report . WSN: [id number] Orderveronika ng Physic teto: Augustine saeed MD, Rosie Harper Dictat ed By: Oseas Olson MD Dictat ed Date/T kenny: 5:01 pm Review ed By: Tatianna Doty MD, I Signed By: Tatianna Doty MD, I Signed Date/T kenny: 5:06 pm Transc ribed By: CSB Transc riptio n Date/T kenny: 4:06 pm Birads : Patien t Class: Outpat ient [email or web address] [facility] [address] [place] [address], [place], [address], 07/03/2021 13:10:17 06/10/19 22 06/04/2021 MAMMO , brenda meza, digit al, bilat eral A D D E N D U M as of: [id number] Addend um: The findin g for callba ck is in the LEFT breast . WSN: [id number] Orderveronika friend Physic teto: Augustine saeed MD, Rosie Harper [...] lymph node is presen t in the roasterman ior upper left latera l/ante rior axilla ry region . On the left MLO projec tion only there is a tiny oval circum scribe d lesion in the superi or breast projec ting medial ly on yi image. This may reside within the skin. This is best seen on image 61/79 of MLO yi slices . Recomm end bethhakan t return for diagno stic right mammog [...] g recomm ended. We will recall the carrie t. RECOMM ENDATI ON: Left diagno stic mammog marianna with schedu led ultras ound BI-RAD S: 0 (Incom plete - Need Additi onal Imagin g Evalua tion. We will recall the patien t.) Lay letter mailed to carrie torres I have person ally review ed the images and I agree with this report . WSN: [id number] Orderi ng Physic teto: Augustine saeed MD, Rosie Harper Dictat ed By: Wesley DYER, Oseas Mays Dictat ed Date/T kenny: 5:01 pm Review ed By: Tatianna Doty MD, I Signed By: Tatianna Doty MD, I Signed Date/T kenny: 5:06 pm Transc ribed By: VICTOR M Transc riptio n /T kenny: 4:06 pm Birads : Patien t Class: Outpat ient [email or web address] [facility] [address] [place], [address], 07/03/2021 13:11:34 06/14/19 22 06/13/2021 mm digit [...] Lay letter mailed to carrie torres WSN: [id number] Orderi ng Physic teto: Augustine saeed MD, Rosie Harper Dictat ed By: Usha Randhawa MD Dictat ed Date/T kenny: 1:25 pm Review ed By: Usha Randhawa MD Signed By: Usha Randhawa MD Signed Date/T kenny: 1:25 pm Transc ribed By: VICTOR M Transc riptio n Date/T kenny: 1:24 pm Birads : Patien t Class: Outpat ient [email or web address] [facility] [address] [place], [address], 07/03/2021 13:11:35 06/09/19 23 06/08/2022 MAMMO , [...] (Benig n) Lay letter mailed to carrie t WSN: [id number] Orderi ng Physic teto: Augustine saeed MD, Rosie E Dictat ed By: Tatianna Doty MD, I Dictat ed Date/T kenny: 4:41 pm Review ed By: Tatianna Doty MD, I Signed By: Tatianna Doty MD, I Signed Date/T kenny: 4:41 pm Transc ribed By: CSB Transc riptio n Date/T kenny: 4:37 pm Birads : Patihakan t Class: Outpat ient [email or web address] [facility] [address] [facility], [place], [address], 06/09/2022 09:48:18 05/14/19 24 05/13/2023 bone densi ty No observ ation record ed. [facility] [address] [facility], [place], [address], 05/14/2023 17:50:25 06/11/19 24 06/10/2023 MAMMO , [...] hang) Lay letter mailed to carrie torres I have person ally review ed the images and I agree with this report . WSN: [id number] Orderi ng Physic teto: Mark Vazquez ie Dictat ed By: Cyndi DYER, Brock marc Dictat ed Date/T kenny: 1:21 pm Review ed By: Usha Randhawa MD Signed By: Usha Randhawa MD Signed Date/T kenny: 1:26 pm Transc ribed By: VICTOR M Transc riptio n Date/T kenny: 11:50 am Birads : Carrie torres Class: Outpat ient [email or web address] [facility] [address] [place], [address], 06/11/2023 14:50:16 06/11/19 24 06/10/2023 MAMMO , scree susana, digit al, bilat eral No observ ation record ed. [facility] [address], [place], [address], 06/11/2023 18:07:35 01/14/2001/14/2024 XR, knee No observ ation record ed. [email or web address] [facility] [address] [place], [address], 01/17/2024 11:38:15 01/14/20 24 01/14/2024 XR, knee, [...] l osteoa rthrit ic change . WSN: [id number] Orderi ng Physic teto: Saige Mcgee Dictat ed By: Keara Lawrence MD Dictat ed Date/T kenny: 10:09 a Review ed By: Keara Lawrence MD Signed By: Keara Lawrence MD Signed Date/T kenny: 10:09 am Transc ribed By: CSB Transc ribed Date/T kenny: 10:08 am Patien t Class: Outpat ient [email or web address] [facility] [address], [place], [address], 02/02/2024 10:15:24 04/12/19 25 04/11/2024 MRI, knee, w/o contr ast No observ ation record ed. [facility] (Medical Records) [address] [facility], [place], [address], 04/12/2024 15:41:17 06/14/19 25 06/13/2024 MAMMO , scree susana, digit al, bilat eral No observ ation record ed. [facility] [address] Paulino, [place], [address], 06/14/2024 05:38:06 06/14/1906/13/2024 MAMMO , scree susana, digit al, bilat [...] Lay letter mailed to carrie torres WSN: [id number] Orderi ng Physic teto: Mrak Vazquez Dictat ed By: Esther Phillips MD Dictat ed Date/T kenny: 3:04 pm Review ed By: Esther Phillips MD Signed By: Esther Phillips MD Signed Date/T kenny: 3:04 pm Transc ribed By: CSB Transc riptio n Date/T kenny: 3:01 pm Birads : Patihakan melissa Class: Outpat ient [email or web address] [facility] (Outpt [facility]) [address], [place], [address], 06/14/2024 10:49:40 Result Notes Documentation Provider Name and Address Organization Details Recorded Time Dexa, Axial Skeleton : ========= Bone Density Report ========= Name: ZAFAR GUERRA Age: 64 Sex: Female Ethnicity: White Date of : 1955 --------- Indication: POSTMENOPAUSAL. Referring Provider: GIA DYER, ANIKA Study: Bone densitometry was performed. Exam Date: August 29, 2020 Accession number: [id number] Bone Density: --------- Region BMD T-score Z-score Classification --------- AP Spine (L1-L4) 0.751 -2.7 -0.8 Osteoporosis Femoral Neck (Left) 0.582 -2.4 -0.8 Osteopenia Total Hip (Left) 0.690 -2.1 -0.7 Osteopenia --------- World Health Organization criteria for BMD impression classify patients as: Normal (T-score at or above -1.0), Osteopenia (T-score between -1.0 and -2.5), or Osteoporosis (T-score at or below -2.5). 10-year Fracture Risk: --------- FRAX not reported because: Some T-score for Spine Total or Hip Total or Femoral Neck at or below -2.5 --------- Clinical Information Provided by Patient: --------- Has used the following medications: Vitamin D, Calcium, CHEMOTHERAPY Has the following medical conditions: Cancer Patient maximum height was 64.0 Menopause Age: 50 Onset of menses at age 11 Number of children 1 --------- Impression: The patient has osteoporosis as determined by WHO criteria. Based on the results of the patient's bone density assessment, the risk of future fracture increases approximately two fold for each 1.0 SD decrease in T-score. However, low BMD is not the only risk factor for a future fragility fracture. Other clinical risk factors for osteoporotic fracture should be considered in ascertaining this patient's future fracture risk including the patient's age, previous osteoporotic (fragility) fracture, estrogen deficiency/hypogonadism, risk of falling, use of medications implicated in bone loss (glucocorticoids), family history of osteoporotic fracture, diseases and conditions associated with bone loss, low body weight, smoking, high bone turnover, etc. Combining low BMD and other clinical risk factors result in a more precise assessment of future fracture risk. Secondary causes for osteoporosis, such as osteomalacia, other metabolic bone disorders, and diseases and conditions that may contribute to accelerated bone loss may have to be considered depending on the clinical situation. A repeat bone density assessment should be considered in two years. Reported by: Violeta Braxton M.D. on 08/30/2020 4:17:00 PM. Dictated By: Violeta Braxton MD Dictated Date/Time: 08/30/20 4:18 pm Reviewed By: Violeta Braxton MD Signed By: Violeta Braxton MD Signed Date/Time: 08/30/20 4:18 pm Transcribed By: VICTOR M Transcribed Date/Time: 08/30/20 4:18 pm Patient Class: Outpatient Jung Yeung RN [facility] 09/03/2020 15:38:08 Mammo, Screening, Digital, Bilateral : PROCEDURE: MM Digital Mammo Screening INDICATION: Screening for breast cancer. No known palpable abnormalities. History of bilateral breast lymphoma in 2018. COMPARISON: Multiple previous studies, most recent 05/17/2020. TECHNIQUE: Full-field digital CC and MLO 3D tomosynthesis images of both breasts were acquired. Computer-aided detection (CAD) was utilized in the interpretation of this study. DENSITY: The breast tissue contains scattered areas of fibroglandular density. FINDINGS: A small oval circumscribed benign-appearing lymph node is present in the posterior upper left lateral/anterior axillary region. On the left MLO projection only there is a tiny oval circumscribed lesion in the superior breast projecting medially on yi image. This may reside within the skin. This is best seen on image 61/79 of MLO yi slices. Recommend patient return for diagnostic right mammogram, with inspection of the skin and marking any raised skin lesions. If there is no skin lesion, ultrasound may be necessary. No suspicious masses, suspicious microcalcifications, or areas of architectural distortion are seen in the right breast to suggest malignancy. IMPRESSION: Additional imaging recommended. We will recall the patient. RECOMMENDATION: Left diagnostic mammogram with scheduled ultrasound BI-RADS: 0 (Incomplete - Need Additional Imaging Evaluation. We will recall the patient.) Lay letter mailed to patient I have personally reviewed the images and I agree with this report. WSN: [id number] Ordering Physician: Rosie Jacob MD Dictated By: Oseas Olson MD Dictated Date/Time: 06/04/21 5:01 pm Reviewed By: Tatianna Doty MD, I Signed By: Tatianna Doty MD, I Signed Date/Time: 06/04/21 5:06 pm Transcribed By: VICTOR M Operating Room Technologist Date/Time: 06/04/21 4:06 pm Birads: [facility] 13:10:17 Mammo, Screening, Digital, Bilateral : A D D E N D U M as of: [id number] Addendum: The finding for callback is in the LEFT breast. WSN: [id number] Ordering Physician: Rosie Jacob MD Dictated By: Tatianna Doty MD, I Dictated Date/Time: 06/09/21 11:32 am Reviewed By: Tatianna Doty MD, I Signed By: Tatianna Doty MD, I Signed Date/Time: 06/09/21 11:32 am Transcribed By: VICTOR M Operating Room Technologist Date/Time: 06/09/21 11:31 am Birads: PROCEDURE: MM Digital Mammo Screening INDICATION: Screening for breast cancer. No known palpable abnormalities. History of bilateral breast lymphoma in 2018. COMPARISON: Multiple previous studies, most recent 05/17/2020. TECHNIQUE: Full-field digital CC and MLO 3D tomosynthesis images of both breasts were acquired. Computer-aided detection (CAD) was utilized in the interpretation of this study. DENSITY: The breast tissue contains scattered areas of fibroglandular density. FINDINGS: A small oval circumscribed benign-appearing lymph node is present in the posterior upper left lateral/anterior axillary region. On the left MLO projection only there is a tiny oval circumscribed lesion in the superior breast projecting medially on yi image. This may reside within the skin. This is best seen on image 61/79 of MLO yi slices. Recommend patient return for diagnostic right mammogram, with inspection of the skin and marking any raised skin lesions. If there is no skin lesion, ultrasound may be necessary. No suspicious masses, suspicious microcalcifications, or areas of architectural distortion are seen in the right breast to suggest malignancy. IMPRESSION: Additional imaging recommended. We will recall the patient. RECOMMENDATION: Left diagnostic mammogram with scheduled ultrasound BI-RADS: 0 (Incomplete - Need Additional Imaging Evaluation. We will recall the patient.) Lay letter mailed to patient I have personally reviewed the images and I agree with this report. WSN: [id number] Ordering Physician: Rosie Jacob MD Dictated By: Oseas Olson MD Dictated Date/Time: 06/04/21 5:01 pm Reviewed By: Tatianna Doty MD, I Signed By: Tatianna Doty MD, I Signed Date/Time: 06/04/21 5:06 pm Transcribed By: VICTOR M Operating Room Technologist Date/Time: 06/04/21 4:06 pm Birads: [facility] 13:11:35 Mammo, Screening, Digital, Bilateral : PROCEDURE: MM Digital Mammo Screening INDICATION: Screening for breast cancer. No known palpable abnormalities. 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 COMPARISON: [facility] dating back to 05/17/2020. TECHNIQUE: Full-field digital CC and MLO 3D tomosynthesis images of both breasts were acquired. Computer-aided detection (CAD) was utilized in the interpretation of this study. DENSITY: The breast tissue contains scattered areas of fibroglandular density. FINDINGS: No suspicious masses, suspicious microcalcifications, or areas of architectural distortion are seen in either breast to suggest malignancy. Left axilla again demonstrates a Saturn clip within a normal-appearing lymph node. IMPRESSION: No mammographic evidence of malignancy. RECOMMENDATION: Annual mammographic screening BI-RADS: 2 (Benign) Lay letter mailed to patient WSN: [id number] Ordering Physician: Rosie Jacob MD Dictated By: Tatianna Doty MD, I Dictated Date/Time: 06/08/22 4:41 pm Reviewed By: Tatianna Doty MD, I Signed By: Tatianna Doty MD, I Signed Date/Time: 06/08/22 4:41 pm Transcribed By: CSRenetta Operating Room Technologist Date/Time: 06/08/22 4:37 pm Birads: Patient Class[facility] 09:48:18 Mammo, Screening, Digital, Bilateral : PROCEDURE: MM Digital Mammo Screening INDICATION: Screening for breast cancer. No known palpable abnormalities. Personal history of follicular lymphoma COMPARISON: 06/08/2022 and multiple priors TECHNIQUE: Full-field digital CC and MLO 3D tomosynthesis images of both breasts were acquired. Computer-aided detection (CAD) was utilized in the interpretation of this study. DENSITY: The breast tissue contains scattered areas of fibroglandular density. FINDINGS: Saturn clip in the left axilla within a normal-appearing lymph node, unchanged No suspicious masses, suspicious microcalcifications, or areas of architectural distortion are seen in either breast to suggest malignancy. IMPRESSION: No mammographic evidence of malignancy. RECOMMENDATION: Annual mammographic screening BI-RADS: 1 (Negative) Lay letter mailed to patient I have personally reviewed the images and I agree with this report. WSN: [id number] Ordering Physician: Ileana Nicolas Dictated By: Sy Hanna MD Dictated Date/Time: 06/11/23 1:21 pm Reviewed By: Ap Brown MD Signed By: Ap Brown MD Signed Date/Time: 06/11/23 1:26 pm Transcribed By: CSRenetta Operating Room Technologist Date/Time: 06/11/23 11:50 am Birads: Patient [facility] 14:50:16 Xr, Knee, 1 Or 2 View : Examination: Left knee performed on 01/14/2024 History: Reason: PAIN IN UNSPECIFIED KNEE. L FLASH PAIN WITH AMBULATION Findings: Frontal and lateral views of the left knee are submitted. There is minimal medial compartment joint space narrowing without significant productive change. No fractures are seen. There is no joint effusion. Impression: Minimal osteoarthritic change. WSN: [id number] Ordering Physician: Saige Mcgee Dictated By: Keara Suarez MD Dictated Date/Time: 01/14/24 10:09 a Reviewed By: Keara Suarez MD Signed By: Keara Suarez MD Signed Date/Time: 01/14/24 10:09 am Transcribed By: VICTOR M Transcribed Date/Time: 01/14/24 10:08 am [facility] 10:15:24 Mammo, Screening, Digital, Bilateral : PROCEDURE: MM Digital Mammo Screening INDICATION: Screening. No known palpable abnormalities. History of bilateral axillary lymph node biopsies in 2018 yielding follicular lymphoma. COMPARISON: Prior mammograms dating back to 04/26/2019. TECHNIQUE: Full-field digital CC and MLO 3D tomosynthesis images of both breasts were acquired. Computer-aided detection (CAD) was utilized in the interpretation of this study. DENSITY: There are scattered areas of fibroglandular density. FINDINGS: Saturn clip is seen in the left axilla. No suspicious masses, suspicious microcalcifications, or areas of architectural distortion are seen in either breast to suggest malignancy. IMPRESSION: No mammographic evidence of malignancy. RECOMMENDATION: Annual mammographic screening BI-RADS: 1 (Negative) Lay letter mailed to patient WSN: [id number] Ordering Physician: Ileana Nicolas Dictated By: Esther Riddle MD Dictated Date/Time: 06/13/24 3:04 pm Reviewed By: Esther Riddle MD Signed By: Esther Riddle MD Signed Date/Time: 06/13/24 3:04 pm Transcribed By: VICTOR M Operating Room Technologist Date/Time: 06/13/24 3:01 pm Birads: Patient Class: Outpatient Aliya Alfonso goddard [facility] 06/14/2024 10:49:40 Problems Name Problem SNOMED Code Status Onset Date Resolution Date Notes Provider Name and Address Organization Details Recorded Time Non-Hodg kin's lymphoma (clinica l) 752347006 Completed 201705/20/2020 dx in 2013 right cheeck and right groin and back of neck, tx with radiation Rosie franco null, [facility] 1 09:25:38 Obesity 344262997 Active Mena Rios CPPM null, [facility] 0 10:55:57 Family history of diabetes mellitus 589212771 Completed 09/09/2022 ILEANA NICOLAS MD [address], [place], [address], [facility] 3 18:58:50 History of non-Hodg kins lymphoma 063089359 Active 2020 Rosie franco null, [facility] 1 09:25:32 Osteopor osis 20126762 Completed 202109/19/2023 ILEANA NICOLAS MD [address], [place], [address], [facility] 4 14:18:04 Osteopen ia 883034209 Active 2023 ILEANA NICOLAS MD [address], [place], [address], [facility] 4 14:18:14 Hyperlip idemia 39330232 Active 2023 ILEANA NICOLAS MD [address], [place], [address], [facility] 4 14:19:50 Statin declined 948098523 Active 2023 ILEANA NICOLAS MD [address], [place], [address], [facility] 4 14:19:52 Senile osteopor osis 13143265 Active Ly Coleman MA null, [facility] 10:19:18 Problem Notes None recorded. Procedures Surgical History Date Name Laterality Status Provider Name and Address Organization Details Recorded Time 06/14/19 25 Most Recent Mammogram completed Aliya Hamilton [facility] 06/14/2024 10:49:36 06/14/19 25 Mammogram screening completed Aliya Hamilton [facility] 06/14/2024 10:49:14 05/27/19 25 arthroscopy of knee completed Susan Candelario [facility] 05/30/2024 13:51:37 09/20/19 24 Advanced Care Planning completed ILEANA NICOLAS MD [address], [address], [facility] 09/19/2023 14:15:24 06/11/19 24 Mammogram both breasts completed Elif Ballard [facility] 06/11/2023 14:50:06 09/11/19 23 Advanced Care Planning completed Ly Coleman MA [facility] 2022 13:46:55 08/29/19 22 Advanced Care Planning completed Ly Coleman MA [facility] 08/28/2021 15:09:18 06/14/19 22 Mammogram one breast completed Adelita Miles [facility] 07/03/2021 13:11:24 05/21/19 21 Six-Item Cognitive Test completed Bernadette Braga MA [facility] 05/20/2020 09:01:49 05/19/19 20 Mini-Cog Test completed Ly Coleman MA [facility] 05/19/2019 13:28:37 11/03/19 18 Date of Last Pap Smear completed Ly Coleman MA [facility] 05/19/2019 13:35:30 07/15/19 18 Date of Last Colonoscopy completed Zayra Kumar [facility] 07/14/2017 15:13:59 07/15/19 18 Colonoscopy completed Zayra Kumar [facility] 07/14/2017 15:13:52 11/11/19 16 Most Recent Bone Density completed Zayra Kumar [facility] 06/09/2017 11:45:50 11/11/19 16 Dxa bone density mignon vrt fx completed Zayra Kumar [facility] 06/09/2017 11:45:44 05/07/18 92 Caesarean Section completed Ly Coleman MA [facility] 08/28/2021 15:08:40 Imaging Results None recorded. Procedure Notes None recorded. Medical Equipment None Reported. Allergies Allergen ID Allergen Name Allergen Category Reaction Reaction Severity Criticality Documentation Date Start Date Code Code System Note Provider Name and Address Organization Details Recorded Time 31330 No known allergy (situatio n) Not available Not available Not available Not available 09/20/2023 71902 6003 SNOMED EL Hidalgo [facility] 4 10:19:10 No known drug allergies Medications [...] Pulse oximetry Heart rate Body temperature Systolic And Diastolic Provider Name and Address Organization Details Last Updated DateTime 2 163.83 cm 35.4 kg/m2 87692.9 1 g 97 % 97 % 65 /min 97.88 [degF] 123/74 mm[Hg] Ly Coleman MA [facility] 2 15:16:23 Date Recorded Body height Body mass index (BMI) Body weight Oxygen saturation Oxygen saturation in Arterial blood by Pulse oximetry Heart rate Body temperature Systolic And Diastolic Provider Name and Address Organization Details Last Updated DateTime 3 163.83 cm 35.5 kg/m2 97938.8 g 98 % 98 % 79 /min 98 [degF] 122/83 mm[Hg] Ly Coleman MA [facility] 3 13:56:14 Date Recorded Body height Body mass index (BMI) Body weight Oxygen saturation Oxygen saturation in Arterial blood by Pulse oximetry Heart rate Body temperature Systolic And Diastolic Provider Name and Address Organization Details Last Updated DateTime 4 163.83 cm 34.1 kg/m2 50493.8 7 g 98 % 98 % 72 /min 98.2 [degF] 125/68 mm[Hg] Ly Coleman MA [facility] 4 10:24:54 Date Recorded Body height Body mass index (BMI) Body weight Heart rate Oxygen saturation Oxygen saturation in Arterial blood by Pulse oximetry Body temperature Systolic And Diastolic Provider Name and Address Organization Details Last Updated DateTime 4 163.83 cm 32.3 kg/m2 65747.2 4 g 69 /min 98 % 98 % 97.8 [degF] 123/76 mm[Hg] Janeen Ellis LPN [facility] 4 09:03:22 Social History Question Answer Notes LastModified by Organizat ion Details LastModified Time Tobacco Smoking Status [facility] 05/13/2017 14:51:41 Do You Have An Advance Directive? No [email or web address] Information not available 08/28/2021 Is Blood Transfusion Acceptable In An Emergency? Yes [email or web address] Information not available 05/13/2017 What Is Your Level Of Caffeine Consumption? Occasional Very Rare [email or web address] Information not available 2022 How Much Tobacco Do You Chew? None Information not available 05/20/2020 What Type Of Diet Are You Following? REGULAR [email or web address] Information not available 05/13/2017 Which Illicit Or Recreational Drugs Have You Used? None Information not available 05/20/2020 Live Alone Or With Others? Alone With Dog [email or web address] Information not available 2022 Do You Take Precautions To Prevent Distracted Driving? Yes [email or web address] Information not available 05/13/2017 How Often Do [...] How Many Children Do You Have? 1 [email or web address] Information not available 05/13/2017 Do You Use Your Seat Belt Or Car Seat Routinely? Yes [email or web address] Information not available 08/28/2021 Seat Belts Used Routinely Yes [email or web address] Information not available 08/28/2021 Are You Sexually Active? No Information not available 05/20/2020 Smoke Alarm In Home Yes [email or web address] Information not available 08/28/2021 Do You Have Smoke And Carbon Monoxide Detectors In Your Home? Yes [email or web address] Information not available 08/28/2021 At What Age Did You Start Smoking Tobacco? 0 Information not available 05/20/2020 Are You Passively Exposed To Smoke? No [email or web address] Information not available 05/13/2017 How Much Tobacco Do You Smoke? No Information not available 05/20/2020 Do You Use Sunscreen Routinely? Yes [email or web address] Information not available 05/13/2017 How Many Years Have You Smoked Tobacco? 0 Information not available 05/20/2020 Sex: Unknown Functional Status Question Answer Note LastModified by Organizat ion Details LastModified Time What is your level of alcohol consumption? Occasional [email or web address] Information not available 05/13/2017 Do you or have you ever used smokeless tobacco? Never used smokeless tobacco Information not available 05/20/2020 Are you currently employed? No [email or web address] Information not available 08/28/2021 Are you able to walk? YESWOREST [email or web address] Information not available 08/28/2021 Are you able to care for yourself? 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 Never used electronic cigarettes [email or web address] Information not available 08/28/2021 What is your exercise level? Moderate walks 10-35 minutes 5 days a week,exeris es that PT gives her [email or web address] Information not available 2022 Mental Status None recorded. Family History Relationship Description Onset Age of this Age Resolved Age Notes LastModified by Organization Details LastModified Time Father Malignant lymphoma 54 [email or web address] Not available 08/28 15:03:07 Mother Diabetes mellitus [...] Recorded Time Tdap 3 completed Not Available [facility] 04/22/2023 14:06:04 Influenza, split virus, quadrivalent, preservative 8 completed Not Available [facility] 04/[facility]/2023 14:06:03 Influenza, split virus, trivalent, preservative 8 completed Not Available [facility] 04/22/2023 14:06:04 COVID-19, mRNA, LNP-S, PF, 30 mcg/0.3 mL dose 1 completed Not Available [facility] 04/22/2023 14:06:04 COVID-19, mRNA, LNP-S, PF, 30 mcg/0.3 mL dose 1 completed Not Available [facility] 04/22/2023 14:06:04 pneumococcal polysaccharide PPV23 2 completed Not Available [facility] 04/22/2023 14:06:04 Tdap 5 completed Not Available [facility] 04/22/2023 14:06:04 zoster recombinant 1 completed Not Available [facility] 04/22/2023 14:06:03 Pneumococcal conjugate PCV 13 1 completed Not Available [facility] 04/22/2023 14:06:04 COVID-19, mRNA, LNP-S, PF, 30 mcg/0.3 mL dose 1 completed Not Available [facility] 04/22/2023 14:06:04 Influenza, adjuvanted, quadrivalent, PF 1 completed Not Available [facility] 04/22/2023 14:06:03 Influenza, recombinant, quadrivalent, PF 0 completed Not Available [facility] 04/22/2023 14:06:03 COVID-19, mRNA, LNP-S, PF, 30 mcg/0.3 mL dose, maximino-sucrose 2 completed Not Available [facility] 04/22/2023 14:06:04 zoster recombinant 1 completed Not Available [facility] 04/22/2023 14:06:03 Influenza, adjuvanted, quadrivalent, PF 10/30/202 2 completed Not Available [facility] 04/22/2023 14:06:04 COVID-19, mRNA, LNP-S, bivalent, PF, 30 mcg/0.3 mL dose 2 completed Not Available [facility] 04/22/2023 14:06:04 Influenza, adjuvanted, quadrivalent, PF 3 completed Ly Coleman MA [facility] 09/20/2023 10:25:21 Past Encounters Encounter ID Performer Location Encounter Start Date Encounter Closed Date Diagnosis/Indication Diagnosis SNOMED-CT Code Diagnosis ICD10 Code Diagnosis Note [id number] Rosie gonzalez MD Main Office [address] [facility][1] [address] [place] [address] 05/13/2017 14:25:11 05/13/2017 15:30:08 Adult health examination 246344772 Z00.00 last colonoscop y [address] Ramos, will get a repeat, mammo in 11/06 [address] pap smear through Dr Rhodes, they have been normal. Non-Hodgki n's lymphoma (clinical) 264624821 C85.[address] La every 4 months, has a mass right back of neck that is being followed. Body mass index 30+ - obesity 954838757 Z68.35 Z68.34 gained weight when she sprained her ankle this winter [id number] Rosie gonzalez MD Main Office [address] [place] [address] 11/15/2017 10:31:42 11/15/2017 11:35:24 Non-Hodgkin's lymphoma (clinical) [id number] C85.[address] La every 4 months, new lymph nodes seen on US in both axilla, we called and talked to DR La's occupational therapist's assistant, he will be made aware of biopsy scheduled for tomorrow as well as get the reports. Axillary lymphadenopathy [id number] R59.0 new, long talk with pt, I wanted Dr La her oncologist to be aware and make sure he agrees with the plan and approach to biopsy, this was done, [id number] Rosie gonzalez MD Main Office [address] [facility] [address] [place] [address] 05/16/2018 10:54:57 05/16/2018 11:43:42 Adult health examination 919562939 Z00.00 all screening is utd. Non-Hodgki n's lymphoma (clinical) 102360733 C85.90 see below Supraclavi cular lymphadenopathy 540349427 R59.0 left supraclavi cular node felt on exam today, pt also with more fullness in right axilla without discreet mass. pt will go from here to Dr La's office for eval and appt, just finished tx for recurrence , pt was asked to call and let me know date of appt with dR La [id number] Rosie gonzalez MD Main Office [address] [facility][1] [address] [place] [address] 05/19/2019 13:14:20 05/19/2019 14:14:08 Adult health examination 804050530 Z00.00 all screening is utd. trying to get back n shape, finished chemo last month Non-Hodgki n's lymphoma (clinical) [id number] C85.90 will be getting a biopsy left axilla for positive node on PET scan [id number] Rosie gonzalez MD Telehealt h [address] [facility] [address] [place] [address] 05/20/2020 06:40:28 05/20/2020 12:05:51 Adult health examination 729826245 Z00.00 mammogram is utd will see appetizer packer 03/11 utd on appetizer packer and colonoscop y. is walking. feels great Menopause present 471467 006 Z78.0 hx of osteopenia . recheck bone density. keep on vit D Screening for malignant neoplasm of cervix 931535914 Z12.[address] Rhodes History of non-Hodgkins lymphoma 449789649 Z85.72 dx many years ago in mouth and neck, and had recurrence 2019, done with chemo and port is out Hypercholesterolemia 136 80044 E78.00 check random [id number] Rosie gonzalez MD Main Office [address] [facility][1] [address] [place] [address] 08/28/2021 15:02:37 08/28/2021 15:49:59 Adult health examination 414656544 Z00.00 screening is utd, walks dog and does gardening pt to get a tetanus shot before 07/12 Advance di rective discussed with patient 355088210 Z71.89 I discussed MOLST and health care proxy form. I gave pt MOLST form and proxy form, pt will fill out, discuss MOLST form with proxy and sign and return to our office History of non-Hodgkins lymphoma 099936004 Z85.72 dx many years ago in mouth and neck, and had recurrence 2019, done with chemo and port is out recent check up good Body mass index 30+ - obesity 727656402 E66.9 Z68.35 working on weight loss Hypercholesterolemia 136 94643 E78.00 check random Fatigue 50031523 R53.83 check labs Osteoporosis 11775091 M8 1.0 will be starting a med. Skin lesion 83491171 L98 .9 pt to set up derm, unsure what rash is [id number] ILEANA NICOLAS MD Main Office [address] [facility][1] [address] [place] [address] 2022 13:43:28 2022 14:29:33 Adult health examination 427726738 Z00.00 Health Maintenanc e FemaleA) Patient was [...] any acute complaints History of non-Hodgkins lymphoma 706085616 Z85.72 - diffuse B-cell lymphoma currently in remission- pt follows with oncology, was last seen in March Osteoporosis 95395366 M8 1.0 - following endocrinol ogy- currently on calcium and vitamin D supplement s- currently on the alendronat e Fatigue 92656021 R53.83 Z00.00 Hyperlipidemia 67215754 E78.5 Z00.00 Advance di rective discussed with patient 659253795 Z71.89 - discussed with patient MOLTS and HCP [id number] ILEANA NICOLAS MD Main Office [address] [facility] [address] [place] [address] 09/20/2023 10:16:47 09/20/2023 10:45:38 Advance directive discussed with patient 391136099 Z71.89 - discussed with patient MOLTS and HCP Adult heal th examination 929935391 Z00.00 Health Maintenanc e FemaleA) Patient was [...] any acute complaints History of non-Hodgkins lymphoma 726613698 Z85.72 - diffuse B-cell lymphoma currently in remission> hx of XRT - Right parotid gland 2000 cGy and Right Groin 02/2015> s/p RCHOP, rituximab and chemothera py- pt follows with oncology, last seen on 07/2023 Osteopenia 563232029 M85 .80 - following endocrinol ogy- currently on calcium and vitamin D supplement s- currently on the alendronat e once a week- improvemen t from osteoporos is to osteopenia in AP spine Fatigue 55465373 R53.83 Z00.00 Hyperlipidemia 21943930 E78.5 Z00.00 - ASCVD score of 8.2%- [...] Eat more fruits and veggies. Statin declined 70483752 0 Z53.20 Impaired f asting glycemia 033764017 R73.01 Body mass index 30+ - obesity 285983801 E66.9 Z68.34 - BMI of 34.1- Cut [...] 150 minutes cumulative of moderate exercise recommende d. [id number] Evangelist Kong MD Main Office [address] [facility] [place] [address] 01/14/2024 08:45:59 01/14/2024 09:21:43 Knee joint painful on movement 594774967 M25.562 hx of left knee fx in [...] None Recorded Advance Directives Directive N: Payers Insurance Date Sequence Insurance Name Policy Number Policy Conte Covered Member ID Conte Member ID Guarantor Name 01/25/2024 2 [facility] - MEDICARE ENHANCE (INDEMNITY PLAN) Zafar Guerra [id number] Zafar Guerra 05/21/2021 1 [facility] - GIC - NAVIGATOR (POS) [id number] Zafar Guerra [id number] Zafar Guerra 10/21/2022 2 [facility] (PPO) [id number] Zafar Guerra [id number] Zafar Guerra 01/14/2024 1 [place]: [facility] [employer] Zafar Guerra [id number] Zafar Guerra Notes Date Note Type Note Provider Name [...] trying to get an appt. Rosie goddard [facility] 05/20/2020 09:45:24 08/28/2021 text/html Medicare Annual Wellness [...] PT is trying to lose weight. 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 Non-Hodgkins lymphoma is in remission, just saw oncology. AHs a rash taht ocmes and goes on her abdomen Rosie goddard [facility] 08/28/2021 15:51:28 2022 text/html Medicare Annual Wellness [...] use of seatbelts; no fire arms Zafar Guerra is a 66 year old F who [...] more often or is getting worse? No ILEANA NICOLAS MD [address] [address], [place], [address], [facility] 2022 15:00:36 09/20/2023 text/html Medicare Annual Wellness VisitReported bypatient.Diet and Nutrition:healthy diet; discussed vitamin and supplement use; taking calcium and vitamin D, fish oil Fracture Risk:history of fractures Physical Activity:exercises on a regular basis; physical therapist (1-2X month), maryail balance, tchi and aerobics class Depression Risk:never [...] have hand bars in the bathroom/shower Zafar Guerra is a 68 year old F who [...] No Advanced care directive: None on file ILEANA NICOLAS MD [address], [address], [facility] 09/20/2023 10:50:40 01/14/2024 text/html Zafar is [...] relief. Maddi goddard, [facility] 01/25/2024 07:14:42 OBGyn Episode No OBEpisode recorded.
== END 2024-10-04 12:19 | disposition home or self-care (01) ==
LOC: HO.HOS 11:34
PROVIDERS: PCP Student in an Organized Health Care Education/Training Program; Visit Provider Orthopaedic Surgery
DX: M25.562 Pain in left knee (principal)
CPT/HCPCS: 99213; G2211

== ENCOUNTER → 2024-10-04 11:34 | Outpatient (BNVA) | payer MEDICARE, SELFPAY | PROVIDERS: PCP Student in an Organized Health Care Education/Training Program; Visit Provider Orthopaedic Surgery | DX: M25.562 Pain in left knee (principal) | CPT/HCPCS: 99212 ==